=== PATIENT | female | born 1970 | race Caucasian/White ===

== ENCOUNTER → 2019-08-18 13:52 | Outpatient (BNVA) | payer MEDICAID, SELFPAY | PROVIDERS: Family Provider Nurse Practitioner Family; PCP Family Medicine; Visit Provider Social Worker | DX: F43.12 Post-traumatic stress disorder, chronic (principal); F33.2 Major depressive disorder, recurrent severe without psychotic features; J44.9 Chronic obstructive pulmonary disease, unspecified | CPT/HCPCS: 90834 ==

== ENCOUNTER → 2019-08-26 08:07 | Outpatient (BNVA) | payer MEDICAID, SELFPAY | PROVIDERS: Family Provider Nurse Practitioner Family; PCP Family Medicine; Visit Provider Nurse Practitioner Psychiatric/Mental Health | DX: F43.12 Post-traumatic stress disorder, chronic (principal); F33.2 Major depressive disorder, recurrent severe without psychotic features | CPT/HCPCS: 99213 ==

== ENCOUNTER → 2019-10-14 12:45 | Outpatient (BNVA) | payer MEDICAID, SELFPAY | PROVIDERS: Family Provider Nurse Practitioner Family; PCP Family Medicine; Visit Provider Social Worker | DX: F33.2 Major depressive disorder, recurrent severe without psychotic features (principal); F43.12 Post-traumatic stress disorder, chronic | CPT/HCPCS: 90834 ==

== ENCOUNTER → 2019-11-04 08:32 | Outpatient (BNVA) | payer MEDICAID, SELFPAY | PROVIDERS: Family Provider Nurse Practitioner Family; PCP Family Medicine; Visit Provider Social Worker | DX: F43.12 Post-traumatic stress disorder, chronic (principal); F33.2 Major depressive disorder, recurrent severe without psychotic features | CPT/HCPCS: 90834 ==

== ENCOUNTER 2019-11-12 12:12 | Outpatient (CLI) | payer MEDICAID, SELFPAY ==
--- NOTE | 2019-11-12 12:21 | XR_ITS ---
WS: [id number] KNEE LEFT TECHNIQUE: 2 views of the left knee CLINICAL INFORMATION: PAIN IN LEFT KNEE COMPARISON: None. FINDINGS: Left knee is normal in appearance. No evidence of acute fracture dislocation. No significant effusion . Patella is normal. XR/XR knee LT 1-2V [id number] IMPRESSION: Normal left knee.
== END 2019-11-12 12:13 | disposition home or self-care (01) ==
PROVIDERS: Family Provider Nurse Practitioner Family; PCP Family Medicine; Visit Provider Nurse Practitioner Family
DX: M25.562 Pain in left knee (principal)
CPT/HCPCS: 73560

== ENCOUNTER → 2019-11-16 08:14 | Outpatient (BNVA) | payer MEDICAID, SELFPAY | PROVIDERS: Family Provider Nurse Practitioner Family; PCP Family Medicine; Visit Provider Nurse Practitioner Psychiatric/Mental Health | DX: F43.12 Post-traumatic stress disorder, chronic (principal); F33.2 Major depressive disorder, recurrent severe without psychotic features | CPT/HCPCS: 99213 ==

== ENCOUNTER 2020-02-04 10:28 | Outpatient (CLI) | payer MEDICAID, SELFPAY ==
--- NOTE | 2020-02-04 11:05 | MM_ITS ---
WS: [id number] SCREENING DIGITAL MAMMOGRAM WITH CAD HISTORY: SCREEN COMPARISON: 04/06/2018 and 04/02/2016 Bilateral CC and MLO views submitted. Computer aided detection analyzed. Breast composition: The breasts are heterogeneously dense, which may obscure small masses. No suspici ous masses, microcalcifications or architectural distortion. MM/[place] [id number] IMPRESSION: BI-RADS: 1-Negative FOLLOW UP: 1 Year Follow-up
== END 2020-02-04 10:29 | disposition home or self-care (01) ==
LOC: RADSHAW 10:31
PROVIDERS: PCP Nurse Practitioner Family; Visit Provider Nurse Practitioner Family
DX: Z12.31 Encounter for screening mammogram for malignant neoplasm of breast (principal)
CPT/HCPCS: 77067

== ENCOUNTER → 2020-02-15 08:27 | Outpatient (BNVA) | payer MEDICAID, SELFPAY | PROVIDERS: PCP Nurse Practitioner Family; Visit Provider Nurse Practitioner Psychiatric/Mental Health | DX: F33.2 Major depressive disorder, recurrent severe without psychotic features (principal); F43.12 Post-traumatic stress disorder, chronic | CPT/HCPCS: 99213 ==

== ENCOUNTER 2020-02-22 13:15 | Outpatient (CLI) | payer MEDICAID, SELFPAY ==
--- NOTE | 2020-02-22 13:22 | XRR_ITS ---
PROCEDURE INFORMATION: Exam: XR Cervical Spine, 2 or 3 Views Exam date and time: 02/22/2020 1:27 PM Age: 49 years old Clinical indication: Pain and injury or trauma; Fall; Initial encounter; Blunt trauma; Cervicalgia; Additional info: Cervicalgia/fall from bed TECHNIQUE: Imaging protocol: XR of the cervical spine, 2 or 3 views. COMPARISON: CT Cervical Spine wo* [id number] 11/25/2016 2:29 PM FINDINGS: Vertebrae: No acute fracture. Normal alignment. Degenerative disc disease most prominent at C5-C6 and C6-C7, degenerative facet change. Soft tissues: Unremarkable. XR/XR cervical spine 3V* [id number] IMPRESSION: No acute findings.
--- NOTE | 2020-02-22 13:22 | XRR_ITS ---
PROCEDURE INFORMATION: Exam: XR Right Elbow Exam date and time: 02/22/2020 1:45 PM Age: 49 years old Clinical indication: Pain; Elbow; Right; Additional info: Pain in R elbow TECHNIQUE: Imaging protocol: XR Right elbow. Views: 3 or more views. COMPARISON: No relevant prior studies available. FINDINGS: Bones/joints: Normal. Soft tissues: Normal. XR/XR elbow RT min 3V* [id number] IMPRESSION: No acute findings.
== END 2020-02-22 13:16 | disposition home or self-care (01) ==
LOC: RAD 13:17
PROVIDERS: PCP Nurse Practitioner Family; Visit Provider Nurse Practitioner Family
DX: M25.521 Pain in right elbow (principal); W06.XXXA Fall from bed, initial encounter; M54.2 Cervicalgia
CPT/HCPCS: 72040; 73080

== ENCOUNTER 2020-03-01 10:44 | Emergency (ER) | payer MEDICAID, SELFPAY ==
--- NOTE | 2020-03-01 10:48 | XR_ITS ---
WS: [id number] PORTABLE CHEST HISTORY: chest pain COMPARISON: 09/09/2016 Pulmonary hyperexpansion with calcifications. No pleural effusion or pneumothorax. Cardiac size: Normal. Mediastinum/Aorta: Normal mediastinum. No osseous abnormality seen. XR/XR chest 1V portable [id number] IMPRESSION: Chronic emphysema with prior granulomatous disease. No pneumonia.
[2020-03-01 11:33] LABS: Basophils # 0.1 10^3/uL (0.0-0.1); Basophils % 0.8 %; Eosinophils # 0.2 10^3/uL (0.0-0.8); Eosinophils % 2.8 %; Hematocrit 38.2 % (37.0-47.0); Hemoglobin 11.9 g/dL (11.5-15.3); Lymphocytes # 1.6 10^3/uL (0.8-4.8); Lymphocytes % 20.2 %; Mean Corpuscular HGB Conc 31.2 g/dL (30.0-36.0); Mean Corpuscular Hemoglobin 27.4 pg (28.0-34.0); Mean Corpuscular Volume 87.8 fL (81-99); Mean Platelet Volume 10.3 fL (7.4-10.4); Monocytes # 0.8 10^3/uL (0.2-0.9); Monocytes % 9.8 %; Neutrophils # 5.15 10^3/uL (1.8-7.7); Neutrophils % 66.3 %; Nucleated Red Blood Cells % 0 %; Platelet Count 343 10^3/cmm (130-400); Red Blood Count 4.35 10^6/uL (4.1-5.3); Red Cell Distribution Width 12.3 % (12.1-15.1); White Blood Count 7.8 10^3/uL (4.0-10.0)
[2020-03-01 11:51] LABS: Alanine Aminotransferase 16 U/L (0-33); Albumin Level 4.1 g/dL (3.5-5.2); Alkaline Phosphatase 85 IU/L (35-105); Anion Gap 13.1 (5-19); Aspartate Amino Transferase 19 U/L (0-32); Blood Urea Nitrogen 7 mg/dL (6-20); Calcium 9.3 mg/dL (8.5-10.5); Carbon Dioxide 28 mmol/L (22-29); Chloride 105 mmol/L (98-107); Globulin 3.9 g/dL (1.3-4.6); Glomerular Filtration Rate 88.9 mL/min (90-130); Glucose 101 mg/dL (65-115); Osmolality Calculated 290 mOsm/kg (285-295); Potassium 4.1 mmol/L (3.5-5.1); Sodium 142 mmol/L (136-145); Total Bilirubin 0.2 mg/dL (0.15-1.2)
[2020-03-01 11:56] VITALS: BP 116/69; PULSE 111; RESP 20; TEMP 36.7; O2SAT 98; BMI 31.5
--- NOTE | 2020-03-01 13:16 | ECG_ITS ---
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 Measurements Intervals [place] Rate: 104 P: 83 CT: 156 QRS: 80 QRSD: 74 T: 65 QT: 317 QTc: 419 Interpretive Statements SINUS TACHYCARDIA POSSIBLE RIGHT ATRIAL ENLARGEMENT [0.25mV P WAVE] POSSIBLE LEFT ATRIAL ENLARGEMENT [-0.1mV P WAVE IN V1/V2] SEPTAL MYOCARDIAL INFARCTION , OF INDETERMINATE AGE [40+ ms Q WAVE IN V1/V2] Compared to ECG 07/09/2019 23:07:02 Sinus rhythm no longer present Myocardial infarct finding still present Electronically Signed On 03-01-2020 20:20:59 CDT by Karissa Lawrence M.D. [id number]
--- NOTE | 2020-03-01 13:17 | ED_ITS ---
HPI - SOB/Dyspnea General: Chief Complaint: Shortness of Breath/Dyspnea Stated Complaint: SOB Time Seen by Provider: 03/01/20 12:55 Source: patient Mode of arrival: ambulatory Limitations: no limitations History of Present Illness: HPI Narrative: Shasha is a nice 49-year-old female who comes in complaining of shortness of breath for the last week. She has an occasional cough but denies any fever or loss of sense of taste/smell. She denies any leg pain, swelling or edema. Patient denies any history of congestive heart failure. She does have a history of COPD and wears oxygen at all times. Patient denies any worsening of her cough from baseline. She does have dyspnea on exertion. She denies any chest pain. Patient denies being around anyone else sick or having any other symptoms. Associated symptoms: Deny abdominal pain, chest congestion, chest pain, diaphoresis, dizziness, extremity pain, fever(s), hemoptysis, lightheadedness, nausea, orthopnea, palpitations, syncope or vomiting Review of Systems Const: Denies: fever(s), chills, body aches, fatigue, malaise or diaphoresis Eyes: Denies: change in vision, blurry vision, photophobia, eye discomfort, eye discharge or eye redness ENMT: Denies: throat pain, odynophagia, hoarseness, swelling of lips/tongue, ear or mastoid pain, ear discharge, change in hearing or nasal discharge Card: Reports: dyspnea on exertion; Denies: chest pain, palpitations, irregular heart rhythm, edema, lightheadedness, syncope, pre-syncope or orthopnea Resp: Reports: dyspnea, non-productive cough and wheezing; Denies: productive cough, hemoptysis or chest congestion GI: Denies: abdominal pain, nausea, vomiting, hematemesis, coffee ground e mesis, heartburn, diarrhea, constipation, GI cramping, hematochezia or melena : Denies: flank pain, dysuria, urinary frequency, urinary urgency or hematuria Musc: Denies: neck pain, back pain, extremity pain, extremity swelling, joint pain, joint swelling, joint redness, joint warmth or joint stiffness Skin/Breast: Denies: rash, pruritus, erythema or skin tenderness Neuro: Denies: headache(s), numbness in extremities, weakness in extremities, sensory changes, lack of coordination, difficulty walking, dizziness, vertigo, confusion, Slurred speech present or seizure-like activity Junior/Lymph: Denies: easy bruising, easy bleeding, petechiae, purpura or enlarged lymph nodes All/Imm: Denies: urticaria, throat swelling, tongue swelling, facial swelling or acute wheezing PFSH ED PFSH: Medical History Chronic post-traumatic stress disorder COPD (chronic obstructive pulmonary disease) Major depressive disorder, recurrent severe without psychotic features Social History Smoking and tobacco status: former smoker Current gender identity: Female Physical Exam Const: COMMON NORMALS: no acute distress, patient oriented x3, no limitations, healthy appearing and well nourished GENERAL APPEARANCE: cooperative, well kempt and well developed HENMT: COMMON NORMALS: normocephalic, atraumatic, external ears normal, EAC's normal and Normal external nose present HEAD & SCALP: normal to inspection, normocephalic and atraumatic FACE & SINUS: normal facial exam and face symmetric NOSE: Normal external nose present and Normal nares present EXTERNAL EAR: Yes external ears normal EXTERNAL AUDITORY CANAL: EAC's normal MOUTH: Normal oral and palatal mucosa present, lip normal and tongue normal Eye: COMMON NORMALS: Equal, round and reactive pupils present and conjunctivae normal GENERAL EYE: appearance normal, both eyes and all related structures ALIGNMENT: Yes alignment normal PERIORBITAL: periorbital findings normal EYELID: eyelids normal CONJUNCTIVA: Yes conjunctivae normal SCLERA: sclerae normal PUPIL: Yes Equal, round and reactive pupils present Neck/C-Spine: COMMON NORMALS: full ROM, no lymphadenopathy, supple, no meningeal signs and no JVD GENERAL: Yes normal visual inspection and Yes trachea midline Chest: COMMONS NORMALS: normal inspection of the chest and normal palpation of entire chest wall Resp: COMMON NORMALS: normal respiratory effort, No retractions, No use of accessory muscles and clear to auscultation bilaterally EFFORT & INSPECTION: Yes able to speak in complete sentences and Yes symmetric chest movement AUSCULTATION: clear to auscultation bilaterally, no crackles, no rales, no rhonchi, no wheezes and diminished lung sounds Cardio: COMMON NORMALS: no JVD, regular rate, regular rhythm, S1 normal heart sound present and S2 normal heart sound present RATE: regular rate RHYTHM: regular rhythm HEART SOUNDS: S1 normal heart sound present, S2 normal heart sound present, no click, no gallops, no murmurs, no rubs and abnormal split S2 GI: COMMON NORMALS: Soft to palpation and No hepatosplenomegaly present PALPATION: Yes Soft to palpation, No Tenderness to palpation present (GI), No Guarding due to palpation present (GI), No Rigid due to palpation, Yes No hepatosplenomegaly present, No Hernia present, No Palpable mass present and No Pulsatile mass present : COMMON NORMALS: Yes no CVA tenderness BLADDER/KIDNEY EXAM: Yes no CVA tenderness EXTERNAL FEMALE EXAM: No Hernia present Back/Pelvis: COMMON NORMALS: no CVA tenderness, thoracic and lumbar spine normal to inspection, no thoracic nor lumbar tenderness and thoraco-lumbar ROM normal Extremity: COMMON NORMALS: normal to inspection, full ROM, capillary refill normal, no joint enlargement, no clubbing, cyanosis or edema and no calf tenderness Neuro: COMMON NORMALS: patient oriented x3, CN's II-XII intact bilaterally, moves all extremities, no focal motor deficits and no sensory deficits noted MENINGEAL SIGNS: Yes no meningeal signs SPEECH: speech normal Psych: COMMON NORMALS: mental status grossly normal, Normal thought process present, cooperative, normal affect, speech normal and activity/motor behavior normal APPEARANCE: Yes well kempt SPEECH: Yes normal speech THOUGHT PROCESS: Normal thought process present Skin: COMMON NORMALS: no rashes or lesions noted, turgor normal, no jaundice, no petechiae and no mottling GENERAL SKIN EXAM: no rashes or lesions noted and turgor normal Course Vital Signs: Vital signs: Vital Signs Temperature 98.0 F 03/01/20 11:56 Pulse Rate 136 H 03/01/20 14:15 Respiratory Rate 18 03/01/20 13:59 Blood Pressure 116/69 03/01/20 11:56 Pulse Oximetry 95 03/01/20 13:59 MDM - SOB/Dyspnea MDM Narrative: Medical decision making narrative: 1431 -the patient is feeling much better and is moving a great deal more air after breathing treatments. She is ready to go home. She is never had chest pain. Her EKG and cardiac enzymes are normal. Patient has increased air movement and wheezing cannot be auscultated after the breathing treatments. I see no evidence of covert infection or any other acute problems at this time. The patient is feeling better would like to go home. She does agree to return should her symptoms change or worsen. Lab Data: Attestation: I reviewed the patient's lab results. Labs: Lab Results 03/01/20 03/01/20 03/01/20 Range/Units 11:20 11:20 11:20 WBC 7.8 (4.0-10.0) 10^3/ uL RBC 4.35 (4.1-5.3) 10^6/u L Hgb 11.9 (11.5-15.3) g/dL Hct 38.2 (37.0-47.0) % MCV 87.8 (81-99) fL MCH 27.4 L (28.0-34.0) pg MCHC 31.2 (30.0-36.0) g/dL RDW 12.3 (12.1-15.1) % Plt Count 343 (130-400) 10^3/c mm MPV 10.3 (7.4-10.4) fL Neut % (Auto) 66.3 % Lymph % (Auto) 20.2 % [place] % (Auto) 9.8 % Eos % (Auto) 2.8 % Baso % (Auto) 0.8 % Neut # (Auto) 5.15 (1.8-7.7) 10^3/u L Lymph # (Auto) 1.6 (0.8-4.8) 10^3/u L [place] # (Auto) 0.8 (0.2-0.9) 10^3/u L Eos # (Auto) 0.2 (0.0-0.8) 10^3/u L Baso # (Auto) 0.1 (0.0-0.1) 10^3/u L Nucleated RBC % (a uto) 0 % Nucleated RBCs # 0.0 /100WBC Specimen Type Sample Site ABG pH (7.35-7.45) ABG pCO2 (35-45) mmHg ABG pO2 (80.0-100.0) mmH g ABG HCO3 (22-26) mmol/L ABG Base Excess (-2.0-2.0) mmol/ L [place] Test Hematocrit (37-47) % O2 Delivery Device O2 Liters/Min % Wire Insulator ID Sodium 142 (136-145) mmol/L Potassium 4.1 (3.5-5.1) mmol/L Chloride 105 (98-107) mmol/L Carbon Dioxide 28 (22-29) mmol/L Anion Gap 13.1 (5-19) BUN 7 (6-20) mg/dL Creatinine 0.7 (0.5-0.9) mg/dL GFR Calculation 88.9 L (90-130) mL/min Glucose 101 (65-115) mg/dL Calculated Osmolal ity 290 (285-295) mOsm/k g Calcium 9.3 (8.5-10.5) mg/dL Total Bilirubin 0.2 (0.15-1.2) mg/dL AST 19 (0-32) U/L ALT 16 (0-33) U/L Alkaline Phosphata se 85 (35-105) IU/L Troponin T Baselin e 9 (0-10) ng/L Troponin T 120 Min brant (0-10) ng/L Delta Troponin T (0-10) ABS# NT-Pro-B Natriuret Pep (0-125) pg/mL Total Protein 8.0 (6.6-8.7) g/dL Albumin 4.1 (3.5-5.2) g/dL Globulin 3.9 (1.3-4.6) g/dL 03/01/20 03/01/20 03/01/20 Range/Units 11:20 13:40 14:00 WBC (4.0-10.0) 10^3/ uL RBC (4.1-5.3) 10^6/u L Hgb (11.5-15.3) g/dL Hct (37.0-47.0) % MCV (81-99) fL MCH (28.0-34.0) pg MCHC (30.0-36.0) g/dL RDW (12.1-15.1) % Plt Count (130-400) 10^3/c mm MPV (7.4-10.4) fL Neut % (Auto) % Lymph % (Auto) % [place] % (Auto) % Eos % (Auto) % Baso % (Auto) % Neut # (Auto) (1.8-7.7) 10^3/u L Lymph # (Auto) (0.8-4.8) 10^3/u L [place] # (Auto) (0.2-0.9) 10^3/u L Eos # (Auto) (0.0-0.8) 10^3/u L Baso # (Auto) (0.0-0.1) 10^3/u L Nucleated RBC % (a uto) % Nucleated RBCs # /100WBC Specimen Type Arterial Sample Site Radial, right ABG pH 7.41 (7.35-7.45) ABG pCO2 39.2 (35-45) mmHg ABG pO2 79.0 L (80.0-100.0) mmH g ABG HCO3 25.0 (22-26) mmol/L ABG Base Excess 0.4 (-2.0-2.0) mmol/ L [place] Test Pos Hematocrit 37.0 (37-47) % O2 Delivery Device Nc O2 Liters/Min 2.0 % Wire Insulator ID Anonymous Sodium (136-145) mmol/L Potassium (3.5-5.1) mmol/L Chloride (98-107) mmol/L Carbon Dioxide (22-29) mmol/L Anion Gap (5-19) BUN (6-20) mg/dL Creatinine (0.5-0.9) mg/dL GFR Calculation (90-130) mL/min Glucose (65-115) mg/dL Calculated Osmolal ity (285-295) mOsm/k g Calcium (8.5-10.5) mg/dL Total Bilirubin (0.15-1.2) mg/dL AST (0-32) U/L ALT (0-33) U/L Alkaline Phosphata se (35-105) IU/L Troponin T Baselin e (0-10) ng/L Troponin T 120 Min brant 6.00 (0-10) ng/L Delta Troponin T -3.00 L (0-10) ABS# NT-Pro-B Natriuret Pep 155 H (0-125) pg/mL Total Protein (6.6-8.7) g/dL Albumin (3.5-5.2) g/dL Globulin (1.3-4.6) g/dL Imaging Data^: CXR: Attestation: I personally reviewed and interpreted this imaging study as follows: My impression: COPD changes without any focal infiltrates or pulmonary vascular congestion. EKG Data^: EKG 1: Attestation: I personally reviewed and interpreted this EKG as follows: EKG Interpretation Date: 03/01/20 EKG interpretation time: 13:45 Interpretation: Sinus tach at 104 beats a minute, normal axis, no blocks, normal intervals, nonspecific ST and T wave changes. Discharge Plan Discharge Patient Disposition: Home Clinical Impression: Acute exacerbation of chronic obstructive airways disease Condition: Stable Prescriptions: New prednisone 10 mg tablet 20 mg PO TID 5 Days Qty: 30 RF: 0 Zithromax Z-Archie 250 mg tablet See Rx Instructions .ROUTE .COMPLEX Qty: 6 RF: 0 albuterol sulfate 90 mcg/actuation HFA aerosol inhaler 2 inh INHALATION Q4H PRN (Reason: shortness of breath or wheezing) Qty: 6.7 RF: 0 No Action levothyroxine 112 mcg capsule 112 mcg PO DAILY RF: 0 Stiolto Respimat 2.5-2.5 mcg/actuation mist 2 puff INHALATION DAILY RF: 0 prenat.vits,aliza,gwh-kgmd-wcitd Tablet 1 tab PO DAILY RF: 0 metoprolol succinate 25 mg capsule,sprinkle,ER 24hr 25 mg PO DAILY RF: 0 acetaminophen-codeine [Tylenol-Codeine #3] 300-30 mg tablet 1 tab PO BID PRN (Reason: Pain) RF: 0 albuterol sulfate 90 mcg/actuation aero powdr breath act w/sensor 90 mcg INHALATION Q6H PRN (Reason: Shortness Of Breath) RF: 0 citalopram [Celexa] 10 mg tablet 10 mg PO QAM Qty: 30 RF: 6 citalopram [Celexa] 20 mg tablet 20 mg PO QAM Qty: 30 RF: 6 montelukast [Singulair] 10 mg tablet 10 mg PO DAILY RF: 0 tizanidine 2 mg Tablet 4 mg PO TID PRN (Reason: Muscle Spasm) RF: 0 ibuprofen 800 mg Tablet 800 mg PO TID RF: 0 Xyzal 5 mg Tablet 5 mg PO BID RF: 0 trazodone 50 mg tablet See Rx Instructions .ROUTE .COMPLEX RF: 0 Discharge Orders: Discharge Order (Routine); Ordered 03/01/20 Ordered By: Shasta Corey Referrals: Farida Ramos FNP [Primary Care Provider] - 1-3 days Discharge Diet: Advance as tolerated Discharge Activity: Increase activity as tolerated Patient Instructions: Chronic Obstructive Pulmonary Disease (ED) Activity Restrictions/Additional Instructions: Please return to the ER immediately for any of the signs or symptoms listed on your discharge instruction sheets, worsening/changing of your symptoms, you are not getting better as quickly as expected, or for ANY other cause or concerns. Return to the ER for new onset of chest pain, worsening shortness of breath, fever, or for any other cause for concern. Coding Level of Care Code ED [employer] Extension Specialist for Chg Fwd Exam Comprehensive
[2020-03-01 13:51] LABS: Troponin(5th) Baseline 9 ng/L (0-10)
[2020-03-01] MEDS: ipratropium-albuterol 3 mL Neb 9 ML INHALATION (13:55)
[2020-03-01 13:59] VITALS: PULSE 104; RESP 18; O2SAT 95
[2020-03-01 14:15] VITALS: PULSE 136
[2020-03-01 14:15] LABS: ABG PCO2 39.2 mmHg (35-45); ABG PH Result 7.41 (7.35-7.45); Base Excess ABG 0.4 mmol/L (-2.0-2.0); Blood Gas Allen Test Pos; Blood Gas Operator Identificat Anonymous; Blood Gas Sample Site Radial, right; Blood Gas Sample Type Arterial; Oxygen Device NC
[2020-03-01 14:16] LABS: NT Pro B Type Natriuretic Pept 155 pg/mL (0-125)
[2020-03-01] MEDS: predniSONE 20 mg Tablet 60 MG PO (15:21)
[2020-03-01 15:28] VITALS: BP 114/56; PULSE 110; RESP 21; TEMP 36.9; O2SAT 96
== END 2020-03-01 15:29 | disposition home or self-care (01) ==
PROVIDERS: Physician Assistant; Emergency Provider Emergency Medicine; PCP Nurse Practitioner Family
DX: J44.1 Chronic obstructive pulmonary disease with (acute) exacerbation (principal); Z87.891 Personal history of nicotine dependence
CPT/HCPCS: 12345; 36415; 36600; 71045; 80053; 82803; 83880; 84484; 85025; 93005; 94640; 96374; 96375; 99282; 99284; J2930; J7512

== ENCOUNTER 2020-03-15 20:54 | Emergency (ER) | payer MEDICAID, SELFPAY ==
[2020-03-15 21:00] VITALS: BP 103/59; PULSE 119; RESP 20; TEMP 36.8; O2SAT 94; BMI 31.7
--- NOTE | 2020-03-15 21:14 | XR_ITS ---
WS: [id number] Portable AP upright chest, 03/15/2020 Clinical Data: sob Comparison: Portable chest, 03/01/2020. Findings: No nodules, masses or effusions are seen. The heart is normal. The pulmonary vascularity is not increased. No pneumonia or pneumothorax is seen. The diaphragms are flattened. There are small c alcified granulomas throughout both lungs. XR/XR chest 1V portable [id number] Impression: Hyperinflation.
--- NOTE | 2020-03-15 21:26 | ED_ITS ---
HPI - SOB/Dyspnea General: Chief Complaint: Shortness of Breath/Dyspnea Stated Complaint: sob Time Seen by Provider: 03/15/20 21:11 Source: patient Mode of arrival: ambulatory Limitations: no limitations History of Present Illness: HPI Narrative: 49-year-old female who has a history of COPD states she has had slight increased wheezing and shortness of breath over the last 3 days. She denies any fever or cough. Patient is on 2 L of oxygen at baseline and is satting 97% here on 2 L. Denies any chest pain. Denies any fevers. MD elicited complaint: shortness of breath Associated symptoms: Deny abdominal pain, chest pain, fever(s), nausea or vomiting Review of Systems Const: Denies: fever(s), chills, body aches or change in appetite Eyes: Denies: blurry vision or eye discomfort ENMT: Denies: throat pain or dental pain Card: Denies: chest pain Resp: Reports: dyspnea and wheezing GI: Denies: abdominal pain, nausea, vomiting or diarrhea : Denies: dysuria Musc: Denies: neck pain or back pain Skin/Breast: Denies: rash Neuro: Denies: headache(s) Psych: Denies: depression Junior/Lymph: Denies: easy bruising All/Imm: Denies: urticaria PFSH ED PFSH: Medical History Chronic post-traumatic stress disorder COPD (chronic obstructive pulmonary disease) Major depressive disorder, recurrent severe without psychotic features Social History Smoking and tobacco status: former smoker Current gender identity: Female Female Reproductive History: Date of last menstrual period: 02/09/20 Physical Exam Const: COMMON NORMALS: no acute distress, patient oriented x3 and healthy appearing HENMT: COMMON NORMALS: normocephalic and atraumatic HEAD & SCALP: normocephalic and atraumatic Eye: COMMON NORMALS: Equal, round and reactive pupils present and EOMs intact bilaterally PUPIL: Yes Equal, round and reactive pupils present Neck/C-Spine: COMMON NORMALS: full ROM and supple Chest: COMMONS NORMALS: normal inspection of the chest and normal palpation of entire chest wall Resp: COMMON NORMALS: normal respiratory effort, No retractions and No use of accessory muscles AUSCULTATION: wheezes Cardio: COMMON NORMALS: regular rate, regular rhythm and No murmurs present (Cardio) RATE: regular rate RHYTHM: regular rhythm GI: COMMON NORMALS: Normal to inspection, nondistended, normoactive bowel sounds present, Soft to palpation, non-tender and no masses PALPATION: Yes Soft to palpation Extremity: COMMON NORMALS: normal to inspection and full ROM Neuro: COMMON NORMALS: patient oriented x3, moves all extremities and no focal motor deficits Psych: COMMON NORMALS: mental status grossly normal, Normal thought process present and cooperative THOUGHT PROCESS: Normal thought process present Skin: COMMON NORMALS: no rashes or lesions noted and no wounds GENERAL SKIN EXAM: no rashes or lesions noted Course Vital Signs: Vital signs: Vital Signs Temperature 98.2 F 03/15/20 21:00 Pulse Rate 110 H 03/15/20 23:46 Respiratory Rate 18 03/15/20 23:40 Blood Pressure 123/90 03/15/20 23:11 Pulse Oximetry 95 03/15/20 23:40 MDM - SOB/Dyspnea MDM Narrative: Medical decision making narrative: Nilsa presents here with bronchitis likely COPD exacerbation. Patient's chest x-ray shows no signs of pneumonia. Patient feels improved after breathing treatment. Patient is stable for discharge will place on prednisone and Levaquin. Patient is return if wor sening. Lab Data: Labs: Lab Results 03/15/20 03/15/20 Range/Units 21:20 21:20 WBC 10.8 H (4.0-10.0) 10^3/ uL RBC 4.18 (4.1-5.3) 10^6/u L Hgb 11.5 (11.5-15.3) g/dL Hct 37.8 (37.0-47.0) % MCV 90.4 (81-99) fL MCH 27.5 L (28.0-34.0) pg MCHC 30.4 (30.0-36.0) g/dL RDW 13.4 (12.1-15.1) % Plt Count 305 (130-400) 10^3/c mm MPV 10.5 H (7.4-10.4) fL Neut % (Auto) 58.7 % Lymph % (Auto) 29.1 % [place] % (Auto) 9.6 % Eos % (Auto) 1.7 % Baso % (Auto) 0.5 % Neut # (Auto) 6.36 (1.8-7.7) 10^3/u L Lymph # (Auto) 3.2 (0.8-4.8) 10^3/u L [place] # (Auto) 1.0 H (0.2-0.9) 10^3/u L Eos # (Auto) 0.2 (0.0-0.8) 10^3/u L Baso # (Auto) 0.1 (0.0-0.1) 10^3/u L Nucleated RBC % (a uto) 0 % Nucleated RBCs # 0.0 /100WBC Sodium 138 (136-145) mmol/L Potassium 3.5 (3.5-5.1) mmol/L Chloride 101 (98-107) mmol/L Carbon Dioxide 26 (22-29) mmol/L Anion Gap 14.5 (5-19) BUN 7 (6-20) mg/dL Creatinine 0.7 (0.5-0.9) mg/dL GFR Calculation 88.9 L (90-130) mL/min Glucose 134 H (65-115) mg/dL Calculated Osmolal ity 284 L (285-295) mOsm/k g Calcium 9.3 (8.5-10.5) mg/dL Total Bilirubin 0.2 (0.15-1.2) mg/dL AST 16 (0-32) U/L ALT 20 (0-33) U/L Alkaline Phosphata se 80 (35-105) IU/L NT-Pro-B Natriuret Pep 108 (0-125) pg/mL Total Protein 7.9 (6.6-8.7) g/dL Albumin 3.8 (3.5-5.2) g/dL Globulin 4.1 (1.3-4.6) g/dL Imaging Data^: CXR: Attestation: I personally reviewed and interpreted this imaging study as follows: My impression: No acute abnormality EKG Data^: EKG 1: Attestation: I personally reviewed and interpreted this EKG as follows: EKG Interpretation Date: 03/15/20 EKG interpretation time: 21:50 Interpretation: sinus tach hr [address] or t wave abnormalities qrs 78 qtc 381 Discharge Plan Discharge Patient Disposition: Home Clinical Impression: Acute exacerbation of chronic obstructive airways disease Condition: Stable Prescriptions: [place] 5-325 mg tablet 1 tab PO Q6H PRN (Reason: pain) Qty: 14 RF: 0 prednisone 50 mg tablet 50 mg PO DAILY Qty: 5 RF: 0 Levaquin 750 mg tablet 750 mg PO DAILY 5 Days RF: 0 No Action levothyroxine 112 mcg capsule 112 mcg PO DAILY RF: 0 Stiolto Respimat 2.5-2.5 mcg/actuation mist 2 puff INHALATION DAILY RF: 0 prenat.vits,aliza,qya-ymqp-sxril Tablet 1 tab PO DAILY RF: 0 metoprolol succinate 25 mg capsule,sprinkle,ER 24hr 25 mg PO DAILY RF: 0 acetaminophen-codeine [Tylenol-Codeine #3] 300-30 mg tablet 1 tab PO BID PRN (Reason: Pain) RF: 0 albuterol sulfate 90 mcg/actuation aero powdr breath act w/sensor 90 mcg INHALATION Q6H PRN (Reason: Shortness Of Breath) RF: 0 citalopram [Celexa] 10 mg tablet 10 mg PO QAM Qty: 30 RF: 6 citalopram [Celexa] 20 mg tablet 20 mg PO QAM Qty: 30 RF: 6 montelukast [Singulair] 10 mg tablet 10 mg PO DAILY RF: 0 tizanidine 2 mg Tablet 4 mg PO TID PRN (Reason: Muscle Spasm) RF: 0 ibuprofen 800 mg Tablet 800 mg PO TID RF: 0 levocetirizine [Xyzal] 5 mg Tablet 5 mg PO BID RF: 0 trazodone 50 mg tablet See Rx Instructions .ROUTE .COMPLEX RF: 0 albuterol sulfate 90 mcg/actuation HFA aerosol inhaler 2 inh INHALATION Q4H PRN (Reason: shortness of breath or wheezing) Qty: 6.7 RF: 0 Discharge Orders: Discharge Order (Routine); Ordered 03/15/20 Ordered By: Kalpana Rodriguez Referrals: Farida Ramos FNP [Primary Care Provider] - 1-3 days Discharge Diet: Advance as tolerated Discharge Activity: Resume usual activity Patient Instructions: Chronic Obstructive Pulmonary Disease (ED), Chronic Bronchitis (ED) Discharge Date/Time: 03/15/20 23:52 Coding Level of Care Code ED Rn Plastics for Chg Fwd Exam Comprehensive
[2020-03-15 21:27] LABS: Basophils # 0.1 10^3/uL (0.0-0.1); Basophils % 0.5 %; Eosinophils # 0.2 10^3/uL (0.0-0.8); Eosinophils % 1.7 %; Hematocrit 37.8 % (37.0-47.0); Hemoglobin 11.5 g/dL (11.5-15.3); Lymphocytes # 3.2 10^3/uL (0.8-4.8); Lymphocytes % 29.1 %; Mean Corpuscular HGB Conc 30.4 g/dL (30.0-36.0); Mean Corpuscular Hemoglobin 27.5 pg (28.0-34.0); Mean Corpuscular Volume 90.4 fL (81-99); Mean Platelet Volume 10.5 fL (7.4-10.4); Monocytes % 9.6 %; Neutrophils # 6.36 10^3/uL (1.8-7.7); Neutrophils % 58.7 %; Nucleated Red Blood Cells % 0 %; Platelet Count 305 10^3/cmm (130-400); Red Blood Count 4.18 10^6/uL (4.1-5.3); Red Cell Distribution Width 13.4 % (12.1-15.1); White Blood Count 10.8 10^3/uL (4.0-10.0)
[2020-03-15 21:51] VITALS: BP 146/84; PULSE 106; RESP 28; O2SAT 98
[2020-03-15 21:55] LABS: Alanine Aminotransferase 20 U/L (0-33); Albumin Level 3.8 g/dL (3.5-5.2); Alkaline Phosphatase 80 IU/L (35-105); Anion Gap 14.5 (5-19); Aspartate Amino Transferase 16 U/L (0-32); Blood Urea Nitrogen 7 mg/dL (6-20); Calcium 9.3 mg/dL (8.5-10.5); Carbon Dioxide 26 mmol/L (22-29); Chloride 101 mmol/L (98-107); Globulin 4.1 g/dL (1.3-4.6); Glomerular Filtration Rate 88.9 mL/min (90-130); Glucose 134 mg/dL (65-115); NT Pro B Type Natriuretic Pept 108 pg/mL (0-125); Osmolality Calculated 284 mOsm/kg (285-295); Potassium 3.5 mmol/L (3.5-5.1); Sodium 138 mmol/L (136-145); Total Bilirubin 0.2 mg/dL (0.15-1.2); Total Protein 7.9 g/dL (6.6-8.7)
[2020-03-15 22:42] VITALS: RESP 28
[2020-03-15] MEDS: morphine 4 mg/mL SDV 1 mL IVP (22:42)
[2020-03-15 23:11] VITALS: BP 123/90; PULSE 102; RESP 22; O2SAT 97
[2020-03-15 23:40] VITALS: PULSE 108; RESP 18; O2SAT 95
[2020-03-15] MEDS: ipratropium-albuterol 3 mL Neb INHALATION (23:42)
[2020-03-15 23:46] VITALS: PULSE 110
== END 2020-03-15 23:52 | disposition home or self-care (01) ==
PROVIDERS: Emergency Provider Emergency Medicine; PCP Nurse Practitioner Family
DX: J44.1 Chronic obstructive pulmonary disease with (acute) exacerbation (principal); Z87.891 Personal history of nicotine dependence
CPT/HCPCS: 12345; 36415; 71045; 80053; 83880; 85025; 94640; 96374; 96375; 99283; 99284; J2270; J2930; J7611

== ENCOUNTER 2020-03-29 00:29 | Observation (INO) | payer MEDICAID, SELFPAY ==
[2020-03-29] VITALS (15 sets, daily range): BP systolic 122–147; BP diastolic 72–93; PULSE 94–762; RESP 18–38; TEMP 36.7–37; O2SAT 93–100; BMI 29.5
--- NOTE | 2020-03-29 00:32 | ECG_ITS ---
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 Measurements Intervals [place] Rate: 134 P: 74 [place]: 124 QRS: 66 QRSD: 75 T: 77 QT: 331 QTc: 495 Interpretive Statements SINUS TACHYCARDIA SEPTAL MYOCARDIAL INFARCTION , OF INDETERMINATE AGE [40+ ms Q WAVE IN V1/V2] Compared to ECG 03/01/2020 13:45:52 No significant changes Electronically Signed On 03-29-2020 19:36:38 CDT by Debbie Ma M.D. [id number] f
--- NOTE | 2020-03-29 00:32 | XR_ITS ---
WS: [id number] EXAM: AP CHEST: PORTABLE UPRIGHT DATE OF EXAM: 03/29/2020, 0035 hours COMPARISON: Chest x-rays from 07/09/2019, 03/01/2020 and 03/15/2020 HISTORY: Patient is 49 years old with shortness of breath. FINDINGS: The cardiac silhouette is normal in size. The mediastinal contours are similar and within normal l imits. The pulmonary vascularity is normal. Chronic lung changes are seen. Hyperinflation noted. D iffuse calcified miliary granulomatous changes noted. Loss of lung parenchymal markings in the upper lung zones. Slight apical capping on the right. Increased interstitial markings in mid lower lung zon es felt to represent fibrosis. Appears similar. No new area of consolidation. There is no effusion o r pneumothorax. No acute bony abnormality is seen. XR/XR chest 1V portable [id number] IMPRESSION: Chronic lung changes with hyperinflation and slight degree of fibrosis. Miliary diffuse calcified granuloma changes. No acute consolidating infiltrate.
--- NOTE | 2020-03-29 00:33 | ED_ITS ---
HPI - SOB/Dyspnea General: Chief Complaint: Shortness of Breath/Dyspnea Stated Complaint: SOB Time Seen by Provider: 03/29/20 00:32 Source: patient and EMS Mode of arrival: EMS Limitations: no limitations History of Present Illness: HPI Narrative: 49-year-old female who has a long history of COPD states she has been getting short of breath all day with it worsening over the last 2 hours. Patient brought in by EMS and given a breathing treatment along with IV Solu-Medrol and Decadron. Patient still is in distress. Patient is typically on 2 L of oxygen at home is currently on 5. She does have wheezing and increased work of breathing. She is able to speak in 2-4 word sentences. Denies any fever. Associated symptoms: Deny abdominal pain, chest pain, fever(s), nausea or vomiting Review of Systems Const: Denies: fever(s), chills, body aches or change in appetite Eyes: Denies: blurry vision or eye discomfort ENMT: Denies: throat pain or dental pain Card: Denies: chest pain Resp: Reports: dyspnea and wheezing GI: Denies: abdominal pain, nausea, vomiting or diarrhea : Denies: dysuria Musc: Denies: neck pain or back pain Skin/Breast: Denies: rash Neuro: Denies: headache(s) Psych: Denies: depression Junior/Lymph: Denies: easy bruising All/Imm: Denies: urticaria PFSH ED PFSH: Medical History (Updated 03/29/20 @ 02:13 by Karissa Butcher MD) Chronic post-traumatic stress disorder COPD (chronic obstructive pulmonary disease) Hypothyroidism Legg-Perthes disease Major depressive disorder, recurrent severe without psychotic features Surgical History (Updated 03/29/20 @ 02:13 by Karissa Butcher MD) S/P hip replacement Family History (Updated 03/29/20 @ 02:14 by Karissa Butcher MD) Denies family history of Psychiatric illness Social History Smoking and tobacco status: former smoker Current gender identity: Female Female Reproductive History: Date of last menstrual period: 02/09/20 Physical Exam Const: COMMON NORMALS: patient oriented x3 and healthy appearing GENERAL APPEARANCE: in distress HENMT: COMMON NORMALS: normocephalic and atraumatic HEAD & SCALP: normocephalic and atraumatic Eye: COMMON NORMALS: Equal, round and reactive pupils present and EOMs intact bilaterally PUPIL: Yes Equal, round and reactive pupils present Neck/C-Spine: COMMON NORMALS: full ROM and supple Chest: COMMONS NORMALS: normal inspection of the chest and normal palpation of entire chest wall Resp: EFFORT & INSPECTION: Yes tachypneic and Yes respiratory distress AUSCULTATION: wheezes Cardio: COMMON NORMALS: regular rate, regular rhythm and No murmurs present (Cardio) RATE: regular rate RHYTHM: regular rhythm GI: COMMON NORMALS: Normal to inspection, nondistended, normoactive bowel sounds present, Soft to palpation, non-tender and no masses PALPATION: Yes Soft to palpation Extremity: COMMON NORMALS: normal to inspection and full ROM Neuro: COMMON NORMALS: patient oriented x3, moves all extremities and no focal motor deficits Psych: COMMON NORMALS: mental status grossly normal, Normal thought process present and cooperative THOUGHT PROCESS: Normal thought process present Skin: COMMON NORMALS: no rashes or lesions noted and no wounds GENERAL SKIN EXAM: no rashes or lesions noted Course Vital Signs: Vital signs: Vital Signs Pulse Rate 140 H 03/29/20 01:00 Respiratory Rate 21 H 03/29/20 00:50 Blood Pressure 147/86 03/29/20 00:46 Pulse Oximetry 100 03/29/20 00:50 MDM - SOB/Dyspnea MDM Narrative: Medical decision making narrative: Patient presents here with COPD exacerbation. Patient had minimal air movement when she removed but patient is breathing much better currently on BiPAP. She has no signs of pneumonia. Patient has no signs of COVID. Her x-ray is normal. Patient is no signs of cardiac cause or pulmonary bruising. I spoke to hospitalist who will admit. Lab Data: Labs: Lab Results 03/29/20 03/29/20 03/29/20 Range/Units 00:35 00:35 00:35 WBC 15.6 H (4.0-10.0) 10^3/ uL RBC 4.47 (4.1-5.3) 10^6/u L Hgb 12.4 (11.5-15.3) g/dL Hct 40.5 (37.0-47.0) % MCV 90.6 (81-99) fL MCH 27.7 L (28.0-34.0) pg MCHC 30.6 (30.0-36.0) g/dL RDW 13.8 (12.1-15.1) % Plt Count 361 (130-400) 10^3/c mm MPV 10.6 H (7.4-10.4) fL Neut % (Auto) 53.0 % Lymph % (Auto) 36.0 % [place] % (Auto) 8.3 % Eos % (Auto) 2.0 % Baso % (Auto) 0.4 % Neut # (Auto) 8.27 H (1.8-7.7) 10^3/u L Lymph # (Auto) 5.6 H (0.8-4.8) 10^3/u L [place] # (Auto) 1.3 H (0.2-0.9) 10^3/u L Eos # (Auto) 0.3 (0.0-0.8) 10^3/u L Baso # (Auto) 0.1 (0.0-0.1) 10^3/u L Nucleated RBC % (a uto) 0 % Nucleated RBCs # 0.0 /100WBC PT 11.40 L (12.1-14.9) SECO NDS INR 0.80 (0.8-1.2) Sodium 142 (136-145) mmol/L Potassium 4.0 (3.5-5.1) mmol/L Chloride 105 (98-107) mmol/L Carbon Dioxide 23 (22-29) mmol/L Anion Gap 18.0 (5-19) BUN 8 (6-20) mg/dL Creatinine 0.7 (0.5-0.9) mg/dL GFR Calculation 88.9 L (90-130) mL/min Glucose 123 H (65-115) mg/dL Calculated Osmolal ity 291 (285-295) mOsm/k g Calcium 9.9 (8.5-10.5) mg/dL Total Bilirubin 0.2 (0.15-1.2) mg/dL AST 24 (0-32) U/L ALT 19 (0-33) U/L Alkaline Phosphata se 79 (35-105) IU/L NT-Pro-B Natriuret Pep 84 (0-125) pg/mL Total Protein 7.7 (6.6-8.7) g/dL Albumin 3.9 (3.5-5.2) g/dL Globulin 3.8 (1.3-4.6) g/dL Imaging Data^: CXR: Attestation: I personally reviewed and interpreted this imaging study as follows: My impression: No acute abnormality EKG Data^: EKG 1: Attestation: I personally reviewed and interpreted this EKG as follows: EKG Interpretation Date: 03/29/20 EKG interpretation time: 00:36 Interpretation: Sinus tach heart rate [address] or T wave abnormalities QRS 75 QTc 410 Critical Care Time Critical Care Time: Critical Care Time: Yes Total Critical Care Time: 36 Attestation: This case had a high probability of a clinically significant, sudden, or life threatening deterioration of this patient's condition which required my full and direct attention, intervention and personal management. Discharge Plan Discharge Patient Disposition: Admitted As Inpatient Clinical Impression: Acute exacerbation of chronic obstructive airways disease Condition: Stable Referrals: Richard,BONNIE Ibqal [Primary Care Provider] - Coding Level of Care Code ED Buildings And Grounds Coordinator for Chg Fwd Exam Comprehensive
[2020-03-29 00:44] LABS: Basophils # 0.1 10^3/uL (0.0-0.1); Basophils % 0.4 %; Eosinophils # 0.3 10^3/uL (0.0-0.8); Hematocrit 40.5 % (37.0-47.0); Hemoglobin 12.4 g/dL (11.5-15.3); Lymphocytes # 5.6 10^3/uL (0.8-4.8); Mean Corpuscular HGB Conc 30.6 g/dL (30.0-36.0); Mean Corpuscular Hemoglobin 27.7 pg (28.0-34.0); Mean Corpuscular Volume 90.6 fL (81-99); Mean Platelet Volume 10.6 fL (7.4-10.4); Monocytes # 1.3 10^3/uL (0.2-0.9); Monocytes % 8.3 %; Neutrophils # 8.27 10^3/uL (1.8-7.7); Nucleated Red Blood Cells % 0 %; Platelet Count 361 10^3/cmm (130-400); Red Blood Count 4.47 10^6/uL (4.1-5.3); Red Cell Distribution Width 13.8 % (12.1-15.1); White Blood Count 15.6 10^3/uL (4.0-10.0)
[2020-03-29 01:00] LABS: ABG PCO2 39.9 mmHg (35-45); Arterial Blood Gas Hematocrit 37.2 % (37-47); Base Excess ABG 0.2 mmol/L (-2.0-2.0); Blood Gas Allen Test Pos; Blood Gas Sample Site Radial, right; Blood Gas Sample Type Arterial; Carboxyhemoglobin 0.8 %THgb (0.4-20.1); HCO3 ABG 24.9 mmol/L (22-26); HGB O2 Sat 94.6 % (95-100); Methemoglobin 0.8 % (0.4-1.5); Oxygen Device BIPAP; PO2 ABG 75.1 mmHg (80.0-100.0); Total Hemoglobin 12.1 g/dL (12-16)
[2020-03-29 01:18] LABS: Slide Review Slide Review Perform
[2020-03-29 01:25] LABS: Alanine Aminotransferase 19 U/L (0-33); Albumin Level 3.9 g/dL (3.5-5.2); Alkaline Phosphatase 79 IU/L (35-105); Aspartate Amino Transferase 24 U/L (0-32); Blood Urea Nitrogen 8 mg/dL (6-20); Calcium 9.9 mg/dL (8.5-10.5); Carbon Dioxide 23 mmol/L (22-29); Chloride 105 mmol/L (98-107); Globulin 3.8 g/dL (1.3-4.6); Glomerular Filtration Rate 88.9 mL/min (90-130); Glucose 123 mg/dL (65-115); NT Pro B Type Natriuretic Pept 84 pg/mL (0-125); Osmolality Calculated 291 mOsm/kg (285-295); Sodium 142 mmol/L (136-145); Total Bilirubin 0.2 mg/dL (0.15-1.2); Total Protein 7.7 g/dL (6.6-8.7)
--- NOTE | 2020-03-29 02:06 | PM.HP ---
Providers/Chief Complaint Primary Care Provider: BONNIE Brown Chief Complaint: SOB History of Present Illness Shasha Serrato is a 49 year old female who carries history of severe COPD, 2 L oxygen dependent at home, came in with chief complaint of worsening shortness of breath. Patient is stating that this last 1 week has been very difficult for her emotionally as her got diagnosed with small cell lung cancer. She is compliant with her antidepressants, she presented to the hospital for chief complaint of worsening shortness of breath, her symptoms started about 2 to 3 days ago and got worse to the point she could not feel comfortable even at rest despite using breathing treatments, lately she has been helping someone to clean her house, she also has 2-3 dogs and is allergic to cat, dogs, pollen. She is attributing worsening of her symptoms to cleaning her house. No recent fever excessive sputum production or cough. She is not very mobile at baseline. She has not noticed any leg swelling or cramps but has been noticing burning sensation at the bottom of her feet. She called EMS because of worsening shortness of breath, she received steroids and breathing treatment enroute to the hospital Diagnosis in the ER revealed leukocytosis, tachypnea, tachycardia she was put on BiPAP to decrease work of breathing, blood gas on BiPAP revealed pH 7.40, PCO2 39, PO2 75, at the time of my evaluation she was off BiPAP, tachycardic, no active respiratory distress but had positive wheezing bilaterally, chest x-ray showing chronic calcified granulomas all over her lungs bilaterally Review of Systems Const: Reports: body aches and fatigue; Denies: fever(s) or chills Eyes: Denies: change in vision ENMT: Denies: throat pain Card: Reports: dyspnea on exertion; Denies: chest pain Resp: Reports: dyspnea, non-productive cough and chest congestion GI: Denies: abdominal pain, nausea, diarrhea or constipation : Denies: flank pain Musc: Denies: neck pain Skin/Breast: Denies: rash Neuro: Denies: headache(s) Psych: Reports: anxiety and depression Endo: Denies: polyuria Junior/Lymph: Denies: easy bruising All/Imm: Denies: urticaria Medications/Allergies Home Medications Medication Instructions Recorded Confirmed Last Taken Type montelukast 10 mg tablet 10 mg PO DAILY tab 07/29/19 03/15/20 03/14/20 History levothyroxine 112 mcg capsule 112 mcg PO DAILY cap 11/15/19 03/15/20 03/14/20 History acetaminophen 300 mg-codeine 30 mg 1 tab PO BID PRN 02/14/20 03/15/20 03/15/20 History tablet albuterol sulfate 90 mcg/actuation 90 mcg INHALATION Q6H PRN 02/14/20 03/15/20 03/15/20 History breath activated powder inhaler,sensor metoprolol succinate 25 mg capsule 25 mg PO DAILY 02/14/20 03/15/20 03/15/20 History sprinkle, ext. release 24 hr prenat.vits,aliza,nsh-omja-vylou 1 tab PO DAILY 02/14/20 03/15/20 02/29/20 History tiotropium 2.5 mcg-olodaterol 2.5 2 puff INHALATION DAILY 02/14/20 03/15/20 03/15/20 History mcg/actuation mist for inhalation citalopram 10 mg tablet 10 mg PO QAM #30 tab 02/15/20 03/15/20 03/15/20 Rx citalopram 20 mg tablet 20 mg PO QAM #30 tab 02/15/20 03/15/20 03/15/20 Rx albuterol sulfate 2 inh INHALATION Q4H PRN #6.7 gm 03/01/20 03/15/20 03/15/20 Rx ibuprofen 800 mg PO TID 03/01/20 03/15/20 03/14/20 History levocetirizine [Xyzal] 5 mg PO BID 03/01/20 03/15/20 03/14/20 History tizanidine 4 mg PO TID PRN 03/01/20 03/15/20 03/14/20 History trazodone See Rx Instructions .ROUTE .COMPLEX 03/01/20 03/15/20 02/29/20 History hydrocodone-acetaminophen [[place]] 1 tab PO Q6H PRN #14 tab 03/15/20 Unknown Rx prednisone 50 mg PO DAILY #5 tab 03/15/20 Unknown Rx Allergies Allergy/AdvReac Type Severity Reaction Status Date / Time cephalexin [From Keflex] Allergy Severe vomiting Verified 03/15/20 21:40 doxycycline Allergy Unknown vomiting Verified 03/15/20 21:40 meloxicam [From Mobic] Allergy Unknown Unknown Verified 03/15/20 21:40 Penicillins Allergy Unknown rash Verified 03/15/20 21:40 vancomycin Allergy Unknown Unknown Verified 03/15/20 21:40 PFSH Acute PFSH: Medical History Calcified granuloma of lung Chronic post-traumatic stress disorder COPD (chronic obstructive pulmonary disease) Uses 2 L of oxygen at home, severe COPD as per pulmonary function test done in 2019 Hypothyroidism Legg-Perthes disease Major depressive disorder, recurrent severe without psychotic features Suicide attempt Surgical History H/O breast biopsy H/O tubal ligation History of dental surgery S/P hip replacement Family History Denies family history of Psychiatric illness Social History (Updated 03/29/20 @ 02:42 by Karissa Butcher MD) Smoking and tobacco status: former smoker Alcohol intake: never Substance/Drug Use: never Household members: spouse Housing: House Current gender identity: Female Female Reproductive History: Date of last menstrual period: 02/09/20 Vitals/I&O/Wt Last Vital Signs Pulse 140 H 03/29/20 01:00 Resp 21 H 03/29/20 00:50 BP 147/86 03/29/20 00:46 Pulse Ox 100 03/29/20 00:50 Weight last 48 hrs Weight 68.492 kg Physical Exam Narrative: EXAM NARRATIVE: Middle-age female, appears more than stated age No active respiratory distress, Not on BiPAP at the time of my evaluation Sinus tachycardia noted on telemetry No pursed lip breathing noticed Bilateral diffuse wheezing S1, S2 sinus tachycardia no signs of heart failure Abdomen soft distended bowel sound present nontender EOMI, PERRLA, mild conjunctival hyperemia No neurological deficit No lower extremity edema gangrene or ulcer Data : 03/29/20 00:35 03/29/20 00:35 A&P Assessment and plan (1) Acute exacerbation of chronic obstructive airways disease: Mild exacerbation of COPD Chest x-ray showing calcified granulomas which are chronic No evidence of consolidation or pneumonia I would use a azithromycin for anti-inflammatory effect and possible bronchitis D-dimer slightly high, will obtain CTA to rule out PE patient is currently tachycardic At home she is using 2 L of oxygen [id number] currently at 5 L of oxygen Blood gas reveals normal pH, compensated PCO2 DuoNeb every 4 PRN usage Prednisone 40 mg for active wheezing She is allergic to cats, dogs animal dander and has 2-3 dogs at home Status: Acute (2) Major depressive disorder, recurrent severe without psychotic features: She is compliant with her citalopram 30 mg, uses trazodone 25 mg on as needed basis, currently compensated no active suicidal thoughts, she is emotionally drained because of recent diagnosis of small cell cancer of her Status: Chronic Additional A&P Information DVT prophylaxis: Lovenox Cardiac diet Full code Attestations Medical Necessity Statement*: Anticipating discharge in less than 48 hours continued management for mild COPD exacerbation and bronchitis, rule out PE with CTA chest Time Spent in Patient Care: (>than 50% of time spent in counselling and/or direct pt care on unit). 35 minutes Coding Level of Care Code Acute Erecting Engineer for Angela Joshua Diagnoses Acute exacerbation of chronic obstructive airways disease J44.1 Major depressive disorder, recurrent severe without psychotic features F33.2
[2020-03-29 02:27] LABS: D Dimer 0.69 ug/mIFEU (0-0.59)
--- NOTE | 2020-03-29 02:48 | CTR_ITS ---
PROCEDURE INFORMATION: Exam: CT Angiography Chest With Contrast Exam date and time: 03/29/2020 2:51 AM Age: 49 years old Clinical indication: Shortness of breath; Additional info: Rule out pe TECHNIQUE: Imaging protocol: Computed tomographic angiography of the chest with intravenous contrast. 3D rendering (Not supervised by radiologist): MIP and/or 3D reconstructed images were created by the technologist. Radiation optimization: All CT scans at this facility use at least one of these dose optimization techniques: automated exposure control; mA and/or kV adjustment per patient size (includes targeted exams where dose is matched to clinical indication); or iterative reconstruction. Contrast material: OMNI 350; Contrast volume: 93 ml; Contrast route: INTRAVENOUS (IV); COMPARISON: CR XR chest 1V portable [id number] 03/29/2020 12:34 AM RADIATION DOSE METRICS: Total DLP (mGy-cm): 632.77 FINDINGS: Pulmonary arteries: Normal. No pulmonary emboli. Aorta: Unremarkable. No aortic aneurysm. No aortic dissection. Lungs: Unremarkable. No consolidation. No masses. Pleural space: Unremarkable. No pneumothorax. No pleural effusion. Heart: Unremarkable. No cardiomegaly. No pericardial effusion. Lymph nodes: Unremarkable. No enlarged lymph nodes. Bones/joints: Unremarkable. No acute fracture. Soft tissues: Unremarkable. CT/CT angio chest PE protcl [id number] IMPRESSION: No acute findings. Radiation Dose CTDIVOL = (mGy): DLP = 632.77 (mGy-cm)
[2020-03-29] MEDS: iohexol 350 mg/mL 100 mL Btl IV (03:06)
[2020-03-29] MEDS: enoxaparin 40 mg/0.4 mL Syringe SUBCUT (05:23)
[2020-03-29] MEDS: citalopram 20 mg Tablet 30 MG PO (05:25)
[2020-03-29 09:54] LABS: Thyroid Stimulating Hormone 0.36 uIU/mL (0.27-4.20)
[2020-03-29] MEDS: montelukast sodium 10 mg Tablet PO (09:59)
[2020-03-29] MEDS: sennosides-docusate Tablet 1 TAB PO (09:59)
[2020-03-29] MEDS: azithromycin 250 mg Tablet 500 MG PO (10:00)
[2020-03-29] MEDS: levothyroxine 112 mcg Tablet PO (10:00)
[2020-03-29] MEDS: predniSONE 20 mg Tablet 40 MG PO (10:00)
--- NOTE | 2020-03-29 14:11 | PC.RESP ---
Pulmonary Rehab information sent to patient.
[2020-03-29] MEDS: ipratropium-albuterol 3 mL Neb INHALATION ×2 (14:22→20:40)
--- NOTE | 2020-03-29 14:55 | P.PN_ITS ---
Subjective Subjective: Interval history: Admitted over night. H&P and labs noted. Denies of any nausea, vomiting, headache. States she is feeling a lot better. On my examination she is on 3 L nasal cannula saturating 94%. States she is feeling a little anxious. Vitals/I&O/Wt Last Vital Signs Temp 98.1 F 03/29/20 11:00 Pulse 118 H 03/29/20 14:23 Resp 24 H 03/29/20 14:23 BP 125/81 03/29/20 11:00 Pulse Ox 94 03/29/20 14:23 03/28/20 03/29/20 03/29/20 22:59 06:59 14:59 Intake Total 600 / 600 Output Total 400 / 400 Balance -400 / -400 600 / 600 Weight last 48 hrs Weight 68.492 kg Physical Exam Narrative: EXAM NARRATIVE: Middle-age female, appears more than stated age No active respiratory distress, Not on BiPAP at the time of my evaluation Sinus tachycardia noted on telemetry No pursed lip breathing noticed Bilateral diffuse wheezing S1, S2 sinus tachycardia no signs of heart failure Abdomen soft distended bowel sound present nontender EOMI, PERRLA, mild conjunctival hyperemia No neurological deficit No lower extremity edema gangrene or ulcer Data : 03/29/20 00:35 03/29/20 00:35 A&P Assessment and plan (1) Acute exacerbation of chronic obstructive airways disease: Mild exacerbation of COPD. She is allergic to cats, dogs animal dander and has 2-3 dogs at home Chest x-ray showing calcified granulomas which are chronic.No evidence of consolidation or pneumonia patient has remained afebrile during hospitalization. Though does have mild leukocytosis. For now we will continue to monitor off antibiotics. Continue azithromycin for anti-inflammatory effect and possible bronchitis. D-dimer elevated but CTA PE negative for any thromboembolism. At home she is using 2 L of oxygen currently on 3 L nasal cannula saturating 94%. DuoNeb's every 6 hours, budesonide twice daily. Continue with prednisone 40 mg daily. Most likely will require taper as an outpatient. Status: Acute (2) Major depressive disorder, recurrent severe without psychotic features: She is compliant with her citalopram 30 mg, uses trazodone 25 mg on as needed basis, currently compensated no active suicidal thoughts, she is emotionally drained because of recent diagnosis of small cell cancer of her Status: Chronic Additional A&P Information DVT prophylaxis: Lovenox Cardiac diet Full code Attestations Medical Necessity Statement*: Acute on chronic hypoxia, COPD exacerbation Coding Level of Care Code Acute Industrial Illuminating Engineer for Angela Fwsraa Diagnoses Acute exacerbation of chronic obstructive airways disease J44.1 Major depressive disorder, recurrent severe without psychotic features F33.2
[2020-03-29] MEDS: budesonide 0.5 mg/2 mL Neb INHALATION (20:40)
[2020-03-30] VITALS (9 sets, daily range): BP systolic 120–135; BP diastolic 61–84; PULSE 100–117; RESP 17–23; TEMP 36.7–37.1; O2SAT 92–99
[2020-03-30] MEDS: ipratropium-albuterol 3 mL Neb INHALATION ×2 (02:35→08:33)
[2020-03-30] MEDS: enoxaparin 40 mg/0.4 mL Syringe SUBCUT (05:25)
[2020-03-30] MEDS: citalopram 20 mg Tablet 30 MG PO (05:25)
[2020-03-30 06:04] LABS: Basophils % 0.2 %; Eosinophils % 0.1 %; Hemoglobin 10.7 g/dL (11.5-15.3); Lymphocytes # 2.9 10^3/uL (0.8-4.8); Mean Corpuscular HGB Conc 30.6 g/dL (30.0-36.0); Mean Corpuscular Hemoglobin 27.2 pg (28.0-34.0); Mean Corpuscular Volume 89.1 fL (81-99); Mean Platelet Volume 11.4 fL (7.4-10.4); Monocytes # 1.2 10^3/uL (0.2-0.9); Neutrophils # 11.04 10^3/uL (1.8-7.7); Neutrophils % 72.2 %; Nucleated Red Blood Cells % 0 %; Platelet Count 320 10^3/cmm (130-400); Red Blood Count 3.93 10^6/uL (4.1-5.3); Red Cell Distribution Width 14.4 % (12.1-15.1); White Blood Count 15.3 10^3/uL (4.0-10.0)
[2020-03-30 06:34] LABS: Alanine Aminotransferase 15 U/L (0-33); Albumin Level 3.5 g/dL (3.5-5.2); Alkaline Phosphatase 67 IU/L (35-105); Anion Gap 13.3 (5-19); Aspartate Amino Transferase 14 U/L (0-32); Blood Urea Nitrogen 11 mg/dL (6-20); Calcium 9.9 mg/dL (8.5-10.5); Carbon Dioxide 25 mmol/L (22-29); Chloride 107 mmol/L (98-107); Globulin 3.4 g/dL (1.3-4.6); Glomerular Filtration Rate 76.2 mL/min (90-130); Glucose 114 mg/dL (65-115); Magnesium 2.3 mg/dL (1.7-2.3); Osmolality Calculated 294 mOsm/kg (285-295); Potassium 3.3 mmol/L (3.5-5.1); Sodium 142 mmol/L (136-145); Total Bilirubin 0.2 mg/dL (0.15-1.2); Total Protein 6.9 g/dL (6.6-8.7)
[2020-03-30] MEDS: levothyroxine 112 mcg Tablet PO (08:31)
[2020-03-30] MEDS: montelukast sodium 10 mg Tablet PO (08:31)
[2020-03-30] MEDS: predniSONE 20 mg Tablet 40 MG PO (08:31)
[2020-03-30] MEDS: azithromycin 250 mg Tablet 500 MG PO (08:32)
[2020-03-30] MEDS: budesonide 0.5 mg/2 mL Neb INHALATION (08:33)
--- NOTE | 2020-03-30 10:57 | PM.DCS ---
Discharge Providers Date of Admission: 03/29/20 02:19 Date of Discharge: March 30, 2020 Attending Provider at Admission: Karissa Butcher MD Attending Provider at Discharge: Maninder Kiser MD Primary Care Provider: BONNIE Brown Diagnoses at Discharge Discharge Diagnosis (1) Acute exacerbation of chronic obstructive airways disease: Status: Acute (2) Major depressive disorder, recurrent severe without psychotic features: Status: Chronic Reason for Visit Reason for Visit: SOB Hospital Course Discharge Summary: Shasha Serrato is a 49 year old female who carries history of severe COPD, 2 L oxygen dependent at home, came in with chief complaint of worsening shortness of breath. Patient is stating that this last 1 week has been very difficult for her emotionally as her got diagnosed with small cell lung cancer. She is compliant with her antidepressants, she presented to the hospital for chief complaint of worsening shortness of breath, her symptoms started about 2 to 3 days ago and got worse to the point she could not feel comfortable even at rest despite using breathing treatments, lately she has been helping someone to clean her house, she also has 2-3 dogs and is allergic to cat, dogs, pollen. She is attributing worsening of her symptoms to cleaning her house. No recent fever excessive sputum production or cough. She is not very mobile at baseline. She has not noticed any leg swelling or cramps but has been noticing burning sensation at the bottom of her feet. She called EMS because of worsening shortness of breath, she received steroids and breathing treatment enroute to the hospital Diagnosis in the ER revealed leukocytosis, tachypnea, tachycardia she was put on BiPAP to decrease work of breathing, blood gas on BiPAP revealed pH 7.40, PCO2 39, PO2 75, at the time of my evaluation she was off BiPAP, tachycardic, no active respiratory distress but had positive wheezing bilaterally, chest x-ray showing chronic calcified granulomas all over her lungs bilaterally. Patient was admitted to the hospital and was started on steroid taper and nebulization treatment. Pneumonia was ruled out by negative procalcitonin, no leukocytosis, afebrile status, no consolidation on imaging. She responded well to the treatment and was back to her baseline oxygen supplementation to keep her saturation 90% both at rest and on ambulation. She is been discharged medically stable condition on steroid taper and nebulization. She is advised to follow-up with her primary care provider in 2 weeks. Physical Exam Narrative: EXAM NARRATIVE: Middle-age female, appears more than stated age No active respiratory distress, Not on BiPAP at the time of my evaluation Sinus tachycardia noted on telemetry No pursed lip breathing noticed Bilateral diffuse wheezing, improving from admission S1, S2 sinus tachycardia no signs of heart failure Abdomen soft distended bowel sound present nontender EOMI, PERRLA, mild conjunctival hyperemia No neurological deficit No lower extremity edema gangrene or ulcer Discharge Data Data Completed and Pending: Completed Studies During Hospitalization Category Date Time Status CT angio chest PE protcl [id number] Stat Cat Scan 03/29/20 02:48 Completed XR chest 1V ronni ble [id number] Urgent Exams 03/29/20 00:32 Completed Pending at discharge Category Date Time Status MRSA by PCR Jean guardado Lab 03/29/20 10:05 Received Labs from last 24 hours 03/30/20 03/30/20 04:03 04:03 WBC 15.3 H RBC 3.93 L Hgb 10.7 L Hct 35.0 L MCV 89.1 MCH 27.2 L MCHC 30.6 RDW 14.4 Plt Count 320 MPV 11.4 H Neut % (Auto) 72.2 Lymph % (Auto) 19.0 [place] % (Auto) 8.0 Eos % (Auto) 0.1 Baso % (Auto) 0.2 Neut # (Auto) 11.04 H Lymph # (Auto) 2.9 [place] # (Auto) 1.2 H Eos # (Auto) 0.0 Baso # (Auto) 0.0 Nucleated RBC % (a uto) 0 Nucleated RBCs # 0.0 Sodium 142 Potassium 3.3 L Chloride 107 Carbon Dioxide 25 Anion Gap 13.3 BUN 11 Creatinine 0.8 GFR Calculation 76.2 L Glucose 114 Calculated Osmolal ity 294 Calcium 9.9 Magnesium 2.3 Total Bilirubin 0.2 AST 14 ALT 15 Alkaline Phosphata se 67 Total Protein 6.9 Albumin 3.5 Globulin 3.4 Vitals: Last Vital Signs Temp 98.0 F 03/30/20 07:35 Pulse 106 H 03/30/20 08:37 Resp 18 03/30/20 08:35 BP 130/77 03/30/20 07:35 Pulse Ox 92 03/30/20 08:35 Discharge Plan Discharge Patient Disposition: Home Condition: Stable Prescriptions: New budesonide [Pulmicort] 0.5 mg/2 mL suspension for nebulization 0.25 mg INHALATION BID Qty: 60 RF: 0 ipratropium-albuterol 0.5 mg-3 mg(2.5 mg base)/3 mL solution for nebulization 3 ml INHALATION Q6H PRN (Reason: shortness of breath or wheezing) Qty: 15 RF: 0 methylprednisolone [Medrol (Archie)] 4 mg tablets,dose pack See Rx Instructions .ROUTE .COMPLEX Qty: 21 RF: 0 Continued levothyroxine 112 mcg capsule 112 mcg PO DAILY RF: 0 Stiolto Respimat 2.5-2.5 mcg/actuation mist 2 puff INHALATION DAILY RF: 0 prenat.vits,aliza,vbc-[id number]-qktbn Tablet 1 tab PO DAILY RF: 0 metoprolol succinate 25 mg capsule,sprinkle,ER 24hr 25 mg PO DAILY RF: 0 acetaminophen-codeine [Tylenol-Codeine #3] 300-30 mg tablet 1 tab PO BID PRN (Reason: Pain) RF: 0 albuterol sulfate 90 mcg/actuation aero powdr breath act w/sensor 90 mcg INHALATION Q6H PRN (Reason: Shortness Of Breath) RF: 0 citalopram [Celexa] 10 mg tablet 10 mg PO QAM Qty: 30 RF: 6 citalopram [Celexa] 20 mg tablet 20 mg PO QAM Qty: 30 RF: 6 montelukast [Singulair] 10 mg tablet 10 mg PO DAILY RF: 0 tizanidine 2 mg Tablet 4 mg PO TID PRN (Reason: Muscle Spasm) RF: 0 ibuprofen 800 mg Tablet 800 mg PO TID RF: 0 levocetirizine [Xyzal] 5 mg Tablet 5 mg PO DAILY RF: 0 trazodone 50 mg tablet See Rx Instructions .ROUTE .COMPLEX RF: 0 albuterol sulfate 90 mcg/actuation HFA aerosol inhaler 2 inh INHALATION Q4H PRN (Reason: shortness of breath or wheezing) Qty: 6.7 RF: 0 hydrocodone-acetaminophen [[place]ron] 5-325 mg tablet 1 tab PO Q6H PRN (Reason: pain) Qty: 14 RF: 0 Discharge Orders: Discharge Order (Routine); Ordered 09/17/20 Ordered By: Maninder Kiser Referrals: Farida Ramos FNP [Primary Care Provider] - 2 weeks Discharge Diet: Usual diet Discharge Activity: Resume usual activity Discharge Attestations Time Spent in Discharge Care*: greater than 30 min Specific Discharge Activities: Specific discharge activities: educating patient, discussing with manager case management/social workers/dc planners, documenting/other paperwork and evaluating patient/reviewing data Status at Discharge: Cognitive status at discharge: cognitively intact, Behavioral status at discharge: cooperative, Functional status at discharge: independent ambulation Overall status at discharge: patient is back to baseline Quality Metrics Clinical Quality Measures During this hospital stay, did patient experience: None Coding Level of Care Code Acute Cigarette Packer for [facility] Fwd Diagnoses Acute exacerbation of chronic obstructive airways disease J44.1 Major depressive disorder, recurrent severe without psychotic features F33.2
--- NOTE | 2020-03-30 11:25 | PC.NURSE ---
ambulation trial patient ambulated to hallway and back using walker and on baseline o2 (2L). Patient stated that she was feeling short of breath during walk and had to stop multiple times to lean on walker. after walk, patient O2 saturation was 96% with RR 25 HR:126. notified of walk.
== END 2020-03-30 12:10 | disposition home or self-care (01) ==
LOC: ER 02:00 → MEDSURG 03:16
PROVIDERS: Admitting Provider Internal Medicine; Emergency Provider Emergency Medicine; PCP Nurse Practitioner Family; Visit Provider Student in an Organized Health Care Education/Training Program
DX: J44.1 Chronic obstructive pulmonary disease with (acute) exacerbation (principal); E03.9 Hypothyroidism, unspecified; F33.2 Major depressive disorder, recurrent severe without psychotic features; Z87.891 Personal history of nicotine dependence; Z99.81 Dependence on supplemental oxygen; Z88.0 Allergy status to penicillin; Z88.1 Allergy status to other antibiotic agents
CPT/HCPCS: 12345; 36415; 36600; 71045; 71275; 80053; 82805; 83735; 83880; 84443; 85025; 85378; 85610; 87641; 93005; 94640; 96372; 99282; 99291; G0378; J1650; J7512; J7626; Q0144; Q9967

== ENCOUNTER 2020-04-14 03:30 | Observation (INO) | payer MEDICAID, SELFPAY ==
[2020-04-14] VITALS (15 sets, daily range): BP systolic 98–136; BP diastolic 56–88; PULSE 92–138; RESP 17–34; TEMP 36.3–37.1; O2SAT 92–98; BMI 32.0
--- NOTE | 2020-04-14 03:35 | XR_ITS ---
WS: [id number] Portable AP upright chest, 04/14/2020 Clinical Data: Dyspnea Comparison: Portable chest, 03/29/2020. Findings: No nodules, masses or effusions are seen. The heart is normal. The pulmonary vascularity is not increased. No pneumonia or pneumothorax is seen. The diaphragms are flattened. There are small c alcified granulomas throughout both lungs. XR/XR chest 1V portable [id number] Impression: Hyperinflation.
--- NOTE | 2020-04-14 03:36 | ECG_ITS ---
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 Measurements Intervals [facility] Rate: 136 P: 77 IL: 112 QRS: 61 QRSD: 71 T: 69 QT: 330 QTc: 497 Interpretive Statements SINUS TACHYCARDIA WITH SHORT IL INTERVAL WITH OCCASIONAL VENTRICULAR PREMATURE COMPLEXES LOW QRS VOLTAGE IN PRECORDIAL LEADS [QRS DEFLECTION < 1.0 mV IN CHEST LEADS] SEPTAL MYOCARDIAL INFARCTION , PROBABLY OLD [40+ ms Q WAVE IN V1/V2] Compared to ECG 03/29/2020 00:36:37 Short IL interval now present Low QRS voltage now present Myocardial infarct finding still present Electronically Signed On 04-14-2020 20:37:26 CDT by Karissa Lawrence M.D. [id number]
--- NOTE | 2020-04-14 03:37 | W.ED.SOB ---
HPI - SOB/Dyspnea General: Chief Complaint: Shortness of Breath/Dyspnea Stated Complaint: COPD Time Seen by Provider: 04/14/20 03:31 Source: patient and EMS Mode of arrival: EMS Limitations: other (History limited by severe respiratory distress.) History of Present Illness: HPI Narrative: Shasha is a very nice 49-year-old female who comes in severe respiratory distress. EMS relates the patient was here recently for similar symptoms and was hospitalized for 2 days. Patient states that she has been short of breath for at least a couple days at this time. Patient has a cough but denies fever or chills. Further history is taken from old charts. Review of Systems General: Reports: Other (ROS limited secondary to severe respiratory distress. Positive view of systems noted in HPI.) PFSH ED PFSH: Medical History Calcified granuloma of lung Chronic post-traumatic stress disorder COPD (chronic obstructive pulmonary disease) Uses 2 L of oxygen at home, severe COPD as per pulmonary function test done in 2019 Hypothyroidism Legg-Perthes disease Major depressive disorder, recurrent severe without psychotic features Suicide attempt Surgical History H/O breast biopsy H/O tubal ligation History of dental surgery S/P hip replacement Family History Denies family history of Psychiatric illness Social History Smoking and tobacco status: former smoker Alcohol intake: never Household members: spouse Housing: House Current gender identity: Female Female Reproductive History: Date of last menstrual period: 02/09/20 Physical Exam Const: COMMON NORMALS: patient oriented x3 and alert GENERAL APPEARANCE: in distress and anxious HENMT: COMMON NORMALS: normocephalic, atraumatic, external ears normal, EAC's normal and Normal external nose present HEAD & SCALP: normal to inspection, normocephalic and atraumatic FACE & SINUS: normal facial exam and face symmetric NOSE: Normal external nose present and Normal nares present EXTERNAL EAR: Yes external ears normal EXTERNAL AUDITORY CANAL: EAC's normal MOUTH: Normal oral and palatal mucosa present, lip normal and tongue normal Eye: COMMON NORMALS: Equal, round and reactive pupils present and conjunctivae normal GENERAL EYE: appearance normal, both eyes and all related structures ALIGNMENT: Yes alignment normal PERIORBITAL: periorbital findings normal EYELID: eyelids normal CONJUNCTIVA: Yes conjunctivae normal SCLERA: sclerae normal PUPIL: Yes Equal, round and reactive pupils present Neck/C-Spine: COMMON NORMALS: full ROM, no lymphadenopathy, supple, no meningeal signs and no JVD GENERAL: Yes normal visual inspection and Yes trachea midline Chest: COMMONS NORMALS: normal inspection of the chest and normal palpation of entire chest wall Resp: EFFORT & INSPECTION: Yes tachypneic, Yes respiratory distress and Yes uses accessory muscles AUSCULTATION: rhonchi, wheezes and diminished lung sounds Cardio: COMMON NORMALS: no JVD, regular rhythm, S1 normal heart sound present and S2 normal heart sound present RATE: tachycardic RHYTHM: regular rhythm HEART SOUNDS: S1 normal heart sound present, S2 normal heart sound present, no click, no gallops, no murmurs and no rubs GI: COMMON NORMALS: Soft to palpation and No hepatosplenomegaly present PALPATION: Yes Soft to palpation, No Tenderness to palpation present (GI), No Guarding due to palpation present (GI), No Rigid due to palpation, Yes No hepatosplenomegaly present, No Hernia present, No Palpable mass present and No Pulsatile mass present : COMMON NORMALS: Yes no CVA tenderness BLADDER/KIDNEY EXAM: Yes no CVA tenderness EXTERNAL FEMALE EXAM: No Hernia present Back/Pelvis: COMMON NORMALS: no CVA tenderness, thoracic and lumbar spine normal to inspection, no thoracic nor lumbar tenderness and thoraco-lumbar ROM normal Extremity: COMMON NORMALS: normal to inspection, full ROM, capillary refill normal, no joint enlargement, no clubbing, cyanosis or edema and no calf tenderness Neuro: COMMON NORMALS: patient oriented x3, CN's II-XII intact bilaterally, moves all extremities, no focal motor deficits and no sensory deficits noted SENSORIUM/ORIENTATION: Yes alert MENINGEAL SIGNS: Yes no meningeal signs SPEECH: speech normal Psych: COMMON NORMALS: mental status grossly normal, Normal thought process present, cooperative, normal affect, speech normal and activity/motor behavior normal SPEECH: Yes normal speech THOUGHT PROCESS: Normal thought process present Skin: COMMON NORMALS: no rashes or lesions noted, turgor normal, no jaundice, no petechiae and no mottling GENERAL SKIN EXAM: no rashes or lesions noted and turgor normal Course Vital Signs: Vital signs: Vital Signs Temperature 98.7 F 04/14/20 03:31 Pulse Rate 124 H 04/14/20 04:51 Respiratory Rate 22 H 04/14/20 04:51 Blood Pressure 112/77 04/14/20 04:51 Pulse Oximetry 98 04/14/20 04:51 MDM - SOB/Dyspnea MDM Narrative: Medical decision making narrative: 0504 -patient is markedly better at this time. She is still dependent on BiPAP but her work of breathing is markedly decreased. Her lung sounds are improved and her wheezing is louder but she is moving more air. She is negative for COVID and is not had a fever or recent exposures to her knowledge. Her rapid test is negative here. Patient was tachycardic before and just less than 2 weeks before the patient presented similarly and had a negative CTA at that time. She denies any chest pain, leg pain or swelling. Her tachycardia has improved with treatment for COPD. Patient was given antibiotics, Solu-Medrol and is again improved on BiPAP. The case was endorsed to Dr. Queen and she is agreeable to admission. Patient will continue on BiPAP for now. We will continue to watch her but at this time she is markedly better. Lab Data: Labs: Lab Results 04/14/20 04/14/20 04/14/20 Range/Units 03:50 03:50 03:53 WBC (4.0-10.0) 10^3/ uL RBC (4.1-5.3) 10^6/u L Hgb (11.5-15.3) g/dL Hct (37.0-47.0) % MCV (81-99) fL MCH (28.0-34.0) pg MCHC (30.0-36.0) g/dL RDW (12.1-15.1) % Plt Count (130-400) 10^3/c mm MPV (7.4-10.4) fL Neut % (Auto) % Lymph % (Auto) % [place] % (Auto) % Eos % (Auto) % Baso % (Auto) % Neut # (Auto) (1.8-7.7) 10^3/u L Lymph # (Auto) (0.8-4.8) 10^3/u L [place] # (Auto) (0.2-0.9) 10^3/u L Eos # (Auto) (0.0-0.8) 10^3/u L Baso # (Auto) (0.0-0.1) 10^3/u L Nucleated RBC % (a uto) % Nucleated RBCs # /100WBC Specimen Type Arterial Sample Site Radial, left ABG pH 7.42 (7.35-7.45) ABG pCO2 41.0 (35-45) mmHg ABG pO2 76.1 L (80.0-100.0) mmH g ABG HCO3 26.8 H (22-26) mmol/L ABG O2 Saturation 96.9 ABG Base Excess 2.1 H (-2.0-2.0) mmol/ L Hayden Test Pos A-a O2 Gradient 16.2 H (5-10) mmHg Hematocrit 37.0 (37-47) % Hgb O2 Saturation 95.2 (95-100) % Carboxyhemoglobin 1.0 (0.4-20.1) %THgb Methemoglobin 0.8 (0.4-1.5) % Total Hemoglobin 12.1 (12-16) g/dL Sodium 143.0 (131-143) mmol/L Potassium 3.6 (3.5-5.0) mmol/L Glucose 127.0 H (70-115) mg/dL Ionized Calcium 1.3 (1.1-1.4) mmol/L O2 Delivery Device Bipap FiO2 35.0 % Getter Welder ID Harkr Chloride (98-107) mmol/L Carbon Dioxide (22-29) mmol/L Anion Gap (5-19) BUN (6-20) mg/dL Creatinine (0.5-0.9) mg/dL GFR Calculation (90-130) mL/min Calculated Osmolal ity (285-295) mOsm/k g Lactic Acid (0.5-2.2) mmol/L Calcium (8.5-10.5) mg/dL Magnesium (1.7-2.3) mg/dL Total Bilirubin (0.15-1.2) mg/dL AST (0-32) U/L ALT (0-33) U/L Alkaline Phosphata se (35-105) IU/L Troponin T Baselin e (0-10) ng/L NT-Pro-B Natriuret Pep (0-125) pg/mL Total Protein (6.6-8.7) g/dL Albumin (3.5-5.2) g/dL Globulin (1.3-4.6) g/dL Influenza Type A A g Negative (Negative) Influenza Type B A g Negative (Negative) SARS-CoV-2 Ag (Rap id) Negative (Negative) 04/14/20 04/14/20 04/14/20 Range/Units 03:53 03:53 03:53 WBC 15.1 H (4.0-10.0) 10^3/ uL RBC 4.35 (4.1-5.3) 10^6/u L Hgb 11.8 (11.5-15.3) g/dL Hct 38.0 (37.0-47.0) % MCV 87.4 (81-99) fL MCH 27.1 L (28.0-34.0) pg MCHC 31.1 (30.0-36.0) g/dL RDW 13.8 (12.1-15.1) % Plt Count 309 (130-400) 10^3/c mm MPV 10.5 H (7.4-10.4) fL Neut % (Auto) 76.2 % Lymph % (Auto) 15.8 % [place] % (Auto) 6.4 % Eos % (Auto) 0.9 % Baso % (Auto) 0.4 % Neut # (Auto) 11.50 H (1.8-7.7) 10^3/u L Lymph # (Auto) 2.4 (0.8-4.8) 10^3/u L [place] # (Auto) 1.0 H (0.2-0.9) 10^3/u L Eos # (Auto) 0.1 (0.0-0.8) 10^3/u L Baso # (Auto) 0.1 (0.0-0.1) 10^3/u L Nucleated RBC % (a uto) 0 % Nucleated RBCs # 0.0 /100WBC Specimen Type Sample Site ABG pH (7.35-7.45) ABG pCO2 (35-45) mmHg ABG pO2 (80.0-100.0) mmH g ABG HCO3 (22-26) mmol/L ABG O2 Saturation ABG Base Excess (-2.0-2.0) mmol/ L Hayden Test A-a O2 Gradient (5-10) mmHg Hematocrit (37-47) % Hgb O2 Saturation (95-100) % Carboxyhemoglobin (0.4-20.1) %THgb Methemoglobin (0.4-1.5) % Total Hemoglobin (12-16) g/dL Sodium 141 (131-143) mmol/L Potassium 3.9 (3.5-5.0) mmol/L Glucose 127 H (70-115) mg/dL Ionized Calcium (1.1-1.4) mmol/L O2 Delivery Device FiO2 % Getter Welder ID Chloride 104 (98-107) mmol/L Carbon Dioxide 26 (22-29) mmol/L Anion Gap 14.9 (5-19) BUN 7 (6-20) mg/dL Creatinine 0.7 (0.5-0.9) mg/dL GFR Calculation 88.9 L (90-130) mL/min Calculated Osmolal ity 292 (285-295) mOsm/k g Lactic Acid 2.3 H (0.5-2.2) mmol/L Calcium 9.4 (8.5-10.5) mg/dL Magnesium 1.9 (1.7-2.3) mg/dL Total Bilirubin 0.2 (0.15-1.2) mg/dL AST 19 (0-32) U/L ALT 17 (0-33) U/L Alkaline Phosphata se 71 (35-105) IU/L Troponin T Baselin e (0-10) ng/L NT-Pro-B Natriuret Pep 331 H (0-125) pg/mL Total Protein 6.6 (6.6-8.7) g/dL Albumin 4.2 (3.5-5.2) g/dL Globulin 2.4 (1.3-4.6) g/dL Influenza Type A A g (Negative) Influenza Type B A g (Negative) SARS-CoV-2 Ag (Rap id) (Negative) 04/14/20 Range/Units 03:53 WBC (4.0-10.0) 10^3/ uL RBC (4.1-5.3) 10^6/u L Hgb (11.5-15.3) g/dL Hct (37.0-47.0) % MCV (81-99) fL MCH (28.0-34.0) pg MCHC (30.0-36.0) g/dL RDW (12.1-15.1) % Plt Count (130-400) 10^3/c mm MPV (7.4-10.4) fL Neut % (Auto) % Lymph % (Auto) % [place] % (Auto) % Eos % (Auto) % Baso % (Auto) % Neut # (Auto) (1.8-7.7) 10^3/u L Lymph # (Auto) (0.8-4.8) 10^3/u L [place] # (Auto) (0.2-0.9) 10^3/u L Eos # (Auto) (0.0-0.8) 10^3/u L Baso # (Auto) (0.0-0.1) 10^3/u L Nucleated RBC % (a uto) % Nucleated RBCs # /100WBC Specimen Type Sample Site ABG pH (7.35-7.45) ABG pCO2 (35-45) mmHg ABG pO2 (80.0-100.0) mmH g ABG HCO3 (22-26) mmol/L ABG O2 Saturation ABG Base Excess (-2.0-2.0) mmol/ L Hayden Test A-a O2 Gradient (5-10) mmHg Hematocrit (37-47) % Hgb O2 Saturation (95-100) % Carboxyhemoglobin (0.4-20.1) %THgb Methemoglobin (0.4-1.5) % Total Hemoglobin (12-16) g/dL Sodium (131-143) mmol/L Potassium (3.5-5.0) mmol/L Glucose (70-115) mg/dL Ionized Calcium (1.1-1.4) mmol/L O2 Delivery Device FiO2 % Getter Welder ID Chloride (98-107) mmol/L Carbon Dioxide (22-29) mmol/L Anion Gap (5-19) BUN (6-20) mg/dL Creatinine (0.5-0.9) mg/dL GFR Calculation (90-130) mL/min Calculated Osmolal ity (285-295) mOsm/k g Lactic Acid (0.5-2.2) mmol/L Calcium (8.5-10.5) mg/dL Magnesium (1.7-2.3) mg/dL Total Bilirubin (0.15-1.2) mg/dL AST (0-32) U/L ALT (0-33) U/L Alkaline Phosphata se (35-105) IU/L Troponin T Baselin e 6 (0-10) ng/L NT-Pro-B Natriuret Pep (0-125) pg/mL Total Protein (6.6-8.7) g/dL Albumin (3.5-5.2) g/dL Globulin (1.3-4.6) g/dL Influenza Type A A g (Negative) Influenza Type B A g (Negative) SARS-CoV-2 Ag (Rap id) (Negative) EKG Data^: EKG 1: Attestation: I personally reviewed and interpreted this EKG as follows: EKG Interpretation Date: 04/14/20 EKG interpretation time: 02:39 Interpretation: Sinus tachycardia with a ventricular rate of 136 beats a minute, normal axis, no blocks, normal intervals, significant baseline artifact, no definite ST segment elevations or depressions. Discharge Plan Discharge Prescriptions: No Action levothyroxine 112 mcg capsule 112 mcg PO DAILY RF: 0 Stiolto Respimat 2.5-2.5 mcg/actuation mist 2 puff INHALATION DAILY RF: 0 prenat.vits,aliza,uwb-wwvj-eitya Tablet 1 tab PO DAILY RF: 0 metoprolol succinate 25 mg capsule,sprinkle,ER 24hr 25 mg PO DAILY RF: 0 acetaminophen-codeine [Tylenol-Codeine #3] 300-30 mg tablet 1 tab PO BID PRN (Reason: Pain) RF: 0 albuterol sulfate 90 mcg/actuation aero powdr breath act w/sensor 90 mcg INHALATION Q6H PRN (Reason: Shortness Of Breath) RF: 0 citalopram [Celexa] 10 mg tablet 10 mg PO QAM Qty: 30 RF: 6 citalopram [Celexa] 20 mg tablet 20 mg PO QAM Qty: 30 RF: 6 montelukast [Singulair] 10 mg tablet 10 mg PO DAILY RF: 0 tizanidine 2 mg Tablet 4 mg PO TID PRN (Reason: Muscle Spasm) RF: 0 ibuprofen 800 mg Tablet 800 mg PO TID RF: 0 levocetirizine [Xyzal] 5 mg Tablet 5 mg PO DAILY RF: 0 trazodone 50 mg tablet See Rx Instructions .ROUTE .COMPLEX RF: 0 albuterol sulfate 90 mcg/actuation HFA aerosol inhaler 2 inh INHALATION Q4H PRN (Reason: shortness of breath or wheezing) Qty: 6.7 RF: 0 hydrocodone-acetaminophen [[place]] 5-325 mg tablet 1 tab PO Q6H PRN (Reason: pain) Qty: 14 RF: 0 Medrol (Archie) 4 mg tablets,dose pack See Rx Instructions .ROUTE .COMPLEX Qty: 21 RF: 0 Pulmicort 0.5 mg/2 mL suspension for nebulization 0.25 mg INHALATION BID Qty: 60 RF: 0 ipratropium-albuterol 0.5 mg-3 mg(2.5 mg base)/3 mL solution for nebulization 3 ml INHALATION Q6H PRN (Reason: shortness of breath or wheezing) Qty: 15 RF: 0 Xanax 0.25 mg tablet 0.25 mg PO DAILY PRN (Reason: anxiety) Qty: 7 RF: 0 Coding Level of Care Code ED Debug Technician for Chg Fwd Exam Comprehensive
[2020-04-14] MEDS: levalbuterol 1.25 mg/3 mL Neb 3.75 MG INHALATION (04:00)
[2020-04-14] MEDS: ipratropium 0.5 mg/2.5 mL Neb 1.5 MG INHALATION (04:00)
[2020-04-14 04:03] LABS: ABG PH Result 7.42 (7.35-7.45); Base Excess ABG 2.1 mmol/L (-2.0-2.0); Blood Gas Allen Test Pos; Blood Gas Sample Type Arterial; HCO3 ABG 26.8 mmol/L (22-26); HGB O2 Sat 95.2 % (95-100); Ionized Calcium Level - ABG 1.3 mmol/L (1.1-1.4); Methemoglobin 0.8 % (0.4-1.5); Oxygen Saturation ABG 96.9; PO2 ABG 76.1 mmHg (80.0-100.0); Potassium Level - ABG 3.6 mmol/L (3.5-5.0); Total Hemoglobin 12.1 g/dL (12-16)
[2020-04-14 04:04] LABS: Alveolar-Arterial Oxygen Gradi 16.2 mmHg (5-10); Blood Gas Operator Identificat HARKR; Blood Gas Sample Site Radial, left; Oxygen Device BIPAP
[2020-04-14 04:06] LABS: Basophils # 0.1 10^3/uL (0.0-0.1); Basophils % 0.4 %; Eosinophils # 0.1 10^3/uL (0.0-0.8); Eosinophils % 0.9 %; Hemoglobin 11.8 g/dL (11.5-15.3); Lymphocytes # 2.4 10^3/uL (0.8-4.8); Lymphocytes % 15.8 %; Mean Corpuscular HGB Conc 31.1 g/dL (30.0-36.0); Mean Corpuscular Hemoglobin 27.1 pg (28.0-34.0); Mean Corpuscular Volume 87.4 fL (81-99); Mean Platelet Volume 10.5 fL (7.4-10.4); Monocytes % 6.4 %; Neutrophils % 76.2 %; Nucleated Red Blood Cells % 0 %; Platelet Count 309 10^3/cmm (130-400); Red Blood Count 4.35 10^6/uL (4.1-5.3); Red Cell Distribution Width 13.8 % (12.1-15.1); White Blood Count 15.1 10^3/uL (4.0-10.0)
[2020-04-14 04:25] LABS: Influenza A by IFA Negative (Negative); Influenza B by IFA Negative (Negative); SARS Covid-2 Antigen Negative (Negative)
[2020-04-14 04:25] LABS: Lactic Sepsis W/Reflex 2.3 mmol/L (0.5-2.2)
[2020-04-14 04:28] LABS: Troponin(5th) Baseline 6 ng/L (0-10)
[2020-04-14 04:37] LABS: Alanine Aminotransferase 17 U/L (0-33); Albumin Level 4.2 g/dL (3.5-5.2); Alkaline Phosphatase 71 IU/L (35-105); Anion Gap 14.9 (5-19); Aspartate Amino Transferase 19 U/L (0-32); Blood Urea Nitrogen 7 mg/dL (6-20); Calcium 9.4 mg/dL (8.5-10.5); Carbon Dioxide 26 mmol/L (22-29); Chloride 104 mmol/L (98-107); Globulin 2.4 g/dL (1.3-4.6); Glomerular Filtration Rate 88.9 mL/min (90-130); Glucose 127 mg/dL (65-115); Magnesium 1.9 mg/dL (1.7-2.3); NT Pro B Type Natriuretic Pept 331 pg/mL (0-125); Osmolality Calculated 292 mOsm/kg (285-295); Potassium 3.9 mmol/L (3.5-5.1); Sodium 141 mmol/L (136-145); Total Bilirubin 0.2 mg/dL (0.15-1.2); Total Protein 6.6 g/dL (6.6-8.7)
--- NOTE | 2020-04-14 05:24 | P.HP_ITS ---
Providers/Chief Complaint Admitting Physician: Arin Moreland MD Primary Care Provider: Farida Ramos, BONNIE Chief Complaint: COPD History of Present Illness Shasha Serrato is a 49 year old female who presented to the emergency room via EMS with chief complaint of difficulty breathing. Patient was doing well on . She saw her primary care provider Farida Ramos for hospital follow-up from an admission mid-March. She had refills provided of the inhalers prescribed at the last hospital stay. She is chronically on 2 L of oxygen by nasal cannula. Had thought that she was doing better. Her hospital housekeeper, who normally comes 3 times a week, came around 530 or so. While the hospital housekeeper was there patient began having increasing shortness of breath. This progressively worsened throughout the evening. She took several breathing treatments without improvement. In the evening hours she took one at 9 PM, another at midnight and then another at 2 AM and was still struggling to breathe and that is when she called EMS to bring her in. Interestingly her hospital housekeeper had come prior to her last hospital visit as well. This time her hospital housekeeper cleaned out her oxygen concentrator and prior to the last hospital stay that hospital housekeeper happened to clean out the nebulizer machine for her. She does not know what products were used on either device. The remainder of the housekeepers duties are similar every time she comes. Mrs. Serrato buys the products that the hospital housekeeper uses. She has this feeling that something use during cleaning or simply the effects of the cleaning are what is contributing to her acute episodes. She has a known diagnosis of COPD. She quit smoking 2 years ago. She says over the past 2 years her breathing has progressively worsened. She states that Farida Ramos was going to work on a referral for her to see either Dr. Martines or Dr. Velasco here. She had been seen by a child development consultant in [place] before but has a difficult time getting there. Ms. Serrato denies any fever. She has not had any known sick contacts. Her life partner Richard has been recently diagnosed with lung cancer so they try to avoid being around anyone other than the people that come to the house. Rapid COVID antigen in the emergency room was negative. Emergency room physician noted that patient had significant increased work of breathing on arrival. She was treated with BiPAP therapy, received some steroids and breathing treatment and is feeling much better. She is being admitted for further treatment and evaluation as indicated. She had a CTA of her chest in March that did not show any evidence of PE. She does have chronic granulomatous changes throughout both lungs. She had PFTs in October 2018 that showed severe obstructive defect without broncho-dilatory response and a moderately reduced diffusion capacity. Review of Systems Const: Reports: fatigue; Denies: fever(s), chills, body aches or change in appetite Eyes: Denies: change in vision ENMT: Reports: nasal discharge (Clear) and other (No loss of taste or smell); Denies: throat pain or dry mouth Card: Reports: chest pain (Primarily with coughing but occasionally with exertion, better after rest), palpitations and swelling of feet/ankles Resp: Reports: dyspnea, non-productive cough, wheezing and chest congestion; Denies: productive cough, stridor or pain on inspiration GI: Reports: heartburn and other (Stools are occasionally loose but not large volume); Denies: abdominal pain, nausea, vomiting, constipation, hematochezia or melena : Denies: difficulty voiding Musc: Reports: other (Occasional joint pains, nothing acute) Skin/Breast: Denies: rash, pruritus or sores Neuro: Reports: headache(s) (Today after her breathing difficulty started); Denies: numbness in extremities, weakness in extremities, dizziness, confusion or involuntary movements Psych: Reports: anxiety (Predominantly about her life partner's cancer diagnosis), depression (Doing okay at the moment) and sleeping less (Attributes some of it to being perimenopausal); Denies: change in appetite or suicidal ideation Endo: Reports: hot flashes ( Going through the change ) Junior/Lymph: Denies: easy bruising or easy bleeding Medications/Allergies Home Medications Medication Instructions Recorded Confirmed Last Taken Type montelukast 10 mg tablet 10 mg PO DAILY tab 07/29/19 04/03/20 03/14/20 History levothyroxine 112 mcg capsule 112 mcg PO DAILY cap 11/15/19 04/03/20 03/14/20 History acetaminophen 300 mg-codeine 30 mg 1 tab PO BID PRN 02/14/20 04/03/20 03/15/20 History tablet albuterol sulfate 90 mcg/actuation 90 mcg INHALATION Q6H PRN 02/14/20 04/03/20 03/15/20 History breath activated powder inhaler,sensor metoprolol succinate 25 mg capsule 25 mg PO DAILY 02/14/20 04/03/20 03/15/20 History sprinkle, ext. release 24 hr prenat.vits,aliza,ewj-mfjo-fknzo 1 tab PO DAILY 02/14/20 04/03/20 02/29/20 History tiotropium 2.5 mcg-olodaterol 2.5 2 puff INHALATION DAILY 02/14/20 04/03/20 03/15/20 History mcg/actuation mist for inhalation citalopram 10 mg tablet 10 mg PO QAM #30 tab 02/15/20 04/03/20 03/15/20 Rx citalopram 20 mg tablet 20 mg PO QAM #30 tab 02/15/20 04/03/20 03/15/20 Rx albuterol sulfate 2 inh INHALATION Q4H PRN #6.7 gm 03/01/20 04/03/20 03/15/20 Rx ibuprofen 800 mg PO TID 03/01/20 03/29/20 03/14/20 History levocetirizine [Xyzal] 5 mg PO DAILY 03/01/20 04/03/20 03/14/20 History tizanidine 4 mg PO TID PRN 03/01/20 04/03/20 03/14/20 History trazodone See Rx Instructions .ROUTE .COMPLEX 03/01/20 04/03/20 02/29/20 History hydrocodone-acetaminophen [[place]] 1 tab PO Q6H PRN #14 tab 03/15/20 03/29/20 Unknown Rx alprazolam [Xanax] 0.25 mg PO DAILY PRN #7 tab 03/30/20 Unknown Rx budesonide [Pulmicort] 0.25 mg INHALATION BID #60 ml 03/30/20 04/03/20 Unknown Rx ipratropium-albuterol 3 ml INHALATION Q6H PRN #15 ml 03/30/20 04/03/20 Unknown Rx methylprednisolone [Medrol (Archie)] See Rx Instructions .ROUTE 03/30/20 04/03/20 Unknown Rx .COMPLEX #21 each Allergies Allergy/AdvReac Type Severity Reaction Status Date / Time cephalexin [From Keflex] Allergy Severe vomiting Verified 03/15/20 21:40 doxycycline Allergy Unknown vomiting Verified 03/15/20 21:40 meloxicam [From Mobic] Allergy Unknown Unknown Verified 03/15/20 21:40 Penicillins Allergy Unknown rash Verified 03/15/20 21:40 vancomycin Allergy Unknown Unknown Verified 03/15/20 21:40 PFSH Acute PFSH: Medical History (Updated 04/14/20 @ 06:47 by Arin Moreland MD) Calcified granuloma of lung Chronic post-traumatic stress disorder COPD (chronic obstructive pulmonary disease) Uses 2 L of oxygen at home, severe COPD as per pulmonary function test done in 2019, with limited broncho-dilatory response and reduced diffusion capacity. Hypothyroidism Legg-Perthes disease Major depressive disorder, recurrent severe without psychotic features Sinus tachycardia Suicide attempt Surgical History H/O breast biopsy H/O tubal ligation History of dental surgery S/P hip replacement Family History Denies family history of Psychiatric illness Social History Smoking and tobacco status: former smoker Alcohol intake: never Household members: spouse Housing: House Current gender identity: Female Female Reproductive History: Date of last menstrual period: 12/27/19 : 5 Para: 4 Vitals/I&O/Wt Last Vital Signs Temp 98.7 F 04/14/20 03:31 Pulse 117 H 04/14/20 05:14 Resp 23 H 04/14/20 05:14 BP 114/74 04/14/20 05:14 Pulse Ox 98 04/14/20 05:14 Weight last 48 hrs Weight 74.389 kg Physical Exam Const: OTHER: Alert, oriented x3, cooperative. Initially on BiPAP. This was removed for my examination. Patient is able to talk in short sentences but has to pause a take of breath every now and then, pursed lip breathing noted, no retractions. HENMT: OTHER: Patient has puffy face most notable around the eyes, moist mucus membranes, nasopharynx is clear, no postnasal drainage noted Eye: OTHER: Pupils equally round and reactive to light, extraocular movements are intact Neck/C-Spine: OTHER: Supple Resp: OTHER: Scattered wheezes, no rales or rhonchi, no stridor, breath sounds are equal Cardio: OTHER: Tachycardic but regular rhythm, no murmurs gallops or rubs. 2+ pulses radial, 1+ pulses pedal GI: OTHER: Abdomen soft, nontender, nondistended with positive bowel sounds : OTHER: Deferred Extremity: NARRATIVE EXTREMITY EXAM: 1+ edema at the ankles, no acute synovitis Neuro: OTHER: Face symmetric, speech clear, moves all extremities Psych: OTHER: Normal affect Skin: OTHER: Skin is warm and dry, no acute rashes or lesions noted Data : 04/14/20 03:53 04/14/20 03:53 Other Labs: Laboratory Last Values WBC 15.1 10^3/uL (4.0-10.0) H 04/14/20 03:53 RBC 4.35 10^6/uL (4.1-5.3) 04/14/20 03:53 Hgb 11.8 g/dL (11.5-15.3) 04/14/20 03:53 Hct 38.0 % (37.0-47.0) 04/14/20 03:53 MCV 87.4 fL (81-99) 04/14/20 03:53 MCH 27.1 pg (28.0-34.0) L 04/14/20 03:53 MCHC 31.1 g/dL (30.0-36.0) 04/14/20 03:53 RDW 13.8 % (12.1-15.1) 04/14/20 03:53 Plt Count 309 10^3/cmm (130-400) 04/14/20 03:53 MPV 10.5 fL (7.4-10.4) H 04/14/20 03:53 Neut % (Auto) 76.2 % 04/14/20 03:53 Lymph % (Auto) 15.8 % 04/14/20 03:53 [place] % (Auto) 6.4 % 04/14/20 03:53 Eos % (Auto) 0.9 % 04/14/20 03:53 Baso % (Auto) 0.4 % 04/14/20 03:53 Neut # (Auto) 11.50 10^3/uL (1.8-7.7) H 04/14/20 03:53 Lymph # (Auto) 2.4 10^3/uL (0.8-4.8) 04/14/20 03:53 [place] # (Auto) 1.0 10^3/uL (0.2-0.9) H 04/14/20 03:53 Eos # (Auto) 0.1 10^3/uL (0.0-0.8) 04/14/20 03:53 Baso # (Auto) 0.1 10^3/uL (0.0-0.1) 04/14/20 03:53 Nucleated RBC % (auto) 0 % 04/14/20 03:53 Nucleated RBCs # 0.0 /100WBC 04/14/20 03:53 Specimen Type Arterial 04/14/20 03:53 Sample Site Radial, left 04/14/20 03:53 ABG pH 7.42 (7.35-7.45) 04/14/20 03:53 ABG pCO2 41.0 mmHg (35-45) 04/14/20 03:53 ABG pO2 76.1 mmHg (80.0-100.0) L 04/14/20 03:53 ABG HCO3 26.8 mmol/L (22-26) H 04/14/20 03:53 ABG O2 Saturation 96.9 04/14/20 03:53 ABG Base Excess 2.1 mmol/L (-2.0-2.0) H 04/14/20 03:53 Hayden Test Pos 04/14/20 03:53 A-a O2 Gradient 16.2 mmHg (5-10) H 04/14/20 03:53 Hematocrit 37.0 % (37-47) 04/14/20 03:53 Hgb O2 Saturation 95.2 % (95-100) 04/14/20 03:53 Carboxyhemoglobin 1.0 %THgb (0.4-20.1) 04/14/20 03:53 Methemoglobin 0.8 % (0.4-1.5) 04/14/20 03:53 Total Hemoglobin 12.1 g/dL (12-16) 04/14/20 03:53 Sodium 143.0 mmol/L (131-143) 04/14/20 03:53 Potassium 3.6 mmol/L (3.5-5.0) 04/14/20 03:53 Glucose 127.0 mg/dL (70-115) H 04/14/20 03:53 Ionized Calcium 1.3 mmol/L (1.1-1.4) 04/14/20 03:53 O2 Delivery Device Bipap 04/14/20 03:53 FiO2 35.0 % 04/14/20 03:53 Battery Container Tester Aluminum ID Harkr 04/14/20 03:53 Sodium 141 mmol/L (136-145) 04/14/20 03:53 Potassium 3.9 mmol/L (3.5-5.1) 04/14/20 03:53 Chloride 104 mmol/L (98-107) 04/14/20 03:53 Carbon Dioxide 26 mmol/L (22-29) 04/14/20 03:53 Anion Gap 14.9 (5-19) 04/14/20 03:53 BUN 7 mg/dL (6-20) 04/14/20 03:53 Creatinine 0.7 mg/dL (0.5-0.9) 04/14/20 03:53 GFR Calculation 88.9 mL/min (90-130) L 04/14/20 03:53 Glucose 127 mg/dL (65-115) H 04/14/20 03:53 Calculated Osmolality 292 mOsm/kg (285-295) 04/14/20 03:53 Lactic Acid 2.3 mmol/L (0.5-2.2) H 04/14/20 03:53 Calcium 9.4 mg/dL (8.5-10.5) 04/14/20 03:53 Magnesium 1.9 mg/dL (1.7-2.3) 04/14/20 03:53 Total Bilirubin 0.2 mg/dL (0.15-1.2) 04/14/20 03:53 AST 19 U/L (0-32) 04/14/20 03:53 ALT 17 U/L (0-33) 04/14/20 03:53 Alkaline Phosphatase 71 IU/L (35-105) 04/14/20 03:53 Troponin T Baseline 6 ng/L (0-10) 04/14/20 03:53 NT-Pro-B Natriuret Pep 331 pg/mL (0-125) H 04/14/20 03:53 Total Protein 6.6 g/dL (6.6-8.7) 04/14/20 03:53 Albumin 4.2 g/dL (3.5-5.2) 04/14/20 03:53 Globulin 2.4 g/dL (1.3-4.6) 04/14/20 03:53 Influenza Type A Ag Negative (Negative) 04/14/20 03:50 Influenza Type B Ag Negative (Negative) 04/14/20 03:50 SARS-CoV-2 Ag (Rapid) Negative (Negative) 04/14/20 03:50 Micro: Microbiology 04/14/20 03:57 Blood Culture - Preliminary Blood SPECIMEN COLLECTED 04/14/20 03:53 Blood Culture - Preliminary Blood SPECIMEN COLLECTED CXR: I personally reviewed and interpreted this imaging study as follows: My impression: Chest x-ray reveals hyperinflation, no acute infiltrate per my interpretation. She has multiple granulomatous changes noted throughout both lungs which are unchanged from prior comparative x-ray. Other data: PFTs 10/2018 Spirometry indicates a severe obstructive ventilatory defect. There is no significant bronchodilator response. Lung volumes indicate air trapping. The diffusing capacity is moderately reduced. Clinical correlation is recommended. A&P Assessment and plan (1) COPD (chronic obstructive pulmonary disease): With acute exacerbation. By description seems to be more of an acute bronchospastic process. She does describe sensation of lower chest congestion but has an inability to get this up. PFTs in October of last year did not show significant response to bronchodilators. She is chronically on 2 L by nasal cannula. During the course of my evaluation I was able to get her back down to 3 L by nasal cannula with maintenance of saturations around 94% presently. We did not have a saturation in the field. She seems to think that there is a stimulus for these acute episodes of difficulty breathing associated with her hospital housekeeper coming over. It should be noted that prior to this admission as well as the one in mid March her hospital housekeeper had cleaned her oxygen concentrator and nebulizer respectively. It is certainly possible that chemical irritation is an inciting factor for these 2 events. She has had some ED visits but not really respiratory distress to this degree previously. One thing that is concerning to me however she does describe intermittent chest pressure substernally with exertion that improves with rest. She has a slightly elevated BNP with a normal baseline troponin. EKG with sinus tachycardia. She is actually on chronic beta-blockade due to sinus tachycardia. Echocardiogram done in July 2018 showed an ejection fraction is 60% with normal diastolic dysfunction and right atrial pressure estimated at 3 mmHg. She does describe chronic problems with heartburn and indigestion as well though does not seem to be a major issue today prior to the onset of her symptoms. Status: Chronic Qualifiers: COPD type: COPD with acute exacerbation Qualified Code(s): J44.1 - Chronic obstructive pulmonary disease with (acute) exacerbation (2) Chest pain on exertion: Status: Acute (3) Elevated brain natriuretic peptide (BNP) level: Status: Acute (4) Sinus tachycardia: Acutely worsened from respiratory distress, breathing treatment and anxiety over respiratory symptoms Status: Chronic (5) Major depressive disorder, recurrent severe without psychotic features: Status: Chronic (6) Hypothyroidism: Status: Chronic Additional A&P Information Observation admission We will hold BiPAP for now but keep available should she need it again Continue steroids both inhaled and systemic Scheduled Spiriva, can continue as needed albuterol though it does not seem to be helping her very much Levaquin Flutter device Check echocardiogram Serial cardiac enzymes and telemetry monitoring Check lipids and a1c TSH PPI Home meds Lovenox for DVT prophylaxis Depending on clinical course consider inpatient pulmonary consultation versus facilitating sooner outpatient follow-up with pulmonology Plans discussed with patient and she was given an opportunity to ask questions Full code Anticipate disposition home Attestations Medical Necessity Statement*: Currently anticipated stay less than 2 midnights in a patient presenting with significant respiratory distress requiring transient BiPAP therapy. She is doing better but still with increased work of breathing from baseline. Some findings are suggestive of potential cardiac contribution in addition to known pulmonary disease. Plans are as noted. Coding Level of Care Code Acute [place] [place] Operator for Chg Fwd Diagnoses COPD (chronic obstructive pulmonary disease) J44.1 COPD type: COPD with acute exacerbation Chest pain on exertion R07.9 Elevated brain natriuretic peptide (BNP) level R79.89 Sinus tachycardia R00.0 Major depressive disorder, recurrent severe without psychotic features F33.2 Hypothyroidism E03.9
--- NOTE | 2020-04-14 05:36 | ECG_ITS ---
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 Measurements Intervals [place] Rate: 116 P: 80 MS: 145 QRS: 59 QRSD: 72 T: 64 QT: 299 QTc: 416 Interpretive Statements SINUS TACHYCARDIA POSSIBLE LEFT ATRIAL ENLARGEMENT [-0.1mV P WAVE IN V1/V2] LOW QRS VOLTAGE IN PRECORDIAL LEADS [QRS DEFLECTION < 1.0 mV IN CHEST LEADS] SEPTAL MYOCARDIAL INFARCTION , OF INDETERMINATE AGE [40+ ms Q WAVE IN V1/V2] Compared to ECG 04/14/2020 02:39:57 Short MS interval no longer present Myocardial infarct finding still present Electronically Signed On 04-14-2020 20:39:25 CDT by Karissa Lawrence M.D. [id number]
--- NOTE | 2020-04-14 05:36 | PC.NURSE ---
Per Dr. Moreland, the patient was to be placed on NC @ 2 L during her intake assessment. Patient becoming more tachypnic and tachycardic.
[2020-04-14 05:52] LABS: Reflex Lactate Order REFLEX LACTIC ORDERD
--- NOTE | 2020-04-14 06:06 | PC.NURSE ---
Patient transferred from ED stretcher to inpatient bed by ambulation. NAD noted. Patient's paperwork was handed to a 2 South RN. Respiratory brought the Bipap to the patient's room. She was transferred on CT without difficulties.
--- NOTE | 2020-04-14 06:37 | USCV_ITS ---
Shasha Serrato Age: 49 Gender: F : 1970 Exam Date: 04/14/2020 11:10 Ordering Phys: Arin Moreland MD Technologist: Barbara Macias Exam Location: [facility] [place] Indication: EXERTIONAL CHEST PAIN, INCREASED BNP, RESPIRATORY DISTRESS BP: 115 / 75 HR: 98 Rhythm: Sinus Technical Quality: Difficult MEASUREMENTS (Male / Female) Normal Values 2D ECHO LV Diastolic Diameter PLAX 3.9 cm 4.2 - 5.9 / 3.9 - 5.3 cm LV Systolic Diameter PLAX 2.7 cm IVS Diastolic Thickness 0.9 cm 0.6 - 1.0 / 0.6 - 0.9 cm IVS Systolic Thickness 1.4 cm LVPW Diastolic Thickness 1.1 cm 0.6 - 1.0 / 0.6 - 0.9 cm LVPW Systolic Thickness 1.5 cm LVOT Diameter 2.0 cm LV Ejection Fraction 2D Teich 59.3 % LV Ejection Fraction MOD 2C 74.1 % LV Ejection Fraction 2C AL 75.1 % LA Diameter 2.2 cm LA Width 1.9 cm LA Height 3.2 cm RA Width 1.7 cm RA Height 3.4 cm M-MODE LV Diastolic Diameter MM 4.6 cm 4.2 - 5.9 / 3.9 - 5.3 cm LV Systolic Diameter MM 2.1 cm LV Ejection Fraction MM Teich 85.7 % IVS Diastolic Thickness MM 0.8 cm 0.6 - 1.0 / 0.6 - 0.9 cm IVS Systolic Thickness MM 1.5 cm LVPW Diastolic Thickness MM 0.7 cm 0.6 - 1.0 / 0.6 - 0.9 cm LVPW Systolic Thickness MM 1.8 cm Aortic Annulus Diameter 2.4 cm LA Ao Ratio MM 1.2 MV E Point Septal Separation 0.5 cm DOPPLER AV Peak Velocity 95.0 cm/s LVOT Peak Velocity 106.0 cm/s AV Area Cont Eq vti 3.1 cm squared AV Area Cont Eq pk 3.5 cm squared MV Peak Velocity 146.0 cm/s MV Area PHT 5.1 cm squared Mitral E to A Ratio 0.7 MV E' Velocity 42.5 cm/s Mitral E to MV E' Ratio 13.2 Mitral E to LV E' Lateral Ratio 13.0 Mitral E to LV E' Septal Ratio 13.7 PV Peak Velocity 91.0 cm/s RV Acceleration Time 0.1 s FINDINGS Left Ventricle This is technically very difficult study. Normal left ventricular size, systolic function. LVEF is 60 to 65%. Regional wall motion abnormalities cannot be assessed because of poor visualization but grossly normal. Normal left ventricular wall thickness. Grade 1 diastolic dysfunction is noted. Right Ventricle Not well visualized. Right Atrium Not well visualized. Left Atrium Left atrium is normal in size. Mitral Valve Grossly normal. There is no mitral regurgitation. Aortic Valve Aortic valve is not well-visualized however there is no significant aortic stenosis. There is no aortic regurgitation. Tricuspid Valve Structurally normal tricuspid valve without significant stenosis or regurgitation. Insufficient TR jet to calculate RVSP. Pulmonic Valve Structurally normal pulmonic valve without significant stenosis. There is no pulmonic regurgitation. Pericardium Normal pericardium without effusion. Aorta Normal ascending aorta dimension. CONCLUSIONS This is technically difficult study. Normal LV systolic function with EF of 60 to 65%. Grade 1 diastolic dysfunction is noted. Cardiac valves are not well visualized however significant stenosis or regurgitation is noted. Compared to prior echocardiogram from 07/16/2018, no significant changes are noted. Larry Orr MD (Electronically Signed) Final Date: 14 April 2020 18:29 S
[2020-04-14 06:47] LABS: Lactic Acid level (Lactate) 2.2 mmol/L (0.5-2.2)
[2020-04-14 06:48] LABS: Troponin 5 2HR Delta 0 ABS# (0-10)
[2020-04-14] MEDS: enoxaparin 40 mg/0.4 mL Syringe SUBCUT (06:59)
[2020-04-14] MEDS: budesonide 0.5 mg/2 mL Neb INHALATION ×2 (08:07→20:04)
[2020-04-14] MEDS: azithromycin 500 MG in sodium chloride 0.9% 250 ML 250 MG IV (08:21)
[2020-04-14] MEDS: citalopram 20 mg Tablet 30 MG PO (08:22)
[2020-04-14] MEDS: metoprolol succinate ER (24 HR) 25 mg Tablet 12.5 MG PO (08:23)
[2020-04-14] MEDS: pantoprazole DR 40 mg Tablet PO (08:23)
[2020-04-14] MEDS: levothyroxine 112 mcg Tablet PO (08:23)
--- NOTE | 2020-04-14 08:23 | PC.RESP ---
PULMONARY REHAB INFORMATION SENT TO PATIENT.
--- NOTE | 2020-04-14 09:36 | ECG_ITS ---
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 Measurements Intervals [place] Rate: 103 P: 82 FL: 140 QRS: 65 QRSD: 77 T: 61 QT: 348 QTc: 456 Interpretive Statements SINUS TACHYCARDIA SEPTAL MYOCARDIAL INFARCTION [40+ ms Q WAVE IN V1/V2], PROBABLY OLD Compared to ECG 04/14/2020 04:52:25 No significant changes Electronically Signed On 04-14-2020 20:40:00 CDT by Karissa Lawrence M.D. [id number]
[2020-04-14 10:10] LABS: Troponin 5 6HR Delta 0 ng/L (0-12)
--- NOTE | 2020-04-14 16:05 | P.PN_ITS ---
Subjective Subjective: Interval history: Feels improved this afternoon. States breathing appears to be getting easier. Currently on 2 L/min nasal cannula for supplemental O2. Wheezing still noted on exam. Vitals/I&O/Wt Last Vital Signs Temp 98.1 F 04/14/20 15:21 Pulse 92 04/14/20 15:21 Resp 17 04/14/20 15:21 BP 124/76 04/14/20 15:21 Pulse Ox 92 04/14/20 15:21 04/14/20 04/14/20 04/14/20 06:59 14:59 22:59 Intake Total 220 / 220 Balance 220 / 220 Weight last 48 hrs Weight 74.389 kg Physical Exam Narrative: EXAM NARRATIVE: GEN: Awake, alert and oriented, no acute distress CVS: S1S2 N RS: Bilateral wheezing on auscultation all lung areas. 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: no focal neuro deficits Data : 04/14/20 03:53 04/14/20 03:53 Micro: Microbiology 04/14/20 03:57 Blood Culture - Preliminary Blood SPECIMEN COLLECTED 04/14/20 03:53 Blood Culture - Preliminary Blood SPECIMEN COLLECTED A&P Assessment and plan (1) COPD (chronic obstructive pulmonary disease): Status: Chronic Qualifiers: COPD type: COPD with acute exacerbation Qualified Code(s): J44.1 - Chronic obstructive pulmonary disease with (acute) exacerbation (2) Chest pain on exertion: Status: Acute (3) Elevated brain natriuretic peptide (BNP) level: Status: Acute (4) Sinus tachycardia: Status: Chronic (5) Major depressive disorder, recurrent severe without psychotic features: Status: Chronic (6) Hypothyroidism: Status: Chronic Additional A&P Information Continue budesonide inhalation Continue methyl Pred 60 mg IV every 8 hour, will taper to 60 mg every 12 hours. Start DuoNeb every 4 hours standing. Hold inhalers except PRN albuterol. Supplemental O2 to keep sats greater than 88%. Continue flutter device pending echocardiogram Serial cardiac enzymes negative Lovenox for DVT prophylaxis Continued observation for response to steroids and scheduled nebulization, patient appears to be improving today, baseline oxygen requirement. Attestations Medical Necessity Statement*: Optimization of respiratory status Coding Level of Care Code Acute Clinical Laboratory Science Professor for [facility] Diagnoses COPD (chronic obstructive pulmonary disease) J44.1 COPD type: COPD with acute exacerbation Chest pain on exertion R07.9 Elevated brain natriuretic peptide (BNP) level R79.89 Sinus tachycardia R00.0 Major depressive disorder, recurrent severe without psychotic features F33.2 Hypothyroidism E03.9
[2020-04-14] MEDS: montelukast sodium 10 mg Tablet PO (18:27)
--- NOTE | 2020-04-14 18:32 | PC.NURSE ---
Pt has had some SOB when ambulating, but otherwise pt has done well and required only 2l nc which pt states is baseline. No complaints of any pain or discomfort at this.
[2020-04-14] MEDS: ipratropium-albuterol 3 mL Neb INHALATION (20:04)
[2020-04-14] MEDS: acetaminophen 325 mg Tablet 650 MG PO (20:42)
[2020-04-15] VITALS (10 sets, daily range): BP systolic 122–142; BP diastolic 75–85; PULSE 103–114; RESP 17–24; TEMP 36.5–37.1; O2SAT 94–97
[2020-04-15] MEDS: ipratropium-albuterol 3 mL Neb INHALATION ×3 (04:26→11:41)
[2020-04-15 05:16] LABS: Basophils % 0.1 %; Hematocrit 37.4 % (37.0-47.0); Hemoglobin 11.4 g/dL (11.5-15.3); Lymphocytes # 1.1 10^3/uL (0.8-4.8); Lymphocytes % 7.8 %; Mean Corpuscular HGB Conc 30.5 g/dL (30.0-36.0); Mean Corpuscular Hemoglobin 27.1 pg (28.0-34.0); Mean Platelet Volume 11.6 fL (7.4-10.4); Monocytes # 0.4 10^3/uL (0.2-0.9); Monocytes % 2.9 %; Neutrophils # 12.63 10^3/uL (1.8-7.7); Neutrophils % 88.6 %; Nucleated Red Blood Cells % 0 %; Platelet Count 320 10^3/cmm (130-400); Red Cell Distribution Width 14.3 % (12.1-15.1); White Blood Count 14.3 10^3/uL (4.0-10.0)
[2020-04-15 05:27] LABS: Estmated Average Glucose 111; Hemoglobin A1C 5.5 % (4.0-6.0)
[2020-04-15 05:43] LABS: Alanine Aminotransferase 16 U/L (0-33); Albumin Level 4.1 g/dL (3.5-5.2); Alkaline Phosphatase 66 IU/L (35-105); Aspartate Amino Transferase 15 U/L (0-32); Blood Urea Nitrogen 12 mg/dL (6-20); Carbon Dioxide 25 mmol/L (22-29); Chloride 105 mmol/L (98-107); Globulin 3.1 g/dL (1.3-4.6); Glomerular Filtration Rate 106.3 mL/min (90-130); Glucose 162 mg/dL (65-115); Osmolality Calculated 289 mOsm/kg (285-295); Sodium 138 mmol/L (136-145); Total Bilirubin 0.2 mg/dL (0.15-1.2); Total Protein 7.2 g/dL (6.6-8.7)
[2020-04-15 05:44] LABS: Chol HDL Ratio 2.08 mg/dL (0.0-4.40); Cholesterol 221 mg/dL (0-200); HDL Cholesterol 106 mg/dL (60-100); LDL Cholesterol Calculated 102 mg/dL (50-129); LDL HDL Ratio 0.96 RATIO (0.00-3.22); Triglycerides 67 mg/dL (0-150)
[2020-04-15 05:47] LABS: Magnesium 2.3 mg/dL (1.7-2.3)
[2020-04-15] MEDS: levothyroxine 112 mcg Tablet PO (08:24)
[2020-04-15] MEDS: metoprolol succinate ER (24 HR) 25 mg Tablet 12.5 MG PO (08:25)
[2020-04-15] MEDS: citalopram 20 mg Tablet 30 MG PO (08:25)
[2020-04-15] MEDS: pantoprazole DR 40 mg Tablet PO (08:26)
[2020-04-15] MEDS: budesonide 0.5 mg/2 mL Neb INHALATION (08:36)
--- NOTE | 2020-04-15 09:23 | P.DS_ITS ---
Discharge Providers Date of Admission: 04/14/20 05:03 Date of Discharge: April 15, 2020 Attending Provider at Admission: Arin Moreland MD Attending Provider at Discharge: Sakina Alex MD Primary Care Provider: BONNIE Brown Diagnoses at Discharge Discharge Diagnosis (1) COPD (chronic obstructive pulmonary disease): Status: Chronic Problem details: Uses 2 L of oxygen at home, severe COPD as per pulmonary function test done in 2019, with limited broncho-dilatory response and reduced diffusion capacity. Qualifiers: COPD type: COPD with acute exacerbation Qualified Code(s): J44.1 - Chronic obstructive pulmonary disease with (acute) exacerbation (2) Chest pain on exertion: Status: Acute (3) Elevated brain natriuretic peptide (BNP) level: Status: Acute (4) Sinus tachycardia: Status: Chronic (5) Major depressive disorder, recurrent severe without psychotic features: Status: Chronic (6) Hypothyroidism: Status: Chronic Reason for Visit Reason for Visit: COPD Hospital Course Discharge Summary: Shasha Serrato is a 49 year old female who carries history of severe COPD, 2 L oxygen dependent at home, came in with chief complaint of worsening shortness of breath which appeared most consistent with acute on chronic COPD exacerbation. She received treatment with duonebs, budesonide inhalation methyl Pred 60 mg IV every 8 hour and supplemental 02. She felt improved with these interventions. She is being discharged today on Advair, Spiriva and steroid taper. she has an appt with Dr. Martines on May 04 for optimization of COPD. echocardiogram showed Normal LV systolic function with EF of 60 to 65%. Grade 1 diastolic dysfunction is noted.. Physical Exam Narrative: EXAM NARRATIVE: GEN: Awake, alert and oriented, no acute distress CVS: S1S2 N RS: B/L scattered wheezing Abd: Soft, nt/nd , bs+ BARREL MAKER: no focal neuro deficits Discharge Data Data Completed and Pending: Completed Studies During Hospitalization Category Date Time Status XR chest 1V ronni ble [id number] Stat Exams 04/14/20 03:35 Completed CV echo complete* [id number] Routine Ultrasound 04/14/20 06:37 Completed Pending at discharge Category Date Time Status Blood Culture Sta t Lab 04/14/20 03:53 Results Labs from last 24 hours 04/15/20 04/15/20 04/15/20 04:32 04:32 04:32 WBC RBC Hgb Hct MCV MCH MCHC RDW Plt Count MPV Neut % (Auto) Lymph % (Auto) [place] % (Auto) Eos % (Auto) Baso % (Auto) Neut # (Auto) Lymph # (Auto) [place] # (Auto) Eos # (Auto) Baso # (Auto) Nucleated RBC % (a uto) Nucleated RBCs # Sodium 138 Potassium 4.0 Chloride 105 Carbon Dioxide 25 Anion Gap 12.0 BUN 12 Creatinine 0.6 GFR Calculation 106.3 Glucose 162 H Estimat Average Gl ucose 111 Hemoglobin A1c 5.5 Calculated Osmolal ity 289 Calcium 10.0 Magnesium Total Bilirubin 0.2 AST 15 ALT 16 Alkaline Phosphata se 66 Troponin T Hi Sens 6Hr Troponin T Hi Sens 6Hr Delta Total Protein 7.2 Albumin 4.1 Globulin 3.1 Triglycerides 67 Cholesterol 221 H LDL Cholesterol, C alc 102 HDL Cholesterol 106 H LDL/HDL Ratio 0.96 Cholesterol/HDL Ra gio 2.08 04/15/20 04/15/20 04/14/20 04:32 04:32 09:42 WBC 14.3 H RBC 4.20 Hgb 11.4 L Hct 37.4 MCV 89.0 MCH 27.1 L MCHC 30.5 RDW 14.3 Plt Count 320 MPV 11.6 H Neut % (Auto) 88.6 Lymph % (Auto) 7.8 [place] % (Auto) 2.9 Eos % (Auto) 0.0 Baso % (Auto) 0.1 Neut # (Auto) 12.63 H Lymph # (Auto) 1.1 [place] # (Auto) 0.4 Eos # (Auto) 0.0 Baso # (Auto) 0.0 Nucleated RBC % (a uto) 0 Nucleated RBCs # 0.0 Sodium Potassium Chloride Carbon Dioxide Anion Gap BUN Creatinine GFR Calculation Glucose Estimat Average Gl ucose Hemoglobin A1c Calculated Osmolal ity Calcium Magnesium 2.3 Total Bilirubin AST ALT Alkaline Phosphata se Troponin T Hi Sens 6Hr 6.00 Troponin T Hi Sens 6Hr Delta 0 Total Protein Albumin Globulin Triglycerides Cholesterol LDL Cholesterol, C alc HDL Cholesterol LDL/HDL Ratio Cholesterol/HDL Ra gio Vitals: Last Vital Signs Temp 98.0 F 04/15/20 08:00 Pulse 108 H 04/15/20 08:55 Resp 17 04/15/20 08:36 BP 122/78 04/15/20 08:00 Pulse Ox 96 04/15/20 08:36 Discharge Plan Discharge Patient Disposition: Home Condition: Stable Prescriptions: New Spiriva with HandiHaler 18 mcg capsule, w/inhalation device 1 cap INHALATION DAILY Qty: 30 RF: 0 Advair Diskus 500-50 mcg/dose blister with device 1 inh INHALATION BID Qty: 60 RF: 0 prednisone 10 mg tablet See Rx Instructions .ROUTE .COMPLEX Qty: 60 RF: 0 Continued levothyroxine 112 mcg capsule 112 mcg PO DAILY RF: 0 prenat.vits,aliza,vrj-[id number]-ecysf Tablet 1 tab PO DAILY RF: 0 acetaminophen-codeine [Tylenol-Codeine #3] 300-30 mg tablet 1 tab PO TID PRN (Reason: Pain) RF: 0 citalopram [Celexa] 10 mg tablet 10 mg PO QAM Qty: 30 RF: 6 citalopram [Celexa] 20 mg tablet 20 mg PO QAM Qty: 30 RF: 6 montelukast [Singulair] 10 mg tablet 10 mg PO DAILY RF: 0 tizanidine 2 mg Tablet 4 - 8 mg PO TID PRN (Reason: Muscle Spasm) RF: 0 ibuprofen 800 mg Tablet 800 mg PO TID PRN (Reason: Pain) RF: 0 levocetirizine [Xyzal] 5 mg Tablet 5 mg PO DAILY RF: 0 trazodone 50 mg tablet See Rx Instructions .ROUTE .COMPLEX RF: 0 albuterol sulfate 90 mcg/actuation HFA aerosol inhaler 2 inh INHALATION Q4H PRN (Reason: shortness of breath or wheezing) Qty: 6.7 RF: 0 hydrocodone-acetaminophen [Stanfield] 5-325 mg tablet 1 tab PO Q6H PRN (Reason: pain) Qty: 14 RF: 0 ipratropium-albuterol 0.5 mg-3 mg(2.5 mg base)/3 mL solution for nebulization 3 ml INHALATION Q6H PRN (Reason: shortness of breath or wheezing) Qty: 15 RF: 0 alprazolam [Xanax] 0.25 mg tablet 0.25 mg PO DAILY PRN (Reason: anxiety) Qty: 7 RF: 0 hydroxyzine HCl 25 mg Tablet 25 - 50 mg PO BID RF: 0 metoprolol succinate 25 mg Tablet Extended Release 24 Hr 25 mg PO DAILY RF: 0 Held Stiolto Respimat 2.5-2.5 mcg/actuation mist 2 puff INHALATION DAILY RF: 0 Hold Instructions: Resume on 05/04/20. resume after discussion with Dr. Martines budesonide [Pulmicort] 0.5 mg/2 mL suspension for nebulization 0.25 mg INHALATION BID Qty: 60 RF: 0 Hold Instructions: Resume on 05/04/20. after follow up with Dr. Martines Discharge Orders: Discharge Order (Routine); Ordered 04/15/20 Ordered By: Sakina Alex Referrals: Mikey Martines MD [Physician] - 05/04/20 ([facility] [place] Pulmonology will call you Friday. If you dont' hear from them please call [phone]) Farida Ramos FNP [Primary Care Provider] - (Please call Farida Ramos's office and make an appointment for a one week hospital follow up. [phone]) Discharge Diet: Usual diet Discharge Activity: Resume usual activity Patient Instructions: Fluticasone/Salmeterol (By breathing), Tiotropium (By breathing), Chronic Obstructive Pulmonary Disease (GEN), COPD Stoplight Discharge Date/Time: 04/15/20 13:44 Discharge Attestations Time Spent in Discharge Care*: greater than 30 min Status at Discharge: Cognitive status at discharge: cognitively intact , Behavioral status at discharge: cooperative , Quality Metrics Clinical Quality Measures During this hospital stay, did patient experience: None Coding Level of Care Code Acute Slitter Scorer for Angela Fwd Diagnoses COPD (chronic obstructive pulmonary disease) J44.1 COPD type: COPD with acute exacerbation Chest pain on exertion R07.9 Elevated brain natriuretic peptide (BNP) level R79.89 Sinus tachycardia R00.0 Major depressive disorder, recurrent severe without psychotic features F33.2 Hypothyroidism E03.9
--- NOTE | 2020-04-15 10:20 | PC.NURSE ---
Discharge instructions given. All questions answered. IV removed. No s/s distress, and pt denies any concerns or needs at this time. Significant other is here to transport her home. Pt will be assisted to entrance by HYDROELECTRIC MACHINERY MECHANIC via wheelchair as soon as her new inhalers are delivered to bedside by pharmacy.
== END 2020-04-15 13:44 | disposition home or self-care (01) ==
LOC: ER 03:55 → MEDSURG 05:15
PROVIDERS: Emergency Medicine; Admitting Provider Hospitalist; PCP Nurse Practitioner Family; Visit Provider Student in an Organized Health Care Education/Training Program
DX: J44.1 Chronic obstructive pulmonary disease with (acute) exacerbation (principal); R07.9 Chest pain, unspecified; R79.89 Other specified abnormal findings of blood chemistry; R00.0 Tachycardia, unspecified; F33.2 Major depressive disorder, recurrent severe without psychotic features; E03.9 Hypothyroidism, unspecified; Z99.81 Dependence on supplemental oxygen; Z87.891 Personal history of nicotine dependence
CPT/HCPCS: 12345; 36415; 36600; 71045; 80051; 80053; 80061; 82810; 83036; 83605; 83735; 83880; 83986; 84443; 84484; 85025; 87040; 87426; 87804; 93005; 93306; 94640; 94660; 96365; 96372; 96375; 99283; 99285; G0378; J0456; J1650; J2930; J7050; J7611; J7614; J7626; J7644

== ENCOUNTER → 2020-04-17 08:08 | Outpatient (BNVA) | payer MEDICAID, SELFPAY | PROVIDERS: PCP Nurse Practitioner Family; Visit Provider Nurse Practitioner Psychiatric/Mental Health | DX: F33.2 Major depressive disorder, recurrent severe without psychotic features (principal); F43.12 Post-traumatic stress disorder, chronic | CPT/HCPCS: 99214 ==

== ENCOUNTER 2020-05-21 22:05 | Inpatient (IN) | payer MEDICAID, SELFPAY ==
[2020-05-17 15:54] VITALS: BP 121/81; BMI 31.4
[2020-05-21] VITALS (15 sets, daily range): BP systolic 130–148; BP diastolic 84–102; PULSE 100–123; RESP 20–33; O2SAT 96–100; BMI 30.4
--- NOTE | 2020-05-21 22:20 | XR_ITS ---
WS: [id number] XR chest 1V portable [id number] REASON FOR EXAM: sob FINDINGS: The chest is unchanged compared to 04/14/2020. Miliary calcified granulomatous changes throughout both lungs. Hemidiaphragms are flattened with mode rate hyperexpansion. No active pulmonary parenchymal or pleural disease. The heart and mediastinum are within normal limits. No significant abnormality of the bony thorax. XR/XR chest 1V portable [id number] IMPRESSION: No acute chest abnormality.
[2020-05-21 22:36] LABS: ABG PCO2 39.6 mmHg (35-45); Arterial Blood Gas Hematocrit 35.2 % (37-47); Blood Gas Allen Test Pos; Blood Gas Sample Site Radial, right; Blood Gas Sample Type Arterial; HCO3 ABG 24.7 mmol/L (22-26); HGB O2 Sat 96.6 % (95-100); Methemoglobin 0.8 % (0.4-1.5); Oxygen Device NC; PO2 ABG 96.7 mmHg (80.0-100.0); Total Hemoglobin 11.5 g/dL (12-16)
[2020-05-21 22:53] LABS: Basophils % 0.3 %; Eosinophils # 0.1 10^3/uL (0.0-0.8); Eosinophils % 0.7 %; Hematocrit 36.9 % (37.0-47.0); Hemoglobin 11.2 g/dL (11.5-15.3); Lymphocytes # 3.2 10^3/uL (0.8-4.8); Lymphocytes % 22.6 %; Mean Corpuscular HGB Conc 30.4 g/dL (30.0-36.0); Mean Corpuscular Hemoglobin 26.8 pg (28.0-34.0); Mean Corpuscular Volume 88.3 fL (81-99); Monocytes # 1.3 10^3/uL (0.2-0.9); Neutrophils # 9.36 10^3/uL (1.8-7.7); Neutrophils % 67.2 %; Nucleated Red Blood Cells % 0 %; Platelet Count 329 10^3/cmm (130-400); Red Blood Count 4.18 10^6/uL (4.1-5.3); Red Cell Distribution Width 15.6 % (12.1-15.1); White Blood Count 13.9 10^3/uL (4.0-10.0)
[2020-05-21 23:05] LABS: Lactic Sepsis W/Reflex 0.9 mmol/L (0.5-2.2)
[2020-05-21 23:06] LABS: Troponin(5th) Baseline 6 ng/L (0-10)
[2020-05-21] MEDS: LORazepam 2 mg/mL INJ 1 mL 1 MG IVP (23:10)
[2020-05-21] MEDS: sodium chloride 0.9% 500 ML 999 ML IV (23:11)
[2020-05-21 23:16] LABS: NT Pro B Type Natriuretic Pept 146 pg/mL (0-125); Procalcitonin 0.05 ng/mL (0-0.5)
--- NOTE | 2020-05-21 23:22 | W.ED.SOB ---
HPI - SOB/Dyspnea General: Chief Complaint: Upper Respiratory Infection Stated Complaint: RESP DISTRESS Time Seen by Provider: 05/21/20 22:12 History of Present Illness: HPI Narrative: 49-year-old female with a history of COPD. She presents after period of respiratory distress at home. She states that she has had a bit of a cough, no sputum production. Became acutely short of breath at home. She called an ambulance. On their arrival, she was very air hungry. She was given an albuterol nebulizer treatment, terbutaline, and Solu-Medrol with some improvement. She is presents improved, but still short of breath. She says she can feel her heart pounding as well. MD elicited complaint: shortness of breath and cough Pertinent past history: COPD Onset (ago): minute(s) Timing: constant Severity: moderate Exacerbating factors: nothing Relieving factors: oxygen and bronchodilators Known history of: COPD Associated symptoms: Reports chest congestion, cough and sense of impending doom; Deny abdominal pain, chest pain, diaphoresis, dizziness, fever(s), nausea, rash or vomiting Treatment prior to arrival: oxygen, bronchodilator and other Review of Systems Const: Denies: fever(s) or diaphoresis Eyes: Denies: change in vision ENMT: Denies: odynophagia, swelling of lips/tongue, bleeding gums, dental pain or sinus pain Card: Denies: chest pain Resp: Reports: chest congestion GI: Denies: abdominal pain, nausea or vomiting : Denies: dysuria or hematuria Musc: Denies: neck pain or joint redness Skin/Breast: Denies: rash or erythema Neuro: Denies: headache(s), dizziness or vertigo Psych: Reports: anxiety PFSH ED PFSH: Medical History Calcified granuloma of lung Chronic post-traumatic stress disorder COPD (chronic obstructive pulmonary disease) Uses 2 L of oxygen at home, severe COPD as per pulmonary function test done in 2019, with limited broncho-dilatory response and reduced diffusion capacity. Hypothyroidism Legg-Perthes disease Major depressive disorder, recurrent severe without psychotic features Sinus tachycardia Suicide attempt Surgical History H/O breast biopsy H/O tubal ligation History of dental surgery S/P hip replacement Family History Denies family history of Psychiatric illness Social History Smoking and tobacco status: former smoker Quit status (tobacco): has quit using tobacco Year quit tobacco: 2017 - 2PPD x 33 Years Alcohol intake: never Household members: significant other Housing: House Marital status: Life Partner Current occupational status: disabled History of recent travel: No Current gender identity: Female Female Reproductive History: Date of last menstrual period: 12/27/19 Para: 4 Physical Exam Const: GENERAL APPEARANCE: ill appearing ORIENTATION/CONSCIOUSNESS: Yes oriented to person, Yes oriented to place and Yes oriented to time HENMT: COMMON NORMALS: normocephalic, external ears normal and Normal external nose present HEAD & SCALP: normocephalic FACE & SINUS: normal facial exam NOSE: Normal external nose present and No nasal discharge present EXTERNAL EAR: Yes external ears normal MOUTH: tongue normal THROAT: posterior oropharynx normal; no peritonsillar mass Eye: COMMON NORMALS: Equal, round and reactive pupils present, EOMs intact bilaterally and conjunctivae normal EYELID: eyelids normal CONJUNCTIVA: Yes conjunctivae normal PUPIL: Yes Equal, round and reactive pupils present Neck/C-Spine: GENERAL: No tracheal deviation Chest: COMMONS NORMALS: normal inspection of the chest CHEST: No tenderness Resp: COMMON NORMALS: clear to auscultation bilaterally EFFORT & INSPECTION: Yes tachypneic, No retractions, Yes uses accessory muscles and No tracheal deviation AUSCULTATION: clear to auscultation bilaterally, no rhonchi, no wheezes and diminished lung sounds Cardio: COMMON NORMALS: regular rhythm RATE: tachycardic RHYTHM: regular rhythm HEART SOUNDS: no murmurs PERIPHERAL PULSES: radial pulses present GI: INSPECTION: No abdominal distension AUSCULTATION: No Hyperactive bowel sounds present and No Hypoactive bowel sounds present PALPATION: No Guarding due to palpation present (GI) and No Rigid due to palpation PERCUSSION: no dullness to percussion and no tympanic to percussion Neuro: SENSORIUM/ORIENTATION: Yes oriented to person, Yes oriented to place and Yes oriented to time Psych: COMMON NORMALS: mental status grossly normal Skin: COMMON NORMALS: no rashes or lesions noted GENERAL SKIN EXAM: no rashes or lesions noted Course Vital Signs: Vital signs: Vital Signs Pulse Rate 105 H 05/22/20 02:00 Respiratory Rate 28 H 05/22/20 02:00 Blood Pressure 134/84 05/22/20 02:00 Pulse Oximetry 90 05/22/20 02:00 MDM - SOB/Dyspnea MDM Narrative: Medical decision making narrative: 49-year-old female with a history of COPD presents with significant shortness of breath. She had total breathing treatments at home and in route as well as 1 here. She still using some accessory muscles, and is tachypneic. Her chest x-ray is clear. Her D-dimer is 700. By years criteria, she does not meet requirements for need for CT for pulmonary embolism. Her hemoglobin is 11.2. Her white blood cell count is 14. Her rapid Covid antigen is negative. She will be admitted for COPD exacerbation with hypoxia. Lab Data: Labs: Lab Results 05/21/20 05/21/20 05/21/20 Range/Units 21:39 21:39 21:39 WBC 13.9 H (4.0-10.0) 10^3/ uL RBC 4.18 (4.1-5.3) 10^6/u L Hgb 11.2 L (11.5-15.3) g/dL Hct 36.9 L (37.0-47.0) % MCV 88.3 (81-99) fL MCH 26.8 L (28.0-34.0) pg MCHC 30.4 (30.0-36.0) g/dL RDW 15.6 H (12.1-15.1) % Plt Count 329 (130-400) 10^3/c mm MPV 11.0 H (7.4-10.4) fL Neut % (Auto) 67.2 % Lymph % (Auto) 22.6 % Drew % (Auto) 9.0 % Eos % (Auto) 0.7 % Baso % (Auto) 0.3 % Neut # (Auto) 9.36 H (1.8-7.7) 10^3/u L Lymph # (Auto) 3.2 (0.8-4.8) 10^3/u L Drew # (Auto) 1.3 H (0.2-0.9) 10^3/u L Eos # (Auto) 0.1 (0.0-0.8) 10^3/u L Baso # (Auto) 0.0 (0.0-0.1) 10^3/u L Nucleated RBC % (a uto) 0 % Nucleated RBCs # 0.0 /100WBC D-Dimer 0.71 H (0-0.59) ug/mIFE U Specimen Type Sample Site ABG pH (7.35-7.45) ABG pCO2 (35-45) mmHg ABG pO2 (80.0-100.0) mmH g ABG HCO3 (22-26) mmol/L ABG Base Excess (-2.0-2.0) mmol/ L Hayden Test Hematocrit (37-47) % Hgb O2 Saturation (95-100) % Carboxyhemoglobin (0.4-20.1) %THgb Methemoglobin (0.4-1.5) % Total Hemoglobin (12-16) g/dL O2 Delivery Device O2 Liters/Min % FiO2 % Farm Management Professor ID Sodium 141 (136-145) mmol/L Potassium 3.9 (3.5-5.1) mmol/L Chloride 105 (98-107) mmol/L Carbon Dioxide 25 (22-29) mmol/L Anion Gap 14.9 (5-19) BUN 16 (6-20) mg/dL Creatinine 0.8 (0.5-0.9) mg/dL GFR Calculation 76.2 L (90-130) mL/min Glucose 118 H (65-115) mg/dL Calculated Osmolal ity 294 (285-295) mOsm/k g Lactic Acid (0.5-2.2) mmol/L Calcium 9.4 (8.5-10.5) mg/dL Magnesium 1.9 (1.7-2.3) mg/dL Ferritin 98 (15-150) ng/mL Total Bilirubin 0.2 (0.15-1.2) mg/dL AST 20 (0-32) U/L ALT 16 (0-33) U/L Alkaline Phosphata se 65 (35-105) IU/L Lactate Dehydrogen ase 156 (135-214) U/L Troponin T Baselin e (0-10) ng/L C-Reactive Protein 18.2 H (0.0-4.9) mg/L NT-Pro-B Natriuret Pep 146 H (0-125) pg/mL Total Protein 7.0 (6.6-8.7) g/dL Albumin 3.9 (3.5-5.2) g/dL Globulin 3.1 (1.3-4.6) g/dL Procalcitonin 0.05 (0-0.5) ng/mL SARS-CoV-2 Ag (Rap id) (Negative) 05/21/20 05/21/20 05/21/20 Range/Units 21:39 22:25 22:30 WBC (4.0-10.0) 10^3/ uL RBC (4.1-5.3) 10^6/u L Hgb (11.5-15.3) g/dL Hct (37.0-47.0) % MCV (81-99) fL MCH (28.0-34.0) pg MCHC (30.0-36.0) g/dL RDW (12.1-15.1) % Plt Count (130-400) 10^3/c mm MPV (7.4-10.4) fL Neut % (Auto) % Lymph % (Auto) % Drew % (Auto) % Eos % (Auto) % Baso % (Auto) % Neut # (Auto) (1.8-7.7) 10^3/u L Lymph # (Auto) (0.8-4.8) 10^3/u L Drew # (Auto) (0.2-0.9) 10^3/u L Eos # (Auto) (0.0-0.8) 10^3/u L Baso # (Auto) (0.0-0.1) 10^3/u L Nucleated RBC % (a uto) % Nucleated RBCs # /100WBC D-Dimer (0-0.59) ug/mIFE U Specimen Type Arterial Sample Site Radial, right ABG pH 7.40 (7.35-7.45) ABG pCO2 39.6 (35-45) mmHg ABG pO2 96.7 (80.0-100.0) mmH g ABG HCO3 24.7 (22-26) mmol/L ABG Base Excess 0.0 (-2.0-2.0) mmol/ L Hayden Test Pos Hematocrit 35.2 L (37-47) % Hgb O2 Saturation 96.6 (95-100) % Carboxyhemoglobin 1.0 (0.4-20.1) %THgb Methemoglobin 0.8 (0.4-1.5) % Total Hemoglobin 11.5 L (12-16) g/dL O2 Delivery Device Nc O2 Liters/Min 4.0 % FiO2 36.0 % Farm Management Professor ID [id number] Sodium (136-145) mmol/L Potassium (3.5-5.1) mmol/L Chloride (98-107) mmol/L Carbon Dioxide (22-29) mmol/L Anion Gap (5-19) BUN (6-20) mg/dL Creatinine (0.5-0.9) mg/dL GFR Calculation (90-130) mL/min Glucose (65-115) mg/dL Calculated Osmolal ity (285-295) mOsm/k g Lactic Acid 0.9 (0.5-2.2) mmol/L Calcium (8.5-10.5) mg/dL Magnesium (1.7-2.3) mg/dL Ferritin (15-150) ng/mL Total Bilirubin (0.15-1.2) mg/dL AST (0-32) U/L ALT (0-33) U/L Alkaline Phosphata se (35-105) IU/L Lactate Dehydrogen ase (135-214) U/L Troponin T Baselin e 6 (0-10) ng/L C-Reactive Protein (0.0-4.9) mg/L NT-Pro-B Natriuret Pep (0-125) pg/mL Total Protein (6.6-8.7) g/dL Albumin (3.5-5.2) g/dL Globulin (1.3-4.6) g/dL Procalcitonin (0-0.5) ng/mL SARS-CoV-2 Ag (Rap id) (Negative) 05/21/20 Range/Units 22:39 WBC (4.0-10.0) 10^3/ uL RBC (4.1-5.3) 10^6/u L Hgb (11.5-15.3) g/dL Hct (37.0-47.0) % MCV (81-99) fL MCH (28.0-34.0) pg MCHC (30.0-36.0) g/dL RDW (12.1-15.1) % Plt Count (130-400) 10^3/c mm MPV (7.4-10.4) fL Neut % (Auto) % Lymph % (Auto) % Drew % (Auto) % Eos % (Auto) % Baso % (Auto) % Neut # (Auto) (1.8-7.7) 10^3/u L Lymph # (Auto) (0.8-4.8) 10^3/u L Drew # (Auto) (0.2-0.9) 10^3/u L Eos # (Auto) (0.0-0.8) 10^3/u L Baso # (Auto) (0.0-0.1) 10^3/u L Nucleated RBC % (a uto) % Nucleated RBCs # /100WBC D-Dimer (0-0.59) ug/mIFE U Specimen Type Sample Site ABG pH (7.35-7.45) ABG pCO2 (35-45) mmHg ABG pO2 (80.0-100.0) mmH g ABG HCO3 (22-26) mmol/L ABG Base Excess (-2.0-2.0) mmol/ L Hayden Test Hematocrit (37-47) % Hgb O2 Saturation (95-100) % Carboxyhemoglobin (0.4-20.1) %THgb Methemoglobin (0.4-1.5) % Total Hemoglobin (12-16) g/dL O2 Delivery Device O2 Liters/Min % FiO2 % Farm Management Professor ID Sodium (136-145) mmol/L Potassium (3.5-5.1) mmol/L Chloride (98-107) mmol/L Carbon Dioxide (22-29) mmol/L Anion Gap (5-19) BUN (6-20) mg/dL Creatinine (0.5-0.9) mg/dL GFR Calculation (90-130) mL/min Glucose (65-115) mg/dL Calculated Osmolal ity (285-295) mOsm/k g Lactic Acid (0.5-2.2) mmol/L Calcium (8.5-10.5) mg/dL Magnesium (1.7-2.3) mg/dL Ferritin (15-150) ng/mL Total Bilirubin (0.15-1.2) mg/dL AST (0-32) U/L ALT (0-33) U/L Alkaline Phosphata se (35-105) IU/L Lactate Dehydrogen ase (135-214) U/L Troponin T Baselin e (0-10) ng/L C-Reactive Protein (0.0-4.9) mg/L NT-Pro-B Natriuret Pep (0-125) pg/mL Total Protein (6.6-8.7) g/dL Albumin (3.5-5.2) g/dL Globulin (1.3-4.6) g/dL Procalcitonin (0-0.5) ng/mL SARS-CoV-2 Ag (Rap id) Negative (Negative) Discharge Plan Discharge Patient Disposition: Admitted As Inpatient Admit Provider: Sanju Day Clinical Impression: Acute on chronic respiratory failure with hypoxia COPD (chronic obstructive pulmonary disease) Qualifiers: COPD type: COPD with acute exacerbation Qualified Code(s): J44.1 - Chronic obstructive pulmonary disease with (acute) exacerbation Condition: Stable Interventions: ED Discharge Assessment Last Done: 05/22/20 02:00 ED Charges Last Done: 05/22/20 02:00 Coding Level of Care Code ED Wet Process Miller Head Assistant for Angela Fwd Exam Comprehensive
[2020-05-21 23:26] LABS: SARS Covid-2 Antigen Negative (Negative)
[2020-05-21 23:28] LABS: Alanine Aminotransferase 16 U/L (0-33); Albumin Level 3.9 g/dL (3.5-5.2); Alkaline Phosphatase 65 IU/L (35-105); Anion Gap 14.9 (5-19); Aspartate Amino Transferase 20 U/L (0-32); Blood Urea Nitrogen 16 mg/dL (6-20); C Reactive Protein 18.2 mg/L (0.0-4.9); Calcium 9.4 mg/dL (8.5-10.5); Carbon Dioxide 25 mmol/L (22-29); Chloride 105 mmol/L (98-107); Ferritin 98 ng/mL (15-150); Globulin 3.1 g/dL (1.3-4.6); Glomerular Filtration Rate 76.2 mL/min (90-130); Glucose 118 mg/dL (65-115); Lactate Dehydrogenase 156 U/L (135-214); Magnesium 1.9 mg/dL (1.7-2.3); Osmolality Calculated 294 mOsm/kg (285-295); Potassium 3.9 mmol/L (3.5-5.1); Sodium 141 mmol/L (136-145); Total Bilirubin 0.2 mg/dL (0.15-1.2)
[2020-05-21 23:30] LABS: D Dimer 0.71 ug/mIFEU (0-0.59)
[2020-05-22] VITALS (36 sets, daily range): BP systolic 88–154; BP diastolic 59–108; PULSE 87–125; RESP 16–45; TEMP 36.7–37.3; O2SAT 86–98
--- NOTE | 2020-05-22 00:57 | PC.NURSE ---
pt stated she feels better after the RT TX. requested water. Okayed by provider
--- NOTE | 2020-05-22 01:52 | PC.NURSE ---
Pt aware of admission. Waiting for hospitalist
--- NOTE | 2020-05-22 01:52 | PC.NURSE ---
Pt aware of admission, waiting for bed. Provide Ice water
--- NOTE | 2020-05-22 01:55 | PM.HP ---
Providers/Chief Complaint Primary Care Provider: BONNIE Brown Chief Complaint: RESP DISTRESS History of Present Illness Shasha Serrato is a 49 year old female with a past medical history of COPD, 2 L oxygen dependent, FEV1 over FVC ratio 49%, FEV1 of 1.89 L, gold D, bilateral centrilobular emphysema, grade 1 diastolic dysfunction, current smoker, hypothyroidism, anxiety and depression, history of sinus tachycardia who presents [facility] due to complaints of increased shortness of breath. Patient states that for the last 2 weeks she has had increased shortness of breath, shortness of breath with minimal exertion such as getting up to use the bathroom, nonproductive cough, no fevers, but has chills, no known exposure to COVID-19, has been tested multiple times in the past, has tested negative. Patient states that she is been fighting this for the last 2 weeks, avoiding coming to the hospital, however tonight she was short of breath with very minimal exertion, so she decided to come to the ER. Has some chest tightness, no chest pain, no palpitations, no lightheadedness, dizziness, no nausea, no vomiting. In the ER she was found to have sinus tachycardia, some intercostal retractions, nasal flaring, on 4 L, white blood cell count 13.9, D-dimer 0.71, ABG pH 7.4, PCO2 39.6, PO2 96. Review of Systems Const: Denies: fever(s), chills, fatigue or malaise Eyes: Denies: change in vision or blurry vision ENMT: Denies: nasal congestion Card: Denies: chest pain, palpitations, irregular heart rhythm or edema Resp: Reports: dyspnea and non-productive cough; Denies: productive cough or wheezing GI: Denies: abdominal pain, nausea, vomiting, hematemesis, diarrhea, constipation, hematochezia or melena : Denies: flank pain, dysuria or urinary frequency Musc: Denies: neck pain or back pain Skin/Breast: Denies: rash Neuro: Denies: headache(s), dizziness or vertigo Psych: Denies: anxiety or depression Endo: Denies: polyuria or polydipsia Medications/Allergies Home Medications Medication Instructions Recorded Confirmed Last Taken Type montelukast 10 mg tablet 10 mg PO DAILY tab 07/29/19 04/25/2020 History levothyroxine 112 mcg capsule 112 mcg PO DAILY cap 11/15/19 04/25/20 03/14/20 History acetaminophen 300 mg-codeine 30 mg 1 tab PO TID PRN 02/14/20 04/25/20 03/15/20 History tablet prenat.vits,aliza,mvm-hxdo-lkfog 1 tab PO DAILY 02/14/20 04/25/20 02/29/20 History ibuprofen 800 mg PO TID PRN 03/01/20 04/25/20 03/14/20 History levocetirizine [Xyzal] 5 mg PO DAILY 03/01/20 04/25/20 03/14/20 History tizanidine 4 - 8 mg PO TID PRN 03/01/20 04/25/20 03/14/20 History budesonide 0.5 mg/2 mL suspension 0.25 mg INHALATION BID #60 ml 03/30/20 04/25/20 Unknown Rx for nebulization ipratropium-albuterol 3 ml INHALATION Q6H PRN #15 ml 03/30/20 04/25/20 Unknown Rx hydroxyzine HCl 25 - 50 mg PO BID 04/14/20 04/25/20 Unknown History metoprolol succinate 25 mg PO DAILY 04/14/20 04/25/20 Unknown History citalopram 40 mg tablet 40 mg PO .morning #30 tab 04/17/20 04/25/20 Unknown Rx azithromycin 500 mg tablet 500 mg PO .Friday04/25/20 04/25/20 Unknown Rx 90 Days #45 tab albuterol sulfate 90 mcg/actuation 2 inh INHALATION Q4H PRN #6.7 gm 05/17/20 Unknown Rx aerosol inhaler Allergies Allergy/AdvReac Type Severity Reaction Status Date / Time cephalexin [From Keflex] Allergy Severe vomiting Verified 04/25/20 09:06 doxycycline Allergy Unknown vomiting Verified 04/25/20 09:06 meloxicam [From Mobic] Allergy Unknown Unknown Verified 04/25/20 09:06 Penicillins Allergy Unknown rash Verified 04/25/20 09:06 vancomycin Allergy Unknown Unknown Verified 04/25/20 09:06 PFSH Acute PFSH: Medical History Calcified granuloma of lung Chronic post-traumatic stress disorder COPD (chronic obstructive pulmonary disease) Uses 2 L of oxygen at home, severe COPD as per pulmonary function test done in 2019, with limited broncho-dilatory response and reduced diffusion capacity. Hypothyroidism Legg-Perthes disease Major depressive disorder, recurrent severe without psychotic features Sinus tachycardia Suicide attempt Surgical History H/O breast biopsy H/O tubal ligation History of dental surgery S/P hip replacement Family History Denies family history of Psychiatric illness Social History Smoking and tobacco status: former smoker Quit status (tobacco): has quit using tobacco Year quit tobacco: 2017 - 2PPD x 33 Years Alcohol intake: never Household members: significant other Housing: House Marital status: Life Partner Current occupational status: disabled History of recent travel: No Current gender identity: Female Female Reproductive History: Date of last menstrual period: 12/27/19 Para: 4 Vitals/I&O/Wt Last Vital Signs Pulse 114 H 05/22/20 01:50 Resp 24 H 05/22/20 01:50 BP 135/89 05/22/20 01:50 Pulse Ox 90 05/22/20 01:50 Weight last 48 hrs Weight 73.028 kg Physical Exam Const: COMMON NORMALS: no acute distress and patient oriented x3 GENERAL APPEARANCE: cooperative and comfortable HENMT: COMMON NORMALS: normocephalic HEAD & SCALP: normocephalic Eye: COMMON NORMALS: Equal, round and reactive pupils present, EOMs intact bilaterally and no papilledema GENERAL EYE: appearance normal, both eyes and all related structures PUPIL: Yes Equal, round and reactive pupils present DIRECT OPHTHALMOSCOPY: Yes no papilledema Neck/C-Spine: COMMON NORMALS: full ROM, no lymphadenopathy, no JVD and Thyroid normal THYROID: Thyroid normal Lymph: LYMPHATIC: no lymphadenopathy noted Resp: COMMON NORMALS: normal respiratory effort, No retractions, No use of accessory muscles and clear to auscultation bilaterally EFFORT & INSPECTION: Yes tachypneic, Yes Actively coughing, Yes retractions intercostal and No uses accessory muscles AUSCULTATION: breath sounds absent bilateral Cardio: COMMON NORMALS: no JVD, regular rate, regular rhythm, S1 normal heart sound present, S2 normal heart sound present, No gallops present (Cardio), No clicks present (Cardio) and No murmurs present (Cardio) RATE: tachycardic RHYTHM: regular rhythm HEART SOUNDS: S1 normal heart sound present and S2 normal heart sound present GI: COMMON NORMALS: Normal to inspection, nondistended, normoactive bowel sounds present, Soft to palpation, non-tender and No hepatosplenomegaly present PALPATION: Yes Soft to palpation and Yes No hepatosplenomegaly present Extremity: COMMON NORMALS: normal to inspection, full ROM and no pedal edema Neuro: COMMON NORMALS: patient oriented x3, CN's II-XII intact bilaterally, moves all extremities and no focal motor deficits Psych: COMMON NORMALS: mental status grossly normal, Normal thought process present and cooperative THOUGHT PROCESS: Normal thought process present Data : 05/21/20 21:39 05/21/20 21:39 Micro: Microbiology 05/21/20 22:50 Blood Culture - Preliminary Blood SPECIMEN COLLECTED 05/21/20 22:30 Blood Culture - Preliminary Blood SPECIMEN COLLECTED A&P Assessment and plan (1) Acute on chronic respiratory failure with hypoxia: Secondary to COPD exacerbation, chest x-ray does show bilateral interstitial infiltrates Plan: -Admit to general medical floors -Telemetry monitoring -Monitor serial EKGs, serial troponins, monitor for chest pain -Solu-Medrol 40 every 8 hours -Pulmicort -DuoNebs every 6 hours scheduled -Levaquin for antibiotic coverage -Sputum cultures, blood cultures, urine bacterial antigen, COVID-19 PCR, COVID-19 precautions -CT angiogram of the chest ordered to evaluate for pulmonary emboli -Gentle IV hydration, patient does not look fluid overloaded -Full code -Lovenox for DVT prophylaxis Status: Acute (2) COPD (chronic obstructive pulmonary disease): Status: Acute (3) Sinus tachycardia: Status: Chronic (4) Hypothyroidism: Status: Chronic (5) COPD (chronic obstructive pulmonary disease): Status: Chronic Qualifiers: COPD type: COPD with acute exacerbation Qualified Code(s): J44.1 - Chronic obstructive pulmonary disease with (acute) exacerbation (6) Major depressive disorder, recurrent severe without psychotic features: Status: Chronic Attestations Medical Necessity Statement*: Patient requires hospitalization, inpatient, greater than 2 midnights, for acute respiratory failure with hypoxia secondary to COPD Coding Level of Care Code Acute Garment Folder for Chg Fwd Diagnoses Acute on chronic respiratory failure with hypoxia J96.21 COPD (chronic obstructive pulmonary disease) J44.9 Sinus tachycardia R00.0 Hypothyroidism E03.9 COPD (chronic obstructive pulmonary disease) J44.1 COPD type: COPD with acute exacerbation Major depressive disorder, recurrent severe without psychotic features F33.2
--- NOTE | 2020-05-22 01:59 | PC.NURSE ---
Report to MAGDALENA Sharma
--- NOTE | 2020-05-22 02:01 | CTR_ITS ---
PROCEDURE INFORMATION: Exam: CT Angiography Chest With Contrast Exam date and time: 05/22/2020 2:03 AM Age: 49 years old Clinical indication: Dyspnea; Additional info: SOB, tchycardia TECHNIQUE: Imaging protocol: Computed tomographic angiography of the chest with intravenous contrast. 3D rendering (Not supervised by radiologist): MIP and/or 3D reconstructed images were created by the technologist. Radiation optimization: All CT scans at this facility use at least one of these dose optimization techniques: automated exposure control; mA and/or kV adjustment per patient size (includes targeted exams where dose is matched to clinical indication); or iterative reconstruction. Contrast material: OMNI 350; Contrast volume: 95 ml; Contrast route: INTRAVENOUS (IV); COMPARISON: CT angio chest PE protcl [id number] 03/29/2020 3:00 AM RADIATION DOSE METRICS: Total DLP (mGy-cm): 575.42 FINDINGS: Pulmonary arteries: The pulmonary arteries are adequately opacified for evaluation to the subsegmental level. There is no filling defect to suggest embolism. Aorta: The aorta is unremarkable. There is no aneurysm. Lungs: There is moderate diffuse centrilobular emphysema. There are innumerable scattered tiny pulmonary calcifications suggesting sequelae of remote granulomatous infection. Pleural space: Unremarkable. No pneumothorax. No pleural effusion. Heart: Heart size is normal. There is no pericardial effusion. Lymph nodes: Unremarkable. No enlarged lymph nodes. Bones/joints: Bones are unremarkable. Soft tissues: The extrathoracic soft tissues are unremarkable. Other findings: Visible structures in the upper abdomen are unremarkable. CT/CT angio chest PE protcl [id number] IMPRESSION: 1. No pulmonary embolism. 2. No acute pulmonary findings. 3. Moderate diffuse centrilobular emphysema. Radiation Dose CTDIVOL = (mGy): DLP = 575.42 (mGy-cm)
[2020-05-22] MEDS: iohexol 350 mg/mL 100 mL Btl IV (02:30)
[2020-05-22] MEDS: sodium chloride 0.9% 1,000 ML 75 ML IV (05:43)
[2020-05-22] MEDS: levofloxacin-dextrose 5 % 750 MG/150 ML PREMIX 100 MG IV (05:44)
[2020-05-22] MEDS: enoxaparin 40 mg/0.4 mL Syringe SUBCUT (05:44)
[2020-05-22] MEDS: ipratropium-albuterol 3 mL Neb INHALATION ×5 (06:10→20:02)
[2020-05-22 07:36] LABS: Troponin 5 2HR Delta 0 ABS# (0-10)
[2020-05-22] MEDS: budesonide 0.5 mg/2 mL Neb 0.25 MG INHALATION (09:21)
[2020-05-22] MEDS: citalopram 20 mg Tablet 40 MG PO (09:40)
[2020-05-22] MEDS: levothyroxine 112 mcg Tablet PO (09:40)
[2020-05-22] MEDS: pantoprazole DR 40 mg Tablet PO (09:40)
[2020-05-22] MEDS: montelukast sodium 10 mg Tablet PO (09:40)
[2020-05-22] MEDS: metoprolol succinate ER (24 HR) 25 mg Tablet PO (09:40)
--- NOTE | 2020-05-22 10:06 | P.PN_ITS ---
Subjective Subjective: Interval history: Shasha reports she is breathing a little bit better this morning than she was yesterday. Still coughing some. No vomiting. History and physical reviewed. Medications: Reviewed: Yes Vitals/I&O/Wt Last Vital Signs Temp 98.2 F 05/22/20 07:02 Pulse 94 05/22/20 09:20 Resp 20 H 05/22/20 09:20 BP 116/75 05/22/20 07:02 Pulse Ox 95 05/22/20 09:20 Weight last 48 hrs Weight 73.028 kg Physical Exam Narrative: EXAM NARRATIVE: General exam is no apparent distress Cardiovascular regular rate and rhythm without murmur Lungs a few expiratory wheezes Abdomen is soft with positive bowel sounds Extremities no cyanosis clubbing or edema Data : 05/21/20 21:39 05/21/20 21:39 Micro: Microbiology 05/21/20 22:50 Blood Culture - Preliminary Blood SPECIMEN COLLECTED 05/21/20 22:30 Blood Culture - Preliminary Blood SPECIMEN COLLECTED A&P Assessment and plan (1) Acute on chronic respiratory failure with hypoxia: IV steroids to every 12 hours Continue Levaquin for concern of acute bronchitis Pulmonary toilet, with albuterol and Atrovent every 4 hours scheduled Pulmicort twice daily Wean oxygen to baseline of 2 L as tolerated Await Covid PCR CTA demonstrated no pulmonary embolism, diffuse emphysema with no obvious infiltrate. Status: Acute (2) COPD (chronic obstructive pulmonary disease): See notations above Status: Acute Qualifiers: COPD type: COPD with acute exacerbation Qualified Code(s): J44.1 - Chronic obstructive pulmonary disease with (acute) exacerbation Additional A&P Information Hypothyroidism, continue home medication Depression, continue home medications Arrhythmia. Currently on metoprolol Full code Lovenox for DVT prophylaxis Attestations Medical Necessity Statement*: Needs continued hospital stay for frequent breathing treatments for COPD exacerbation, IV steroids Coding Level of Care Code Acute Distribution Analyst for Chg Fwd Diagnoses Acute on chronic respiratory failure with hypoxia J96.21 COPD (chronic obstructive pulmonary disease) J44.1 COPD type: COPD with acute exacerbation
--- NOTE | 2020-05-22 11:34 | PC.OT ---
OT note: Pt observed during PT evaluation to get EOB without assistance from flat bed, donned slip on shoes, ambulated to bathroom using walker, stood at sink and washed hands without loss of balance, then returned to bed. She reported she does self-cares independently at baseline except washing her hair (significant other helps) and she has nutrition and dietetics instructor for IADLs 5x/week. She could benefit from cane of her own as she uses her significant other's and he needs it as well. Social work notified. Pt reported she feels she is at her baseline with self-cares. No further OT recommended at this time.
--- NOTE | 2020-05-22 11:59 | PC.NURSE ---
notified Dr Avina that patient doesn't have diet order and is requesting food.
[2020-05-22] MEDS: acetaminophen 325 mg Tablet 650 MG PO (13:29)
--- NOTE | 2020-05-22 17:58 | PC.RESP ---
Pulmonary Rehab information sent to patient.
[2020-05-22] MEDS: budesonide 0.5 mg/2 mL Neb INHALATION (20:02)
[2020-05-23] VITALS (15 sets, daily range): BP systolic 110–133; BP diastolic 71–87; PULSE 78–110; RESP 16–20; TEMP 36.6–37.2; O2SAT 93–98
[2020-05-23] MEDS: ipratropium-albuterol 3 mL Neb INHALATION ×6 (00:30→19:46)
[2020-05-23] MEDS: levofloxacin-dextrose 5 % 750 MG/150 ML PREMIX 100 MG IV (05:14)
[2020-05-23] MEDS: enoxaparin 40 mg/0.4 mL Syringe SUBCUT (05:14)
[2020-05-23 05:32] LABS: Hematocrit 37.1 % (37.0-47.0); Hemoglobin 11.4 g/dL (11.5-15.3); Lymphocytes # 1.2 10^3/uL (0.8-4.8); Lymphocytes % 14.2 %; Mean Corpuscular HGB Conc 30.7 g/dL (30.0-36.0); Mean Corpuscular Volume 87.7 fL (81-99); Mean Platelet Volume 10.2 fL (7.4-10.4); Monocytes # 0.5 10^3/uL (0.2-0.9); Monocytes % 5.7 %; Neutrophils # 6.86 10^3/uL (1.8-7.7); Neutrophils % 79.5 %; Nucleated Red Blood Cells % 0 %; Platelet Count 378 10^3/cmm (130-400); Red Blood Count 4.23 10^6/uL (4.1-5.3); Red Cell Distribution Width 15.4 % (12.1-15.1); White Blood Count 8.6 10^3/uL (4.0-10.0)
[2020-05-23 06:00] LABS: Alanine Aminotransferase 17 U/L (0-33); Albumin Level 3.9 g/dL (3.5-5.2); Alkaline Phosphatase 63 IU/L (35-105); Anion Gap 14.4 (5-19); Aspartate Amino Transferase 20 U/L (0-32); Blood Urea Nitrogen 13 mg/dL (6-20); Calcium 9.9 mg/dL (8.5-10.5); Carbon Dioxide 25 mmol/L (22-29); Chloride 106 mmol/L (98-107); Globulin 3.5 g/dL (1.3-4.6); Glomerular Filtration Rate 88.9 mL/min (90-130); Glucose 150 mg/dL (65-115); Osmolality Calculated 295 mOsm/kg (285-295); Potassium 4.4 mmol/L (3.5-5.1); Sodium 141 mmol/L (136-145); Total Bilirubin 0.2 mg/dL (0.15-1.2); Total Protein 7.4 g/dL (6.6-8.7)
[2020-05-23] MEDS: budesonide 0.5 mg/2 mL Neb INHALATION (07:52)
--- NOTE | 2020-05-23 07:55 | PC.NURSE ---
Patient requested to get her morning breathing treatment at 0530 after refusing her 0400 treatment as she was SOB. RT notified at 0540. At 0720 Dr. Avina asked this nurse to notify respiratory that patient needs a breathing treatment as she reports she is SOB and feels tightness in her throat. RT notified and responded. RT is currently in patient room administering patients scheduled breathing treatment.
[2020-05-23] MEDS: citalopram 20 mg Tablet 40 MG PO (08:48)
[2020-05-23] MEDS: montelukast sodium 10 mg Tablet PO (08:48)
[2020-05-23] MEDS: pantoprazole DR 40 mg Tablet PO (08:49)
[2020-05-23] MEDS: metoprolol succinate ER (24 HR) 25 mg Tablet PO (08:49)
[2020-05-23] MEDS: levothyroxine 112 mcg Tablet PO (08:49)
[2020-05-23] MEDS: acetaminophen 325 mg Tablet 650 MG PO (09:03)
--- NOTE | 2020-05-23 09:36 | PC.CHAP ---
Pastoral Care Encounter/Spiritual Assessment Type of Contact [] Declined fitness teacher visit [] Patient/Family/Request visit [] Outpatient visit [] Follow-up visit [] Physician referral [] Code/Alert [x] Routine visit [] Staff referral [] Actively dying [] Patient sleeping [] Family support [] [] Out of room [] Palliative care [] [] Receiving care in room [] Pre-surgical visit [] Trauma [] Long length of stay [] ICU visit [] Other: Relational/Emotional Strength [] Patient feels connected with others/family/visitors/staff [] Distress [] Loneliness/isolation [] Abandonment Spirituality of Patient [] Person of Valery [] Attends Mormonism of their Valery [] Believes in Prayer [] Reads Bible or Quaker materials [] There are Spiritual issues to be addressed Cake Cutter Machine Interventions [x] Prayer [] Active listening [] Non-anxious presence [] Spiritual/emotional support [] Crisis/trauma care [] Spiritual counseling [] Bereavement support [] Provided bereavement packet [] Provided Bible/devotional materials [] Provided toy/stuffed animal, coloring book to patient or family member [] Provided Communion [] Anointing/[place] [] Salvation [x] Completed spiritual assessment [] Other: Impact on Illness or Injury [] Angry [] Fearful [] Anxious [] Often cries [] Exhaustion [] Unable to work [] Unable to attend buddhism [] Unable to walk/stand [] Unable to read [] Unable to drive [] Unable to eat/drink [] Unable to sleep [] Unable to be with family [] Patient intubated [] Other: Summary Time spent with patient
--- NOTE | 2020-05-23 13:06 | PM.PN ---
Subjective Subjective: Interval history: Shasha reports she is little bit more short of breath this morning than yesterday. Still coughing. Reports she cannot get up to go to the bathroom without getting severely short of breath. Medications: Reviewed: Yes Vitals/I&O/Wt Last Vital Signs Temp 98.7 F 05/23/20 11:02 Pulse 99 05/23/20 11:59 Resp 20 H 05/23/20 11:56 BP 110/71 05/23/20 11:02 Pulse Ox 95 05/23/20 11:56 05/22/20 05/23/20 05/23/20 22:59 06:59 14:59 Intake Total 480 / 720 600 / 1320 480 / 480 Balance 480 / 720 600 / 1320 480 / 480 Weight last 48 hrs Weight 75.75 kg Weight 73.028 kg Physical Exam Narrative: EXAM NARRATIVE: General exam is no apparent distress Cardiovascular regular rate and rhythm without murmur Lungs a few expiratory wheezes. Diminished breath sounds bilaterally. Abdomen is soft with positive bowel sounds Extremities no cyanosis clubbing or edema Data : 05/23/20 05:10 05/23/20 05:10 Micro: Microbiology 05/21/20 22:50 Blood Culture - Preliminary Blood NEGATIVE TO DATE 05/21/20 22:30 Blood Culture - Preliminary Blood NEGATIVE TO DATE 05/22/20 12:53 Bacterial Antigens - Final Urine,Clean Catch A&P Assessment and plan (1) Acute on chronic respiratory failure with hypoxia: Change to oral prednisone Continue Levaquin for concern of acute bronchitis Pulmonary toilet, with albuterol and Atrovent every 4 hours scheduled Change Pulmicort to Advair Wean oxygen to baseline of 2 L as tolerated Await Covid PCR CTA demonstrated no pulmonary embolism, diffuse emphysema with no obvious infiltrate. Status: Acute (2) COPD (chronic obstructive pulmonary disease): See notations above Status: Acute Qualifiers: COPD type: COPD with acute exacerbation Qualified Code(s): J44.1 - Chronic obstructive pulmonary disease with (acute) exacerbation Additional A&P Information Hypothyroidism, continue home medication Depression, continue home medications Arrhythmia. Currently on metoprolol 05/23 not significantly improved in regards to her COPD exacerbation. Continue pulmonary toilet, p.o. steroids and monitoring. Not yet ready to go home. Changed Pulmicort to Advair Full code Lovenox for DVT prophylaxis Attestations Medical Necessity Statement*: Needs continued hospitalization for pulmonary toilet secondary to severe COPD exacerbation. Coding Level of Care Code Acute Inspector Screen Printing for Chg Fwd Diagnoses Acute on chronic respiratory failure with hypoxia J96.21 COPD (chronic obstructive pulmonary disease) J44.1 COPD type: COPD with acute exacerbation
[2020-05-23] MEDS: predniSONE 20 mg Tablet 40 MG PO (16:01)
[2020-05-24] VITALS (13 sets, daily range): BP systolic 113–145; BP diastolic 66–91; PULSE 86–108; RESP 17–24; TEMP 36.5–36.8; O2SAT 92–98
[2020-05-24] MEDS: ipratropium-albuterol 3 mL Neb INHALATION ×4 (00:39→11:05)
[2020-05-24] MEDS: acetaminophen 325 mg Tablet 650 MG PO (01:16)
[2020-05-24] MEDS: levofloxacin-dextrose 5 % 750 MG/150 ML PREMIX 100 MG IV (06:10)
[2020-05-24] MEDS: montelukast sodium 10 mg Tablet PO (08:14)
[2020-05-24] MEDS: pantoprazole DR 40 mg Tablet PO (08:14)
[2020-05-24] MEDS: levothyroxine 112 mcg Tablet PO (08:14)
[2020-05-24] MEDS: citalopram 20 mg Tablet 40 MG PO (08:15)
[2020-05-24] MEDS: metoprolol succinate ER (24 HR) 25 mg Tablet PO (08:15)
[2020-05-24] MEDS: predniSONE 20 mg Tablet 40 MG PO (08:15)
--- NOTE | 2020-05-24 08:52 | P.DS_ITS ---
Discharge Providers Date of Admission: 05/22/20 01:22 Date of Discharge: May 24, 2020 Attending Provider at Admission: Sanju Day MD Attending Provider at Discharge: Blaine Avina MD Primary Care Provider: BONNIE Brown Diagnoses at Discharge Discharge Diagnosis (1) Acute on chronic respiratory failure with hypoxia: Status: Acute (2) COPD (chronic obstructive pulmonary disease): Status: Acute Qualifiers: COPD type: COPD with acute exacerbation Qualified Code(s): J44.1 - Chronic obstructive pulmonary disease with (acute) exacerbation Reason for Visit Reason for Visit: RESP DISTRESS Hospital Course Hospital Course Shasha presented to the hospital short of breath. No pneumonia was noted on x-ray. She has an extensive history of COPD. She was placed on IV steroids, pulmonary toilet, and IV antibiotics. Rapid Covid was negative, PCR pending. During her hospital course she showed gradual improvement. IV steroids were discontinued and she was changed to prednisone. Advair was initiated and Pulmicort discontinued. CTA of chest was done while she was in the hospital [facility] demonstrated no pulmonary embolism as well. By May 24 she was improved enough she wished to go home. She was back on 2 L of oxygen, her baseline requirement. She will follow-up with her primary care provider 3 to 5 days, pulmonary in 3 to 4 weeks. She does not smoke, and was instructed not to be around anybody who smokes. We also discussed her environmental triggers. She heats with wood, and the stove is in the house. She will be looking for an alternative method of heating her house. Resources were discussed. Physical Exam Narrative: EXAM NARRATIVE: General exam no apparent distress Cardiovascular regular in rhythm without murmur Lungs clear but with markedly diminished breath sounds bilaterally Abdomen is soft nontender with positive bowel sounds Extremities no cyanosis clubbing or edema. Discharge Data Data Completed and Pending: Completed Studies During Hospitalization Category Date Time Status CT angio chest PE protcl [id number] Urge nt Cat Scan 05/22/20 02:01 Completed XR chest 1V ronni ble [id number] Urgent Exams 05/21/20 22:20 Completed Pending at discharge Category Date Time Status Blood Culture Sta t Lab 05/21/20 22:50 Results Coronavirus Lab T est PTC Routine Lab 05/22/20 08:12 Received Sputum Culture an d Gram Stain Stat Lab 05/22/20 02:44 Uncollected Vitals: Last Vital Signs Temp 98.0 F 05/24/20 07:09 Pulse 92 05/24/20 07:49 Resp 17 05/24/20 07:43 BP 139/90 05/24/20 07:09 Pulse Ox 98 05/24/20 07:43 Discharge Plan Discharge Patient Disposition: Home Condition: Stable Prescriptions: New levofloxacin 750 mg tablet 750 mg PO DAILY 7 Days RF: 0 fluticasone propion-salmeterol [Advair Diskus] 500-50 mcg/dose Blister With Device 1 puff inhalation BID.RESPIRATORY Qty: 1 RF: 0 prednisone 20 mg Tablet 40 mg PO DAILY Qty: 6 RF: 0 Continued levothyroxine 112 mcg capsule 112 mcg PO DAILY RF: 0 prenat.vits,aliza,xnp-onig-usxrj Tablet 1 tab PO DAILY RF: 0 citalopram [Celexa] 40 mg tablet 40 mg PO .morning Qty: 30 RF: 3 montelukast [Singulair] 10 mg tablet 10 mg PO DAILY RF: 0 albuterol sulfate 90 mcg/actuation HFA aerosol inhaler 2 inh INHALATION Q4H PRN (Reason: shortness of breath or wheezing) Qty: 6.7 RF: 6 levocetirizine [Xyzal] 5 mg Tablet 5 mg PO DAILY RF: 0 ipratropium-albuterol 0.5 mg-3 mg(2.5 mg base)/3 mL solution for nebulization 3 ml INHALATION Q6H PRN (Reason: shortness of breath or wheezing) Qty: 15 RF: 0 metoprolol succinate 25 mg Tablet Extended Release 24 Hr 50 mg PO DAILY RF: 0 Discontinued ibuprofen 800 mg Tablet 800 mg PO TID PRN (Reason: Pain) RF: 0 budesonide [Pulmicort] 0.5 mg/2 mL suspension for nebulization 0.25 mg INHALATION BID Qty: 60 RF: 0 Hold Instructions: Resume on 05/04/20. after follow up with Dr. Martines Discharge Orders: Discharge Order (Routine); Ordered 05/24/20 Ordered By: Blaine Avina Referrals: Mikey Martines MD [Physician] - None (Please arrange follow up in 3-4 weeks with pulmonary) Richard,BONNIE Iqbal [Primary Care Provider] - 4-7 days Discharge Diet: Regular Discharge Activity: Increase activity as tolerated Activity Restrictions/Additional Instructions: Avoid exposure to all smoke Follow-up with pulmonary in 3 to 4 weeks Discharge Attestations Time Spent in Discharge Care*: greater than 30 min Status at Discharge: Cognitive status at discharge: cognitively intact , Behavioral status at discharge: cooperative , Quality Metrics Clinical Quality Measures During this hospital stay, did patient experience: None Coding Level of Care Code Acute Grain Combiner for Angela Fwsara Diagnoses Acute on chronic respiratory failure with hypoxia J96.21 COPD (chronic obstructive pulmonary disease) J44.1 COPD type: COPD with acute exacerbation
[2020-05-24 13:18] LABS: Coronavirus Lab Test PTC Negative
== END 2020-05-24 11:50 | disposition home or self-care (01) | DRG 189 ==
LOC: ER 22:35 → MEDSURG 05-22 01:32
PROVIDERS: Admitting Provider Family Medicine; Emergency Provider Emergency Medicine; PCP Nurse Practitioner Family; Visit Provider Internal Medicine
DX: J96.21 Acute and chronic respiratory failure with hypoxia (principal); F33.9 Major depressive disorder, recurrent, unspecified; Z99.81 Dependence on supplemental oxygen; J43.2 Centrilobular emphysema; Z87.891 Personal history of nicotine dependence; E03.9 Hypothyroidism, unspecified; R00.0 Tachycardia, unspecified; F43.12 Post-traumatic stress disorder, chronic; Z96.649 Presence of unspecified artificial hip joint; Z79.51 Long term (current) use of inhaled steroids
CPT/HCPCS: 12345; 36415; 36600; 71045; 71275; 80053; 82728; 82805; 83605; 83615; 83735; 83880; 84145; 84484; 85025; 85378; 86140; 86403; 87040; 87426; 87635; 94640; 94664; 96372; 96375; 97116; 97140; 97161; 97530; 99284; J1650; J1956; J2060; J2920; J7030; J7040; J7512; J7611; J7626; Q9967

== ENCOUNTER → 2020-05-29 07:58 | Outpatient (BNVA) | payer MEDICAID, SELFPAY ==
[2020-05-17 15:54] VITALS: BP 121/81; BMI 31.4
== END ==
PROVIDERS: PCP Nurse Practitioner Family; Visit Provider Nurse Practitioner Psychiatric/Mental Health
DX: F33.2 Major depressive disorder, recurrent severe without psychotic features (principal); F43.12 Post-traumatic stress disorder, chronic
CPT/HCPCS: 99213

== ENCOUNTER → 2020-07-17 08:06 | Outpatient (BNVA) | payer MEDICAID, SELFPAY ==
[2020-05-17 15:54] VITALS: BP 121/81; BMI 31.4
== END ==
PROVIDERS: PCP Nurse Practitioner Family; Visit Provider Nurse Practitioner Psychiatric/Mental Health
DX: F33.2 Major depressive disorder, recurrent severe without psychotic features (principal); F43.12 Post-traumatic stress disorder, chronic
CPT/HCPCS: 99213

== ENCOUNTER → 2020-09-04 07:54 | Outpatient (BNVA) | payer MEDICAID, SELFPAY ==
[2020-05-17 15:54] VITALS: BP 121/81; BMI 31.4
== END ==
PROVIDERS: PCP Nurse Practitioner Family; Visit Provider Nurse Practitioner Psychiatric/Mental Health
DX: F33.2 Major depressive disorder, recurrent severe without psychotic features (principal); F43.12 Post-traumatic stress disorder, chronic
CPT/HCPCS: 99214

== ENCOUNTER → 2020-10-23 08:11 | Outpatient (BNVA) | payer MEDICAID, SELFPAY ==
[2020-05-17 15:54] VITALS: BP 121/81; BMI 31.4
== END ==
PROVIDERS: PCP Nurse Practitioner Family; Visit Provider Nurse Practitioner Psychiatric/Mental Health
DX: F33.2 Major depressive disorder, recurrent severe without psychotic features (principal); F43.12 Post-traumatic stress disorder, chronic
CPT/HCPCS: 99214

== ENCOUNTER → 2020-12-04 08:43 | Outpatient (BNVA) | payer MEDICAID, SELFPAY ==
[2020-05-17 15:54] VITALS: BP 121/81; BMI 31.4
== END ==
PROVIDERS: PCP Nurse Practitioner Family; Visit Provider Nurse Practitioner Psychiatric/Mental Health
DX: F33.2 Major depressive disorder, recurrent severe without psychotic features (principal); F43.12 Post-traumatic stress disorder, chronic
CPT/HCPCS: 99214

== ENCOUNTER → 2020-12-14 14:15 | Outpatient (BNVA) | payer MEDICAID, SELFPAY ==
[2020-05-17 15:54] VITALS: BP 121/81; BMI 31.4
== END ==
PROVIDERS: PCP Nurse Practitioner Family; Visit Provider Internal Medicine Critical Care Medicine
DX: J44.1 Chronic obstructive pulmonary disease with (acute) exacerbation (principal); Z20.822 Contact with and (suspected) exposure to COVID-19
CPT/HCPCS: 87635

== ENCOUNTER 2020-12-19 10:30 | Outpatient (CLI) | payer MEDICAID, SELFPAY ==
[2020-05-17 15:54] VITALS: BP 121/81; BMI 31.4
--- NOTE | 2020-12-19 11:23 | PFTS_ITS ---
Date of Study:12/19/20 Date of Dictation: 12/22/2020 MECHANICS: Postbronchodilator forced vital capacity (FVC) is reduced Postbronchodilator forced expiratory volume in one second (FEV1) is severely reduced 32%-790 ml FEV1/FVC is reduced. There is significant response to bronchodilator.. FLOW VOLUME LOOP: Scooping of expiratory limb significant airway obstruction. . LUNG VOLUMES: Total lung capacity (TLC) is normal. Residual volume (RV) is increased suggestive of severe air trapping 189%. DIFFUSING CAPACITY FOR CARBON MONOXIDE: Normal . INTERPRETATION: The pulmonary function tests are consistent with severe obstructive ventilatory disease. There is significant response to bronchodilator. Lung volumes show severe air trapping. Gas transfer is normal. Clinical correlation recommended. [facility]
== END 2020-12-19 10:31 | disposition home or self-care (01) ==
LOC: RT 10:32
PROVIDERS: PCP Nurse Practitioner Family; Visit Provider Internal Medicine Critical Care Medicine
DX: J44.1 Chronic obstructive pulmonary disease with (acute) exacerbation (principal)
CPT/HCPCS: 94060; 94726; 94729; J7611

== ENCOUNTER → 2021-01-22 07:16 | Outpatient (BNVA) | payer MEDICAID, SELFPAY ==
[2020-05-17 15:54] VITALS: BP 121/81; BMI 31.4
== END ==
PROVIDERS: PCP Nurse Practitioner Family; Visit Provider Nurse Practitioner Psychiatric/Mental Health
DX: F33.2 Major depressive disorder, recurrent severe without psychotic features (principal); F43.12 Post-traumatic stress disorder, chronic
CPT/HCPCS: 99214

== ENCOUNTER 2021-02-03 10:50 | Emergency (ER) | payer MEDICAID, SELFPAY ==
[2020-05-17 15:54] VITALS: BP 121/81; BMI 31.4
--- NOTE | 2021-02-03 11:04 | XRR_ITS ---
PROCEDURE INFORMATION: Exam: XR Chest Exam date and time: 02/03/2021 11:04 AM Age: 50 years old Clinical indication: Cough and dyspnea; Additional info: Dyspnea/cough TECHNIQUE: Imaging protocol: XR of the chest. Views: 1 view. COMPARISON: CR XR chest 1V portable [id number] 05/21/2020 10:45 PM FINDINGS: Lungs: Multiple small granulomas scattered throughout both lungs are stable. Stable mild hyperinflation of the lungs. Interval development of left lingular airspace disease suspicious for atelectasis versus pneumonia. Pleural spaces: No pleural effusion. No pneumothorax. Heart/Mediastinum: The cardiac silhouette and mediastinal contours are unremarkable. Bones/joints: Unremarkable for age. XR/XR chest 1V portable [id number] IMPRESSION: 1. Interval development of left lingular airspace disease suspicious for atelectasis versus pneumonia. Recommend clinical correlation. Recommend followup chest x-ray to ensure resolution. 2. Incidental/nonacute findings are listed in the report.
--- NOTE | 2021-02-03 11:05 | ECG_ITS ---
[facility] Test Date: 2021-02-03 Pat Name: Shasha Serrato Department: Room: Gender: Female Cancellation Clerk: : 1970 Requested By: Jaiden Wood Order Number: [id number] Santos MD: Brandie Hicks M.D. Measurements Intervals [place] Rate: 106 P: 84 GA: 135 QRS: 76 QRSD: 74 T: 67 QT: 332 QTc: 442 Interpretive Statements SINUS TACHYCARDIA POSSIBLE RIGHT ATRIAL ENLARGEMENT [0.25mV P WAVE] MODERATE ST DEPRESSION [0.05+ mV ST DEPRESSION] Compared to ECG 04/14/2020 09:48:48 ST (T wave) deviation now present Myocardial infarct finding no longer present Electronically Signed On 02-04-2021 18:23:52 CDT by Brandie Hicks M.D. [id number]
[2021-02-03 11:06] VITALS: BP 129/86; PULSE 110; RESP 24; TEMP 37.8; O2SAT 95; BMI 33.7
[2021-02-03 11:22] LABS: ABG PH Result 7.47 (7.35-7.45); Alveolar-Arterial Oxygen Gradi 10.4 mmHg (5-10); Arterial Blood Gas Hematocrit 43.1 % (37-47); Base Excess ABG 2.7 mmol/L (-2.0-2.0); Blood Gas Allen Test Pos; Blood Gas Operator Identificat AMH; Blood Gas Sample Site Radial, right; Blood Gas Sample Type Arterial; Carboxyhemoglobin 0.6 %THgb (0.4-20.1); HCO3 ABG 26.2 mmol/L (22-26); HGB O2 Sat 94.4 % (95-100); Ionized Calcium Level - ABG 1.2 mmol/L (1.1-1.4); Methemoglobin 0.8 % (0.4-1.5); Oxygen Device NC; Oxygen Saturation ABG 95.7; PO2 ABG 74.6 mmHg (80.0-100.0); Potassium Level - ABG 3.4 mmol/L (3.5-5.0); Total Hemoglobin 14.1 g/dL (12-16)
[2021-02-03 11:26] LABS: Basophils % 0.1 %; Hematocrit 45.6 % (37.0-47.0); Hemoglobin 14.4 g/dL (11.5-15.3); Lymphocytes # 1.7 10^3/uL (0.8-4.8); Lymphocytes % 22.7 %; Mean Corpuscular HGB Conc 31.6 g/dL (30.0-36.0); Mean Corpuscular Hemoglobin 27.6 pg (28.0-34.0); Mean Corpuscular Volume 87.5 fL (81-99); Mean Platelet Volume 10.8 fL (7.4-10.4); Monocytes # 0.4 10^3/uL (0.2-0.9); Monocytes % 5.2 %; Neutrophils # 5.25 10^3/uL (1.8-7.7); Neutrophils % 71.5 %; Nucleated Red Blood Cells % 0 %; Platelet Count 283 10^3/cmm (130-400); Red Blood Count 5.21 10^6/uL (4.1-5.3); Red Cell Distribution Width 13.3 % (12.1-15.1); White Blood Count 7.4 10^3/uL (4.0-10.0)
--- NOTE | 2021-02-03 11:27 | ED_ITS ---
HPI - COVID General: Chief Complaint: COVID symptoms Stated Complaint: covid +/ respiratory distress Time Seen by Provider: 02/03/21 11:03 Triage information: Has fever, cough or shortness of breath . No known COVID + exposure last 14 days History of Present Illness: HPI Narrative: 50-year-old female presents emergency room she tested positive for Covid 2 days ago at a local clinic with a rapid antigen. She is been febrile with increasing chills difficulty breathing. She is chronically on 2 L by nasal cannula she did increase her oxygen to 5 L. On arrival here she was satting near 100% her oxygen was titrated back down to 2 L and monitored she maintain sats in the 95 to 94% level at that time. She has had a cough productive cough of clear sputum has had some loose stools and a lot of nausea. MD complaint: known COVID positive Prior covid testing: yes, results known Prior testing date: 02/01/21 COVID 19 common symptoms: positive fever(s), chills, cough, productive cough, dyspnea, fatigue, body aches, headache(s), loss of sense of smell and/or taste, nasal congestion and diarrhea COVID 19 other sytmptoms: negative chest pain, requiring more oxygen or respiratory distress Onset (ago): day(s) Severity: mild Pertinent comorbid conditions: COPD/respiratory disease Treatment prior to arrival: none COVID Results: SARS-CoV-2 Antigen (Rapid) Negative (Negative) 05/21/20 22:39 05/21/20 Nasal/Oral Coronavirus 2019 PCR Not detected 12/14/20 14:15 12/14/20 Review of Systems Const: Reports: fever(s), chills, body aches and fatigue ENMT: Reports: nasal congestion Card: Denies: chest pain, edema, dyspnea on exertion or orthopnea Resp: Reports: dyspnea and productive cough GI: Reports: diarrhea : Denies: flank pain, difficulty voiding, dysuria, urinary frequency or urinary urgency Skin/Breast: Denies: rash or pruritus Neuro: Reports: headache(s) PFSH ED PFSH: Medical History (Updated 02/03/21 @ 12:39 by Jaiden Means DO) Calcified granuloma of lung Chronic post-traumatic stress disorder Hypothyroidism Legg-Perthes disease Major depressive disorder, recurrent severe without psychotic features Sinus tachycardia Suicide attempt Surgical History H/O breast biopsy H/O tubal ligation History of dental surgery S/P hip replacement Family History Denies family history of Psychiatric illness Social History Smoking and tobacco status: former smoker Quit status (tobacco): has quit using tobacco Year quit tobacco: 2017 - 2PPD x 33 Years Alcohol intake: never Lives independently: Yes Household members: significant other Housing: House Marital status: Life Partner Current occupational status: disabled History of recent travel: No Current gender identity: Female Female Reproductive History: Date of last menstrual period: 12/27/19 Para: 4 Physical Exam Const: COMMON NORMALS: no acute distress GENERAL APPEARANCE: cooperative and comfortable ORIENTATION/CONSCIOUSNESS: Yes awake, Yes oriented to person, Yes oriented to place and Yes oriented to time HENMT: COMMON NORMALS: normocephalic, atraumatic and hearing grossly normal bilaterally HEAD & SCALP: normocephalic and atraumatic Resp: AUSCULTATION: rhonchi and wheezes Cardio: COMMON NORMALS: regular rhythm and No murmurs present (Cardio) RATE: tachycardic RHYTHM: regular rhythm GI: COMMON NORMALS: Soft to palpation and No hepatosplenomegaly present AUSCULTATION: Yes normoactive bowel sounds PALPATION: Yes Soft to palpation, No Tenderness to palpation present (GI), No Guarding due to palpation present (GI) and Yes No hepatosplenomegaly present Extremity: COMMON NORMALS: normal to inspection, capillary refill normal, no clubbing, cyanosis or edema, no calf tenderness and no pedal edema Neuro: SENSORIUM/ORIENTATION: Yes oriented to person, Yes oriented to place and Yes oriented to time Skin: COMMON NORMALS: no rashes or lesions noted GENERAL SKIN EXAM: no rashes or lesions noted Course Vital Signs: Vital signs: Vital Signs Temperature 99.4 F 02/03/21 11:54 Pulse Rate 95 02/03/21 13:48 Respiratory Rate 18 02/03/21 13:48 Blood Pressure 142/79 02/03/21 13:48 Pulse Oximetry 94 02/03/21 13:48 MDM - COVID MDM Narrative: Medical decision making narrative: Labs and imaging reviewed with the patient. Vitals are all stable she is stable on the baseline oxygen that she usually uses. Wearing [place] discharge home because of her COPD and will put her on dexamethasone will make arrangements were to get monoclonal antibody she has consented to these consent was signed and placed in chart. Return if has further problems. Lab Data: Labs: Lab Results 02/03/21 02/03/21 02/03/21 Range/Units 11:08 11:15 11:15 WBC (4.0-10.0) 10^3/ uL RBC (4.1-5.3) 10^6/u L Hgb (11.5-15.3) g/dL Hct (37.0-47.0) % MCV (81-99) fL MCH (28.0-34.0) pg MCHC (30.0-36.0) g/dL RDW (12.1-15.1) % Plt Count (130-400) 10^3/c mm MPV (7.4-10.4) fL Neut % (Auto) % Lymph % (Auto) % [place] % (Auto) % Eos % (Auto) % Baso % (Auto) % Neut # (Auto) (1.8-7.7) 10^3/u L Lymph # (Auto) (0.8-4.8) 10^3/u L [place] # (Auto) (0.2-0.9) 10^3/u L Eos # (Auto) (0.0-0.8) 10^3/u L Baso # (Auto) (0.0-0.1) 10^3/u L Nucleated RBC % (a uto) % Nucleated RBCs # /100WBC D-Dimer 0.98 H (0-0.59) ug/mIFE U Specimen Type Arterial Sample Site Radial, right ABG pH 7.47 H (7.35-7.45) ABG pCO2 36.0 (35-45) mmHg ABG pO2 74.6 L (80.0-100.0) mmH g ABG HCO3 26.2 H (22-26) mmol/L ABG O2 Saturation 95.7 ABG Base Excess 2.7 H (-2.0-2.0) mmol/ L Hayden Test Pos A-a O2 Gradient 10.4 H (5-10) mmHg Hematocrit 43.1 (37-47) % Hgb O2 Saturation 94.4 L (95-100) % Carboxyhemoglobin 0.6 (0.4-20.1) %THgb Methemoglobin 0.8 (0.4-1.5) % Total Hemoglobin 14.1 (12-16) g/dL Sodium 140.0 139 (131-143) mmol/L Potassium 3.4 L 3.9 (3.5-5.0) mmol/L Glucose 127.0 H 121 H (70-115) mg/dL Ionized Calcium 1.2 (1.1-1.4) mmol/L O2 Delivery Device Nc O2 Liters/Min 2.0 % FiO2 28.0 % [facility] Teacher ID Amh Chloride 101 (98-107) mmol/L Carbon Dioxide 23 (22-29) mmol/L Anion Gap 18.9 (5-19) BUN 9 (6-20) mg/dL Creatinine 1.0 H (0.5-0.9) mg/dL GFR Calculation 58.7 L (90-130) mL/min Calculated Osmolal ity 288 (285-295) mOsm/k g Lactic Acid (0.5-2.2) mmol/L Calcium 8.7 (8.5-10.5) mg/dL Total Bilirubin 0.2 (0.15-1.2) mg/dL AST 39 H (0-32) U/L ALT 19 (0-33) U/L Alkaline Phosphata se 66 (35-105) IU/L Creatine Kinase 65 (26-192) U/L C-Reactive Protein 52.6 H (0.0-4.9) mg/L Total Protein 6.9 (6.6-8.7) g/dL Albumin 4.0 (3.5-5.2) g/dL Globulin 2.9 (1.3-4.6) g/dL Urine Color (Yellow) Urine Appearance (CLEAR) Urine pH (5-7) Ur Specific Gravit y (1.005-1.030) Urine Protein (Negative) Urine Glucose (UA) (Normal) Urine Ketones (Negative) Urine Blood (Negative) Urine Nitrate (Negative) Urine Bilirubin (Negative) Urine Urobilinogen (Negative) mg/dL Ur Leukocyte Raina ase (Negative) Urine RBC (0-2) /hpf Urine WBC (0-5) /hpf Ur Squamous Epith Cells (0-5) /hpf Amorphous Sediment Urine Bacteria (NONE) /hpf Urine Mucus /hpf 02/03/21 02/03/21 02/03/21 Range/Units 11:15 11:28 11:41 WBC 7.4 (4.0-10.0) 10^3/ uL RBC 5.21 (4.1-5.3) 10^6/u L Hgb 14.4 (11.5-15.3) g/dL Hct 45.6 (37.0-47.0) % MCV 87.5 (81-99) fL MCH 27.6 L (28.0-34.0) pg MCHC 31.6 (30.0-36.0) g/dL RDW 13.3 (12.1-15.1) % Plt Count 283 (130-400) 10^3/c mm MPV 10.8 H (7.4-10.4) fL Neut % (Auto) 71.5 % Lymph % (Auto) 22.7 % [place] % (Auto) 5.2 % Eos % (Auto) 0.0 % Baso % (Auto) 0.1 % Neut # (Auto) 5.25 (1.8-7.7) 10^3/u L Lymph # (Auto) 1.7 (0.8-4.8) 10^3/u L [place] # (Auto) 0.4 (0.2-0.9) 10^3/u L Eos # (Auto) 0.0 (0.0-0.8) 10^3/u L Baso # (Auto) 0.0 (0.0-0.1) 10^3/u L Nucleated RBC % (a uto) 0 % Nucleated RBCs # 0.0 /100WBC D-Dimer (0-0.59) ug/mIFE U Specimen Type Sample Site ABG pH (7.35-7.45) ABG pCO2 (35-45) mmHg ABG pO2 (80.0-100.0) mmH g ABG HCO3 (22-26) mmol/L ABG O2 Saturation ABG Base Excess (-2.0-2.0) mmol/ L Hayden Test A-a O2 Gradient (5-10) mmHg Hematocrit (37-47) % Hgb O2 Saturation (95-100) % Carboxyhemoglobin (0.4-20.1) %THgb Methemoglobin (0.4-1.5) % Total Hemoglobin (12-16) g/dL Sodium (131-143) mmol/L Potassium (3.5-5.0) mmol/L Glucose (70-115) mg/dL Ionized Calcium (1.1-1.4) mmol/L O2 Delivery Device O2 Liters/Min % FiO2 % [facility] Assist[facility] Teacher ID Chloride (98-107) mmol/L Carbon Dioxide (22-29) mmol/L Anion Gap (5-19) BUN (6-20) mg/dL Creatinine (0.5-0.9) mg/dL GFR Calculation (90-130) mL/min Calculated Osmolal ity (285-295) mOsm/k g Lactic Acid 2.1 (0.5-2.2) mmol/L Calcium (8.5-10.5) mg/dL Total Bilirubin (0.15-1.2) mg/dL AST (0-32) U/L ALT (0-33) U/L Alkaline Phosphata se (35-105) IU/L Creatine Kinase (26-192) U/L C-Reactive Protein (0.0-4.9) mg/L Total Protein (6.6-8.7) g/dL Albumin (3.5-5.2) g/dL Globulin (1.3-4.6) g/dL Urine Color Yellow (Yellow) Urine Appearance Clear (CLEAR) Urine pH 5 (5-7) Ur Specific Gravit y 1.015 (1.005-1.030) Urine Protein 2+ H (Negative) Urine Glucose (UA) Norm (Normal) Urine Ketones Negative (Negative) Urine Blood Neg (Negative) Urine Nitrate Negative (Negative) Urine Bilirubin Neg (Negative) Urine Urobilinogen 1 H (Negative) mg/dL Ur Leukocyte Raina ase Negative (Negative) Urine RBC None (0-2) /hpf Urine WBC 0-4 H (0-5) /hpf Ur Squamous Epith Cells 5-10 H (0-5) /hpf Amorphous Sediment Not Reportable Urine Bacteria 1+ H (NONE) /hpf Urine Mucus 1+ /hpf COVID Results: SARS-CoV-2 Antigen (Rapid) Negative (Negative) 05/21/20 22:39 05/21/20 Nasal/Oral Coronavirus 2019 PCR Not detected 12/14/20 14:15 12/14/20 Monoclonal Antibody Treatments Inclusion/Exclusion Criteria weight >/= 40 kg and + direct Sars-Cov-2 test less than 7-10 days ago receiving immunosuppressive therapy (On prednisone) no increase oxygen requirement (if chronically on oxygen) Patient education patient/family/caregiver received/reviewed fact sheet, Emergency Use Authorization/unapproved drug status discussed with patient/family/caregiver, alternatives to this treatment discussed with patient/family/caregiver, risks and benefits of medication reviewed with patient/family/caregiver, patient/family/caregiver given opportunity for questions, which were answered and patient consents to receiving Monoclonal Antibody Treatment Plan for treatment Meets criteria for Monoclonal Antibody infusion Ordering Monoclonal Antibody infusion for another day Other information As discussed risk benefits alternatives patient wishes to proceed with a monoclonal antibodies on another day. We will get scheduled. Discharge Plan Discharge Patient Disposition: Home Clinical Impression: COVID-19, COPD (chronic obstructive pulmonary disease) Condition: Stable Prescriptions: New dexamethasone 6 mg tablet 6 mg PO DAILY Qty: 7 RF: 0 Held prednisone 10 mg tablet 10 mg PO .COMPLEX Qty: 30 RF: 0 Hold Instructions: Resume on 02/11/21. prednisone 20 mg tablet 40 mg PO DAILY 5 Days Qty: 10 RF: 0 Hold Instructions: Resume on 02/11/21. prednisone 5 mg tablet 5 mg PO DAILY 30 Days Qty: 30 RF: 3 Hold Instructions: Resume on 02/11/21. No Action prenat.vits,aliza,jfu-[id number] Tablet 1 tab PO DAILY RF: 0 azithromycin 500 mg tablet 500 mg PO .COMPLEX 60 Days Qty: 30 RF: 2 budesonide [Pulmicort] 0.25 mg/2 mL suspension for nebulization 0.25 mg inhalation BID RF: 0 hydroxyzine HCl 10 mg tablet 5 mg PO BID PRN (Reason: anxiety) Qty: 30 RF: 1 montelukast [Singulair] 10 mg tablet 10 mg PO DAILY RF: 0 levothyroxine 100 mcg capsule 100 mcg PO DAILY RF: 0 fluticasone propionate [Children's Flonase Allergy Rlf] 50 mcg/actuation spray,suspension 1 spray intranasal BID 30 Days Qty: 16 RF: 3 citalopram [Celexa] 40 mg tablet 40 mg PO .morning Qty: 30 RF: 6 albuterol sulfate 90 mcg/actuation HFA aerosol inhaler 2 inh INHALATION Q4H PRN (Reason: shortness of breath or wheezing) Qty: 6.7 RF: 6 moxifloxacin 400 mg tablet 400 mg PO DAILY 5 Days Qty: 5 RF: 0 levocetirizine [Xyzal] 5 mg Tablet 5 mg PO DAILY RF: 0 ipratropium-albuterol 0.5 mg-3 mg(2.5 mg base)/3 mL solution for nebulization 3 ml INHALATION Q6H PRN (Reason: shortness of breath or wheezing) Qty: 15 RF: 0 metoprolol succinate 25 mg Tablet Extended Release 24 Hr 50 mg PO DAILY RF: 0 Discharge Orders: Discharge ED (Routine); Ordered 02/03/21 Ordered By: Jaiden Means Referrals: Farida Ramos FNP [Primary Care Provider] - Patient Instructions: Opioid Safety Activity Restrictions/Additional Instructions: On her oxygen saturations at home if less than 90% at rest increase her oxygen by 1 to 2 L. If you are requiring greater than 4 L/min return to the emergency room. Coding Level of Care Code ED Criminal Defense Attorney for Angela Joshua Exam Detailed
[2021-02-03 11:44] VITALS: O2SAT 92
[2021-02-03 11:46] LABS: D Dimer 0.98 ug/mIFEU (0-0.59)
[2021-02-03 11:47] LABS: Alanine Aminotransferase 19 U/L (0-33); Alkaline Phosphatase 66 IU/L (35-105); Anion Gap 18.9 (5-19); Aspartate Amino Transferase 39 U/L (0-32); Blood Urea Nitrogen 9 mg/dL (6-20); C Reactive Protein 52.6 mg/L (0.0-4.9); Calcium 8.7 mg/dL (8.5-10.5); Carbon Dioxide 23 mmol/L (22-29); Chloride 101 mmol/L (98-107); Creatine Phosphokinase 65 U/L (26-192); Globulin 2.9 g/dL (1.3-4.6); Glomerular Filtration Rate 58.7 mL/min (90-130); Glucose 121 mg/dL (65-115); Osmolality Calculated 288 mOsm/kg (285-295); Potassium 3.9 mmol/L (3.5-5.1); Sodium 139 mmol/L (136-145); Total Bilirubin 0.2 mg/dL (0.15-1.2); Total Protein 6.9 g/dL (6.6-8.7)
[2021-02-03 11:54] VITALS: BP 131/42; PULSE 98; RESP 22; TEMP 37.4; O2SAT 93
[2021-02-03 12:08] LABS: Slide Review Slide Review Perform
[2021-02-03 12:08] LABS: Lactic Sepsis W/Reflex 2.1 mmol/L (0.5-2.2)
[2021-02-03 12:11] LABS: Glucose Urine UA Norm (Normal); Protein Urine 2+ (Negative); Specific Gravity, Urine 1.015 (1.005-1.030); Urine Appearance Clear (CLEAR); Urine Color Yellow (Yellow); pH Urine 5 (5-7)
[2021-02-03 12:12] LABS: Add Urine Culture? No; Add Urine Microscopic? YES; Bacteria Urine 1+ /hpf; Bilirubin Urine Neg (Negative); Blood Urine Neg (Negative); Ketones Urine Negative (Negative); Leukocyte Esterase Urine Negative (Negative); Mucus Urine 1+ /hpf; Nitrate Urine Negative (Negative); Urobilinogen Urine 1 mg/dL (Negative); WBC Urine 0-4 /hpf (0-5)
[2021-02-03 12:54] VITALS: BP 127/71; PULSE 100; RESP 19; O2SAT 92
[2021-02-03 13:23] LABS: Reflex Lactate Order REFLEX LACTIC ORDERD
[2021-02-03 13:48] VITALS: BP 142/79; PULSE 95; RESP 18; O2SAT 94
== END 2021-02-03 13:53 | disposition home or self-care (01) ==
PROVIDERS: Emergency Provider Family Medicine; PCP Nurse Practitioner Family
DX: U07.1 COVID-19 (principal); J44.9 Chronic obstructive pulmonary disease, unspecified; E03.9 Hypothyroidism, unspecified; Z87.891 Personal history of nicotine dependence
CPT/HCPCS: 36600; 71045; 80051; 80053; 81001; 82330; 82550; 82805; 83605; 85025; 85378; 86140; 87040; 93005; 99284

== ENCOUNTER → 2021-03-05 08:02 | Outpatient (BNVA) | payer MEDICAID, SELFPAY ==
[2020-05-17 15:54] VITALS: BP 121/81; BMI 31.4
== END ==
PROVIDERS: PCP Nurse Practitioner Family; Visit Provider Nurse Practitioner Psychiatric/Mental Health
DX: F33.2 Major depressive disorder, recurrent severe without psychotic features (principal); F43.12 Post-traumatic stress disorder, chronic
CPT/HCPCS: 99214

== ENCOUNTER → 2021-04-19 13:53 | Outpatient (BNVA) | payer OTHER, SELFPAY ==
[2020-05-17 15:54] VITALS: BP 121/81; BMI 31.4
== END ==
PROVIDERS: PCP Nurse Practitioner Family; Visit Provider Nurse Practitioner Psychiatric/Mental Health
DX: F43.12 Post-traumatic stress disorder, chronic (principal); Z03.89 Encounter for observation for other suspected diseases and conditions ruled out; Z79.899 Other long term (current) drug therapy
CPT/HCPCS: 80053; 80061; 83036; 84443

== ENCOUNTER → 2021-06-11 07:42 | Outpatient (BNVA) | payer MEDICAID, SELFPAY ==
[2021-04-24 13:33] VITALS: BP 117/69; BMI 26.5
== END ==
PROVIDERS: PCP Nurse Practitioner Family; Visit Provider Nurse Practitioner Psychiatric/Mental Health
DX: F33.2 Major depressive disorder, recurrent severe without psychotic features (principal); F43.12 Post-traumatic stress disorder, chronic
CPT/HCPCS: 99214

== ENCOUNTER → 2021-07-23 08:03 | Outpatient (BNVA) | payer MEDICAID, SELFPAY ==
[2021-04-24 13:33] VITALS: BP 117/69; BMI 26.5
== END ==
PROVIDERS: PCP Nurse Practitioner Family; Visit Provider Nurse Practitioner Psychiatric/Mental Health
DX: F33.2 Major depressive disorder, recurrent severe without psychotic features (principal); F43.12 Post-traumatic stress disorder, chronic; Z63.4 Disappearance and death of family member
CPT/HCPCS: 99214

== ENCOUNTER → 2021-08-22 09:47 | Outpatient (BNVA) | payer MEDICAID, SELFPAY ==
[2021-04-24 13:33] VITALS: BP 117/69; BMI 26.5
== END ==
PROVIDERS: PCP Nurse Practitioner Family; Visit Provider Social Worker
DX: Z63.4 Disappearance and death of family member (principal); F33.2 Major depressive disorder, recurrent severe without psychotic features; F43.12 Post-traumatic stress disorder, chronic
CPT/HCPCS: 90834

== ENCOUNTER → 2021-09-10 07:33 | Outpatient (BNVA) | payer MEDICAID, SELFPAY ==
[2021-04-24 13:33] VITALS: BP 117/69; BMI 26.5
== END ==
PROVIDERS: PCP Nurse Practitioner Family; Visit Provider Nurse Practitioner Psychiatric/Mental Health
DX: F33.2 Major depressive disorder, recurrent severe without psychotic features (principal); F43.12 Post-traumatic stress disorder, chronic; Z63.4 Disappearance and death of family member
CPT/HCPCS: 99214

== ENCOUNTER → 2021-09-19 10:40 | Outpatient (BNVA) | payer MEDICAID, SELFPAY ==
[2021-04-24 13:33] VITALS: BP 117/69; BMI 26.5
== END ==
PROVIDERS: PCP Nurse Practitioner Family; Visit Provider Social Worker
DX: Z63.4 Disappearance and death of family member (principal); F33.2 Major depressive disorder, recurrent severe without psychotic features; F43.12 Post-traumatic stress disorder, chronic
CPT/HCPCS: 90832; 90834

== ENCOUNTER → 2021-09-28 10:58 | Outpatient (BNVA) | payer MEDICAID, SELFPAY ==
[2021-04-24 13:33] VITALS: BP 117/69; BMI 26.5
== END ==
PROVIDERS: PCP Nurse Practitioner Family; Visit Provider Internal Medicine Critical Care Medicine
DX: J44.9 Chronic obstructive pulmonary disease, unspecified (principal); Z86.16 Personal history of COVID-19; J96.11 Chronic respiratory failure with hypoxia; J31.0 Chronic rhinitis; J32.9 Chronic sinusitis, unspecified
CPT/HCPCS: 99214

== ENCOUNTER → 2021-10-15 13:31 | Outpatient (BNVA) | payer MEDICAID, SELFPAY ==
[2021-04-24 13:33] VITALS: BP 117/69; BMI 26.5
== END ==
PROVIDERS: PCP Nurse Practitioner Family; Visit Provider Social Worker
DX: Z63.4 Disappearance and death of family member (principal); F33.2 Major depressive disorder, recurrent severe without psychotic features; F43.12 Post-traumatic stress disorder, chronic
CPT/HCPCS: 90834

== ENCOUNTER → 2021-11-07 07:15 | Outpatient (BNVA) | payer MEDICAID, SELFPAY ==
[2021-04-24 13:33] VITALS: BP 117/69; BMI 26.5
== END ==
PROVIDERS: PCP Nurse Practitioner Family; Visit Provider Nurse Practitioner Psychiatric/Mental Health
DX: F33.2 Major depressive disorder, recurrent severe without psychotic features (principal); F43.12 Post-traumatic stress disorder, chronic; Z63.4 Disappearance and death of family member
CPT/HCPCS: 99214

== ENCOUNTER → 2021-11-09 09:38 | Outpatient (BNVA) | payer MEDICAID, SELFPAY ==
[2021-04-24 13:33] VITALS: BP 117/69; BMI 26.5
== END ==
PROVIDERS: PCP Nurse Practitioner Family; Visit Provider Internal Medicine Critical Care Medicine
DX: J44.9 Chronic obstructive pulmonary disease, unspecified (principal); U09.9 Post COVID-19 condition, unspecified; J96.11 Chronic respiratory failure with hypoxia; J31.0 Chronic rhinitis; J32.9 Chronic sinusitis, unspecified; Z99.81 Dependence on supplemental oxygen; Z87.891 Personal history of nicotine dependence
CPT/HCPCS: 99214

== ENCOUNTER → 2021-11-28 11:40 | Outpatient (BNVA) | payer MEDICAID, SELFPAY ==
[2021-04-24 13:33] VITALS: BP 117/69; BMI 26.5
== END ==
PROVIDERS: PCP Nurse Practitioner Family; Visit Provider Counselor Mental Health
DX: F33.2 Major depressive disorder, recurrent severe without psychotic features (principal); F43.10 Post-traumatic stress disorder, unspecified; Z63.4 Disappearance and death of family member
CPT/HCPCS: 90853

== ENCOUNTER → 2021-12-04 07:37 | Outpatient (BNVA) | payer MEDICAID, SELFPAY ==
[2021-04-24 13:33] VITALS: BP 117/69; BMI 26.5
== END ==
PROVIDERS: PCP Nurse Practitioner Family; Visit Provider Social Worker
DX: Z63.4 Disappearance and death of family member (principal); F33.2 Major depressive disorder, recurrent severe without psychotic features; F43.12 Post-traumatic stress disorder, chronic
CPT/HCPCS: 90834

== ENCOUNTER → 2021-12-05 11:46 | Outpatient (BNVA) | payer MEDICAID, SELFPAY ==
[2021-04-24 13:33] VITALS: BP 117/69; BMI 26.5
== END ==
PROVIDERS: PCP Nurse Practitioner Family; Visit Provider Counselor Mental Health
DX: F43.12 Post-traumatic stress disorder, chronic (principal); F33.2 Major depressive disorder, recurrent severe without psychotic features; Z63.4 Disappearance and death of family member
CPT/HCPCS: 90853

== ENCOUNTER → 2021-12-17 07:47 | Outpatient (BNVA) | payer MEDICAID, SELFPAY ==
[2021-04-24 13:33] VITALS: BP 117/69; BMI 26.5
== END ==
PROVIDERS: PCP Nurse Practitioner Family; Visit Provider Nurse Practitioner Psychiatric/Mental Health
DX: Z63.4 Disappearance and death of family member (principal); F33.2 Major depressive disorder, recurrent severe without psychotic features; F43.12 Post-traumatic stress disorder, chronic
CPT/HCPCS: 99214

== ENCOUNTER → 2021-12-25 08:06 | Outpatient (BNVA) | payer MEDICAID, SELFPAY ==
[2021-04-24 13:33] VITALS: BP 117/69; BMI 26.5
== END ==
PROVIDERS: PCP Nurse Practitioner Family; Visit Provider Social Worker
DX: Z63.4 Disappearance and death of family member (principal); F33.2 Major depressive disorder, recurrent severe without psychotic features; F43.12 Post-traumatic stress disorder, chronic
CPT/HCPCS: 90834

== ENCOUNTER → 2022-01-09 08:58 | Outpatient (BNVA) | payer MEDICAID, SELFPAY ==
[2021-04-24 13:33] VITALS: BP 117/69; BMI 26.5
== END ==
PROVIDERS: PCP Nurse Practitioner Family; Visit Provider Internal Medicine Critical Care Medicine
DX: J44.9 Chronic obstructive pulmonary disease, unspecified (principal); Z86.16 Personal history of COVID-19; J96.11 Chronic respiratory failure with hypoxia; J31.0 Chronic rhinitis; J32.9 Chronic sinusitis, unspecified; Z87.891 Personal history of nicotine dependence; Z99.81 Dependence on supplemental oxygen
CPT/HCPCS: 99214

== ENCOUNTER 2022-03-01 15:03 | Outpatient (CLI) | payer MEDICAID, SELFPAY ==
[2021-04-24 13:33] VITALS: BP 117/69; BMI 26.5
--- NOTE | 2022-03-01 15:14 | XRR_ITS ---
PROCEDURE INFORMATION: Exam: XR Abdomen Exam date and time: 03/01/2022 3:15 PM Age: 51 years old Clinical indication: Patient HX: Abdominal distention/bloating and pain for 1 month; Additional info: Abdominal distension/hypothyroidism TECHNIQUE: Imaging protocol: Radiologic exam of the abdomen. Views: 3 or more views. COMPARISON: CT abdomen pelvis w con* [id number] 04/08/2019 8:52 PM FINDINGS: Lungs: Bilateral right greater than left hilar to lower lobe atelectasis versus minimal infiltrate. Emphysematous changes. Scattered benign calcified granulomas throughout both lung [place] similar to prior exam. Trace bilateral pleural effusions suspected. Gastrointestinal tract: Normal. No bowel dilation. Intraperitoneal space: Normal. No free air. Bones/joints: Unremarkable for age. XR/XR acute abdomen series [id number] IMPRESSION: 1. Bilateral right greater than left hilar to lower lobe atelectasis versus minimal infiltrate. 2. Emphysematous changes. 3. Scattered benign calcified granulomas throughout both lung [place] similar to prior exam. 4. Trace bilateral pleural effusions suspected.
== END 2022-03-01 15:04 | disposition home or self-care (01) ==
LOC: RAD 15:06
PROVIDERS: PCP Nurse Practitioner Family; Visit Provider Nurse Practitioner Family
DX: R14.0 Abdominal distension (gaseous) (principal); E03.9 Hypothyroidism, unspecified
CPT/HCPCS: 74022

== ENCOUNTER → 2022-04-09 12:46 | Outpatient (BNVA) | payer MEDICAID, SELFPAY ==
[2021-04-24 13:33] VITALS: BP 117/69; BMI 26.5
== END ==
PROVIDERS: PCP Nurse Practitioner Family; Visit Provider Internal Medicine Critical Care Medicine
DX: J43.9 Emphysema, unspecified (principal); J96.11 Chronic respiratory failure with hypoxia; Z87.891 Personal history of nicotine dependence; J31.0 Chronic rhinitis; J32.9 Chronic sinusitis, unspecified; Z86.16 Personal history of COVID-19; Z99.81 Dependence on supplemental oxygen
CPT/HCPCS: 99214

== ENCOUNTER 2022-04-18 13:34 | Outpatient (CLI) | payer MEDICAID, SELFPAY ==
[2021-04-24 13:33] VITALS: BP 117/69; BMI 26.5
--- NOTE | 2022-04-18 13:49 | CT_ITS ---
WS: [id number] LDCT LUNG CANCER SCREENING TECHNIQUE: Noncontrast CT of the chest with coronal and sagittal reformatted images. CLINICAL INFORMATION: Lung cancer screening COMPARISON: CT May 22, 2020 DLP: 85.60 mGy.cm DIvol: Mean CTDIvol: 1.60 (mGy) All CT scans at [facility] use at least one of these dose optimization techniques: automat ed exposure control; mA and/or kV adjustment per patient size (includes targeted exams where dose is matched to clinical indication); or iterative reconstruction. FINDINGS: Moderate chronic centrilobular emphysematous changes. Numerous scattered tiny incidental calcified gr anulomas. No focal pneumonia or pleural fluid. 6 mm nodule LEFT upper lobe along the major fissure. This is unchanged since May 22, 2020. Scattered tiny subpleural micronodules more prominent in t he upper lobes. Normal caliber thoracic aorta. No mediastinal or hilar lymphadenopathy. Adrenal glands are normal. No rmal noncontrast spleen. Small esophageal hiatal hernia. No axillary lymphadenopathy. Mild thoracic c urve. Subsegmental atelectasis in the lung bases CT/CT lung screening [id number] IMPRESSION: LUNG-RADS: 2-Benign Appearance or Behavior FOLLOW UP: 12 Month: Continue annual screening with LDCT
== END 2022-04-18 13:35 | disposition home or self-care (01) ==
LOC: RAD 13:35
PROVIDERS: PCP Nurse Practitioner Family; Visit Provider Internal Medicine Critical Care Medicine
DX: Z12.2 Encounter for screening for malignant neoplasm of respiratory organs (principal); Z87.891 Personal history of nicotine dependence; J44.9 Chronic obstructive pulmonary disease, unspecified
CPT/HCPCS: 71271; 94618

== ENCOUNTER → 2022-05-15 13:47 | Outpatient (BNVA) | payer OTHER, SELFPAY ==
[2021-04-24 13:33] VITALS: BP 117/69; BMI 26.5
== END ==
PROVIDERS: PCP Nurse Practitioner Family; Visit Provider Nurse Practitioner Psychiatric/Mental Health
DX: F33.2 Major depressive disorder, recurrent severe without psychotic features (principal); Z79.899 Other long term (current) drug therapy
CPT/HCPCS: 80053; 80061; 83036; 84443

== ENCOUNTER → 2022-07-11 10:22 | Outpatient (BNVA) | payer MEDICAID, SELFPAY ==
[2022-05-21 11:26] VITALS: BP 114/71; BMI 34.1
== END ==
PROVIDERS: PCP Nurse Practitioner Family; Visit Provider Internal Medicine Pulmonary Disease
DX: J44.9 Chronic obstructive pulmonary disease, unspecified (principal); U09.9 Post COVID-19 condition, unspecified; J96.11 Chronic respiratory failure with hypoxia; Z87.891 Personal history of nicotine dependence; J31.0 Chronic rhinitis; J32.9 Chronic sinusitis, unspecified; Z99.81 Dependence on supplemental oxygen
CPT/HCPCS: 99214

== ENCOUNTER 2022-09-27 11:35 | Outpatient (CLI) | payer MEDICAID, SELFPAY ==
[2022-05-21 11:26] VITALS: BP 114/71; BMI 34.1
--- NOTE | 2022-09-27 11:42 | MM_ITS ---
WS: [id number] BILATERAL 3D TOMOSYNTHESIS DIGITAL SCREENING MAMMOGRAPHY WITH CAD CLINICAL INFORMATION: SCREENING HISTORY: Screening mammogram. No current complaints. COMPARISON: 2020 TECHNIQUE: Bilateral CC and MLO views. FINDINGS: Scattered fibroglandular densities bilaterally. No suspicious focal mass, asymmetry, calcifications, or architectural distortion. No evidence of malignancy. MM/[place] [id number] IMPRESSION: BI-RADS: 1-Negative FOLLOW UP: 1 Year Follow-up Recommend return to annual screening mammography.
== END 2022-09-27 11:36 | disposition home or self-care (01) ==
PROVIDERS: PCP Nurse Practitioner Family; Visit Provider Nurse Practitioner Family
DX: Z12.31 Encounter for screening mammogram for malignant neoplasm of breast (principal)
CPT/HCPCS: 77063; 77067

== ENCOUNTER 2022-10-12 06:00 | Outpatient (RCR) | payer MEDICAID, SELFPAY ==
[2022-05-21 11:26] VITALS: BP 114/71; BMI 34.1
== END 2022-11-10 23:59 | disposition home or self-care (01) ==
LOC: PULRHB 06:00
PROVIDERS: PCP Nurse Practitioner Family; Visit Provider Internal Medicine Pulmonary Disease
DX: J44.9 Chronic obstructive pulmonary disease, unspecified (principal)
CPT/HCPCS: 94625

== ENCOUNTER 2022-11-11 06:00 | Outpatient (RCR) | payer MEDICAID, SELFPAY ==
[2022-05-21 11:26] VITALS: BP 114/71; BMI 34.1
== END 2022-12-11 23:59 | disposition home or self-care (01) ==
LOC: PULRHB 06:00
PROVIDERS: PCP Nurse Practitioner Family; Visit Provider Internal Medicine Pulmonary Disease
DX: J44.9 Chronic obstructive pulmonary disease, unspecified (principal)
CPT/HCPCS: 94625

== ENCOUNTER → 2022-11-14 09:56 | Outpatient (BNVA) | payer MEDICAID, SELFPAY ==
[2022-05-21 11:26] VITALS: BP 114/71; BMI 34.1
== END ==
PROVIDERS: PCP Nurse Practitioner Family; Visit Provider Internal Medicine Pulmonary Disease
DX: J44.9 Chronic obstructive pulmonary disease, unspecified (principal); J96.11 Chronic respiratory failure with hypoxia; Z87.891 Personal history of nicotine dependence; J31.0 Chronic rhinitis; J32.9 Chronic sinusitis, unspecified; Z99.81 Dependence on supplemental oxygen; Z86.16 Personal history of COVID-19; Z79.52 Long term (current) use of systemic steroids
CPT/HCPCS: 99214

== ENCOUNTER 2022-11-25 07:53 | Outpatient (CLI) | payer MEDICAID, SELFPAY ==
[2022-05-21 11:26] VITALS: BP 114/71; BMI 34.1
--- NOTE | 2022-11-25 07:45 | CT_ITS ---
WS: [id number] LDCT LUNG CANCER SCREENING HISTORY: former smoker TECHNIQUE: Axial imaging performed from the apices to 1 cm below the costophrenic angles. Coronal and sagittal reformats are submitted with axial MIP series. All CT scans at [facility] use at least one of these dose optimization techniques: automated exposure control; mA and/or kV adjustment per patient size (includes targeted exams where dose is matched to clinical indication); or iterativ e reconstruction. DLP: 70.30 mGy.cm DIvol: Mean CTDIvol: 1.40 (mGy) COMPARISON: 04/18/2022 Diagnostic quality: Satisfactory Lungs: Moderate hyperexpansion with moderate central lobular emphysema. Numerous calcified granulomat a. 6 mm noncalcified nodule previously described along the LEFT major fissure is not as well visualiz ed today. Stable. No new mass or pulmonary nodule. Heart: Normal size heart with no pericardial effusion.. Other findings: Normal size aorta. Pulmonary artery is equal size to the aorta. No pericardial or ple ural effusions. Small hiatal hernia. No adrenal mass. CT/CT lung screening [id number] IMPRESSION: LUNG-RADS: 2-Benign Appearance or Behavior FOLLOW UP: 12 Month: Continue annual screening with LDCT OTHER FINDINGS (S MODIFIER): None.
== END 2022-11-25 07:54 | disposition home or self-care (01) ==
PROVIDERS: PCP Nurse Practitioner Family; Visit Provider Internal Medicine Pulmonary Disease
DX: Z13.83 Encounter for screening for respiratory disorder NEC (principal); J43.9 Emphysema, unspecified; R91.1 Solitary pulmonary nodule; Z87.891 Personal history of nicotine dependence
CPT/HCPCS: 71271

== ENCOUNTER 2022-12-12 06:00 | Outpatient (RCR) | payer MEDICAID, SELFPAY ==
[2022-05-21 11:26] VITALS: BP 114/71; BMI 34.1
== END 2023-01-10 23:59 | disposition home or self-care (01) ==
LOC: PULRHB 06:00
PROVIDERS: PCP Nurse Practitioner Family; Visit Provider Internal Medicine Pulmonary Disease
DX: J44.9 Chronic obstructive pulmonary disease, unspecified (principal)
CPT/HCPCS: 94625

== ENCOUNTER 2023-01-11 06:00 | Outpatient (RCR) | payer MEDICAID, SELFPAY ==
[2022-05-21 11:26] VITALS: BP 114/71; BMI 34.1
== END 2023-02-10 23:59 | disposition home or self-care (01) ==
LOC: PULRHB 06:00
PROVIDERS: PCP Nurse Practitioner Family; Visit Provider Internal Medicine Pulmonary Disease
DX: J44.9 Chronic obstructive pulmonary disease, unspecified (principal)
CPT/HCPCS: 94625

== ENCOUNTER → 2023-01-17 10:53 | Outpatient (BNVA) | payer MEDICAID, SELFPAY ==
[2022-05-21 11:26] VITALS: BP 114/71; BMI 34.1
== END ==
PROVIDERS: PCP Nurse Practitioner Family; Visit Provider Nurse Practitioner Family
DX: R43.0 Anosmia (principal); R00.2 Palpitations
CPT/HCPCS: 87426

== ENCOUNTER → 2023-02-18 09:47 | Outpatient (BNVA) | payer MEDICAID, SELFPAY ==
[2022-05-21 11:26] VITALS: BP 114/71; BMI 34.1
== END ==
PROVIDERS: PCP Nurse Practitioner Family; Visit Provider Internal Medicine Cardiovascular Disease
DX: R00.2 Palpitations (principal); I49.1 Atrial premature depolarization; I49.3 Ventricular premature depolarization
CPT/HCPCS: 93246

== ENCOUNTER 2023-02-25 20:00 | Outpatient (CLI) | payer MEDICAID, SELFPAY ==
[2022-05-21 11:26] VITALS: BP 114/71; BMI 34.1
== END 2023-02-25 20:01 | disposition home or self-care (01) ==
LOC: SLEEP 02-26 05:15
PROVIDERS: PCP Nurse Practitioner Family; Visit Provider Internal Medicine Pulmonary Disease
DX: G47.33 Obstructive sleep apnea (adult) (pediatric) (principal)
CPT/HCPCS: 95810

== ENCOUNTER 2023-05-14 20:00 | Outpatient (CLI) | payer MEDICAID, SELFPAY ==
[2022-05-21 11:26] VITALS: BP 114/71; BMI 34.1
== END 2023-05-14 20:01 | disposition home or self-care (01) ==
PROVIDERS: PCP Nurse Practitioner Family; Visit Provider Internal Medicine Pulmonary Disease
DX: G47.33 Obstructive sleep apnea (adult) (pediatric) (principal)
CPT/HCPCS: 95811

== ENCOUNTER → 2023-05-27 08:07 | Outpatient (BNVA) | payer MEDICAID, SELFPAY ==
[2022-05-21 11:26] VITALS: BP 114/71; BMI 34.1
== END ==
PROVIDERS: PCP Nurse Practitioner Family; Referring Provider Nurse Practitioner Family; Visit Provider Surgery
DX: K92.2 Gastrointestinal hemorrhage, unspecified (principal); K52.9 Noninfective gastroenteritis and colitis, unspecified
CPT/HCPCS: 99204

== ENCOUNTER 2023-05-27 08:47 | Outpatient (CLI) | payer MEDICAID, SELFPAY ==
[2022-05-21 11:26] VITALS: BP 114/71; BMI 34.1
--- NOTE | 2023-05-27 09:24 | XR_ITS ---
WS: [id number] Exam: XR foot LT 2V [id number] Date/Time of Exam: 05/27/2023 9:33 AM Reason For Exam: Puncture wound of heel No fracture or dislocation. Mild bunion with degenerative change at the first MP joint. No soft tissu e foreign bodies. No sign of bone destruction. IMPRESSION: 1. No fracture or dislocation. 2. Mild bunion with associated DJD.
== END 2023-05-27 08:48 | disposition home or self-care (01) ==
PROVIDERS: PCP Nurse Practitioner Family; Visit Provider Nurse Practitioner Family
DX: S91.339A Puncture wound without foreign body, unspecified foot, initial encounter (principal); X58.XXXA Exposure to other specified factors, initial encounter; M21.612 Bunion of left foot; M19.072 Primary osteoarthritis, left ankle and foot
CPT/HCPCS: 73620

== ENCOUNTER → 2023-05-29 13:05 | Outpatient (BNVA) | payer MEDICAID, SELFPAY ==
[2022-05-21 11:26] VITALS: BP 114/71; BMI 34.1
== END ==
PROVIDERS: PCP Nurse Practitioner Family; Visit Provider Internal Medicine Pulmonary Disease
DX: J44.9 Chronic obstructive pulmonary disease, unspecified (principal); J96.11 Chronic respiratory failure with hypoxia; Z87.891 Personal history of nicotine dependence; J31.0 Chronic rhinitis; J22 Unspecified acute lower respiratory infection; G47.33 Obstructive sleep apnea (adult) (pediatric); Z99.81 Dependence on supplemental oxygen; R91.8 Other nonspecific abnormal finding of lung field; F41.9 Anxiety disorder, unspecified
CPT/HCPCS: 99214

== ENCOUNTER 2023-06-25 06:57 | Day surgery (SDC) | payer MEDICAID, SELFPAY ==
[2022-05-21 11:26] VITALS: BP 114/71; BMI 34.1
[2023-06-25 07:07] VITALS: BP 125/75; PULSE 106; RESP 18; TEMP 36.3; O2SAT 92; BMI 34.9
[2023-06-25] MEDS: sodium chloride 0.9% 1,000 ML 30 ML IV (07:27)
--- NOTE | 2023-06-25 07:27 | P.ANESASSM_ITS ---
Pre-Anesthetic Assessment Height/Weight: Height 1.52 m Weight 81.193 kg Temp Pulse Resp BP Pulse Ox O2 Del Method O2 Flow Rate 97.3 F L 106 H 18 125/75 92 Nasal Cannula 4 06/25/23 07:07 06/25/23 07:07 06/25/23 07:07 06/25/23 07:07 06/25/23 07:07 06/25/23 07:07 06/25/23 07:07 Operation Date: 06/25/23 08:00 Proposed Procedures p [id number] egd [id number] colon G0121 screen colon A risk K92.2,K52.9,Z12.11(Not Applicable) - DO lety Parikh Colonoscopy(Not Applicable) - Tapan Rodriguez DO Familial anesthetic complications: None Was Beta Conchiat taken within 24 hours: N/A Was Clonidine taken within 24 hours: N/A Last intake: Intake Last Liquid Date 06/24/23 Last Liquid Time 21:30 Last Solid Date 06/23/23 Last Solid Time 20:30 Social No alcohol and No tobacco former extensive smoking history Exam alert, oriented x 3, clear to auscultation bilaterally and regular rate & rhythm coarse breath sounds b/l Airway Mallampati: Class II Comments: Comments: no teeth Pulmonary Chronic Obstructive Pulmonary Disease (3 L (class D)) CV/HEM normal echo and stresst est Metabolic Thyroid Disease Anesthetic Plan ASA status: 4 Anesthesia: MAC Risk of > 500 ml blood loss (7ml/kg in children): No Medications/Allergies Home Medications Medication Instructions Recorded Confirmed Last Taken Type montelukast 10 mg tablet 10 mg PO DAILY 07/29/19 06/25/23 03/14/20 History (Tim) prenat.vits,aliza,aik-oeri-aocud 1 tab PO DAILY 02/14/20 06/23/23 06/23/23 History levocetirizine 5 mg tablet (Xyzal) 5 mg PO DAILY 03/01/20 06/23/23 03/14/20 History ipratropium 0.5 mg-albuterol 3 mg 3 ml inhalation Q6H PRN shortness 03/30/20 06/23/23 06/23/23 Rx (2.5 mg base)/3 mL nebulization of breath or wheezing #15 mL soln metoprolol succinate 25 mg 50 mg PO DAILY 04/14/20 06/25/23 06/25/23 History tablet,extended release 24 hr fluticasone propionate 50 1 spray intranasal BID 30 days #16 11/27/20 06/23/23 06/19/23 Rx mcg/actuation nasal grams spray,suspension (Children's Flonase Allergy Relief) acetaminophen 300 mg-codeine 30 mg 1 tab PO Q6H PRN Pain 07/03/21 06/23/23 06/23/23 History tablet oxygen-air delivery systems 07/03/21 05/29/23 Unknown History benzonatate 200 mg capsule 200 mg PO TID PRN cough 30 days 01/09/22 06/23/23 Unknown Rx #90 caps levothyroxine 125 mcg tablet 175 mcg PO DAILY 03/19/22 06/25/23 06/25/23 History (Synthroid) cyclobenzaprine 10 mg tablet 10 mg PO TID PRN muscle spasm 09/26/22 06/23/23 Unknown History albuterol sulfate 90 mcg/actuation 2 inh inhalation Q4H PRN shortness 11/14/22 06/25/23 06/25/23 Rx aerosol inhaler of breath or wheezing #6.7 grams alprazolam 0.25 mg tablet (Xanax) 0.25 mg PO BID PRN anxiety #60 tabs 01/21/23 06/25/23 06/25/23 Rx citalopram 40 mg tablet (Celexa) 40 mg PO .morning #30 tabs 01/21/23 06/25/23 06/24/23 Rx prednisone 5 mg tablet 5 mg PO DAILY #30 tabs 02/24/23 06/25/23 06/24/23 Rx budesonide 0.25 mg/2 mL suspension 0.25 mg (2 mL) inhalation BID #120 04/07/23 06/23/23 06/23/23 Rx for nebulization (Pulmicort) mL ipratropium bromide 0.02 % 2.5 ml inhalation Q6H PRN 04/07/23 06/23/23 06/23/23 Rx solution for inhalation shortness of breath or wheezing #150 mL azithromycin 500 mg tablet 500 mg PO DAILY 5 days #5 tabs 05/29/23 06/25/23 06/24/23 Rx (Zithromax TRI-ANNKIA) nystatin 100,000 unit/mL oral 1 ml PO DAILY 7 days #60 mL 05/29/23 06/23/23 Unknown Rx suspension umeclidinium 62.5 mcg-vilanterol 1 inh inhalation DAILY #60 ea 05/29/23 06/23/23 06/23/23 Rx 25 mcg/actuation powdr for inhalation (Anoro Ellipta) azithromycin 500 mg tablet 500 mg PO .COMPLEX #18 tabs 05/30/23 06/23/23 06/23/23 Rx Allergies Allergy/AdvReac Type Severity Reaction Status Date / Time adhesive Allergy Severe ALGY-Bliste Verified 05/29/23 13:17 r cephalexin [From Keflex] Allergy Severe vomiting Verified 05/29/23 13:17 doxycycline Allergy Unknown vomiting Verified 05/29/23 13:17 meloxicam [From Mobic] Allergy Unknown Unknown Verified 05/29/23 13:17 Penicillins Allergy Unknown rash Verified 05/29/23 13:17 vancomycin Allergy Unknown Unknown Verified 05/29/23 13:17 PFS Anesthesia Medical History Bereavement 05/29/21, for 20 years Calcified granuloma of lung Chronic post-traumatic stress disorder Hypothyroidism Legg-Perthes disease Major depressive disorder, recurrent severe without psychotic features Psychiatric care Sinus tachycardia Suicide attempt Surgical History H/O breast biopsy H/O tubal ligation History of dental surgery S/P hip replacement Family History Other Cancer Stroke Denies family history of Psychiatric illness Social History Smoking and tobacco/nicotine status: former use of tobacco/nicotine Quit status (tobacco/nicotine): has quit using Year quit tobacco: 2017 - 2PPD x 33 Years Former quit date comment: Started age 12 years Second hand smoke exposure: No Alcohol intake: never Substance/Drug Use: never Adopted: No Caregiver/support person: Yes Lives independently: Yes Household members: children and none Housing: Manufactured/Mobile home Marital status: / Number of children: 4 Number of grandchildren: 10 Highest education level completed: 7th Grade service: No Current occupational status: disabled Current occupational exposures/hazards: No Pets and animals: Yes Pets & animals: dog(s) Leisure activites: games and other Leisure activities details: TV Sexually active: No Do you think of yourself as: Straight/Heterosexual Current gender identity: Female Valery/Mandaeism: Congregational Special valery needs: No Agree to transfusion: No Female Reproductive History Para: 4 Spontaneous abortions: Yes (X 2) Data Anesthesia Cardiac Studies: Echocardiogram Ultrasound 04/14/20 Holter Monitor 02/18/23
--- NOTE | 2023-06-25 08:46 | P.HPUD_ITS ---
Surgery/Procedure H&P Update DATE OF PROCEDURE: June 25, 2023 DATE H&P PERFORMED: 05/27/23 H&P UPDATE INFORMATION: I have reviewed H&P completed within last 30 days, I have examined patient prior to procedure and No changes to prior documentation PLANNED PROCEDURE: Operation Date: 06/25/23 08:00 Proposed Procedures p [id number] egd 55090 colon G0121 screen colon A risk K92.2,K52.9,Z12.11(Not Applica ble) - DO leyt Parikh Colonoscopy(Not Applicable) - Tapan Rodriguez DO
[2023-06-25 09:45] VITALS: BP 97/75; PULSE 91; RESP 16; TEMP 36.1; O2SAT 92
[2023-06-25 09:50] VITALS: BP 112/68; PULSE 88; RESP 16; O2SAT 94
[2023-06-25 10:01] VITALS: BP 125/77; PULSE 86; RESP 18; O2SAT 97
[2023-06-25 10:10] VITALS: BP 144/75; PULSE 87; RESP 18; O2SAT 95
--- NOTE | 2023-06-25 10:30 | ANE.PACU2 ---
Inpatient post-anesthesia follow up: Airway intact: Yes Vital signs: Temperature 97.0 F Pulse Rate 87 Respiratory Rate 18 Blood Pressure 144/75 Pulse Oximetry 95 Oxygen Delivery Me thod Nasal Cannula Oxygen Flow Rate 3 Fraction of Inspir ed Oxygen Hydration adequate: Yes Nausea and vomiting: No Pain level: 1 Mental status: Baseline
[2023-06-26 13:20] LABS: Clostridium Difficile PCR NOT DETECTED (NOT DETECTED)
== END 2023-06-25 10:37 | disposition home or self-care (01) ==
PROVIDERS: PCP Nurse Practitioner Family; Visit Provider Surgery
PROC: 0DJ08ZZ Inspection of Upper Intestinal Tract, Via Natural or Artificial Opening Endoscopic (ICD-10-PCS; CPT 43235; principal; 2023-06-25 08:00)
PROC: 0DJD8ZZ Inspection of Lower Intestinal Tract, Via Natural or Artificial Opening Endoscopic (ICD-10-PCS; CPT 45378; 2023-06-25 08:00)
DX: K52.9 Noninfective gastroenteritis and colitis, unspecified (principal); D12.4 Benign neoplasm of descending colon; D12.5 Benign neoplasm of sigmoid colon; K29.50 Unspecified chronic gastritis without bleeding; Z87.891 Personal history of nicotine dependence; J44.9 Chronic obstructive pulmonary disease, unspecified; E03.9 Hypothyroidism, unspecified
CPT/HCPCS: 43239; 45385; 76937; 82274; 83630; 87045; 87177; 87209; 87427; 87449; 87493; 88305; 88342; J2704; J3010; J7030

== ENCOUNTER 2023-06-27 05:16 | Emergency (ER) | payer MEDICAID, SELFPAY ==
[2022-05-21 11:26] VITALS: BP 114/71; BMI 34.1
[2023-06-27 05:16] VITALS: BP 121/88; PULSE 123; RESP 20; TEMP 37; O2SAT 96; BMI 34.9
--- NOTE | 2023-06-27 05:25 | XRR_ITS ---
PROCEDURE INFORMATION: Exam: XR Chest Exam date and time: 06/27/2023 5:34 AM Age: 52 years old Clinical indication: Dyspnea TECHNIQUE: Imaging protocol: Radiologic exam of the chest. Views: 1 view. COMPARISON: CT lung screening [id number] 11/25/2022 8:05 AM FINDINGS: Lungs: Mild emphysematous COPD with mild interstitial prominence. Pleural spaces: Unremarkable. No pleural effusion. No pneumothorax. Heart/Mediastinum: Unremarkable. No cardiomegaly. Bones/joints: Unremarkable. Other findings: Miliary granulomata. XR/XR chest 1V portable [id number] IMPRESSION: Chronic findings.
--- NOTE | 2023-06-27 05:25 | ECG_ITS ---
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 Measurements Intervals Oil Trough Rate: 115 P: 84 ME: 136 QRS: 61 QRSD: 77 T: 66 QT: 342 QTc: 474 Interpretive Statements SINUS TACHYCARDIA LEFT ATRIAL ENLARGEMENT [-0.15mV P-WAVE IN V1/V2] LOW QRS VOLTAGE IN PRECORDIAL LEADS [QRS DEFLECTION < 1.0 mV IN CHEST LEADS] SEPTAL MYOCARDIAL INFARCTION , OF INDETERMINATE AGE [40+ ms Q WAVE IN V1/V2] Compared to ECG 02/03/2021 11:13:15 Low QRS voltage now present Myocardial infarct finding now present ST (T wave) deviation no longer present Electronically Signed On 06-27-2023 13:43:28 [employer] WORK INSTRUCTOR by Zackary Medrano M.D. [id number]
--- NOTE | 2023-06-27 05:26 | ED_ITS ---
Documented by User: Jett Kelly MD 07/23/23 07:10 HPI - SOB/Dyspnea 2 General: Chief Complaint: Shortness of Breath/Dyspnea Stated Complaint: respiratory distress Time Seen by Provider: 06/27/23 05:24 History of Present Illness: HPI Narrative: 52-year-old female presents to the emerg ency department via EMS personnel secondary to complaints of increased shortness of breath. She states she has a history of COPD and histoplasmosis. She states she was getting up to the bathroom this morning and then became suddenly short of breath. She denies nausea or vomiting. She states she does have chest pressure to the middle of her chest that she rates as a 4 out of 10 at present. She states she did feel hot at home when she became short of breath. She does not wear home oxygen. She states she does not normally have much difficulty ambulating but this evening after going to the bathroom had significant increased work of breathing on exertion. Associated symptoms: Reports chest pain; Deny nausea, palpitations, syncope or vomiting Review of Systems 2 General: Reports: 10 or more systems reviewed and unremarkable except in HPI and below Card: Reports: chest pain; Denies: palpitations, edema, syncope or pre-syncope Resp: Reports: dyspnea, non-productive cough and wheezing GI: Denies: nausea or vomiting PFSH ED 2 PFSH: Medical History Bereavement 05/29/21, for 20 years Psychiatric care Sinus tachycardia Calcified granuloma of lung Suicide attempt Legg-Perthes disease Hypothyroidism Major depressive disorder, recurrent severe without psychotic features Chronic post-traumatic stress disorder Surgical History H/O tubal ligation History of dental surgery H/O breast biopsy S/P hip replacement Family History Other Cancer Stroke Denies family history of Psychiatric illness Social History (Updated 07/03/23 @ 09:54 by Dena Ashley RN) Smoking and tobacco/nicotine status: former use of tobacco/nicotine Quit status (tobacco/nicotine): has quit using Year quit tobacco: 2017 - 2PPD x 33 Years Former quit date comment: Started age 12 years Second hand smoke exposure: Yes Alcohol intake: never Substance/Drug Use: never Adopted: No Caregiver/support person: Yes Lives independently: Yes Household members: significant other and children Housing: Manufactured/Mobile home Marital status: / Number of children: 4 Number of grandchildren: 11 Highest education level completed: 7th Grade service: No Current occupational status: disabled Current occupational exposures/hazards: No Pets and animals: Yes Pets & animals: dog(s) Leisure activites: games, reading and other Leisure activities details: TV Sexually active: No Do you think of yourself as: Straight/Heterosexual Current gender identity: Female Valery/Christianity: Quaker Special valery needs: No Agree to transfusion: No Female Reproductive History: Para: 4 Spontaneous abortions: Yes (X 2) Physical Exam 2 Narrative: EXAM NARRATIVE: Constitutional: the patient appears well nourished and with normal development. Vital signs reviewed as documented. Mild respiratory distress with expiratory wheezing and increased work of breathing HENMT: Normocephalic, atraumatic. Extermal ears with normal appearance without drainage. Nose without drainage, normal appearance. Mucus membranes moist. Neck is supple, No jugular venous distension, trachea is midline, no appreciable carotid bruits. No lymphadenopathy. No meningeal signs. Flexion, extension and lateral rotation is without pain. Eyes: Pupils are equal, round, reactive to light and accommodation. No scleral icterus. Extra-ocular movement are intact. Thorax is symmetrical and with equal rise and fall with respirations. Resp: Bilateral expiratory wheezes that are significantly audible from across the room. No rales, crackles or ronchi at present. Tachypneic Cardio: Regular rate and rhythm. Positive S1, S2. No appreciable murmurs, rubs or gallops. GI: Abdominal exam reveals normal bowel sounds to all quadrants. No organomegaly. No obvious palpable masses noted. No hepatomegally appreciated. Soft, nontender to palpation. Extremity: Extremities are non-edematous and both femoral and pedal pulses are 2+ and equal bilaterally. Moves all extremities well, sensation in all extremities. Neuro: Alert and oriented x4, person, place, time and situation. Cranial nerves II through XII are grossly intact, there is no focal neurological deficits that I can appreciate at present. Motor strength in the upper and lower extremities are equal and bilateral 5/5. Psych: Cooperative, calm, normal thought process, appropriate judgment. Skin: No lesions, rashes. No gross abnormalities noted. Back: Symmetrical, no obvious deformity, No CVA tenderness Course 2 Vital Signs: Vital signs: Vital Signs Temperature 98.6 F 06/27/23 05:16 Pulse Rate 113 H 06/27/23 06:36 Respiratory Rate 22 H 06/27/23 05:41 Blood Pressure 105/78 06/27/23 06:36 Pulse Oximetry 94 06/27/23 06:36 Oxygen Delivery Me thod Nasal Cannula 06/27/23 06:36 Oxygen Flow Rate 5 06/27/23 06:36 MDM - SOB/Dyspnea Medical Decision Making Physical exam completed and documented I will obtain a CBC, CMP serial cardiac enzymes and twelve-lead EKG we will obtain a chest x-ray I will provide her an hour-long albuterol treatment for her COPD exacerbation. Differential diagnosis includes influenza, pneumonia, COPD exacerbation, myocardial infarction. Lab Data 06/27/23 04:55 06/27/23 04:55 Labs/Radiology: Radiology Impressions Chest X-Ray 06/27/23 05:25 IMPRESSION: Chronic findings. Laboratory Results WBC 14.59 10^3/uL (3.29-11.43) H 06/27/23 04:55 RBC 4.43 10^6/uL (3.85-5.65) 06/27/23 04:55 Hgb 12.40 g/dL (11.27-16.99) 06/27/23 04:55 Hct 38.9 % (36-47) 06/27/23 04:55 MCV 87.8 fl (85-98) 06/27/23 04:55 MCH 28.0 pg (27-33) 06/27/23 04:55 MCHC 31.9 g/dL (30-55) 06/27/23 04:55 RDW 13.0 % (12.1-15.1) 06/27/23 04:55 Plt Count 349 10^3/cmm (157-399) 06/27/23 04:55 MPV 10.2 fL (7.4-10.4) 06/27/23 04:55 Neut % (Auto) 71.6 % 06/27/23 04:55 Lymph % (Auto) 17.9 % 06/27/23 04:55 [place] % (Auto) 8.4 % 06/27/23 04:55 Eos % (Auto) 1.3 % 06/27/23 04:55 Baso % (Auto) 0.5 % 06/27/23 04:55 Neut # (Auto) 10.44 10^3/uL (1.8-7.7) H 06/27/23 04:55 Lymph # (Auto) 2.6 10^3/uL (0.8-4.8) 06/27/23 04:55 [place] # (Auto) 1.2 10^3/uL (0.2-0.9) H 06/27/23 04:55 Eos # (Auto) 0.2 10^3/uL (0.0-0.8) 06/27/23 04:55 Baso # (Auto) 0.1 10^3/uL (0.0-0.1) 06/27/23 04:55 Nucleated RBC % (auto) 0 % 06/27/23 04:55 Nucleated RBCs # 0.0 /100WBC 06/27/23 04:55 Sodium 141 mmol/L (136-145) 06/27/23 04:55 Potassium 4.1 mmol/L (3.5-5.1) 06/27/23 04:55 Chloride 101 mmol/L (98-107) 06/27/23 04:55 Carbon Dioxide 27 mmol/L (22-29) 06/27/23 04:55 Anion Gap 17.1 (5-19) 06/27/23 04:55 BUN 8 mg/dL (6-20) 06/27/23 04:55 Creatinine 0.9 mg/dL (0.5-0.9) 06/27/23 04:55 GFR Calculation 65.8 mL/min (90-130) L 06/27/23 04:55 Glucose 105 mg/dL (65-115) 06/27/23 04:55 Calculated Osmolality 291 mOsm/kg (285-295) 06/27/23 04:55 Calcium 10.1 mg/dL (8.5-10.5) 06/27/23 04:55 Total Bilirubin 0.3 mg/dL (0.15-1.2) 06/27/23 04:55 AST 17 U/L (0-32) 06/27/23 04:55 ALT 14 U/L (0-33) 06/27/23 04:55 Alkaline Phosphatase 90 U/L (35-105) 06/27/23 04:55 Troponin T Baseline 9 ng/L (0-10) 06/27/23 04:55 Troponin T 120 Minute 10.59 ng/L (0-10) H 06/27/23 06:52 Delta Troponin T 1.59 ABS# (0-10) 06/27/23 06:52 NT-Pro-B Natriuret Pep 134 pg/mL (0-125) H 06/27/23 04:55 Total Protein 7.6 g/dL (6.6-8.7) 06/27/23 04:55 Albumin 4.5 g/dL (3.5-5.2) 06/27/23 04:55 Globulin 3.1 g/dL (1.3-4.6) 06/27/23 04:55 EKG Data EKG 1: Interpretation: Twelve-lead EKG obtained at 0 526 and reviewed at 0 526 demonstrates sinus tachycardia at a ventricular rate of 115 this is after 2 albuterol breathing treatments in the ambulance. Her [place] interval is 136 QRS duration 77 QT is 342 and QTc is 410. At present there is no ST elevation or depression to demonstrate acute ischemia or infarction. Discharge Plan Discharge Patient Disposition: Home Clinical Impression: Acute exacerbation of chronic obstructive airways disease Condition: Stable Prescriptions: No Action montelukast [Singulair] 10 mg tablet 10 mg PO QPM acetaminophen-codeine 300-30 mg tablet 1 tab PO BID PRN (Reason: Pain) (DME) oxygen-air delivery systems Device See Rx Instructions .Route Rx Instructions: 3L via n/c As directed albuterol sulfate 90 mcg/actuation HFA aerosol inhaler 2 inh INHALATION Q4H PRN (Reason: shortness of breath or wheezing) Qty: 6.7 6RF alprazolam [Xanax] 0.25 mg tablet 0.25 mg PO BID PRN (Reason: anxiety) Qty: 60 3RF Rx Instructions: May take one tablet twice per day as needed for anxiety benzonatate 200 mg capsule 200 mg PO TID PRN (Reason: cough) 30 Days Qty: 90 3RF cyclobenzaprine 10 mg tablet 10 mg PO TID PRN (Reason: muscle spasm) Celexa 40 mg tablet 40 mg PO QAM Qty: 30 6RF Rx Instructions: Take one tablet every morning azithromycin 500 mg tablet 500 mg PO .COMPLEX Qty: 18 6RF Rx Instructions: 500 mg po once a day on Mondays, Wednesdays & Fridays; levocetirizine [Xyzal] 5 mg Tablet 5 mg PO BEDTIME ipratropium-albuterol 0.5 mg-3 mg(2.5 mg base)/3 mL solution for nebulization 3 ml INHALATION Q6H PRN (Reason: shortness of breath or wheezing) Qty: 15 0RF metoprolol succinate 50 mg tablet extended release 24 hr 50 mg PO QAM budesonide 0.5 mg/2 mL suspension for nebulization 0.5 mg inhalation BID Vitamin Plus Low Iron 27 mg iron- 1 mg tablet 1 tab PO QAM nystatin 100,000 unit/mL suspension 1 ml PO DAILY PRN (Reason: unknown) Rx Instructions: swish and swallow prednisone 5 mg tablet 5 mg PO QAM Flonase Allergy Relief 50 mcg/actuation spray,suspension 1 spray intranasal BEDTIME Rx Instructions: administer into each nostril Anoro Ellipta 62.5-25 mcg/actuation blister with device 1 inh inhalation QAM ibuprofen 800 mg tablet 800 mg PO TID PRN (Reason: Pain, Mild) levothyroxine 175 mcg tablet 175 mcg PO QAM Rx Instructions: out of medication since 07/13/23 Discharge Orders: Discharge ED (Routine); Ordered 06/27/23 Ordered By: Kalpana Rodriguez Referrals: Farida Ramos FNP [Primary Care Provider] - 1-3 days Discharge Diet: Advance as tolerated Discharge Activity: Resume usual activity Patient Instructions: COPD (Chronic Obstructive Pulmonary Disease) (ED) Coding Level of Care Code ED Clinical Specialist for g Fwd Documented by User: Kalpana Rodriguez MD 06/27/23 07:49 HPI - SOB/Dyspnea 2 General: Chief Complaint: Shortness of Breath/Dyspnea Stated Complaint: respiratory distress Time Seen by Provider: 06/27/23 05:24 PFSH ED 2 PFSH: Medical History Bereavement 05/29/21, for 20 years Psychiatric care Sinus tachycardia Calcified granuloma of lung Suicide attempt Legg-Perthes disease Hypothyroidism Major depressive disorder, recurrent severe without psychotic features Chronic post-traumatic stress disorder Surgical History H/O tubal ligation History of dental surgery H/O breast biopsy S/P hip replacement Family History Other Cancer Stroke Denies family history of Psychiatric illness Social History (Updated 07/03/23 @ 09:54 by Dena Ashley RN) Smoking and tobacco/nicotine status: former use of tobacco/nicotine Quit status (tobacco/nicotine): has quit using Year quit tobacco: 2017 - 2PPD x 33 Years Former quit date comment: Started age 12 years Second hand smoke exposure: Yes Alcohol intake: never Substance/Drug Use: never Adopted: No Caregiver/support person: Yes Lives independently: Yes Household members: significant other and children Housing: Manufactured/Mobile home Marital status: / Number of children: 4 Number of grandchildren: 11 Highest education level completed: 7th Grade service: No Current occupational status: disabled Current occupational exposures/hazards: No Pets and animals: Yes Pets & animals: dog(s) Leisure activites: games, reading and other Leisure activities details: TV Sexually active: No Do you think of yourself as: Straight/Heterosexual Current gender identity: Female Valery/Christianity: Quaker Special valery needs: No Agree to transfusion: No Course 2 Vital Signs: Vital signs: Vital Signs Temperature 98.6 F 06/27/23 05:16 Pulse Rate 113 H 06/27/23 06:36 Respiratory Rate 22 H 06/27/23 05:41 Blood Pressure 105/78 06/27/23 06:36 Pulse Oximetry 94 06/27/23 06:36 Oxygen Delivery Me thod Nasal Cannula 06/27/23 06:36 Oxygen Flow Rate 5 06/27/23 06:36 MDM - SOB/Dyspnea Medical Decision Making Physical exam completed and documented I will obtain a CBC, CMP serial cardiac enzymes and twelve-lead EKG we will obtain a chest x-ray I will provide her an hour-long albuterol treatment for her COPD exacerbation. Differential diagnosis includes influenza, pneumonia, COPD exacerbation, myocardial infarction. Patient's x-ray blood works normal she is much improved after breathing treatment she is 90% here on her 3 L she is stable for discharge we will place her on prednisone she is to follow-up with PCP and return if worsening. Medical Records I reviewed the patient's medical records. Lab Data I reviewed the patient's lab results. 06/27/23 04:55 06/27/23 04:55 Labs/Radiology: Radiology Impressions Chest X-Ray 06/27/23 05:25 IMPRESSION: Chronic findings. Laboratory Results WBC 14.59 10^3/uL (3.29-11.43) H 06/27/23 04:55 RBC 4.43 10^6/uL (3.85-5.65) 06/27/23 04:55 Hgb 12.40 g/dL (11.27-16.99) 06/27/23 04:55 Hct 38.9 % (36-47) 06/27/23 04:55 MCV 87.8 fl (85-98) 06/27/23 04:55 MCH 28.0 pg (27-33) 06/27/23 04:55 MCHC 31.9 g/dL (30-55) 06/27/23 04:55 RDW 13.0 % (12.1-15.1) 06/27/23 04:55 Plt Count 349 10^3/cmm (157-399) 06/27/23 04:55 MPV 10.2 fL (7.4-10.4) 06/27/23 04:55 Neut % (Auto) 71.6 % 06/27/23 04:55 Lymph % (Auto) 17.9 % 06/27/23 04:55 [place] % (Auto) 8.4 % 06/27/23 04:55 Eos % (Auto) 1.3 % 06/27/23 04:55 Baso % (Auto) 0.5 % 06/27/23 04:55 Neut # (Auto) 10.44 10^3/uL (1.8-7.7) H 06/27/23 04:55 Lymph # (Auto) 2.6 10^3/uL (0.8-4.8) 06/27/23 04:55 [place] # (Auto) 1.2 10^3/uL (0.2-0.9) H 06/27/23 04:55 Eos # (Auto) 0.2 10^3/uL (0.0-0.8) 06/27/23 04:55 Baso # (Auto) 0.1 10^3/uL (0.0-0.1) 06/27/23 04:55 Nucleated RBC % (auto) 0 % 06/27/23 04:55 Nucleated RBCs # 0.0 /100WBC 06/27/23 04:55 Sodium 141 mmol/L (136-145) 06/27/23 04:55 Potassium 4.1 mmol/L (3.5-5.1) 06/27/23 04:55 Chloride 101 mmol/L (98-107) 06/27/23 04:55 Carbon Dioxide 27 mmol/L (22-29) 06/27/23 04:55 Anion Gap 17.1 (5-19) 06/27/23 04:55 BUN 8 mg/dL (6-20) 06/27/23 04:55 Creatinine 0.9 mg/dL (0.5-0.9) 06/27/23 04:55 GFR Calculation 65.8 mL/min (90-130) L 06/27/23 04:55 Glucose 105 mg/dL (65-115) 06/27/23 04:55 Calculated Osmolality 291 mOsm/kg (285-295) 06/27/23 04:55 Calcium 10.1 mg/dL (8.5-10.5) 06/27/23 04:55 Total Bilirubin 0.3 mg/dL (0.15-1.2) 06/27/23 04:55 AST 17 U/L (0-32) 06/27/23 04:55 ALT 14 U/L (0-33) 06/27/23 04:55 Alkaline Phosphatase 90 U/L (35-105) 06/27/23 04:55 Troponin T Baseline 9 ng/L (0-10) 06/27/23 04:55 Troponin T 120 Minute 10.59 ng/L (0-10) H 06/27/23 06:52 Delta Troponin T 1.59 ABS# (0-10) 06/27/23 06:52 NT-Pro-B Natriuret Pep 134 pg/mL (0-125) H 06/27/23 04:55 Total Protein 7.6 g/dL (6.6-8.7) 06/27/23 04:55 Albumin 4.5 g/dL (3.5-5.2) 06/27/23 04:55 Globulin 3.1 g/dL (1.3-4.6) 06/27/23 04:55 All radiology interpretation(s) finalized by discharge Discharge Plan Discharge Patient Disposition: Home Clinical Impression: Acute exacerbation of chronic obstructive airways disease Condition: Stable Prescriptions: No Action montelukast [Singulair] 10 mg tablet 10 mg PO QPM acetaminophen-codeine 300-30 mg tablet 1 tab PO BID PRN (Reason: Pain) (DME) oxygen-air delivery systems Device See Rx Instructions .Route Rx Instructions: 3L via n/c As directed albuterol sulfate 90 mcg/actuation HFA aerosol inhaler 2 inh INHALATION Q4H PRN (Reason: shortness of breath or wheezing) Qty: 6.7 6RF alprazolam [Xanax] 0.25 mg tablet 0.25 mg PO BID PRN (Reason: anxiety) Qty: 60 3RF Rx Instructions: May take one tablet twice per day as needed for anxiety benzonatate 200 mg capsule 200 mg PO TID PRN (Reason: cough) 30 Days Qty: 90 3RF cyclobenzaprine 10 mg tablet 10 mg PO TID PRN (Reason: muscle spasm) Celexa 40 mg tablet 40 mg PO QAM Qty: 30 6RF Rx Instructions: Take one tablet every morning azithromycin 500 mg tablet 500 mg PO .COMPLEX Qty: 18 6RF Rx Instructions: 500 mg po once a day on Mondays, Wednesdays & Fridays; levocetirizine [Xyzal] 5 mg Tablet 5 mg PO BEDTIME ipratropium-albuterol 0.5 mg-3 mg(2.5 mg base)/3 mL solution for nebulization 3 ml INHALATION Q6H PRN (Reason: shortness of breath or wheezing) Qty: 15 0RF metoprolol succinate 50 mg tablet extended release 24 hr 50 mg PO QAM budesonide 0.5 mg/2 mL suspension for nebulization 0.5 mg inhalation BID Vitamin Plus Low Iron 27 mg iron- 1 mg tablet 1 tab PO QAM nystatin 100,000 unit/mL suspension 1 ml PO DAILY PRN (Reason: unknown) Rx Instructions: swish and swallow prednisone 5 mg tablet 5 mg PO QAM Flonase Allergy Relief 50 mcg/actuation spray,suspension 1 spray intranasal BEDTIME Rx Instructions: administer into each nostril Anoro Ellipta 62.5-25 mcg/actuation blister with device 1 inh inhalation QAM ibuprofen 800 mg tablet 800 mg PO TID PRN (Reason: Pain, Mild) levothyroxine 175 mcg tablet 175 mcg PO QAM Rx Instructions: out of medication since 07/13/23 Discharge Orders: Discharge ED (Routine); Ordered 06/27/23 Ordered By: Kalpana Rodriguez Referrals: Farida Ramos FNP [Primary Care Provider] - 1-3 days Discharge Diet: Advance as tolerated Discharge Activity: Resume usual activity Patient Instructions: COPD (Chronic Obstructive Pulmonary Disease) (ED) Coding Level of Care Code ED Clinical Specialist for Angela Joshua
[2023-06-27 05:34] LABS: Basophils # 0.1 10^3/uL (0.0-0.1); Basophils % 0.5 %; Eosinophils # 0.2 10^3/uL (0.0-0.8); Eosinophils % 1.3 %; Hematocrit 38.9 % (36-47); Lymphocytes # 2.6 10^3/uL (0.8-4.8); Lymphocytes % 17.9 %; Mean Corpuscular HGB Conc 31.9 g/dL (30-55); Mean Corpuscular Volume 87.8 fl (85-98); Mean Platelet Volume 10.2 fL (7.4-10.4); Monocytes # 1.2 10^3/uL (0.2-0.9); Monocytes % 8.4 %; Neutrophils # 10.44 10^3/uL (1.8-7.7); Neutrophils % 71.6 %; Nucleated Red Blood Cells % 0 %; Platelet Count 349 10^3/cmm (157-399); Red Blood Count 4.43 10^6/uL (3.85-5.65); White Blood Count 14.59 10^3/uL (3.29-11.43)
[2023-06-27] MEDS: ipratropium-albuterol 3 mL Neb 9 ML INHALATION (05:40)
[2023-06-27 05:41] VITALS: PULSE 117; RESP 22; O2SAT 97
[2023-06-27 05:47] LABS: Troponin(5th) Baseline 9 ng/L (0-10)
[2023-06-27 05:57] LABS: Alanine Aminotransferase 14 U/L (0-33); Albumin Level 4.5 g/dL (3.5-5.2); Alkaline Phosphatase 90 U/L (35-105); Anion Gap 17.1 (5-19); Aspartate Amino Transferase 17 U/L (0-32); Blood Urea Nitrogen 8 mg/dL (6-20); Calcium 10.1 mg/dL (8.5-10.5); Carbon Dioxide 27 mmol/L (22-29); Chloride 101 mmol/L (98-107); Globulin 3.1 g/dL (1.3-4.6); Glomerular Filtration Rate 65.8 mL/min (90-130); Glucose 105 mg/dL (65-115); Osmolality Calculated 291 mOsm/kg (285-295); Potassium 4.1 mmol/L (3.5-5.1); Sodium 141 mmol/L (136-145); Total Bilirubin 0.3 mg/dL (0.15-1.2); Total Protein 7.6 g/dL (6.6-8.7)
[2023-06-27 05:58] LABS: NT Pro B Type Natriuretic Pept 134 pg/mL (0-125)
[2023-06-27 06:09] VITALS: BP 121/88; PULSE 114; O2SAT 93
[2023-06-27 06:36] VITALS: BP 105/78; PULSE 113; O2SAT 94
[2023-06-27 07:26] LABS: Troponin 5 2HR 10.59 ng/L (0-10); Troponin 5 2HR Delta 1.59 ABS# (0-10)
--- NOTE | 2023-06-27 07:27 | ECG_ITS ---
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 Measurements Intervals [place] Rate: 105 P: 81 RI: 147 QRS: 62 QRSD: 74 T: 58 QT: 319 QTc: 422 Interpretive Statements SINUS TACHYCARDIA POSSIBLE LEFT ATRIAL ENLARGEMENT [-0.1mV P-WAVE IN V1/V2] LOW QRS VOLTAGE IN PRECORDIAL LEADS [QRS DEFLECTION < 1.0 mV IN CHEST LEADS] SEPTAL MYOCARDIAL INFARCTION , OF INDETERMINATE AGE [40+ ms Q WAVE IN V1/V2] Compared to ECG 02/03/2021 11:13:15 Low QRS voltage now present Myocardial infarct finding now present ST (T wave) deviation no longer present Electronically Signed On 06-27-2023 13:44:11 ELECTRONIC GLUER by Zackary Medrano M.D. [id number]
== END 2023-06-27 08:12 | disposition home or self-care (01) ==
PROVIDERS: Internal Medicine; Emergency Provider Emergency Medicine; PCP Nurse Practitioner Family
DX: J44.1 Chronic obstructive pulmonary disease with (acute) exacerbation (principal); Z87.891 Personal history of nicotine dependence
CPT/HCPCS: 36415; 71045; 80053; 83880; 84484; 85025; 93005; 94640; 99285

== ENCOUNTER → 2023-07-03 09:07 | Outpatient (BNVA) | payer MEDICAID, SELFPAY ==
[2022-05-21 11:26] VITALS: BP 114/71; BMI 34.1
== END ==
PROVIDERS: PCP Nurse Practitioner Family; Visit Provider Nurse Practitioner Psychiatric/Mental Health
DX: F33.2 Major depressive disorder, recurrent severe without psychotic features (principal)
CPT/HCPCS: 80061; 83036

== ENCOUNTER 2023-07-14 11:21 | Emergency (ER) | payer MEDICAID, SELFPAY ==
[2022-05-21 11:26] VITALS: BP 114/71; BMI 34.1
[2023-07-14 11:26] VITALS: BP 123/87; PULSE 99; RESP 18; TEMP 36.9; O2SAT 98; BMI 33.5
--- NOTE | 2023-07-14 11:28 | ECG_ITS ---
[facility] Test Date: 2023-07-14 Pat Name: Shasha Serrato Department: Room: Gender: Female Enterostomal Nurse: : 1970 Requested By: Wilfredo Wise Order Number: [id number] Santos MD: Larry Orr M.D. Measurements Intervals [place] Rate: 104 P: 76 VT: 151 QRS: 68 QRSD: 80 T: 56 QT: 316 QTc: 416 Interpretive Statements SINUS TACHYCARDIA SEPTAL MYOCARDIAL INFARCTION , PROBABLY OLD [40+ ms Q WAVE IN V1/V2] Electronically Signed On 07-14-2023 12:53:49 [employer] by Larry Orr M.D. Compared to ECG 06/27/2023 07:27:59 No significant changes Electronically Signed On 07-17-2023 18:33:47 [employer] by Larry Orr M.D. [id number]
--- NOTE | 2023-07-14 11:42 | XRR_ITS ---
PROCEDURE INFORMATION: Exam: XR Chest Exam date and time: 07/14/2023 11:47 AM Age: 52 years old Clinical indication: Sternal or substernal pain; Patient HX: Substernal chest pain; No prior cardiac HX TECHNIQUE: Imaging protocol: Radiologic exam of the chest. Views: 1 view. COMPARISON: CR (CHEST, ) 06/27/2023 5:34 AM FINDINGS: Lungs: No focal consolidation. Basilar atelectasis. Pleural spaces: No pleural effusion. No pneumothorax. Heart/Mediastinum: No cardiomegaly. Bones/joints: No acute findings. XR/XR chest 1V portable [id number] IMPRESSION: No acute findings.
[2023-07-14 11:48] LABS: Basophils # 0.1 10^3/uL (0.0-0.1); Basophils % 0.9 %; Eosinophils # 0.1 10^3/uL (0.0-0.8); Eosinophils % 0.8 %; Hematocrit 39.2 % (36-47); Lymphocytes # 1.2 10^3/uL (0.8-4.8); Lymphocytes % 11.4 %; Mean Corpuscular HGB Conc 31.4 g/dL (30-55); Mean Corpuscular Hemoglobin 27.7 pg (27-33); Mean Corpuscular Volume 88.3 fl (85-98); Mean Platelet Volume 10.1 fL (7.4-10.4); Monocytes # 0.6 10^3/uL (0.2-0.9); Monocytes % 5.4 %; Neutrophils # 8.59 10^3/uL (1.8-7.7); Neutrophils % 81.1 %; Nucleated Red Blood Cells % 0 %; Platelet Count 314 10^3/cmm (157-399); Red Blood Count 4.44 10^6/uL (3.85-5.65); Red Cell Distribution Width 13.6 % (12.1-15.1); White Blood Count 10.58 10^3/uL (3.29-11.43)
[2023-07-14 12:01] LABS: Troponin(5th) Baseline 10 ng/L (0-10)
--- NOTE | 2023-07-14 12:04 | ED_ITS ---
HPI - Chest Pain 2 General: Chief Complaint: Chest Pain Stated Complaint: chest pain Time Seen by Provider: 07/14/23 11:41 History of Present Illness: 52-year-old female presents the emergenc y department complaining of chest discomfort. She says yesterday she had multiple episodes of a fluttering feeling that lasted about 30 seconds each. She had no discomfort associated with this. This morning she had another fluttering while she was having a bowel movement. Then, at 10:30 AM, she had a chest pressure and sharp pain that moved straight into the middle of her back and radiated outwards from the sternal region. She says she immediately felt fatigued and kind of short of breath. No nausea, vomiting, diaphoresis, syncope. She does have chronic hypoxic respiratory failure due to COPD and former smoker. She denies any known cardiac history. Currently she reports just some mild pressure as if somebody has their hand on her chest. No other symptoms. She does take prednisone 5 mg daily and takes erythromycin every other day. These are for COPD maintenance Associated symptoms: Deny abdominal pain, dyspnea, fever(s), nausea, syncope or vomiting Review of Systems 2 General: Reports: 10 or more systems reviewed and unremarkable except in HPI and below Const: Denies: fever(s), chills or body aches Eyes: Denies: change in vision ENMT: Denies: throat pain Card: Denies: edema or syncope Resp: Denies: dyspnea or productive cough GI: Reports: diarrhea (Chronic diarrhea); Denies: abdominal pain, nausea or vomiting : Denies: flank pain, dysuria or urinary frequency Musc: Denies: neck pain, extremity pain or extremity swelling Skin/Breast: Denies: rash or erythema Neuro: Denies: headache(s), numbness in extremities, weakness in extremities, lack of coordination or difficulty walking PFSH ED 2 PFSH: Medical History Bereavement 05/29/21, for 20 years Psychiatric care Sinus tachycardia Calcified granuloma of lung Suicide attempt Legg-Perthes disease Hypothyroidism Major depressive disorder, recurrent severe without psychotic features Chronic post-traumatic stress disorder Surgical History H/O tubal ligation History of dental surgery H/O breast biopsy S/P hip replacement Family History Other Cancer Stroke Denies family history of Psychiatric illness Social History (Updated 07/03/23 @ 09:54 by Dena Ashley RN) Smoking and tobacco/nicotine status: former use of tobacco/nicotine Quit status (tobacco/nicotine): has quit using Year quit tobacco: 2017 - 2PPD x 33 Years Former quit date comment: Started age 12 years Second hand smoke exposure: Yes Alcohol intake: never Substance/Drug Use: never Adopted: No Caregiver/support person: Yes Lives independently: Yes Household members: significant other and children Housing: Manufactured/Mobile home Marital status: / Number of children: 4 Number of grandchildren: 11 Highest education level completed: 7th Grade service: No Current occupational status: disabled Current occupational exposures/hazards: No Pets and animals: Yes Pets & animals: dog(s) Leisure activites: games, reading and other Leisure activities details: TV Sexually active: No Do you think of yourself as: Straight/Heterosexual Current gender identity: Female Valery/Hindu: Adventist Special valery needs: No Agree to transfusion: No Female Reproductive History: Para: 4 Spontaneous abortions: Yes (X 2) Physical Exam 2 Narrative: EXAM NARRATIVE: Obese, nontoxic, pleasant, conversational Const: COMMON NORMALS: no limitations, alert and well nourished EXAM LIMITATIONS: no altered mental status HENMT: COMMON NORMALS: normocephalic, atraumatic and external ears normal H EAD & SCALP: normocephalic and atraumatic EXTERNAL EAR: Yes external ears normal MOUTH: no muffled voice Eye: COMMON NORMALS: EOMs intact bilaterally, conjunctivae normal and no scleral icterus CONJUNCTIVA: Yes conjunctivae normal Neck/C-Spine: COMMON NORMALS: no JVD GENERAL: Yes normal visual inspection and Yes trachea midline Chest: OTHER: Tenderness throughout the costochondral joints bilaterally Resp: COMMON NORMALS: normal respiratory effort and No use of accessory muscles OTHER: Faint end expiratory wheeze with forced expiration, slightly decreased breath sounds throughout, otherwise normal. Cardio: COMMON NORMALS: no JVD, regular rate and regular rhythm RATE: r egular rate RHYTHM: regular rhythm GI: COMMON NORMALS: Soft to palpation PALPATION: Yes Soft to palpation, Yes Tenderness to palpation present (GI) (Mild epigastric tenderness just below the xiphoid) and No Guarding due to palpation present (GI) Extremity: COMMON NORMALS: normal to inspection Neuro: COMMON NORMALS: moves all extremities, no focal motor deficits and no sensory deficits noted SENSORIUM/ORIENTATION: Yes alert SPEECH: speech normal Psych: COMMON NORMALS: mental status grossly normal, Normal thought process present, cooperative, normal affect and speech normal SPEECH: Yes normal speech THOUGHT PROCESS: Normal thought process present Skin: COMMON NORMALS: no rashes or lesions noted, turgor normal and no jaundice GENERAL SKIN EXAM: no rashes or lesions noted and turgor normal Course 2 Vital Signs: Vital signs: Vital Signs Temperature 98.4 F 07/14/23 11:26 Pulse Rate 90 07/14/23 13:31 Respiratory Rate 18 07/14/23 13:31 Blood Pressure 135/91 07/14/23 13:31 Pulse Oximetry 98 07/14/23 13:31 Oxygen Delivery Me thod Nasal Cannula 07/14/23 11:26 Oxygen Flow Rate 3 07/14/23 11:26 MDM - Chest Pain Medical Decision Making Differential diagnosis includes arrhythmia, acute coronary syndrome, pulmonary embolism, pleurisy, costochondritis, pulmonary hypertension, esophagitis, esophageal spasm, COPD exacerbation, heart failure, pulmonary embolism, and multiple others. Update Patient's D-dimer was mildly elevated. CT angiogram of the chest was performed. No acute findings but confirmed severe emphysema. Troponin baseline normal. Troponin 2-hour delta normal. BNP minimally elevated. No other acute lab findings. EKG nonischemic. Patient has some features of typical anginal chest pain and several other features which are atypical for cardiac chest pain. I went back and evaluated the patient who reports her symptoms had resolved. I gave her the option of being admitted to the hospital for observation and consideration of a stress test and cardiology consult versus going home. I explained the testing that we did here and its limitations including its inability to exclude coronary artery disease or unstable angina. Patient reports she does not want to stay at this time. I did call Dr. Ma, I explained the relevant lab findings, EKG findings, imaging findings. I reviewed the patient's EGD from just a few weeks ago. It was normal. I also reviewed the patient's recent ambulatory playground monitor. It did show some PVCs and supraventricular beats but that was less than 1% of total beats. No malignant arrhythmias were noted. At this point, I think it is reasonable to discharge the patient. I have given her and her family strict return precautions and invited her to return should symptoms change or worsen. Lab Data 07/14/23 11:41 07/14/23 11:41 Radiology Impressions Chest X-Ray 07/14/23 11:42 IMPRESSION: No acute findings. Chest CTA 07/14/23 12:52 IMPRESSION: 1. No acute chest findings. 2. Severe emphysematous changes. COMMENTS: In the absence of a history or active diagnosis of lung cancer, it is recommended that this patient with emphysema be evaluated for enrollment in a low dose CT lung cancer screening program. Laboratory Results WBC 10.58 10^3/uL (3.29-11.43) 07/14/23 11:41 RBC 4.44 10^6/uL (3.85-5.65) 07/14/23 11:41 Hgb 12.30 g/dL (11.27-16.99) 07/14/23 11:41 Hct 39.2 % (36-47) 07/14/23 11:41 MCV 88.3 fl (85-98) 07/14/23 11:41 MCH 27.7 pg (27-33) 07/14/23 11:41 MCHC 31.4 g/dL (30-55) 07/14/23 11:41 RDW 13.6 % (12.1-15.1) 07/14/23 11:41 Plt Count 314 10^3/cmm (157-399) 07/14/23 11:41 MPV 10.1 fL (7.4-10.4) 07/14/23 11:41 Neut % (Auto) 81.1 % 07/14/23 11:41 Lymph % (Auto) 11.4 % 07/14/23 11:41 Wilkinson % (Auto) 5.4 % 07/14/23 11:41 Eos % (Auto) 0.8 % 07/14/23 11:41 Baso % (Auto) 0.9 % 07/14/23 11:41 Neut # (Auto) 8.59 10^3/uL (1.8-7.7) H 07/14/23 11:41 Lymph # (Auto) 1.2 10^3/uL (0.8-4.8) 07/14/23 11:41 Wilkinson # (Auto) 0.6 10^3/uL (0.2-0.9) 07/14/23 11:41 Eos # (Auto) 0.1 10^3/uL (0.0-0.8) 07/14/23 11:41 Baso # (Auto) 0.1 10^3/uL (0.0-0.1) 07/14/23 11:41 Nucleated RBC % (auto) 0 % 07/14/23 11:41 Nucleated RBCs # 0.0 /100WBC 07/14/23 11:41 D-Dimer 0.63 ug/mLFEU (0-0.59) H 07/14/23 11:41 Sodium 139 mmol/L (136-145) 07/14/23 11:41 Potassium 4.2 mmol/L (3.5-5.1) 07/14/23 11:41 Chloride 104 mmol/L (98-107) 07/14/23 11:41 Carbon Dioxide 28 mmol/L (22-29) 07/14/23 11:41 Anion Gap 11.2 (5-19) 07/14/23 11:41 BUN 9 mg/dL (6-20) 07/14/23 11:41 Creatinine 0.8 mg/dL (0.5-0.9) 07/14/23 11:41 GFR Calculation 75.3 mL/min (90-130) L 07/14/23 11:41 Glucose 85 mg/dL (65-115) 07/14/23 11:41 Calculated Osmolality 286 mOsm/kg (285-295) 07/14/23 11:41 Calcium 9.8 mg/dL (8.5-10.5) 07/14/23 11:41 Total Bilirubin 0.2 mg/dL (0.15-1.2) 07/14/23 11:41 AST 18 U/L (0-32) 07/14/23 11:41 ALT 17 U/L (0-33) 07/14/23 11:41 Alkaline Phosphatase 76 U/L (35-105) 07/14/23 11:41 Troponin T Baseline 10 ng/L (0-10) 07/14/23 11:41 Troponin T 120 Minute 8.04 ng/L (0-10) 07/14/23 13:35 Delta Troponin T -1.96 ABS# (0-10) L 07/14/23 13:35 NT-Pro-B Natriuret Pep 212 pg/mL (0-125) H 07/14/23 11:41 Total Protein 7.0 g/dL (6.6-8.7) 07/14/23 11:41 Albumin 4.1 g/dL (3.5-5.2) 07/14/23 11:41 Globulin 2.9 g/dL (1.3-4.6) 07/14/23 11:41 All radiology interpretation(s) finalized by discharge ED provider radiology interpretation(s): I reviewed the patient's chest x-ray. There is some soft tissue attenuation due to the breast overlapping. Otherwise, no acute findings. CTA per radiologist. EKG Data EKG 1: Interpretation: Sinus tachycardia, rate 104 bpm, normal axis, QRS 80 ms, QTc within normal limits, no concerning ST segment elevations, no hyperacute T waves. No ectopy., Pulmonary P wave pattern suggesting probable left atrial enlargement. Discharge Plan Discharge Patient Disposition: Home Clinical Impression: Chest pain at rest Condition: Stable Prescriptions: No Action montelukast [Singulair] 10 mg tablet 10 mg PO QPM acetaminophen-codeine 300-30 mg tablet 1 tab PO BID PRN (Reason: Pain) (DME) oxygen-air delivery systems Device See Rx Instructions .Route Rx Instructions: 3L via n/c As directed albuterol sulfate 90 mcg/actuation HFA aerosol inhaler 2 inh INHALATION Q4H PRN (Reason: shortness of breath or wheezing) Qty: 6.7 6RF alprazolam [Xanax] 0.25 mg tablet 0.25 mg PO BID PRN (Reason: anxiety) Qty: 60 3RF Rx Instructions: May take one tablet twice per day as needed for anxiety benzonatate 200 mg capsule 200 mg PO TID PRN (Reason: cough) 30 Days Qty: 90 3RF cyclobenzaprine 10 mg tablet 10 mg PO TID PRN (Reason: muscle spasm) azithromycin 500 mg tablet 500 mg PO .COMPLEX Qty: 18 6RF Rx Instructions: 500 mg po once a day on Mondays, Wednesdays & Fridays; levocetirizine [Xyzal] 5 mg Tablet 5 mg PO BEDTIME ipratropium-albuterol 0.5 mg-3 mg(2.5 mg base)/3 mL solution for nebulization 3 ml INHALATION Q6H PRN (Reason: shortness of breath or wheezing) Qty: 15 0RF hydrocortisone [Procto-Med HC] 2.5 % cream with perineal applicator 1 applic VA QID 21 Days Qty: 30 0RF metoprolol succinate 50 mg tablet extended release 24 hr 50 mg PO QAM budesonide 0.5 mg/2 mL suspension for nebulization 0.5 mg inhalation BID Vitamin Plus Low Iron 27 mg iron- 1 mg tablet 1 tab PO QAM nystatin 100,000 unit/mL suspension 1 ml PO DAILY PRN (Reason: unknown) Rx Instructions: swish and swallow Celexa 40 mg tablet 40 mg PO QAM prednisone 5 mg tablet 5 mg PO QAM Flonase Allergy Relief 50 mcg/actuation spray,suspension 1 spray intranasal BEDTIME Rx Instructions: administer into each nostril Anoro Ellipta 62.5-25 mcg/actuation blister with device 1 inh inhalation QAM ibuprofen 800 mg tablet 800 mg PO TID PRN (Reason: Pain, Mild) levothyroxine 175 mcg tablet 175 mcg PO QAM Rx Instructions: out of medication since 07/13/23 levothyroxine 150 mcg tablet 150 mcg PO .ONE TIME DOSE Discharge Orders: Discharge ED (Routine); Ordered 07/14/23 Ordered By: Wilfredo Wise Referrals: Debbie Ma MD [Physician] - 1-3 days (Acute chest pain) Ramos,BONNIE Iqbal [Primary Care Provider] - Discharge Diet: Cardiac Discharge Activity: Increase activity as tolerated Patient Instructions: Chest Pain (ED), Pain Management Activity Restrictions/Additional Instructions: The cause of your chest pain is unclear. You could still have coronary artery disease. Dr. Ma would like you to make an appointment with him to have a cardiology evaluation. Please monitor your symptoms closely. If you have increasing chest pain, changing symptoms, shortness of breath, abnormal vital signs, unexplained neck back or arm pain, feel like passing out, sweating without exertion, or other worrisome symptoms then return to the emergency department. Coding Level of Care Code ED Senior Bi Architect for Angela Joshua
[2023-07-14 12:05] VITALS: BP 121/75; PULSE 92; RESP 16; O2SAT 100
[2023-07-14 12:12] LABS: Alanine Aminotransferase 17 U/L (0-33); Albumin Level 4.1 g/dL (3.5-5.2); Alkaline Phosphatase 76 U/L (35-105); Anion Gap 11.2 (5-19); Aspartate Amino Transferase 18 U/L (0-32); Blood Urea Nitrogen 9 mg/dL (6-20); Calcium 9.8 mg/dL (8.5-10.5); Carbon Dioxide 28 mmol/L (22-29); Chloride 104 mmol/L (98-107); Globulin 2.9 g/dL (1.3-4.6); Glomerular Filtration Rate 75.3 mL/min (90-130); Glucose 85 mg/dL (65-115); NT Pro B Type Natriuretic Pept 212 pg/mL (0-125); Osmolality Calculated 286 mOsm/kg (285-295); Potassium 4.2 mmol/L (3.5-5.1); Sodium 139 mmol/L (136-145); Total Bilirubin 0.2 mg/dL (0.15-1.2)
[2023-07-14 12:17] LABS: D Dimer 0.63 ug/mLFEU (0-0.59)
[2023-07-14 12:30] VITALS: BP 125/87; PULSE 92; RESP 16; O2SAT 98
--- NOTE | 2023-07-14 12:31 | PC.PHAR ---
pt states she has home health with [facility] they are closed on 07/14/23-pt states she is out of her levothyroxine 175mcg so states she took the 150mcg today she had left from before -
--- NOTE | 2023-07-14 12:52 | CTR_ITS ---
PROCEDURE INFORMATION: Exam: CTA Chest With Contrast Exam date and time: 07/14/2023 1:00 PM Age: 52 years old Clinical indication: Pain; Chest pressure; Additional info: Chest pain, tachycardia, elevated dimer TECHNIQUE: Imaging protocol: Computed tomographic angiography of the chest with contrast. Exam focused on the arteries. 3D rendering (Not supervised by radiologist): MIP and/or 3D reconstructed images were created by the technologist. Radiation optimization: All CT scans at this facility use at least one of these dose optimization techniques: automated exposure control; mA and/or kV adjustment per patient size (includes targeted exams where dose is matched to clinical indication); or iterative reconstruction. Contrast material: OMNI 350; Contrast volume: 80 ml; Contrast route: INTRAVENOUS (IV); REPORTING DATA: Count of CT and Cardiac NM exams in prior 12 months: This patient has received [address] and 0 known cardiac nuclear medicine studies in the 12 months prior to the current study. COMPARISON: CT angio chest PE protcl [id number] 05/22/2020 2:20 AM RADIATION DOSE METRICS: Total DLP (mGy-cm): 425.05 FINDINGS: Pulmonary arteries: No central or segmental pulmonary emboli. Aorta: No aortic aneurysm or dissection. Lungs: No focal consolidation or suspicious noncalcified pulmonary nodules. Severe emphysematous changes. Pleural spaces: No pneumothorax. No pleural effusion. Heart: No pericardial effusion. Lymph nodes: No enlarged lymph nodes. Bones/joints: No acute findings. Soft tissues: No acute findings. CT/CT angio chest PE protcl [id number] IMPRESSION: 1. No acute chest findings. 2. Severe emphysematous changes. COMMENTS: In the absence of a history or active diagnosis of lung cancer, it is recommended that this patient with emphysema be evaluated for enrollment in a low dose CT lung cancer screening program.
[2023-07-14 13:00] VITALS: PULSE 102; RESP 16; O2SAT 97
[2023-07-14] MEDS: iohexol 350 mg/mL 500 mL Btl (per mL) IV (13:13)
[2023-07-14 13:31] VITALS: BP 135/91; PULSE 90; RESP 18; O2SAT 98
--- NOTE | 2023-07-14 13:43 | ECG_ITS ---
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 Measurements Intervals Barney Rate: 87 P: 83 NH: 153 QRS: 62 QRSD: 78 T: 53 QT: 344 QTc: 414 Interpretive Statements SINUS RHYTHM LOW QRS VOLTAGE IN PRECORDIAL LEADS [QRS DEFLECTION < 1.0 mV IN CHEST LEADS] SEPTAL MYOCARDIAL INFARCTION , OF INDETERMINATE AGE [40+ ms Q WAVE IN V1/V2] Compared to ECG 07/14/2023 11:28:00 Low QRS voltage now present Sinus tachycardia no longer present Myocardial infarct finding still present Electronically Signed On 07-14-2023 15:19:52 WEBFOCUS DEVELOPER by Larry Orr M.D. [id number]
[2023-07-14 13:59] LABS: Troponin 5 2HR 8.04 ng/L (0-10)
[2023-07-14 14:01] LABS: Troponin 5 2HR Delta -1.96 ABS# (0-10)
[2023-07-14] MEDS: ipratropium-albuterol 3 mL Neb INHALATION (15:19)
[2023-07-14 15:21] VITALS: PULSE 86; RESP 18; O2SAT 96
== END 2023-07-14 15:33 | disposition home or self-care (01) ==
PROVIDERS: Emergency Provider Emergency Medicine; PCP Nurse Practitioner Family
DX: R07.9 Chest pain, unspecified (principal); Z87.891 Personal history of nicotine dependence; J44.9 Chronic obstructive pulmonary disease, unspecified
CPT/HCPCS: 71045; 71275; 80053; 83880; 84484; 85025; 85378; 93005; 94640; 99285; Q9967

== ENCOUNTER → 2023-07-30 13:06 | Outpatient (BNVA) | payer MEDICAID, SELFPAY ==
[2022-05-21 11:26] VITALS: BP 114/71; BMI 34.1
== END ==
PROVIDERS: PCP Nurse Practitioner Family; Visit Provider Surgery
DX: Z09 Encounter for follow-up examination after completed treatment for conditions other than malignant neoplasm (principal); K52.9 Noninfective gastroenteritis and colitis, unspecified; K29.70 Gastritis, unspecified, without bleeding; A04.8 Other specified bacterial intestinal infections; D12.6 Benign neoplasm of colon, unspecified
CPT/HCPCS: 99214

== ENCOUNTER 2023-08-14 22:23 | Emergency (ER) | payer MEDICAID, SELFPAY ==
[2023-08-01 10:57] VITALS: BP 131/72; BMI 33.7
--- NOTE | 2023-08-14 22:29 | CTR_ITS ---
PROCEDURE INFORMATION: Exam: CT Abdomen And Pelvis With Contrast Exam date and time: 08/14/2023 11:06 PM Age: 52 years old Clinical indication: Abdominal pain; Colonoscopy this am- now has pain . TECHNIQUE: Imaging protocol: Computed tomography of the abdomen and pelvis with contrast. Radiation optimization: All CT scans at this facility use at least one of these dose optimization techniques: automated exposure control; mA and/or kV adjustment per patient size (includes targeted exams where dose is matched to clinical indication); or iterative reconstruction. Contrast material: OMNI 350; Contrast volume: 100 ml; Contrast route: INTRAVENOUS (IV); COMPARISON: CT abdomen pelvis w con* [id number] 04/08/2019 8:52 PM RADIATION DOSE METRICS: Total DLP (mGy-cm): 765.16 FINDINGS: Lungs: Moderate emphysema in the visualized lung bases. Scattered numerous punctate calcified granulomas again demonstrated. Liver: See Stomach and bowel finding. Gallbladder and bile ducts: Mildly distended gallbladder with wall thickening. No pericholecystic fluid. Pancreas: Normal. No ductal dilation. Spleen: Normal. No splenomegaly. Adrenal glands: Normal. No mass. Kidneys and ureters: Normal. No hydronephrosis. Stomach and bowel: Tortuous colon filled with small amount of fluid and air without overt dilatation. Findings compatible with a mobile cecum in the right colon, the cecum is changed in position from the right lower quadrant on 04/08/2019 and is currently located anterior and slightly above right lobe of the liver, the appendix extends around the gallbladder fundus, otherwise the appendix is normal. Part of the mid transverse colon now situated between the duodenal and left hepatic lobe without pronounced dilatation to suggest obstructive effects at this time. Appendix: The appendix is near the gallbladder fundus, perihepatic cecum. Intraperitoneal space: No free intraperitoneal air. Vasculature: Unremarkable. No abdominal aortic aneurysm. Lymph nodes: Unremarkable. No enlarged lymph nodes. Urinary bladder: Unremarkable as visualized. Reproductive: Unremarkable as visualized. Bones/joints: Right hip arthroplasty again noted, stable. Advanced facet and endplate changes at L5-S1 level. Mild rotary scoliosis. Soft tissues: Unremarkable. CT/CT abdomen pelvis w con* [id number] IMPRESSION: 1. No evidence of free intraperitoneal air .Mild expected fluid and gas-filled colon status post reported recent colonoscopy without obvious wall abnormality. 2. MILD GALLBLADDER DISTENSION and wall thickening. Correlation with SONOGRAPHY for any evidence of cholecystitis suggested although the findings are only equivocal. 3. Very tortuous colon . Evidence of increased mobility of the cecum and right colon. Cecum shifted from the right lower quadrant compared to 04/08/2019 CT, now anterior to the right lobe of the liver. The normal appendix is now located next to the gallbladder. Part of the transverse colon is now interposed between the duodenum and left lobe of the liver . No obvious obstructive effects at this time.
[2023-08-14 22:38] VITALS: BMI 34.9
--- NOTE | 2023-08-14 22:44 | ED_ITS ---
HPI - Abdominal Pain 2 General: Chief Complaint: Abdominal Pain Stated Complaint: abdomen pain post colonscopy Time Seen by Provider: 08/14/23 22:29 History of Present Illness: 50-year-old female comes in today for ab dominal pain after colonoscopy this afternoon around 2:00. Patient reports some small amount of gas passing. Patient reports that she had a 8 cm polyp removed. Patient appears nontoxic. Patient appears in mild to moderate pain. Review of Systems 2 General: Reports: 10 or more systems reviewed and unremarkable except in HPI and below GI: Reports: abdominal pain PFSH ED 2 PFSH: Medical History Bereavement 05/29/21, for 20 years Psychiatric care Sinus tachycardia Calcified granuloma of lung Suicide attempt Legg-Perthes disease Hypothyroidism Major depressive disorder, recurrent severe without psychotic features Chronic post-traumatic stress disorder Surgical History H/O tubal ligation History of dental surgery H/O breast biopsy S/P hip replacement Family History Other Cancer Stroke Denies family history of Psychiatric illness Social History Smoking and tobacco/nicotine status: former use of tobacco/nicotine Quit status (tobacco/nicotine): has quit using Year quit tobacco: 2017 - 2PPD x 33 Years Former quit date comment: Started age 12 years Second hand smoke exposure: Yes Alcohol intake: never Substance/Drug Use: never Adopted: No Caregiver/support person: Yes Lives independently: Yes Household members: significant other and children Housing: Manufactured/Mobile home Marital status: / Number of children: 4 Number of grandchildren: 11 Highest education level completed: 7th Grade service: No Current occupational status: disabled Current occupational exposures/hazards: No Pets and animals: Yes Pets & animals: dog(s) Leisure activites: games, reading and other Leisure activities details: TV Sexually active: No Do you think of yourself as: Straight/Heterosexual Current gender identity: Female Valery/Taoism: Nondenominational Special valery needs: No Agree to transfusion: No Female Reproductive History: Para: 4 Spontaneous abortions: Yes (X 2) Physical Exam 2 Const: COMMON NORMALS: alert HENMT: COMMON NORMALS: normocephalic HEAD & SCALP: normocephalic Neck/C-Spine: COMMON NORMALS: no meningeal signs Resp: COMMON NORMALS: normal respiratory effort and clear to auscultation bilaterally AUSCULTATION: clear to auscultation bilaterally Cardio: COMMON NORMALS: regular rate and regular rhythm RATE: regular rate RHYTHM: regular rhythm GI: COMMON NORMALS: Soft to palpation AUSCULTATION: Yes normoactive bowel sounds PALPATION: Yes Soft to palpation, Yes Tenderness to palpation present (GI) Details: RLQ and No Guarding due to palpation present (GI) Extremity: COMMON NORMALS: full ROM Neuro: SENSORIUM/ORIENTATION: Yes alert MENINGEAL SIGNS: Yes no meningeal signs Skin: COMMON NORMALS: turgor normal GENERAL SKIN EXAM: turgor normal MDM - Abdominal Pain Medical Decision Making 52-year-old female comes in today with abdominal pain postprocedure. On exam patient appears in moderate pain. Abdomen soft with some right lower quadrant tenderness. Patient reports that she had to have a large polyp removed today during her colonoscopy. Differential diagnosis includes perforation bowel, ileus, postop pain. CBC and CMP were normal. CT of the abdomen and pelvis noted no perforation or free air. Believe the patient most likely does has a large amount of gas secondary to a recent colonoscopy. Patient was recommended to follow-up with primary care or surgeon for further recommendations and treatment. Lab Data 08/14/23 22:42 08/14/23 22:42 Labs/Radiology: Radiology Impressions Abdomen/Pelvis CT 08/14/23 22:29 IMPRESSION: 1. No evidence of free intraperitoneal air .Mild expected fluid and gas-filled colon status post reported recent colonoscopy without obvious wall abnormality. 2. MILD GALLBLADDER DISTENSION and wall thickening. Correlation with SONOGRAPHY for any evidence of cholecystitis suggested although the findings are only equivocal. 3. Very tortuous colon . Evidence of increased mobility of the cecum and right colon. Cecum shifted from the right lower quadrant compared to 04/08/2019 CT, now anterior to the right lobe of the liver. The normal appendix is now located next to the gallbladder. Part of the transverse colon is now interposed between the duodenum and left lobe of the liver . No obvious obstructive effects at this time. Laboratory Results WBC 7.42 10^3/uL (3.29-11.43) 08/14/23 22:42 RBC 4.67 10^6/uL (3.85-5.65) 08/14/23 22:42 Hgb 13.00 g/dL (11.27-16.99) 08/14/23 22:42 Hct 40.7 % (36-47) 08/14/23 22:42 MCV 87.2 fl (85-98) 08/14/23 22:42 MCH 27.8 pg (27-33) 08/14/23 22:42 MCHC 31.9 g/dL (30-55) 08/14/23 22:42 RDW 14.1 % (12.1-15.1) 08/14/23 22:42 Plt Count 330 10^3/cmm (157-399) 08/14/23 22:42 MPV 9.9 fL (7.4-10.4) 08/14/23 22:42 Neut % (Auto) 48.5 % 08/14/23 22:42 Lymph % (Auto) 36.8 % 08/14/23 22:42 [place] % (Auto) 12.0 % 08/14/23 22:42 Eos % (Auto) 1.6 % 08/14/23 22:42 Baso % (Auto) 0.8 % 08/14/23 22:42 Neut # (Auto) 3.60 10^3/uL (1.8-7.7) 08/14/23 22:42 Lymph # (Auto) 2.7 10^3/uL (0.8-4.8) 08/14/23 22:42 [place] # (Auto) 0.9 10^3/uL (0.2-0.9) 08/14/23 22:42 Eos # (Auto) 0.1 10^3/uL (0.0-0.8) 08/14/23 22:42 Baso # (Auto) 0.1 10^3/uL (0.0-0.1) 08/14/23 22:42 Nucleated RBC % (auto) 0 % 08/14/23 22:42 Nucleated RBCs # 0.0 /100WBC 08/14/23 22:42 Sodium 141 mmol/L (136-145) 08/14/23 22:42 Potassium 4.1 mmol/L (3.5-5.1) 08/14/23 22:42 Chloride 104 mmol/L (98-107) 08/14/23 22:42 Carbon Dioxide 26 mmol/L (22-29) 08/14/23 22:42 Anion Gap 15.1 (5-19) 08/14/23 22:42 BUN 11 mg/dL (6-20) 08/14/23 22:42 Creatinine 0.9 mg/dL (0.5-0.9) 08/14/23 22:42 GFR Calculation 65.8 mL/min (90-130) L 08/14/23 22:42 Glucose 110 mg/dL (65-115) 08/14/23 22:42 Calculated Osmolality 292 mOsm/kg (285-295) 08/14/23 22:42 Calcium 9.8 mg/dL (8.5-10.5) 08/14/23 22:42 Total Bilirubin 0.2 mg/dL (0.15-1.2) 08/14/23 22:42 AST 24 U/L (0-32) 08/14/23 22:42 ALT 22 U/L (0-33) 08/14/23 22:42 Alkaline Phosphatase 65 U/L (35-105) 08/14/23 22:42 Total Protein 7.6 g/dL (6.6-8.7) 08/14/23 22:42 Albumin 4.2 g/dL (3.5-5.2) 08/14/23 22:42 Globulin 3.4 g/dL (1.3-4.6) 08/14/23 22:42 Lipase 51 U/L (13-60) 08/14/23 22:42 All radiology interpretation(s) finalized by discharge Discharge Plan Discharge Patient Disposition: Home Clinical Impression: Post-op pain Condition: Stable Prescriptions: No Action montelukast [Singulair] 10 mg tablet 10 mg PO QPM acetaminophen-codeine 300-30 mg tablet 1 tab PO BID PRN (Reason: Pain) (DME) oxygen-air delivery systems Device See Rx Instructions .Route Rx Instructions: 3L via n/c As directed albuterol sulfate 90 mcg/actuation HFA aerosol inhaler 2 inh INHALATION Q4H PRN (Reason: shortness of breath or wheezing) Qty: 6.7 6RF alprazolam [Xanax] 0.25 mg tablet 0.25 mg PO BID PRN (Reason: anxiety) Qty: 60 3RF Rx Instructions: May take one tablet twice per day as needed for anxiety clarithromycin 500 mg tablet 500 mg PO BID 14 Days Qty: 28 0RF pantoprazole [Protonix] 40 mg tablet,delayed release (DR/EC) 40 mg PO BID 90 Days Qty: 180 0RF metronidazole 500 mg tablet 500 mg PO BID 14 Days Qty: 28 0RF benzonatate 200 mg capsule 200 mg PO TID PRN (Reason: cough) 30 Days Qty: 90 3RF cyclobenzaprine 10 mg tablet 10 mg PO TID PRN (Reason: muscle spasm) Celexa 40 mg tablet 40 mg PO QAM Qty: 30 6RF Rx Instructions: Take one tablet every morning azithromycin 500 mg tablet 500 mg PO .COMPLEX Qty: 18 6RF Rx Instructions: 500 mg po once a day on Mondays, Wednesdays & Fridays; levocetirizine [Xyzal] 5 mg Tablet 5 mg PO BEDTIME ipratropium-albuterol 0.5 mg-3 mg(2.5 mg base)/3 mL solution for nebulization 3 ml INHALATION Q6H PRN (Reason: shortness of breath or wheezing) Qty: 15 0RF metoprolol succinate 50 mg tablet extended release 24 hr 50 mg PO QAM budesonide 0.5 mg/2 mL suspension for nebulization 0.5 mg inhalation BID Vitamin Plus Low Iron 27 mg iron- 1 mg tablet 1 tab PO QAM nystatin 100,000 unit/mL suspension 1 ml PO DAILY PRN (Reason: unknown) Rx Instructions: swish and swallow prednisone 5 mg tablet 5 mg PO QAM Flonase Allergy Relief 50 mcg/actuation spray,suspension 1 spray intranasal BEDTIME Rx Instructions: administer into each nostril Anoro Ellipta 62.5-25 mcg/actuation blister with device 1 inh inhalation QAM ibuprofen 800 mg tablet 800 mg PO TID PRN (Reason: Pain, Mild) levothyroxine 175 mcg tablet 175 mcg PO QAM Rx Instructions: out of medication since 07/13/23 Discharge Orders: Discharge ED (Routine); Ordered 08/15/23 Ordered By: Addy Thomson Referrals: Farida Ramos FNP [Primary Care Provider] - Discharge Diet: Usual diet Discharge Activity: Increase activity as tolerated Patient Instructions: Colonoscopy (DC) Activity Restrictions/Additional Instructions: Drink plenty water and fluids. Ambulate to help pass the gas. Follow-up with primary care as needed. Return to ER for worsening symptoms such as blood in vomit or stool, fever greater than 100.4, or new concerns. Coding Level of Care Code ED Applied Research Director for Angela Joshua
[2023-08-14 22:48] LABS: Basophils # 0.1 10^3/uL (0.0-0.1); Basophils % 0.8 %; Eosinophils # 0.1 10^3/uL (0.0-0.8); Eosinophils % 1.6 %; Hematocrit 40.7 % (36-47); Lymphocytes # 2.7 10^3/uL (0.8-4.8); Lymphocytes % 36.8 %; Mean Corpuscular HGB Conc 31.9 g/dL (30-55); Mean Corpuscular Hemoglobin 27.8 pg (27-33); Mean Corpuscular Volume 87.2 fl (85-98); Mean Platelet Volume 9.9 fL (7.4-10.4); Monocytes # 0.9 10^3/uL (0.2-0.9); Neutrophils % 48.5 %; Nucleated Red Blood Cells % 0 %; Platelet Count 330 10^3/cmm (157-399); Red Blood Count 4.67 10^6/uL (3.85-5.65); Red Cell Distribution Width 14.1 % (12.1-15.1); White Blood Count 7.42 10^3/uL (3.29-11.43)
[2023-08-14] MEDS: acetaminophen 1,000 MG/100 ML PIGGYBACK 400 MG IV (22:56)
[2023-08-14 23:08] LABS: Albumin Level 4.2 g/dL (3.5-5.2); Alkaline Phosphatase 65 U/L (35-105); Anion Gap 15.1 (5-19); Aspartate Amino Transferase 24 U/L (0-32); Blood Urea Nitrogen 11 mg/dL (6-20); Calcium 9.8 mg/dL (8.5-10.5); Carbon Dioxide 26 mmol/L (22-29); Chloride 104 mmol/L (98-107); Globulin 3.4 g/dL (1.3-4.6); Glomerular Filtration Rate 65.8 mL/min (90-130); Glucose 110 mg/dL (65-115); Lipase 51 U/L (13-60); Osmolality Calculated 292 mOsm/kg (285-295); Potassium 4.1 mmol/L (3.5-5.1); Sodium 141 mmol/L (136-145); Total Bilirubin 0.2 mg/dL (0.15-1.2); Total Protein 7.6 g/dL (6.6-8.7)
[2023-08-14] MEDS: iohexol 350 mg/mL 500 mL Btl (per mL) IV (23:17)
[2023-08-14 23:18] LABS: Alanine Aminotransferase 22 U/L (0-33)
[2023-08-15 00:20] VITALS: BP 132/79; PULSE 93; RESP 16; O2SAT 100
== END 2023-08-15 00:31 | disposition home or self-care (01) ==
PROVIDERS: Emergency Provider Nurse Practitioner Family; PCP Nurse Practitioner Family
DX: G89.18 Other acute postprocedural pain (principal); Z87.891 Personal history of nicotine dependence
CPT/HCPCS: 74177; 80053; 83690; 85025; 96374; 99285; J0131; Q9967

== ENCOUNTER 2023-09-29 12:35 | Outpatient (CLI) | payer MEDICAID, SELFPAY ==
[2023-08-01 10:57] VITALS: BP 131/72; BMI 33.7
--- NOTE | 2023-09-29 13:08 | MM_ITS ---
WS: [id number] BILATERAL 3D TOMOSYNTHESIS DIGITAL SCREENING MAMMOGRAPHY WITH CAD CLINICAL INFORMATION: SCREEN HISTORY: Screening mammogram. No current complaints. COMPARISON: 2022 TECHNIQUE: Bilateral CC and MLO views. FINDINGS: Scattered fibroglandular densities bilaterally. No suspicious focal mass, asymmetry, calcifications, or architectural distortion. No evidence of malignancy. IMPRESSION: MM/[place] [id number] BI-RADS: 1-Negative FOLLOW UP: 1 Year Follow-up Recommend return to annual screening mammography.
== END 2023-09-29 12:36 | disposition home or self-care (01) ==
LOC: RAD 12:35
PROVIDERS: PCP Nurse Practitioner Family; Visit Provider Nurse Practitioner Family
DX: Z12.31 Encounter for screening mammogram for malignant neoplasm of breast (principal)
CPT/HCPCS: 77063; 77067

== ENCOUNTER → 2023-10-17 10:22 | Outpatient (BNVA) | payer MEDICAID, SELFPAY ==
[2023-08-01 10:57] VITALS: BP 131/72; BMI 33.7
== END ==
PROVIDERS: PCP Nurse Practitioner Family; Visit Provider Internal Medicine Pulmonary Disease
DX: J22 Unspecified acute lower respiratory infection (principal); J43.2 Centrilobular emphysema; J96.11 Chronic respiratory failure with hypoxia; J31.0 Chronic rhinitis; J32.9 Chronic sinusitis, unspecified; Z87.891 Personal history of nicotine dependence; G47.33 Obstructive sleep apnea (adult) (pediatric); Z86.16 Personal history of COVID-19
CPT/HCPCS: 99214

== ENCOUNTER 2024-02-03 12:55 | Outpatient (CLI) | payer MEDICAID, SELFPAY ==
[2023-08-01 10:57] VITALS: BP 131/72; BMI 33.7
--- NOTE | 2024-02-03 13:00 | US_ITS ---
WS: [id number] ULTRASOUND SOFT TISSUES RIGHT arm. HISTORY: LOCALIZED SWELLING,MASS, LUMP R UPPER LIMB COMPARISON: None available. TECHNIQUE: 2-D and color Doppler imaging is submitted. Palpable area located over the mid RIGHT humerus near the biceps. No mass identified. No soft tissue abnormality. No cystic or solid mass. US/US soft tissue/extremity [id number] IMPRESSION: Negative soft tissue ultrasound RIGHT upper extremity.
== END 2024-02-03 12:56 | disposition home or self-care (01) ==
LOC: RAD 12:56
PROVIDERS: PCP Nurse Practitioner Family; Visit Provider Nurse Practitioner Family
DX: R22.31 Localized swelling, mass and lump, right upper limb (principal)
CPT/HCPCS: 76882

== ENCOUNTER 2024-02-05 13:58 | Emergency (ER) | payer MEDICAID, SELFPAY ==
[2023-08-01 10:57] VITALS: BP 131/72; BMI 33.7
--- NOTE | 2024-02-05 13:59 | ECG_ITS ---
[facility] Test Date: 2024-02-05 Pat Name: Shasha Serrato Department: Room: Gender: Female Schedule Checker: : 1970 Requested By: Kalpana Rodriguez Order Number: [id number] Santos MD: Debbie Ma M.D. Measurements Intervals [place] Rate: 88 P: 77 WI: 143 QRS: 70 QRSD: 82 T: 60 QT: 350 QTc: 426 Interpretive Statements SINUS RHYTHM Compared to ECG 08/01/2023 22:47:22 No significant changes Electronically Signed On 02-06-2024 0:55:08 CDT by Debbie Ma M.D. [id number]
--- NOTE | 2024-02-05 14:00 | XR_ITS ---
WS: [id number] XR chest 1V portable [id number] REASON FOR EXAM: sob FINDINGS: The chest is unchanged compared to previous examination of 07/14/2023. The heart and mediastinum are within normal limits. Extensive calcified granulomatous disease in both hemithoraces. Significant hyperexpansion of the lungs. Bullous disease in the left lower lung. No acute/subacute pulmonary parenchymal or pleural abnormality. XR/XR chest 1V portable [id number] IMPRESSION: Significant lung hyperexpansion. The chest is stable compared to 07/14/2023. No a cute abnormality.
[2024-02-05 14:03] VITALS: O2SAT 93
[2024-02-05 14:26] VITALS: BP 111/70; PULSE 92; RESP 18; TEMP 36.6; O2SAT 97
--- NOTE | 2024-02-05 14:43 | ED_ITS ---
HPI - SOB/Dyspnea 2 General: Chief Complaint: Shortness of Breath/Dyspnea Stated Complaint: SOB Time Seen by Provider: 02/05/24 14:43 History of Present Illness: HPI Narrative: 53-year-old female presents emergency ro om complaining of shortness of breath. She has a history of COPD she been having little bit of increased cough and she started on Levaquin and prednisone by her career services director 2 days ago. She denies any fever sweats chills no hemoptysis she is normally on 3 L by nasal cannula of oxygen. She also been having chest pain worse when she takes a deep breath no history of coronary artery disease or PE. Onset (ago): day(s) (2) Exacerbating factors: coughing and inspiration Relieving factors: oxygen, rest and bronchodilators Associated symptoms: Reports chest pain (Worse with inspiration); Deny abdominal pain or fever(s) Treatment prior to arrival: oxygen and other (Steroids and antibiotics) Review of Systems 2 Const: Denies: fever(s) or chills Card: Reports: chest pain (Worse with inspiration) and dyspnea on exertion; Denies: edema or swelling of feet/ankles Resp: Denies: dyspnea GI: Denies: abdominal pain : Denies: dysuria, urinary frequency or urinary urgency Musc: Denies: neck pain or back pain Skin/Breast: Denies: rash PFSH ED 2 PFSH: Medical History Bereavement 05/29/21, for 20 years Psychiatric care Sinus tachycardia Calcified granuloma of lung Suicide attempt Legg-Perthes disease Hypothyroidism Major depressive disorder, recurrent severe without psychotic features Chronic post-traumatic stress disorder Surgical History H/O tubal ligation History of dental surgery H/O breast biopsy S/P hip replacement Family History Other Stroke Denies family history of Colon cancer Ovarian cancer Prostate cancer Diabetes Heart disease Breast cancer Hypertension Uterine cancer Thyroid disease Social History Smoking and tobacco/nicotine status: former use of tobacco/nicotine Quit status (tobacco/nicotine): has quit using Year quit tobacco: 2017 - 2PPD x 33 Years Former quit date comment: Started age 12 years Second hand smoke exposure: Yes Alcohol intake: never Substance/Drug Use: never Adopted: No Caregiver/support person: Yes Lives independently: Yes Housing: Manufactured/Mobile home Marital status: / Number of children: 4 Number of grandchildren: 11 Highest education level completed: 7th Grade service: No Current occupational exposures/hazards: No Pets and animals: Yes Sexually active: No Do you think of yourself as: Straight/Heterosexual Valery/Methodist: Restorationism Special valery needs: No Agree to transfusion: No Female Reproductive History: Para: 4 Spontaneous abortions: Yes (X 2) Physical Exam 2 Const: GENERAL APPEARANCE: cooperative and comfortable O RIENTATION/CONSCIOUSNESS: Yes awake, Yes oriented to person, Yes oriented to place and Yes oriented to time HENMT: COMMON NORMALS: normocephalic, atraumatic and hearing grossly normal bilaterally HEAD & SCALP: normocephalic and atraumatic Resp: COMMON NORMALS: normal respiratory effort, No retractions and No use of accessory muscles AUSCULTATION: rhonchi and wheezes Cardio: COMMON NORMALS: regular rate, regular rhythm and No murmurs present (Cardio) RATE: regular rate RHYTHM: regular rhythm GI: COMMON NORMALS: Soft to palpation and No hepatosplenomegaly present A USCULTATION: Yes normoactive bowel sounds PALPATION: Yes Soft to palpation, No Tenderness to palpation present (GI), No Guarding due to palpation present (GI) and Yes No hepatosplenomegaly present Extremity: COMMON NORMALS: normal to inspection, capillary refill normal, no clubbing, cyanosis or edema, no calf tenderness and no pedal edema Neuro: SENSORIUM/ORIENTATION: Yes oriented to person, Yes oriented to place and Yes oriented to time Skin: COMMON NORMALS: no rashes or lesions noted GENERAL SKIN EXAM: no rashes or lesions noted Course 2 Vital Signs: Vital signs: Vital Signs Temperature 97.8 F 02/05/24 14:26 Pulse Rate 78 02/05/24 17:14 Respiratory Rate 18 02/05/24 17:14 Blood Pressure 107/80 02/05/24 17:14 Pulse Oximetry 97 02/05/24 17:14 Oxygen Delivery Me thod Room Air 02/05/24 16:26 Oxygen Flow Rate 4 07/25/24 15:15 MDM - SOB/Dyspnea Medical Decision Making Patient seen for exacerbation COPD she been seen earlier this week started on steroids and antibiotics continue those for now she responded well to treatment here continue to use albuterol regularly. Recheck if has any worsening symptoms Medical Records I reviewed the patient's medical records. Lab Data I reviewed the patient's lab results. 02/05/24 14:59 02/05/24 14:59 Labs/Radiology: Radiology Impressions Chest X-Ray 02/05/24 14:00 IMPRESSION: Significant lung hyperexpansion. The chest is stable compared to 07/14/2023. No acute abnormality. Laboratory Results WBC 7.74 10^3/uL (3.29-11.43) 02/05/24 14:59 RBC 4.44 10^6/uL (3.85-5.65) 02/05/24 14:59 Hgb 12.70 g/dL (11.27-16.99) 02/05/24 14:59 Hct 40.0 % (36-47) 02/05/24 14:59 MCV 90.1 fl (85-98) 02/05/24 14:59 MCH 28.6 pg (27-33) 02/05/24 14:59 MCHC 31.8 g/dL (30-55) 02/05/24 14:59 RDW 14.4 % (12.1-15.1) 02/05/24 14:59 Plt Count 300 10^3/cmm (157-399) 02/05/24 14:59 MPV 10.3 fL (7.4-10.4) 02/05/24 14:59 Neut % (Auto) 87.4 % 02/05/24 14:59 Lymph % (Auto) 9.0 % 02/05/24 14:59 [place] % (Auto) 2.6 % 02/05/24 14:59 Eos % (Auto) 0.0 % 02/05/24 14:59 Baso % (Auto) 0.5 % 02/05/24 14:59 Neut # (Auto) 6.76 10^3/uL (1.8-7.7) 02/05/24 14:59 Lymph # (Auto) 0.7 10^3/uL (0.8-4.8) L 02/05/24 14:59 [place] # (Auto) 0.2 10^3/uL (0.2-0.9) 02/05/24 14:59 Eos # (Auto) 0.0 10^3/uL (0.0-0.8) 02/05/24 14:59 Baso # (Auto) 0.0 10^3/uL (0.0-0.1) 02/05/24 14:59 Nucleated RBC % (auto) 0 % 02/05/24 14:59 Nucleated RBCs # 0.0 /100WBC 02/05/24 14:59 Sodium 144 mmol/L (136-145) 02/05/24 14:59 Potassium 4.6 mmol/L (3.5-5.1) 02/05/24 14:59 Chloride 106 mmol/L (98-107) 02/05/24 14:59 Carbon Dioxide 26 mmol/L (22-29) 02/05/24 14:59 Anion Gap 16.6 (5-19) 02/05/24 14:59 BUN 14 mg/dL (6-20) 02/05/24 14:59 Creatinine 1.0 mg/dL (0.5-0.9) H 02/05/24 14:59 GFR Calculation 58.0 mL/min (90-130) L 02/05/24 14:59 Glucose 116 mg/dL (65-115) H 02/05/24 14:59 Calculated Osmolality 299 mOsm/kg (285-295) H 02/05/24 14:59 Calcium 9.4 mg/dL (8.5-10.5) 02/05/24 14:59 Total Bilirubin 0.2 mg/dL (0.15-1.2) 02/05/24 14:59 AST 20 U/L (0-32) 02/05/24 14:59 ALT 16 U/L (0-33) 02/05/24 14:59 Alkaline Phosphatase 70 U/L (35-105) 02/05/24 14:59 NT-Pro-B Natriuret Pep 134 pg/mL (0-125) H 02/05/24 14:59 Total Protein 7.7 g/dL (6.6-8.7) 02/05/24 14:59 Albumin 4.1 g/dL (3.5-5.2) 02/05/24 14:59 Globulin 3.6 g/dL (1.3-4.6) 02/05/24 14:59 All radiology interpretation(s) finalized by discharge Discharge Plan Discharge Patient Disposition: Home Clinical Impression: Acute exacerbation of chronic obstructive airways disease Condition: Stable Prescriptions: No Action montelukast [Singulair] 10 mg tablet 10 mg PO QPM acetaminophen-codeine 300-30 mg tablet 1 tab PO BID PRN (Reason: Pain) (DME) oxygen-air delivery systems Device See Rx Instructions .Route Rx Instructions: 3L via n/c As directed albuterol sulfate 90 mcg/actuation HFA aerosol inhaler 2 inh INHALATION Q4H PRN (Reason: shortness of breath or wheezing) Qty: 6.7 6RF alprazolam [Xanax] 0.25 mg tablet 0.25 mg PO BID PRN (Reason: anxiety) Qty: 60 3RF Rx Instructions: May take one tablet twice per day as needed for anxiety Celexa 40 mg tablet 40 mg PO QAM Qty: 30 6RF Rx Instructions: Take one tablet every morning benzonatate 200 mg capsule 200 mg PO TID PRN (Reason: cough) 30 Days Qty: 90 3RF cyclobenzaprine 10 mg tablet 10 mg PO TID PRN (Reason: muscle spasm) azithromycin 500 mg tablet 500 mg PO .COMPLEX Qty: 18 6RF Rx Instructions: 500 mg po once a day on Mondays, Wednesdays & Fridays; prednisone 5 mg tablet 5 mg PO QAM Qty: 90 0RF Anoro Ellipta 62.5-25 mcg/actuation blister with device 1 inh inhalation QAM Qty: 60 6RF levofloxacin 500 mg tablet 500 mg PO DAILY Qty: 5 0RF levocetirizine [Xyzal] 5 mg Tablet 5 mg PO BEDTIME ipratropium-albuterol 0.5 mg-3 mg(2.5 mg base)/3 mL solution for nebulization 3 ml INHALATION Q6H PRN (Reason: shortness of breath or wheezing) Qty: 15 0RF metoprolol succinate 50 mg tablet extended release 24 hr 50 mg PO QAM budesonide 0.5 mg/2 mL suspension for nebulization 0.5 mg inhalation BID Vitamin Plus Low Iron 27 mg iron- 1 mg tablet 1 tab PO QAM nystatin 100,000 unit/mL suspension 1 ml PO DAILY PRN (Reason: unknown) Rx Instructions: swish and swallow Flonase Allergy Relief 50 mcg/actuation spray,suspension 1 spray intranasal BEDTIME Rx Instructions: administer into each nostril ibuprofen 800 mg tablet 800 mg PO TID PRN (Reason: Pain, Mild) levothyroxine 175 mcg tablet 175 mcg PO QAM Rx Instructions: out of medication since 07/13/23 Discharge Orders: Discharge ED (Routine); Ordered 02/05/24 Ordered By: Jaiden Means Referrals: Ramos,Farida, GOLF COURSE MECHANIC [Primary Care Provider] - Discharge Diet: Usual diet Discharge Activity: Resume usual activity Patient Instructions: COPD (Chronic Obstructive Pulmonary Disease) (ED), Opioid Safety, Pain Management Activity Restrictions/Additional Instructions: Thank you for choosing [facility] for your healthcare needs today. It is very important that you follow up as instructed or that you return to the Emergency Department should you have concerns or if your condition changes or worsens in any way. You were seen today for complaints of shortness of breath. Chest x-ray did not show any acute infiltrates laboratory test did not show significant abnormality recommend continuing the current medications that you are doctor had recently started you on both antibiotic and the steroid taper continue to use albuterol nebs as needed to relieve shortness of breath or wheezing. Continue your oxygen at 3 L/min Coding Level of Care Code ED Digital Computer Systems Analyst for Angela Joshua
[2024-02-05 15:04] LABS: Basophils % 0.5 %; Lymphocytes # 0.7 10^3/uL (0.8-4.8); Mean Corpuscular HGB Conc 31.8 g/dL (30-55); Mean Corpuscular Hemoglobin 28.6 pg (27-33); Mean Corpuscular Volume 90.1 fl (85-98); Mean Platelet Volume 10.3 fL (7.4-10.4); Monocytes # 0.2 10^3/uL (0.2-0.9); Monocytes % 2.6 %; Neutrophils # 6.76 10^3/uL (1.8-7.7); Neutrophils % 87.4 %; Nucleated Red Blood Cells % 0 %; Platelet Count 300 10^3/cmm (157-399); Red Blood Count 4.44 10^6/uL (3.85-5.65); Red Cell Distribution Width 14.4 % (12.1-15.1); White Blood Count 7.74 10^3/uL (3.29-11.43)
[2024-02-05 15:15] VITALS: BP 111/77; PULSE 88; RESP 16; O2SAT 98
[2024-02-05 15:32] LABS: Alanine Aminotransferase 16 U/L (0-33); Albumin Level 4.1 g/dL (3.5-5.2); Alkaline Phosphatase 70 U/L (35-105); Anion Gap 16.6 (5-19); Aspartate Amino Transferase 20 U/L (0-32); Blood Urea Nitrogen 14 mg/dL (6-20); Calcium 9.4 mg/dL (8.5-10.5); Carbon Dioxide 26 mmol/L (22-29); Chloride 106 mmol/L (98-107); Globulin 3.6 g/dL (1.3-4.6); Glucose 116 mg/dL (65-115); NT Pro B Type Natriuretic Pept 134 pg/mL (0-125); Osmolality Calculated 299 mOsm/kg (285-295); Potassium 4.6 mmol/L (3.5-5.1); Sodium 144 mmol/L (136-145); Total Bilirubin 0.2 mg/dL (0.15-1.2); Total Protein 7.7 g/dL (6.6-8.7)
[2024-02-05 15:37] LABS: Creatinine Clr Calc Pharmacy 62.5145
[2024-02-05 16:26] VITALS: BP 110/70; PULSE 81; RESP 18; O2SAT 98
[2024-02-05 17:14] VITALS: BP 107/80; PULSE 78; RESP 18; O2SAT 97
== END 2024-02-05 17:15 | disposition home or self-care (01) ==
PROVIDERS: Emergency Medicine; Emergency Provider Family Medicine; PCP Nurse Practitioner Family
DX: J44.1 Chronic obstructive pulmonary disease with (acute) exacerbation (principal); Z87.891 Personal history of nicotine dependence
CPT/HCPCS: 36415; 71045; 76830; 80053; 83880; 85025; 93005; 99285

== ENCOUNTER 2024-03-30 11:55 | Outpatient (CLI) | payer MEDICAID, SELFPAY ==
[2023-08-01 10:57] VITALS: BP 131/72; BMI 33.7
[2024-03-30 12:40] LABS: ABG PCO2 40.1 mmHg (35-45); ABG PH Result 7.44 (7.35-7.45); Alveolar-Arterial Oxygen Gradi 3.6 mmHg (5-10); Arterial Blood Gas Hematocrit 39.1 % (37-47); Base Excess ABG 2.5 mmol/L (-2.0-2.0); Blood Gas Allen Test Pos; Blood Gas Operator Identificat WALCI; Blood Gas Sample Site Radial, right; Blood Gas Sample Type Arterial; HCO3 ABG 26.9 mmol/L (22-26); HGB O2 Sat 94.3 % (95-100); Ionized Calcium Level - ABG 1.3 mmol/L (1.1-1.4); Methemoglobin 0.4 % (0.4-1.5); Oxygen Device NC; Oxygen Saturation ABG 95.7; PO2 ABG 72.7 mmHg (80.0-100.0); Potassium Level - ABG 3.8 mmol/L (3.5-5.0); Total Hemoglobin 12.7 g/dL (12-16)
== END 2024-03-30 11:56 | disposition home or self-care (01) ==
LOC: LAB 11:56
PROVIDERS: PCP Nurse Practitioner Family; Visit Provider Internal Medicine
DX: J43.9 Emphysema, unspecified (principal)
CPT/HCPCS: 36600; 80051; 82330; 82805

== ENCOUNTER 2024-04-01 06:57 | Day surgery (SDC) | payer MEDICAID, SELFPAY ==
[2023-08-01 10:57] VITALS: BP 131/72; BMI 33.7
[2024-04-01] VITALS (11 sets, daily range): BP systolic 93–124; BP diastolic 63–83; PULSE 74–87; RESP 15–20; TEMP 36.2–36.9; O2SAT 95–100; BMI 35.2
--- NOTE | 2024-04-01 04:19 | P.HP_ITS ---
Same Day Surgery H&P Indication for Procedure/HPI DATE OF PROCEDURE: April 01, 2024 CHIEF COMPLAINT/INDICATIONFOR SURGICAL PROCEDURE: abnormal uterine bleeding PREOP DIAGNOSIS: abnormal uterine bleeding PLANNED PROCEDURE: Operation Date: 04/01/24 07:00 Proposed Procedures p Hysteroscopy Hysteroscopy w/ Endometrial Sampling 00916, N95.0(Not Applicable) - Adonay Wise MD s Poylpectomy(Not Applicable) - Adonay Wise MD 53 y.o. last normal menstrual period in 2019 reports heavy bleeding x 7 days in January 2024 Medications/Allergies* Home Medications Medication Instructions Recorded Confirmed Type montelukast 10 mg tablet 10 mg PO QPM 07/29/19 03/31/24 History (Singulair) levocetirizine 5 mg tablet (Xyzal) 5 mg PO BEDTIME 03/01/20 03/31/24 History acetaminophen 300 mg-codeine 30 mg 1 tab PO BID PRN Pain 07/03/21 03/31/24 History tablet oxygen-air delivery systems 07/03/21 03/01/24 History cyclobenzaprine 10 mg tablet 10 mg PO TID PRN muscle spasm 09/26/22 03/31/24 History budesonide 0.5 mg/2 mL suspension 0.5 mg inhalation BID 07/14/23 03/31/24 History for nebulization fluticasone propionate 50 1 spray intranasal BEDTIME 07/14/23 03/31/24 History mcg/actuation nasal spray,suspension (Flonase Allergy Relief) ibuprofen 800 mg tablet 800 mg PO TID PRN Pain, Mild 07/14/23 03/31/24 History levothyroxine 175 mcg tablet 175 mcg PO QAM 07/14/23 03/31/24 History metoprolol succinate 50 mg 50 mg PO QAM 07/14/23 03/31/24 History tablet,extended release 24 hr nystatin 100,000 unit/mL oral 1 ml PO DAILY PRN unknown 07/14/23 03/31/24 History suspension vitamin with calcium 1 tab PO QAM 07/14/23 03/31/24 History no.72-iron 27 mg-folic acid 1 mg tablet ( Vitamins Plus Low Iron) Allergies/Adverse Reactions Allergy/AdvReac Type Severity Reaction Status Date / Time adhesive Allergy Severe ALGY-Bliste Verified 08/19/24 09:48 r cephalexin [From Keflex] Allergy Severe vomiting Verified 03/01/24 09:48 doxycycline Allergy Unknown vomiting Verified 03/01/24 09:48 meloxicam [From Mobic] Allergy Unknown Unknown Verified 03/01/24 09:48 Penicillins Allergy Unknown rash Verified 03/01/24 09:48 vancomycin Allergy Unknown Unknown Verified 03/01/24 09:48 Pertinent History/Comorbid Conditions* Medical History (Updated 02/13/24 @ 00:01 by KOFI Good) Bereavement 05/29/21, for 20 years Psychiatric care Sinus tachycardia Calcified granuloma of lung Suicide attempt Legg-Perthes disease Hypothyroidism Major depressive disorder, recurrent severe without psychotic features Chronic post-traumatic stress disorder Surgical History (Updated 03/29/20 @ 02:16 by Karissa Butcher MD) H/O tubal ligation History of dental surgery H/O breast biopsy S/P hip replacement Family History (Updated 01/22/24 @ 08:33 by Velma Lopez LPN) Stroke Denies family history of Colon cancer Ovarian cancer Prostate cancer Diabetes Heart disease Breast cancer Hypertension Uterine cancer Thyroid disease Social History Smoking and tobacco/nicotine status: former use of tobacco/nicotine Quit status (tobacco/nicotine): has quit using Year quit tobacco: 2017 - 2PPD x 33 Years Former quit date comment: Started age 12 years Second hand smoke exposure: Yes Alcohol intake: never Substance/Drug Use: never Adopted: No Caregiver/support person: Yes Lives independently: Yes Housing: Manufactured/Mobile home Marital status: / Number of children: 4 Number of grandchildren: 11 Highest education level completed: 7th Grade service: No Current occupational exposures/hazards: No Pets and animals: Yes Sexually active: No Do you think of yourself as: Straight/Heterosexual Valery/Holiness: [employer] Special valery needs: No Agree to transfusion: No Pertinent Exam Findings alert, oriented x 3, clear to auscultation bilaterally and regular rate & rhythm Pertinent Data Pelvic sono 02-05-24 uterus 5.7 x 2.5 x 4.1 cm Endometrium 1 cm Normal ovaries Recommendations Surgery/Procedure today Coding Level of Care Code Acute Code for Chg Fwd Time Spent (min) 20
--- NOTE | 2024-04-01 07:28 | ANES.PREANE2 ---
Pre-Anesthetic Assessment Height/Weight: Height 5 ft Weight 180 lb Temp Pulse Resp BP Pulse Ox O2 Del Method O2 Flow Rate 97.4 F L 87 20 H 116/83 97 Nasal Cannula 3 04/01/24 07:13 04/01/24 07:13 04/01/24 07:13 04/01/24 07:13 04/01/24 07:13 04/01/24 07:17 04/01/24 07:17 Preop Diagnosis: abnormal uterine bleeding Operation Date: 04/01/24 07:00 Proposed Procedures p Hysteroscopy Hysteroscopy w/ Endometrial Sampling 34800, N95.0(Not Applicable) - Adonay Wise MD s Poylpectomy(Not Applicable) - Adonay Wise MD Social No alcohol and No tobacco Exam alert, oriented x 3, clear to auscultation bilaterally and regular rate & rhythm Airway Submandibular: within normal limits Cervical ROM: within normal limits Mallampati: Class II Dentition: other (Edentulous) Anesthetic Plan ASA status: 3 Anesthesia: General Other: Patient has no prior history of issues with anesthesia NPO since yesterday Patient does have very poor emphysema/COPD. On multiple inhalers as well as prednisone 5 mg daily Given the low-dose prednisone, stress dose is unnecessary but will give higher doses of Decadron IntraOp Patient does note taking a Xanax this morning before coming in. She reports being nervous Chronic pain, Tylenol with codeine Hypertension on metoprolol. Taken this a.m. EKG showing sinus rhythm METS less than 4 Patient was told she is unable higher risk for pulmonary issues given her decreased lung function. She is aware Plan for general anesthesia with [facility] Medications/Allergies Home Medications Medication Instructions Recorded Confirmed Last Taken Type montelukast 10 mg tablet 10 mg PO QPM 07/29/19 03/31/24 03/31/24 History (Singulair) levocetirizine 5 mg tablet (Xyzal) 5 mg PO BEDTIME 03/01/20 03/31/24 03/31/24 History ipratropium 0.5 mg-albuterol 3 mg 3 ml inhalation Q6H PRN shortness 03/30/20 03/31/24 03/31/24 Rx (2.5 mg base)/3 mL nebulization of breath or wheezing #15 mL soln acetaminophen 300 mg-codeine 30 mg 1 tab PO BID PRN Pain 07/03/21 03/31/24 03/28/24 History tablet oxygen-air delivery systems 07/03/21 03/01/24 Unknown History benzonatate 200 mg capsule 200 mg PO TID PRN cough 30 days 01/09/22 03/31/24 Unknown Rx #90 caps cyclobenzaprine 10 mg tablet 10 mg PO TID PRN muscle spasm 09/26/22 03/31/24 Unknown History albuterol sulfate 90 mcg/actuation 2 inh inhalation Q4H PRN shortness 11/14/22 03/31/24 06/25/23 Rx aerosol inhaler of breath or wheezing #6.7 grams alprazolam 0.25 mg tablet (Xanax) 0.25 mg PO BID PRN anxiety #60 tabs 01/21/23 04/01/24 04/01/24 04:30 Rx azithromycin 500 mg tablet 500 mg PO .COMPLEX #18 tabs 05/30/23 03/31/24 03/31/24 Rx budesonide 0.5 mg/2 mL suspension 0.5 mg inhalation BID 07/14/23 03/31/24 04/01/24 04:30 History for nebulization fluticasone propionate 50 1 spray intranasal BEDTIME 07/14/23 03/31/24 03/31/24 History mcg/actuation nasal spray,suspension (Flonase Allergy Relief) ibuprofen 800 mg tablet 800 mg PO TID PRN Pain, Mild 07/14/23 03/31/24 Unknown History levothyroxine 175 mcg tablet 175 mcg PO QAM 07/14/23 03/31/24 03/31/24 History metoprolol succinate 50 mg 50 mg PO QAM 07/14/23 03/31/24 04/01/24 04:30 History tablet,extended release 24 hr nystatin 100,000 unit/mL oral 1 ml PO DAILY PRN unknown 07/14/23 03/31/24 07/13/23 History suspension vitamin with calcium 1 tab PO QAM 07/14/23 03/31/24 03/31/24 History no.72-iron 27 mg-folic acid 1 mg tablet ( Vitamins Plus Low Iron) prednisone 5 mg tablet 5 mg PO QAM #90 tabs 08/18/23 03/31/24 03/31/24 Rx umeclidinium 62.5 mcg-vilanterol 1 inh inhalation QAM #60 ea 09/15/23 03/31/24 04/01/24 04:30 Rx 25 mcg/actuation powdr for inhalation (Anoro Ellipta) citalopram 40 mg tablet (Celexa) 40 mg PO QAM #30 tabs 02/04/24 03/31/24 03/31/24 Rx Allergies Allergy/AdvReac Type Severity Reaction Status Date / Time adhesive Allergy Severe ALGY-Bliste Verified 04/01/24 07:07 r cephalexin [From Keflex] Allergy Severe vomiting Verified 04/01/24 07:07 doxycycline Allergy Unknown vomiting Verified 04/01/24 07:07 meloxicam [From Mobic] Allergy Unknown Unknown Verified 04/01/24 07:07 Penicillins Allergy Unknown rash Verified 04/01/24 07:07 vancomycin Allergy Unknown Unknown Verified 04/01/24 07:07 [facility] Anesthesia Medical History Bereavement 05/29/21, for 20 years Psychiatric care Sinus tachycardia Calcified granuloma of lung Suicide attempt Legg-Perthes disease Hypothyroidism Major depressive disorder, recurrent severe without psychotic features Chronic post-traumatic stress disorder Surgical History H/O tubal ligation History of dental surgery H/O breast biopsy S/P hip replacement Family History Other Stroke Denies family history of Colon cancer Ovarian cancer Prostate cancer Diabetes Heart disease Breast cancer Hypertension Uterine cancer Thyroid disease Social History Smoking and tobacco/nicotine status: former use of tobacco/nicotine Quit status (tobacco/nicotine): has quit using Year quit tobacco: 2017 - 2PPD x 33 Years Former quit date comment: Started age 12 years Second hand smoke exposure: Yes Alcohol intake: never Substance/Drug Use: never Adopted: No Caregiver/support person: Yes Lives independently: Yes Housing: Manufactured/Mobile home Marital status: / Number of children: 4 Number of grandchildren: 11 Highest education level completed: 7th Grade service: No Current occupational exposures/hazards: No Pets and animals: Yes Sexually active: No Do you think of yourself as: Straight/Heterosexual Valery/Yazdanism: [employer] Special valery needs: No Agree to transfusion: No Female Reproductive History Para: 4 Spontaneous abortions: Yes (X 2) Data Anesthesia Cardiac Studies: Echocardiogram Ultrasound 04/14/20 Holter Monitor 02/18/23
[2024-04-01] MEDS: sodium chloride 0.9% 1,000 ML 30 ML IV (07:50)
--- NOTE | 2024-04-01 08:11 | W.PM.OPSUD ---
Surgery/Procedure H&P Update DATE OF PROCEDURE: April 01, 2024 DATE H&P PERFORMED: 03/09/24 H&P UPDATE INFORMATION: I have reviewed H&P completed within last 30 days, I have examined patient prior to procedure and No changes to prior documentation PREOP DIAGNOSIS: abnormal uterine bleeding PLANNED PROCEDURE: Operation Date: 04/01/24 07:00 Proposed Procedures p Hysteroscopy Hysteroscopy w/ Endometrial Sampling 36683, N95.0(Not Applicable) - Adonay Wise MD s Poylpectomy(Not Applicable) - Adonay Wise MD
--- NOTE | 2024-04-01 09:15 | PM.OP ---
Operative Report Date of procedure: April 01, 2024 Pre-op diagnosis: abnormal uterine bleeding Post-op diagnosis: same Post-op findings: Two benign-appearing endocervical polyps normal endometrial cavity No endometrial polyps / fibroids Minimal endometrial tissue Procedure done: Hysteroscopy Removal of cervical polyps Curettage of uterus Implants: none Specimens removed/disposition: endocervical polyps endometrial curetting Surgeon: Adonay Wise MD Anesthesia: MAC Estimated blood loss (mL): 0 Complications: none Findings: Two benign-appearing endocervical polyps normal endometrial cavity No endometrial polyps / fibroids Minimal endometrial tissue Brief History: 53 y.o. with abnormal uterine bleeding Procedure: Informed consent signed. Patient was taken to the operating room. Anesthesia was induced. Patient was placed in dorsolithotomy position, prepped and draped for hysteroscopy. A bivalve speculum was placed in the vagina. Two benign-appearing endocervical polyps were seen and removed with forceps. The anterior lip of the cervix was grasped with a sharp-toothed tenaculum. The cervix was serially dilated with Hegar dilators. . A hysteroscope was placed into the endometrial cavity. The endometrial cavity was seen to be normal. There were no polyps or fibroids. There was a minimal amount of endometrial tissue. The hysteroscope was then removed. Endometrial curettage was done with a sharp curette. Endometrial tissue was sent to pathology. The sharp-toothed tenaculum was removed. There was no bleeding from the endometrial cavity or cervix. The patient was then placed supine and awakened and taken to the PACU. Postop condition: stable EBL: none Sponge and instruments counts were normal x 2 Complications: none
[2024-04-01] MEDS: fentaNYL 50 mcg/mL INJ 2mL IVP (09:35)
--- NOTE | 2024-04-01 10:45 | ANE.PACU2 ---
Inpatient post-anesthesia follow up: Airway intact: Yes Vital signs: Temperature 97.2 F Pulse Rate 77 Respiratory Rate 18 Blood Pressure 124/76 Pulse Oximetry 96 Oxygen Delivery Me thod Nasal Cannula Oxygen Flow Rate 3 Fraction of Inspir ed Oxygen Hydration adequate: Yes Nausea and vomiting: No Pain level: 1 Mental status: Baseline
== END 2024-04-01 10:45 | disposition home or self-care (01) ==
PROVIDERS: PCP Nurse Practitioner Family; Visit Provider Obstetrics & Gynecology
PROC: 0UJD8ZZ Inspection of Uterus and Cervix, Via Natural or Artificial Opening Endoscopic (ICD-10-PCS; CPT 58555; principal; 2024-04-01 07:00)
DX: N93.9 Abnormal uterine and vaginal bleeding, unspecified (principal); N84.1 Polyp of cervix uteri; E03.9 Hypothyroidism, unspecified; Z87.891 Personal history of nicotine dependence; J44.9 Chronic obstructive pulmonary disease, unspecified; Z79.52 Long term (current) use of systemic steroids; G89.29 Other chronic pain; I10 Essential (primary) hypertension
CPT/HCPCS: 58558; 88305; J1100; J2250; J2405; J2704; J3010; J7030

== ENCOUNTER 2024-05-13 11:38 | Outpatient (CLI) | payer MEDICAID, SELFPAY ==
[2023-08-01 10:57] VITALS: BP 131/72; BMI 33.7
--- NOTE | 2024-05-13 11:46 | XR_ITS ---
WS: [email or web address] Cervical spine, 3 views, 05/13/2024 Clinical Data: ANESTHEIA OF SKIN/PAIN IN R ARM Comparison: Cervical spine, 02/22/2020 Findings: No compression fractures are seen. There is degenerative disc narrowing at C4-C5 C5-C6 and C6-C7. There is osteophyte formation from C3-C7. There is no prevertebral soft tissue swelling. The odontoid is unremarkable. The soft tissues of the neck and the lung apices are normal. XR/XR cervical spine 3V* [id number] Impression: 1. Multilevel degenerative disc narrowing. 2. Minimal osteoarthritis C4-C7.
--- NOTE | 2024-05-13 11:53 | XR_ITS ---
WS: [email or web address] Lumbar spine, AP and lateral views, 05/13/2024 Clinical Data: chronic back pain Comparison: Lumbar spine, 11/25/2016 Findings: No compression fractures are seen. There is narrowing of the L5-S1 disc space. There is a slight dext roscoliosis. The transverse processes and SI joints are normal. There is a 0.6 cm anterior subluxation of L5 on S1. XR/XR lumbar spine 2-3V* [id number] Impression: 1. Degenerative disc narrowing at L5-S1. 2. 0.6 cm anterior subluxation of L5 on S1.
--- NOTE | 2024-05-13 11:54 | XR_ITS ---
WS: [email or web address] Right hip, AP and frog-leg views, 05/13/2024 Clinical Data: chronic hip pain Comparison: Right hip, 10/27/2014 Findings: The right hip arthroplasty remains in the same position. No periprosthetic fractures or loosening is seen. The adjacent right pelvis and soft tissues are normal. XR/XR hip RT 2-3V wo/w pel* [id number] Impression: Stable right hip arthroplasty.
--- NOTE | 2024-05-13 11:54 | XR_ITS ---
WS: [email or web address] Left hip, AP and frog-leg views, 05/13/2024 Clinical Data: osteoarthritis Comparison: Left hip, 10/27/2014 Findings: No fractures or dislocations are seen. The left hip shows no erosion, sclerosis, narrowing, cyst form ation or fragmentation of the left femoral head.. The soft tissues are not remarkable. The adjacent p sudha is normal. XR/XR hip LT 2-3V wo/w pel* [id number] Impression: Negative left hip. Tonnis classification: grade 0: normal radiographs
== END 2024-05-13 11:39 | disposition home or self-care (01) ==
LOC: RAD 11:39
PROVIDERS: PCP Nurse Practitioner Family; Visit Provider Nurse Practitioner Family
DX: M48.061 Spinal stenosis, lumbar region without neurogenic claudication (principal); M48.08 Spinal stenosis, sacral and sacrococcygeal region; S33.39XA Dislocation of other parts of lumbar spine and pelvis, initial encounter; M50.321 Other cervical disc degeneration at C4-C5 level; M50.322 Other cervical disc degeneration at C5-C6 level; M50.323 Other cervical disc degeneration at C6-C7 level; R20.0 Anesthesia of skin; Z96.641 Presence of right artificial hip joint; X58.XXXA Exposure to other specified factors, initial encounter
CPT/HCPCS: 72040; 72100; 73502

== ENCOUNTER → 2024-07-05 11:48 | Outpatient (BNVA) | payer OTHER, SELFPAY ==
[2024-07-05 13:11] VITALS: BP 131/72; BMI 33.7
== END ==
PROVIDERS: PCP Nurse Practitioner Family; Visit Provider Nurse Practitioner Psychiatric/Mental Health
DX: F33.2 Major depressive disorder, recurrent severe without psychotic features (principal); F43.12 Post-traumatic stress disorder, chronic
CPT/HCPCS: 80061; 83036

== ENCOUNTER 2024-09-28 14:37 | Outpatient (CLI) | payer MEDICAID, SELFPAY ==
[2024-07-08 10:02] VITALS: BP 128/71; BMI 35.9
--- NOTE | 2024-09-28 14:45 | MM_ITS ---
WS: [email or web address] BILATERAL 3D TOMOSYNTHESIS DIGITAL SCREENING MAMMOGRAPHY WITH CAD CLINICAL INFORMATION: SCREENING HISTORY: Screening mammogram. No current complaints. COMPARISON: 2023 TECHNIQUE: Bilateral CC and MLO views. FINDINGS: Scattered fibroglandular densities bilaterally. No suspicious focal mass, asymmetry, calcifications, or architectural distortion. No evidence of malignancy. MM/MM scr BI tomosynthesis [id number] IMPRESSION: DENSITY: There are scattered areas of fibroglandular density. BI-RADS: 2 - Benign. FOLLOW UP: 1 Year Follow-up Recommend return to annual screening mammography.
== END 2024-09-28 14:38 | disposition home or self-care (01) ==
LOC: RAD 14:39
PROVIDERS: PCP Nurse Practitioner Family; Visit Provider Nurse Practitioner Family
DX: Z12.31 Encounter for screening mammogram for malignant neoplasm of breast (principal); R92.323 Mammographic fibroglandular density, bilateral breasts
CPT/HCPCS: 77063; 77067

== ENCOUNTER 2024-11-11 17:22 | Emergency (ER) | payer MEDICAID, SELFPAY ==
[2024-07-08 10:02] VITALS: BP 128/71; BMI 35.9
[2024-11-11 17:29] VITALS: BP 124/65; PULSE 101; RESP 22; O2SAT 98; BMI 34.0
--- NOTE | 2024-11-11 17:30 | ECG_ITS ---
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 Measurements Intervals [place] Rate: 102 P: 84 WY: 112 QRS: 65 QRSD: 85 T: 51 QT: 326 QTc: 426 Interpretive Statements SINUS TACHYCARDIA WITH SHORT WY INTERVAL LOW QRS VOLTAGE IN PRECORDIAL LEADS [QRS DEFLECTION < 1.0 mV IN CHEST LEADS] Compared to ECG 02/05/2024 14:32:00 Short WY interval now present Low QRS voltage now present Sinus rhythm no longer present Electronically Signed On 11-15-2024 09:27:53 CDT by Larry Orr M.D. [email or web address] [id number]
--- NOTE | 2024-11-11 17:32 | XRR_ITS ---
PROCEDURE INFORMATION: Exam: XR Chest Exam date and time: 11/11/2024 5:35 PM Age: 54 years old Clinical indication: Pain; Shortness of breath; Chest pressure; Additional info: Cp TECHNIQUE: Imaging protocol: Radiologic exam of the chest. Views: 1 view. COMPARISON: CR XR chest 1V portable [id number] 05/02/2024 14:08 FINDINGS: Lungs: Monitoring leads and snap artifacts overlie the chest. Lungs are somewhat hyperexpanded with flattening of the diaphragms noted. Scalloping of the diaphragms is also seen. No consolidation. Pleural spaces: When allowing for the hyperexpansion angles are fairly well demarcated. No pleural effusion. No pneumothorax. Heart/Mediastinum: Unremarkable. No cardiomegaly. Bones/joints: Unremarkable. XR/XR chest 1V portable [id number] IMPRESSION: 1. No acute infiltrates on this portable study. 2. Hyperexpansion chronic changes similar to prior study.
[2024-11-11 17:56] LABS: Basophils # 0.1 10^3/uL (0.0-0.1); Basophils % 0.7 %; Eosinophils # 0.1 10^3/uL (0.0-0.8); Eosinophils % 0.8 %; Hematocrit 38.3 % (36-47); Lymphocytes # 2.5 10^3/uL (0.8-4.8); Lymphocytes % 35.2 %; Mean Corpuscular HGB Conc 31.3 g/dL (30-55); Mean Corpuscular Hemoglobin 27.2 pg (27-33); Mean Corpuscular Volume 86.8 fl (85-98); Monocytes # 0.7 10^3/uL (0.2-0.9); Monocytes % 9.8 %; Neutrophils # 3.85 10^3/uL (1.8-7.7); Neutrophils % 53.4 %; Nucleated Red Blood Cells % 0 %; Platelet Count 314 10^3/cmm (157-399); Red Blood Count 4.41 10^6/uL (3.85-5.65); Red Cell Distribution Width 13.6 % (12.1-15.1); White Blood Count 7.22 10^3/uL (3.29-11.43)
--- NOTE | 2024-11-11 18:00 | W.ED.SOB ---
HPI - SOB/Dyspnea General: Chief Complaint: Shortness of Breath/Dyspnea Stated Complaint: chest pain - resp difficulty Time Seen by Provider: 11/11/24 17:32 Source: patient Mode of arrival: EMS Limitations: no limitations History of Present Illness: HPI Narrative: This patient presents to our emergency department because of episodes of palpitations and central chest discomfort that have been intermittent this morning and this afternoon. She states that they will come and go and very be fleeting in nature and then return unpredictably. She says that there is no associated diaphoresis or nausea. She states that she had a prior history of having a heart attack a number of years ago but did not have any intervention done at that time. Also has a history of COPD and is oxygen dependent at home on 3 L. He has been recently treated for outpatient pneumonia or bronchitis with exacerbation of COPD with 2 courses of antibiotics. She states however her shortness of breath that she experienced at the onset of her recent illness has not returned back to her usual baseline. She is still short of breath with less than normal activity. She has not had chest pains associated with this shortness of breath however. States she continues to have coughing but her cough is nonproductive of any significant sputum at this time. She states she has been faithful to all her medications. She has used her inhaler more today because of shortness of breath. Pertinent past history: COPD Exacerbating factors: exertion Relieving factors: oxygen Known history of: COPD Associated symptoms: Reports chest pain and palpitations; Deny abdominal pain, extremity pain, fever(s), nausea or vomiting Treatment prior to arrival: oxygen and bronchodilator Related Data Home Medications ?Medication ?Instructions ?Recorded ?Confirmed montelukast 10 mg tablet 10 mg PO QPM 07/29/19 08/30/24 (Singulair) levocetirizine 5 mg tablet (Xyzal) 5 mg PO BEDTIME 03/01/20 08/30/24 acetaminophen 300 mg-codeine 30 mg 1 tab PO BID PRN Pain 07/03/21 08/30/24 tablet oxygen-air delivery systems 07/03/21 08/30/24 cyclobenzaprine 10 mg tablet 10 mg PO TID PRN muscle spasm 09/26/22 08/30/24 budesonide 0.5 mg/2 mL suspension 0.5 mg inhalation BID 07/14/23 08/30/24 for nebulization fluticasone propionate 50 1 spray intranasal BEDTIME 07/14/23 08/30/24 mcg/actuation nasal spray,suspension (Flonase Allergy Relief) ibuprofen 800 mg tablet 800 mg PO TID PRN Pain, Mild 07/14/23 08/30/24 levothyroxine 175 mcg tablet 175 mcg PO QAM 07/14/23 08/30/24 metoprolol succinate 50 mg 50 mg PO QAM 07/14/23 08/30/24 tablet,extended release 24 hr nystatin 100,000 unit/mL oral 1 ml PO DAILY PRN unknown 07/14/23 08/30/24 suspension vitamin with calcium 1 tab PO QAM 07/14/23 08/30/24 no.72-iron 27 mg-folic acid 1 mg tablet ( Vitamins Plus Low Iron) Previous Rx's ?Medication ?Instructions ?Recorded ipratropium 0.5 mg-albuterol 3 mg 3 ml inhalation Q6H PRN shortness 03/30/20 (2.5 mg base)/3 mL nebulization of breath or wheezing #15 mL soln benzonatate 200 mg capsule 200 mg PO TID PRN cough 30 days 01/09/22 #90 caps albuterol sulfate 90 mcg/actuation 2 inh inhalation Q4H PRN shortness 11/14/22 aerosol inhaler of breath or wheezing #6.7 grams azithromycin 500 mg tablet 500 mg PO .COMPLEX #18 tabs 05/30/23 prednisone 5 mg tablet 5 mg PO QAM #90 tabs 08/18/23 umeclidinium 62.5 mcg-vilanterol 1 inh inhalation QAM #60 ea 09/15/23 25 mcg/actuation powdr for inhalation (Anoro Ellipta) alprazolam 0.25 mg tablet (Xanax) 0.25 mg PO BID PRN anxiety #60 tabs 05/31/24 citalopram 40 mg tablet (Celexa) 40 mg PO QAM #30 tabs 05/31/24 prednisone 20 mg tablet 20 mg PO DAILY 5 days #5 tabs 11/11/24 Allergies Allergy/AdvReac Type Severity Reaction Status Date / Time adhesive Allergy Severe ALGY-Bliste Verified 08/30/24 12:40 r cephalexin (From Keflex) Allergy Severe vomiting Verified 08/30/24 12:40 doxycycline Allergy Unknown vomiting Verified 08/30/24 12:40 meloxicam (From Mobic) Allergy Unknown Unknown Verified 08/30/24 12:40 Penicillins Allergy Unknown rash Verified 08/30/24 12:40 vancomycin Allergy Unknown Unknown Verified 08/30/24 12:40 Review of Systems Const: Denies: fever(s) or chills Eyes: Denies: change in vision ENMT: Denies: throat pain, odynophagia, nasal discharge or nasal congestion Card: Reports: chest pain and palpitations Resp: Reports: dyspnea GI: Denies: abdominal pain, nausea or vomiting Musc: Denies: neck pain, back pain, extremity pain or extremity swelling Neuro: Denies: numbness in extremities or weakness in extremities PFSH ED PFSH: Medical History Bereavement 05/29/21, for 20 years Psychiatric care Sinus tachycardia Calcified granuloma of lung Suicide attempt Legg-Perthes disease Hypothyroidism Major depressive disorder, recurrent severe without psychotic features Chronic post-traumatic stress disorder Surgical History H/O tubal ligation History of dental surgery H/O breast biopsy S/P hip replacement Family History Other Stroke Denies family history of Colon cancer Ovarian cancer Prostate cancer Diabetes Heart disease Breast cancer Hypertension Uterine cancer Thyroid disease Social History Smoking and tobacco/nicotine status: former use of tobacco/nicotine Quit status (tobacco/nicotine): has quit using Year quit tobacco: 2017 - 2PPD x 33 Years Former quit date comment: Started age 12 years Second hand smoke exposure: Yes Alcohol intake: never Substance/Drug Use: never Adopted: No Caregiver/support person: Yes Lives independently: Yes Household members: children Housing: Manufactured/Mobile home Marital status: / Number of children: 4 Number of grandchildren: 11 Highest education level completed: 7th Grade service: No Current occupational exposures/hazards: No Pets and animals: Yes (Daniella) Pets & animals: dog(s) Leisure activites: games, reading and other Leisure activities details: TV Sexually active: No Do you think of yourself as: Straight/Heterosexual Current gender identity: Female Valery/Episcopalian: Shinto Special valery needs: No Agree to transfusion: No Female Reproductive History: Para: 4 Spontaneous abortions: Yes (X 2) Physical Exam Narrative: EXAM NARRATIVE: She appears to be comfortable. She makes good eye contact and speaks without significant dyspnea. Const: COMMON NORMALS: patient oriented x3 and alert GENERAL APPEARANCE: cooperative and comfortable NUTRITIONAL APPEARANCE: overweight HENMT: COMMON NORMALS: Normal external nose present, Normal nasal mucous membranes and turbinates present, moist oral mucous membranes and oropharynx normal NOSE: Normal external nose present and Normal nasal mucous membranes and turbinates present Eye: COMMON NORMALS: Equal, round and reactive pupils present, EOMs intact bilaterally and conjunctivae normal CONJUNCTIVA: Yes conjunctivae normal PUPIL: Yes Equal, round and reactive pupils present Neck/C-Spine: COMMON NORMALS: full ROM, no lymphadenopathy, no JVD and No carotid bruits Chest: CHEST: Yes tenderness (She has tenderness over the anterior chest particularly in the upper sternu) Resp: COMMON NORMALS: normal respiratory effort, No retractions, No use of accessory muscles and clear to auscultation bilaterally EFFORT & INSPECTION: Yes able to speak in complete sentences AUSCULTATION: clear to auscultation bilaterally Cardio: COMMON NORMALS: no JVD, regular rate, regular rhythm and Peripheral pulses 2+ throughout RATE: regular rate and tachycardic RHYTHM: regular rhythm PERIPHERAL PULSES: Peripheral pulses 2+ throughout GI: COMMON NORMALS: Normal to inspection, nondistended, normoactive bowel sounds present, Soft to palpation and non-tender INSPECTION: Yes central obesity PALPATION: Yes Soft to palpation : COMMON NORMALS: Yes no CVA tenderness BLADDER/KIDNEY EXAM: Yes no CVA tenderness Back/Pelvis: COMMON NORMALS: no CVA tenderness, thoracic and lumbar spine normal to inspection and no thoracic nor lumbar tenderness Extremity: COMMON NORMALS: normal to inspection, full ROM, no clubbing, cyanosis or edema, no calf tenderness and no pedal edema Neuro: COMMON NORMALS: patient oriented x3, moves all extremities, no focal motor deficits and no sensory deficits noted SENSORIUM/ORIENTATION: Yes alert Psych: COMMON NORMALS: mental status grossly normal Skin: COMMON NORMALS: no rashes or lesions noted, no wounds and turgor normal GENERAL SKIN EXAM: no rashes or lesions noted and turgor normal Course Reevaluation(s): Reevaluation #1: Patient status is unchanged. She looks comfortable is able to communicate effectively without dyspnea and has no changes in her vital signs. Her pulse ox remains 97 to 98% on her normal 3 L via nasal cannula. No other new findings on clinical examination. Serial biomarkers, D-dimer, BNP are all reassuring at this time. Chest x-ray shows no infiltrates and is consistent with her underlying COPD. Discussed findings with her as well as their implications and limitations. She does not appear to have any acute process other than her COPD and what appears to be an episode of bronchitis which she has still currently under treatment with antibiotics. I think the reasonable thing at this point would be to increase her steroid to a pulsed dose of 20 mg daily for the next 5 days and have her drop back to 5 mg a day and see if that improves her clinical picture. I reviewed plan with her and she is comfortable with that plan of care. We also discussed return precautions as in detail. Time: 20:26 Vital Signs: Vital signs: Vital Signs Pulse Rate 92 11/11/24 19:53 Respiratory Rate 22 H 11/11/24 17:29 Blood Pressure 126/92 11/11/24 19:53 Pulse Oximetry 97 11/11/24 19:53 Oxygen Delivery Me thod Nasal Cannula 11/11/24 17:29 Oxygen Flow Rate 3 11/11/24 17:29 MDM - SOB/Dyspnea Medical Decision Making This patient presented as noted in the HPI. Her one of her primary concerns today was whether she was having a cardiac event. Her clinical exam revealed her to be stable with a borderline tachycardia but otherwise no worrisome findings. Her chest examination was reassuring as well. She was put into a rule out protocol to establish whether she had elevations in biomarkers or other findings that would suggest ACS, thromboembolic event/PE, pneumonia etc. Her studies were reassuring and that she had negative biomarkers, a very unremarkable and pro BNP as well as a D-dimer less than the nonage-related cutoff. Chest x-ray was also reassuring and that that showed COPD without any infiltrative process. She remained clinically stable and suitable to continue as outpatient management. We did increase her steroids to a pulse dose of steroids for 5 days in anticipation of perhaps that improving her subjective symptoms. She is also being advised to follow-up with her prescribing physician regarding her COPD exacerbation and as well as returning to the emergency department for any increasing symptoms or worrisome symptoms or other concerns. Medical Records I reviewed the patient's medical records. Lab Data I reviewed the patient's lab results. 11/11/24 17:48 11/11/24 17:48 Labs/Radiology: Radiology Impressions Chest X-Ray 11/11/24 17:32 IMPRESSION: 1. No acute infiltrates on this portable study. 2. Hyperexpansion chronic changes similar to prior study. Laboratory Results WBC 7.22 10^3/uL (3.29-11.43) 11/11/24 17:48 RBC 4.41 10^6/uL (3.85-5.65) 11/11/24 17:48 Hgb 12.00 g/dL (11.27-16.99) 11/11/24 17:48 Hct 38.3 % (36-47) 11/11/24 17:48 MCV 86.8 fl (85-98) 11/11/24 17:48 MCH 27.2 pg (27-33) 11/11/24 17:48 MCHC 31.3 g/dL (30-55) 11/11/24 17:48 RDW 13.6 % (12.1-15.1) 11/11/24 17:48 Plt Count 314 10^3/cmm (157-399) 11/11/24 17:48 MPV 10.0 fL (7.4-10.4) 11/11/24 17:48 Neut % (Auto) 53.4 % 11/11/24 17:48 Lymph % (Auto) 35.2 % 11/11/24 17:48 [place] % (Auto) 9.8 % 11/11/24 17:48 Eos % (Auto) 0.8 % 11/11/24 17:48 Baso % (Auto) 0.7 % 11/11/24 17:48 Neut # (Auto) 3.85 10^3/uL (1.8-7.7) 11/11/24 17:48 Lymph # (Auto) 2.5 10^3/uL (0.8-4.8) 11/11/24 17:48 [place] # (Auto) 0.7 10^3/uL (0.2-0.9) 11/11/24 17:48 Eos # (Auto) 0.1 10^3/uL (0.0-0.8) 11/11/24 17:48 Baso # (Auto) 0.1 10^3/uL (0.0-0.1) 11/11/24 17:48 Nucleated RBC % (auto) 0 % 11/11/24 17:48 Nucleated RBCs # 0.0 /100WBC 11/11/24 17:48 D-Dimer 0.50 ug/mLFEU (0-0.59) 11/11/24 17:48 Sodium 140 mmol/L (136-145) 11/11/24 17:48 Potassium 4.2 mmol/L (3.5-5.1) 11/11/24 17:48 Chloride 104 mmol/L (98-107) 11/11/24 17:48 Carbon Dioxide 24 mmol/L (22-29) 11/11/24 17:48 Anion Gap 16.2 (5-19) 11/11/24 17:48 BUN 16 mg/dL (6-20) 11/11/24 17:48 Creatinine 0.8 mg/dL (0.5-0.9) 11/11/24 17:48 GFR Calculation 74.7 mL/min (90-130) L 11/11/24 17:48 Glucose 99 mg/dL (65-115) 11/11/24 17:48 Calculated Osmolality 291 mOsm/kg (285-295) 11/11/24 17:48 Calcium 9.4 mg/dL (8.5-10.5) 11/11/24 17:48 Total Bilirubin 0.2 mg/dL (0.15-1.2) 11/11/24 17:48 AST 19 U/L (0-32) 11/11/24 17:48 ALT 15 U/L (0-33) 11/11/24 17:48 Alkaline Phosphatase 70 U/L (35-105) 11/11/24 17:48 Troponin T Baseline < 6 ng/L (0-10) 11/11/24 17:48 Troponin T 120 Minute 8.50 ng/L (0-10) 11/11/24 19:24 Delta Troponin T 2.47053 ABS# (0-10) 11/11/24 19:24 NT-Pro-B Natriuret Pep 143 pg/mL (0-125) H 11/11/24 17:48 Total Protein 6.7 g/dL (6.6-8.7) 11/11/24 17:48 Albumin 4.0 g/dL (3.5-5.2) 11/11/24 17:48 Globulin 2.7 g/dL (1.3-4.6) 11/11/24 17:48 All radiology interpretation(s) finalized by discharge EKG Data EKG 1: I personally reviewed and interpreted this EKG as follows: Interpretation: Interpretation of resting EKG reveals a ventricular rate of 102 bpm consistent with borderline sinus tachycardia. DC interval is shortened at 112 ms. QRS duration is normal. Corrected QT interval is normal. She has a normal axis. No acute ST-T wave changes noted. She does have some baseline irregularity on V5 as well as V4 which makes those 2 leads uninterpretable. Her EKG is essentially unchanged from prior tracings within the system Discharge Plan Discharge Patient Disposition: Home Clinical Impression: COPD (chronic obstructive pulmonary disease) Qualifiers: COPD type: emphysema Emphysema type: centrilobular Qualified Code(s): J43.2 - Centrilobular emphysema Condition: Stable Prescriptions: New prednisone 20 mg tablet 20 mg PO DAILY 5 Days Qty: 5 0RF No Action montelukast [Singulair] 10 mg tablet 10 mg PO QPM acetaminophen-codeine 300-30 mg tablet 1 tab PO BID PRN (Reason: Pain) (DME) oxygen-air delivery systems Device See Rx Instructions .Route Rx Instructions: 3L via n/c As directed albuterol sulfate 90 mcg/actuation HFA aerosol inhaler 2 inh INHALATION Q4H PRN (Reason: shortness of breath or wheezing) Qty: 6.7 6RF benzonatate 200 mg capsule 200 mg PO TID PRN (Reason: cough) 30 Days Qty: 90 3RF cyclobenzaprine 10 mg tablet 10 mg PO TID PRN (Reason: muscle spasm) Celexa 40 mg tablet 40 mg PO QAM Qty: 30 6RF Rx Instructions: Take one tablet every morning alprazolam [Xanax] 0.25 mg tablet 0.25 mg PO BID PRN (Reason: anxiety) Qty: 60 2RF Rx Instructions: May take one tablet twice per day as needed for anxiety azithromycin 500 mg tablet 500 mg PO .COMPLEX Qty: 18 6RF Rx Instructions: 500 mg po once a day on Mondays, Wednesdays & Fridays; prednisone 5 mg tablet 5 mg PO QAM Qty: 90 0RF Anoro Ellipta 62.5-25 mcg/actuation blister with device 1 inh inhalation QAM Qty: 60 6RF levocetirizine [Xyzal] 5 mg Tablet 5 mg PO BEDTIME ipratropium-albuterol 0.5 mg-3 mg(2.5 mg base)/3 mL solution for nebulization 3 ml INHALATION Q6H PRN (Reason: shortness of breath or wheezing) Qty: 15 0RF metoprolol succinate 50 mg tablet extended release 24 hr 50 mg PO QAM budesonide 0.5 mg/2 mL suspension for nebulization 0.5 mg inhalation BID Vitamin Plus Low Iron 27 mg iron- 1 mg tablet 1 tab PO QAM nystatin 100,000 unit/mL suspension 1 ml PO DAILY PRN (Reason: unknown) Rx Instructions: swish and swallow fluticasone propionate [Flonase Allergy Relief] 50 mcg/actuation spray,suspension 1 spray intranasal BEDTIME Rx Instructions: administer into each nostril ibuprofen 800 mg tablet 800 mg PO TID PRN (Reason: Pain, Mild) levothyroxine 175 mcg tablet 175 mcg PO QAM Rx Instructions: out of medication since 07/13/23 Discharge Orders: Discharge ED (Routine); Ordered 11/11/24 Ordered By: Ish Hilton Referrals: Farida Ramos FNP [Primary Care Provider, Nurse Practitioner] - 1 week Discharge Diet: Usual diet Discharge Activity: Resume usual activity and Oxygen as instructed Patient Instructions: Opioid Safety, Pain Management Activity Restrictions/Additional Instructions: As we discussed your findings today did not suggest a heart attack, pneumonia, blood clot, heart failure. We have increased your prednisone dose to 20 mg daily for 5 days and then you should resume back on your normal 5 mg a day. You should continue the antibiotics as previously prescribed in all your usual medications. Follow-up with your clinician in 7 to 10 days for reevaluation. If your symptoms worsen or you develop new or concerning symptoms at any time return to this or the nearest emergency department. Print Language: Uzbek Coding Level of Care Code ED Quality Assurance Project Manager for Angela Joshua
[2024-11-11 18:14] VITALS: BP 124/65; PULSE 101; O2SAT 97
[2024-11-11 18:15] LABS: Troponin(5th) Baseline < 6 ng/L (0-10)
[2024-11-11 18:33] LABS: Alanine Aminotransferase 15 U/L (0-33); Alkaline Phosphatase 70 U/L (35-105); Anion Gap 16.2 (5-19); Aspartate Amino Transferase 19 U/L (0-32); Blood Urea Nitrogen 16 mg/dL (6-20); Calcium 9.4 mg/dL (8.5-10.5); Carbon Dioxide 24 mmol/L (22-29); Chloride 104 mmol/L (98-107); Creatinine Clr Calc Pharmacy 74.7118; Globulin 2.7 g/dL (1.3-4.6); Glomerular Filtration Rate 74.7 mL/min (90-130); Glucose 99 mg/dL (65-115); NT Pro B Type Natriuretic Pept 143 pg/mL (0-125); Osmolality Calculated 291 mOsm/kg (285-295); Potassium 4.2 mmol/L (3.5-5.1); Sodium 140 mmol/L (136-145); Total Bilirubin 0.2 mg/dL (0.15-1.2); Total Protein 6.7 g/dL (6.6-8.7)
--- NOTE | 2024-11-11 19:25 | ECG_ITS ---
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 Measurements Intervals [place] Rate: 89 P: 86 [place]: 150 QRS: 78 QRSD: 78 T: 75 QT: 345 QTc: 422 Interpretive Statements SINUS RHYTHM Compared to ECG 11/11/2024 17:30:53 Sinus tachycardia no longer present Short [place] interval no longer present Electronically Signed On 11-15-2024 10:34:14 CDT by Larry Orr M.D. [email or web address]
[2024-11-11 19:45] LABS: Troponin 5 2HR Delta 2.50001 ABS# (0-10)
[2024-11-11 19:53] VITALS: BP 126/92; PULSE 92; O2SAT 97
[2024-11-11] MEDS: predniSONE 20 mg Tablet PO (20:33)
[2024-11-11 20:34] VITALS: BP 126/92; PULSE 92; O2SAT 97
== END 2024-11-11 20:51 | disposition home or self-care (01) ==
PROVIDERS: Emergency Provider Emergency Medicine; PCP Nurse Practitioner Family
DX: J43.2 Centrilobular emphysema (principal); Z87.891 Personal history of nicotine dependence
CPT/HCPCS: 36415; 71045; 80053; 83880; 84484; 85025; 85378; 93005; 99285; J7512

== ENCOUNTER 2025-01-19 16:32 | Outpatient (CLI) | payer MEDICAID, SELFPAY ==
[2024-07-08 10:02] VITALS: BP 128/71; BMI 35.9
--- NOTE | 2025-01-19 16:39 | XR_ITS ---
WS: [id number] Exam: XR knee RT 3V* [id number] Date/Time of Exam: 01/19/2025 4:48 PM Reason For Exam: PAIN IN RIGHT KNEE No fracture. Slight narrowing of the medial joint compartment. No joint effusion. Normal soft tissues. XR/XR knee RT 3V* [id number] IMPRESSION: 1. Minimal degenerative change of the medial joint compartment.
--- NOTE | 2025-01-19 16:39 | XR_ITS ---
WS: [id number] Exam: XR knee LT 3V* [id number] Date/Time of Exam: 01/19/2025 4:48 PM Reason For Exam: PAIN IN LEFT KNEE Comparison 11/12/2019. No fracture noted. The joint compartments are preserved. Normal soft tissues. No joint effusion. XR/XR knee LT 3V* [id number] IMPRESSION: 1. Negative LEFT knee.
== END 2025-01-19 16:33 | disposition home or self-care (01) ==
LOC: RAD 16:36
PROVIDERS: PCP Nurse Practitioner Family; Visit Provider Nurse Practitioner Family
DX: M25.562 Pain in left knee (principal); M25.561 Pain in right knee; M79.604 Pain in right leg; M79.605 Pain in left leg
CPT/HCPCS: 73562

== ENCOUNTER 2025-01-25 12:36 | Outpatient (CLI) | payer MEDICAID, SELFPAY ==
[2024-07-08 10:02] VITALS: BP 128/71; BMI 35.9
[2025-01-25 12:54] VITALS: PULSE 89; RESP 18; O2SAT 96
== END 2025-01-25 12:37 | disposition home or self-care (01) ==
LOC: RT 12:37
PROVIDERS: PCP Nurse Practitioner Family; Visit Provider Internal Medicine
DX: J44.9 Chronic obstructive pulmonary disease, unspecified (principal); J98.8 Other specified respiratory disorders
CPT/HCPCS: 94060; 94726; 94729; J7613

== ENCOUNTER 2025-03-06 11:08 | Emergency (ER) | payer MEDICAID, SELFPAY ==
[2024-07-08 10:02] VITALS: BP 128/71; BMI 35.9
[2025-03-06 11:11] VITALS: BP 159/55; PULSE 89; RESP 16; TEMP 36.7; O2SAT 98
--- NOTE | 2025-03-06 11:13 | XRR_ITS ---
PROCEDURE INFORMATION: Exam: XR Chest Exam date and time: 03/06/2025 11:17 AM Age: 54 years old Clinical indication: Pain; Right-sided; Additional info: RT lower rib pain; Eval for pneumothorax TECHNIQUE: Imaging protocol: Radiologic exam of the chest. Views: 1 view. COMPARISON: CR XR chest 1V portable [id number] 11/11/2024 5:35 PM FINDINGS: Lungs: Dependent opacities bilaterally favored to represent atelectasis. No focal consolidation. Pleural spaces: No sizable pneumothorax. No pleural effusion. Heart/Mediastinum: The cardiomediastinal silhouette is stable. Diaphragm: Similar flattening of the bilateral hemidiaphragms with mild hyperexpansion. Bones/joints: Unremarkable. XR/XR chest 1V portable [id number] IMPRESSION: 1. No acute cardiopulmonary abnormality. 2. Mild hyperexpansion similar to prior exam.
--- NOTE | 2025-03-06 11:14 | ECG_ITS ---
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 Measurements Intervals [place] Rate: 85 P: 81 UT: 146 QRS: 55 QRSD: 78 T: 47 QT: 335 QTc: 400 Interpretive Statements SINUS RHYTHM Possible left atrial enlargement SEPTAL MYOCARDIAL INFARCTION , OF INDETERMINATE AGE [40+ ms Q WAVE IN V1/V2] Compared to ECG 11/11/2024 19:25:33 Myocardial infarct finding now present Electronically Signed On 03-06-2025 18:47:06 CDT by Debbie Ma M.D. [email or web address]
--- OUTSIDE RECORDS SUMMARY | 2025-03-06 11:14 | XMS_ITS | Encounter Summary ---
Author Organization [facility] Address [address] [place] [address] Care Team Providers Care Board Winder Name Role Phone Pengesa BONNIE Primary Care Provider [phone] Encounter Details Date Type Department Care Team (Latest Contact Info) Description 07/11/2003 Outpatient Historical [facility] [address], [place] [address] Victor Manuel Reese MD [address] [place] [phone] PERIAPICAL ABSC W SINUS (Primary Dx) Social History Tobacco Use Types Packs/Day Years Used Date Smoking Tobacco: Never Assessed Comments Unknown Sex and Gender Information Value Date Recorded Sex Assigned at Not on file 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
--- OUTSIDE RECORDS SUMMARY | 2025-03-06 11:14 | XMS_ITS | Encounter Summary ---
Author Organization [facility] Address [address] [place] [address] Care Team Providers Care Traffic Investigator Name Role Phone Farida Ramos BONNIE Primary Care Provider [phone] Encounter Details Date Type Department Care Team (Latest Contact Info) Description 03/28/2004 Outpatient Historical [facility] [address] [phone] Evgeny Vernon, RENE NO ADDRESS ON FILE UNSPEC DENTAL CARIES (Primary Dx) Social History Tobacco Use Types Packs/Day Years Used Date Smoking Tobacco: Never Assessed Comments Unknown Sex and Gender Information Value Date Recorded Sex Assigned at Not on file 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
--- OUTSIDE RECORDS SUMMARY | 2025-03-06 11:14 | XMS_ITS | Encounter Summary ---
Author Organization [facility] Address [address] [place] [address] Care Team Providers Care Garage Door Service Technician Name Role Phone Farida Ramos BONNIE Primary Care Provider [phone] Encounter Details Date Type Department Care Team (Latest Contact Info) Description 12/22/2003 Outpatient Historical [facility] Medicine [address] [phone] Victor Manuel Reese MD [address] [place] [phone] CONTUSION OF ELBOW (Primary Dx); SPRAIN OF WRIST NOS; SPRAIN OF HAND NOS Social History Tobacco Use Types Packs/Day Years Used Date Smoking Tobacco: Never Assessed Comments Unknown Sex and Gender Information Value Date Recorded Sex Assigned at Not on file 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
--- OUTSIDE RECORDS SUMMARY | 2025-03-06 11:14 | XMS_ITS | Encounter Summary ---
Author Organization [facility] Address [address] [place] [address] Care Team Providers Care Log Carrier Operator Name Role Phone Farida Ramos BONNIE Primary Care Provider [phone] Encounter Details Date Type Department Care Team (Latest Contact Info) Description 11/28/2003 Outpatient Historical [facility] [place] [phone] Evgeny Vernon, KERIS NO ADDRESS ON FILE UNSPEC DENTAL CARIES (Primary Dx) Social History Tobacco Use Types Packs/Day Years Used Date Smoking Tobacco: Never Assessed Comments Unknown Sex and Gender Information Value Date Recorded Sex Assigned at Not on file 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
--- OUTSIDE RECORDS SUMMARY | 2025-03-06 11:14 | XMS_ITS | Encounter Summary ---
Author Organization [facility] Address [address] [place] [address] Care Team Providers Care Video Clerk Name Role Phone Farida Ramos BONNEI Primary Care Provider [phone] Encounter Details Date Type Department Care Team (Latest Contact Info) Description 10/20/2002 Outpatient Historical [address], [place] [address] Victor Manuel Reese MD [address] [place] [phone] GENERALIZED ANXIETY DIS (Primary Dx); NEUROTIC DEPRESSION Social History Tobacco Use Types Packs/Day Years Used Date Smoking Tobacco: Never Assessed Comments Unknown Sex and Gender Information Value Date Recorded Sex Assigned at Not on file 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
--- OUTSIDE RECORDS SUMMARY | 2025-03-06 11:14 | XMS_ITS | Clinical Summary ---
Author Organization [facility] Address [address] [place] [address] Care Team Providers Care Manager Research Name Role Phone Farida Ramos [facility] Primary Care Provider [phone] Allergies Active Allergy Reactions Criticality Noted Date Comments Budesonide-Formoterol Nausea and Vomiting Low 10/13 Cephalexin Rash,Itching Low 07/24/2009 Doxycycline Nausea and Vomiting Low 07/20/2012 Meloxicam Other (See Comments) 07/20/2012 Increased joint pain Penicillins Rash Low 07/24/2009 Medications OTHERIndications :TMJ pain dysfunction syndrome tmj device 1 Each 0 1 Active Belpre-Callus Cushion (CALLUS CUSHION) MiscIndications: Callus of foot Apply 2 Each to affected area 1 time daily as needed for Pain. 2 Each 99 4 Active lidocaine (LIDODERM) 5 % Adhesive Patch, Medicated Apply 1-3 Patches to affected area every 12 hours. Clarify: apply 12 hours on and 12 hours off. 90 Patch 6 5 Active SUMAtriptan (IMITREX) 100 mg tablet Take 0.5-1 Tabs by mouth 1 time daily as needed for Migraine. may repeat in 2 hours; max dose 200mg in 24 hours 12 Tab 3 5 Active montelukast (SINGULAIR) 10 mg tablet Take 1 Tab (10 mg) by mouth daily at bedtime. 30 Tab 12 5 Active citalopram (CELEXA) 20 mg tablet Take 1 Tab (20 mg) by mouth daily at bedtime. 30 Tab PRN 5 Active ibuprofen (MOTRIN) 600 mg tabletIndication s:Ubrv-Ralst-Oew thes disease, right Take 1 Tab (600 mg) by mouth every 6 hours as needed for Pain, Mild. 90 Tab 4 5 Active OTHERIndications :compounded pain medication, contains lidocaine and gabapentin. Provider please include Medication name, dose, route and frequency . 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 30 Tablet 6 5 Active PNV with Ca,No.71-Iron-FA 27-1 mg Tablet Take 1 Tablet by mouth daily. 30 Tablet 12 5 Active FEXOFENADINE HCL (ALICE ORAL) Take by mouth. Active ACETAMINOPHEN WITH CODEINE (TYLENOL-CODEINE #3 ORAL) Take by mouth. Activ e TIZANIDINE HCL (ZANAFLEX ORAL) Take by mouth. Active albuterol HFA 90 mcg inhalerIndicatio ns:Chronic cough,SOB (shortness of breath) Take 1-2 Puffs by inhalation every 4 hours as needed for Shortness of Breath or Wheezing (or excessive coughing). 18 Gram 10 6 Active traZODone (DESYREL) 50 mg tablet Take 50 mg by mouth nightly as needed for Insomnia. 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 Family History Relation Name Status Comments Father Alive Mother Social History Tobacco Use Types Packs/Day Years Used Date Smoking Tobacco: Former Cigarettes 1.5 25 0 10/13/1992 - 10/13/2017 Alcohol Use Standard Drinks/Week Comments No 0 (1 standard drink = 0.6 oz pur e alcohol) Comments No Sex and Gender Information Value Date Recorded Sex Assigned at Not on file 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 Gender Identity Not on file Sexual Orientation Not on file Last Filed Vital Signs Vital Sign Reading Time Taken Comments Blood Pressure 118/62 12/14/2019 8:25 AM CDT Pulse 118 12/14/2019 9:00 AM CDT Temperature 36.3 C (97.4 F) 12/18/2015 1:45 PM CDT Respiratory Rate 14 12/18/2015 1:45 PM CDT Oxygen Saturation 94% 12/14/2019 9:00 AM CDT Inhaled Oxygen Concentration - - Weight 53.5 kg (118 lb) 12/14/2019 8:25 AM CDT Height 153.7 cm (5' 0.5 ) 12/14/2019 8:25 AM CDT Body Mass Index 22.67 12/14/2019 8:25 AM CDT Plan of Treatment Health Maintenance Due Date Last Done Comments DTAP/TDAP/TD VACCINES (1 - Tdap) 1989 HEPATITIS B VACCINES (1 of 3 - 19+ 3-dose series) 1989 COLORECTAL SCREENING 09/17/2015 Colorectal Cancer Screening 09/17/2015 FIT-DNA Q 3 years 09/17/2015 FIT/FOBT Q 1 year 09/17/2015 Flex Sig/CT Colonography Q 5 years 09/17/2015 PAP SMEAR 01/23/2016 01/22/2013, 06/02/2012, 11/27/2010, Additional history exists BREAST CANCER SCREENING 02/21/2016 02/21/20 15, 02/02/2014, 02/02/2013, Additional history exists CERVICAL CANCER SCREENING 01/22/2018 HPV/Cotest (21-29) 01/22/2018 01/22/2013, 0 12/20/2011, 11/27/2010 HPV/Cotest (30-65) 01/22/2018 01/22/2013, 0 12/20/2011, 11/27/2010 ZOSTER VACCINE (1 of 2) 2020 INFLUENZA VACCINE (#1) 2025 12/13/2019 Procedures Procedure Name Priority Date/Time Associated Diagnosis Comments MAMMO SCREEN BILAT W OR WO CAD Routine 02/20/2015 Other screening mammogram CERV/VAG CYTOPATH, THIN PREP W/RFLX HPV Routine 01/22/2013 3:06 PM CDT from Last 3 Months or Most Recently Relevant to Health Maintenance Results * MAMMO DIGITAL SCREEN BILAT (02/20/2015) Anatomical Region Laterality Modality Breast Bilateral Other us Sofia Zuniga DO MAMMO ORDERABLES Final Resu lt * CERV/VAG CYTOPATH, THIN PREP W/RFLX HPV (01/22/2013 3:06 PM CDT) TH THIN PREP CYTOLOGY REPORT REFLEX HPV [facility] [address] [address] Patient: SHASHA MYERS Accn No: [id number] , [id number] Collected: 01/22/2013 3:06:00 PM All cases except those with a DP prefix are performed by pathologists from [facility] at [facility]. Case type DP is performed by Dr. Nolan Sandoval, [facility], [facility], [address], [place] [address] (CLIA #[id number]) (Ph. [phone]). THIN PREP PAP - REFLEX HPV History Specimen Type: Endocervical LMP: None Provided Previous Pap History: None Provided Specimen Adequacy Satisfactory for interpretation. The smear lacks endocervical or metaplastic cells. Diagnosis NEGATIVE FOR INTRAEPITHELIAL LESION OR MALIGNANCY. (Prevously noted as Within Normal Limits). Supervisor Wood [employer]/ EDR Pathologist: 02/02/13 Completed by: SCOTT HERNANDEZ BSCT (ASCP) (Electronically signed by) 02/02/13 Comment Routine follow-up is suggested. Important Information About Pap Smears The Pap smear is associated with a low but well-documented and probably irreducible false negative rate of up to 10%. Additionally, the false positive rate for a diagnosis of invasive carcinoma or HSIL has been estimated to be approximately 1-10%. Therefore, any visible lesion on the cervix should be biopsied regardless of Pap smear findings. HPV Testing off the Thin Prep vial can be done as a means of further evaluating a Thin Prep Report. For information about ordering the HPV test, phone Virology at . Treatment or follow-up recommendations (if any) that are contained within this report are based upon general recommendations as contained in 2001 Consensus Guidelines For Cervical Cytological Abnormalities [place]: November 04, 2001, and are provided as a general guideline rather than as a specific recommendation. Final decisions about the most appropriate treatment and follow-up should be made on an individualized basis by the treating physician in consultation with his/her patient. [facility] [employer] [facility] 01/22/2013 3:06 PM CDT us Sofia Zuniga DO PATHOLOGY/CYTOLOGY ORDERABL ES Edited Result - Final INTERFACE SYSTEM Refer to clinic/hospital department [facility] [employer] [facility] CLIA# [id number] [address] [place] [address] from Last 3 Months or Most Recently Relevant to Health Maintenance Insurance MEDICAID [place] Care Teams Manager Research Relationship Specialty Start Date End Date Farida Ramos FNP [address] [place] [address] PCP - General Nurse Practitioner Family 12/14/18
--- OUTSIDE RECORDS SUMMARY | 2025-03-06 11:14 | XMS_ITS | Encounter Summary ---
Author Organization [facility] Address [address] [place] [address] Care Team Providers Care Mental Health Therapist Name Role Phone RamosVishnuFaridanacho NICOLE Primary Care Provider [phone] Encounter Details Date Type Department Care Team (Late st Contact Info) Description 02/15/2004 Outpatient Historical [facility] [address] [facility] [place] [address] [place] [address] [place] [address] [phone] Evgeny Vernon, KERIS NO ADDRESS ON FILE Social History Tobacco Use Types Packs/Day Years Used Date Smoking Tobacco: Never Assessed Comments Unknown Sex and Gender Information Value Date Recorded Sex Assigned at Not on file 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
--- OUTSIDE RECORDS SUMMARY | 2025-03-06 11:14 | XMS_ITS | Patient Health Record ---
Author Organization [facility] Address [address] [place], [place] [id number] Care Team Providers Care General Operator Name Role Phone Sofia Zuniga DO Primary Care Provider Aron Romero MD, Ken Unavailable [phone] Allergies Allergen (clinical drug ingredient) Drug/Non Drug Allergy documented on EMR Reaction Allergy Type Onset Date Status doxycycline doxycycline (uncoded) nausea/vomiting Allergy Active Keflex Unknown Drug Allergy Active meloxicam Mobic Unknown Drug Allergy Active penicillin Unknown Drug Allergy Active Reason For Referral No Information Medications Medication SIG (Take, Route, Frequency, Duration) Notes Start Date End Date Status cyclobenzaprine 10 mg 1 tab po orally BI D prn spasm Active acetaminophen-hydrocodone 32 5 mg-7.5 mg 1 tab orally QID prn pain Active CeleXA 40 mg 1 tab orally once a day Active Synthroid 125 mcg (0.125 mg) 1 tab orally once a day Active Vol-Plus (obsolete) Multivitamins with Folic Acid 1 mg 1 tab orally once a day; Duration: 30 day(s) Active montelukast 10 mg 1 tab orally once a day (in the evening); Duration: 30 day(s) Active albuterol 2.5 mg/3 mL (0.083%) inhaled as directed; Duration: 30 day(s) Active Claritin 10 mg 1 tab orally once a day Active Lidoderm 1 PATCH applied topically once a day Active gabapentin 100 mg 1 cap orally BID Active Social History Tobacco Use: Social History Observation Description Date Details (start date - stop date) Current Smoker NA - NA Tobacco use: Question Answer Notes : current smoker Are you interested in quitting? Thinking about q uitting How many cigarettes a day do you smoke? 11-20 How often do you smoke cigarettes? every day How soon after you wake up d o you smoke your first cigarette? 6-30 min Problems Problem Type SNOMED Code ICD Code Onset Dates Problem Status W/U Status Risk Notes Problem Low back pain (371591914) Low back pain (724.2) Active confirmed Problem Displacement of lumbar intervertebral disc without myelopathy (87030981) Lumbar (w/out myelopathy) intervertebral disc disorder (722.10) Active confirmed Problem Long-term drug therapy (666354967) LONG-TERM USE MEDS NEC (V58.69) Active confirmed R/O substance abuse Problem Sacroiliitis (42063538) Sacroiliitis (720.2) Active confirmed Problem Lumbar spinal stenosis (76396308) Lumbar spinal stenosis (724.02) Active confirmed Problem Lumbosacral spondylosis without myelopathy (55165773) Lumbosacral spondylosis without myelopathy (721.3) Active confirmed Plan Of Treatment No Information Insurance Providers Payer Name Payer Address Payer Phone Subscriber Number Group Number Insured Name Patient Relationship to Insured Coverage Start Date Coverage End Date [place] [address] [place] [id number] Shasha Serrato Self - patient is the insured Medical (General) History Medical History History ICD Code Low back pain Seasonal allergies Hypothyroidism Surgical History Surgery Date(Month/Year) Tubal ligation 1991 hip, right Lumpectomy, right breast 2007 Teeth extraction 2003 section 1989 Hospitalization History Reason Date(Month/Year)
--- OUTSIDE RECORDS SUMMARY | 2025-03-06 11:14 | XMS_ITS | Encounter Summary ---
Author Organization [facility] Address [address] [place] [address] Care Team Providers Care Returner Name Role Phone Richard Farida NICOLE Primary Care Provider [phone] Encounter Details Date Type Department Care Team (Latest Contact Info) Description 10/20/2002 Outpatient Historical [facility] [address] [place] [address] AMBULANCE, [facility] CHEST PAIN NOS (Primary Dx) Social History Tobacco Use Types Packs/Day Years Used Date Smoking Tobacco: Never Assessed Comments Unknown Sex and Gender Information Value Date Recorded Sex Assigned at Not on file 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
--- OUTSIDE RECORDS SUMMARY | 2025-03-06 11:14 | XMS_ITS | Encounter Summary ---
Author Organization [facility] Address [address] [place] [address] Care Team Providers Care Shake Loader Name Role Phone Richard Farida NICOLE Primary Care Provider [phone] Encounter Details Date Type Department Care Team (Latest Contact Info) Description 11/30/2003 Outpatient Historical 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
--- OUTSIDE RECORDS SUMMARY | 2025-03-06 11:14 | XMS_ITS | Encounter Summary ---
Author Organization [facility] Address [address] [place] [address] Care Team Providers Care Tape Editor Name Role Phone Richard Farida NICOLE Primary Care Provider [phone] Encounter Details Date Type Department Care Team (Latest Contact Info) Description 01/22/2003 Outpatient Historical [facility] [address] [place] [address] AMBULANCE, [facility] CHEST PAIN NOS (Primary Dx) Social History Tobacco Use Types Packs/Day Years Used Date Smoking Tobacco: Never Assessed Comments Unknown Sex and Gender Information Value Date Recorded Sex Assigned at Not on file 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
--- OUTSIDE RECORDS SUMMARY | 2025-03-06 11:14 | XMS_ITS | Clinical Summary ---
Author Organization [facility] Address [address] [place]: Epic Prelude ADT [place]IREZ [address] Care Team Providers Care Ship'S Cook Name Role Phone Ramos, Farida BONNIE Primary Care Provider [phone] Allergies Active Allergy Reactions Criticality Noted Date Comments Budesonide-Formoterol Nausea and Vomiting Low 10/13 Cephalexin Rash,Itching Low 07/24/2009 Doxycycline Nausea and Vomiting Low 07/20/2012 Meloxicam Other (See Comments) 07/20/2012 Increased joint pain Penicillins Rash Low 07/24/2009 Medications tiotropium-olod ateroL (Stiolto Respimat) 2.5-2.5 mcg/actuation metered inhaler INHALE 2 PUFFS BY MOUTH EVERY DAY 4 Gram 10 0 Active traZODone (DESYREL) 50 mg tablet Take 50 mg by mouth nightly as needed for Insomnia. 9 Active albuterol sulfate 90 mcg/Actuation inhalerIndicati ons:Chronic cough,SOB (shortness of breath) Take 1-2 Puffs by inhalation every 4 hours as needed for Shortness of Breath or Wheezing (or excessive coughing). 18 Gram 10 6 Active PNV with Ca,No.71-Iron-F A 27-1 mg Tablet Take 1 Tablet by mouth daily. 30 Tablet 12 5 Active montelukast (SINGULAIR) 10 mg tablet Take 1 Tab (10 mg) by mouth daily at bedtime. 30 Tablet 12 5 Active lidocaine (LIDODERM) 5 % Adhesive Patch, Medicated Apply 1-3 Patches to affected area every 12 hours. Clarify: apply 12 hours on and 12 hours off. 90 Patch 6 5 Active SUMAtriptan (IMITREX) 100 mg tablet Take 0.5-1 Tabs by mouth 1 time daily as needed for Migraine. may repeat in 2 hours; max dose 200mg in 24 hours 12 Tablet 3 5 Active citalopram (CeleXA) 20 mg tablet Take 1 Tab (20 mg) by mouth daily at bedtime. 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 30 Tablet 6 5 Active ibuprofen (MOTRIN) 600 mg tabletIndicatio ns:Bsnh-Qutqu-Q erthes disease, right Take 1 Tab (600 mg) by mouth every 6 hours as needed for Pain, Mild. 90 Tablet 4 5 Active OTHER Provider please include Medication name, dose, route and frequency . 5 Active fexofenadine HCl (ALICE ORAL) Take by mouth. 6 Active acetaminophen with codeine (TYLENOL-CODEIN E #3 ORAL) Take by mouth. 6 Active tizanidine HCl (ZANAFLEX ORAL) Take by mouth. 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 Gender Identity Not on file Sexual Orientation Not on file Last Filed Vital Signs Vital Sign Reading Time Taken Comments Blood Pressure 118/62 12/14/2019 8:25 AM CDT Pulse 118 12/14/2019 9:00 AM CDT Temperature 36.3 C (97.4 F) 12/18/2015 1:45 PM CDT Respiratory Rate 14 12/18/2015 1:45 PM CDT Oxygen Saturation - - Inhaled Oxygen Concentration - - Weight 53.5 kg (118 lb) 12/14/2019 8:25 AM CDT Height 153.7 cm (5' 0.5 ) 12/14/2019 8:25 AM CDT Body Mass Index 22.67 12/14/2019 8:25 AM CDT Plan of Treatment Health Maintenance Due Date Last Done Comments DTAP/TDAP/TD VACCINES (1 - Tdap) 1989 HEPATITIS B VACCINES (1 of 3 - 19+ 3-dose series) 1989 HPV/Cotest (21-29) 09/17/1991 CERVICAL CANCER SCREENING 2000 HPV/Cotest (30-65) 2000 PAP SMEAR 2000 COLORECTAL SCREENING 09/17/2015 Colorectal Cancer Screening 09/17/2015 FIT-DNA Q 3 years 09/17/2015 FIT/FOBT Q 1 year 09/17/2015 Flex Sig/CT Colonography Q 5 years 09/17/2015 BREAST CANCER SCREENING 02/21/2016 02/21/20 15, 02/02/2014, 02/02/2013, Additional history exists ZOSTER VACCINE (1 of 2) 2020 INFLUENZA VACCINE (#1) 2025 Procedures Procedure Name Priority Date/Time Associated Diagnosis Comments MAMMO SCREEN BILAT W OR WO CAD Routine 02/20/2015 12:00 AM CDT Other screening mammogram from Last 3 Months or Most Recently Relevant to Health Maintenance Results * MAMMO SCREEN BILAT W OR WO CAD (02/20/2015 12:00 AM CDT) Anatomical Region Laterality Modality Breast Bilateral Other us Sofia Zuniga DO MAMMO ORDERABLES Final Resu lt from Last 3 Months or Most Recently Relevant to Health Maintenance Care Teams Ship'S Cook Relationship Specialty Start Date End Date Ramos Farida, FNP [address] [place] [id number] PCP - General Nurse Practitioner Family 12/14/18
[2025-03-06 11:27] VITALS: RESP 20
[2025-03-06] MEDS: morphine 4 mg/mL SDV 1 mL IVP (11:27)
[2025-03-06 11:41] LABS: Hematocrit 40.9 % (36-47); Hemoglobin 12.80 g/dL (11.27-16.99); Mean Corpuscular HGB Conc 31.3 g/dL (30-55); Mean Corpuscular Hemoglobin 27.1 pg (27-33); Mean Corpuscular Volume 86.5 fl (85-98); Nucleated Red Blood Cells % 0 %; Platelet Count 263 10^3/cmm (157-399); Red Blood Count 4.73 10^6/uL (3.85-5.65); White Blood Count 5.77 10^3/uL (3.29-11.43)
[2025-03-06 11:56] LABS: Troponin(5th) Baseline 9 ng/L (0-10)
[2025-03-06 12:13] LABS: Alanine Aminotransferase 12 U/L (0-33); Albumin Level 4.2 g/dL (3.5-5.2); Alkaline Phosphatase 73 U/L (35-105); Anion Gap 14.7 (5-19); Aspartate Amino Transferase 17 U/L (0-32); Blood Urea Nitrogen 13 mg/dL (6-20); Calcium 10.1 mg/dL (8.5-10.5); Carbon Dioxide 29 mmol/L (22-29); Chloride 103 mmol/L (98-107); Creatinine Clr Calc Pharmacy 75.4027; Globulin 2.6 g/dL (1.3-4.6); Glucose 78 mg/dL (65-115); NT Pro B Type Natriuretic Pept 96 pg/mL (0-125); Osmolality Calculated 293 mOsm/kg (285-295); Potassium 4.7 mmol/L (3.5-5.1); Sodium 142 mmol/L (136-145); Total Protein 6.8 g/dL (6.6-8.7)
--- NOTE | 2025-03-06 12:17 | ED_ITS ---
HPI - Back Pain/Injury 2 General: Chief Complaint: Back Pain/Injury Stated Complaint: sob; back pain Time Seen by Provider: 03/06/25 11:09 History of Present Illness: HPI: Patient has worsening chest pain over the last few days (since ). She states that the pain has been worsened especially this morning after she had a fit of coughing. Describes chest pain in the right lateral chest without increased from baseline shortness of breath. Has COPD and is on 3 L nasal cannula at baseline. Says from the coughing fit this morning otherwise no increase in productive sputum, decreased exertional capacity, and EMS notes that she was able to ambulate around her house on her home liters without desaturation. REVIEW OF SYSTEMS: 10 systems reviewed and otherwise unrema rkable except for those noted in HPI. PHYSCIAL EXAM: Triage vital signs reviewed Gen: A&O NAD HEENT: NCAT, EOMI, not icteric. External ears normal. No rhinorrhea. Moist mucous membranes. Neck: Supple, full range of motion, no observable masses, No meningeal sign. Lungs: No Respiratory distress, no conversational dyspnea. CV: RRR, no edema. Tenderness palpation of the right chest in the midaxillary line without overlying skin changes. Abdomen: Soft, nondistended, No rebound tenderness. MSK: No joint swelling, no redness. Skin: No rashes, petechiae, lesions. Normal color per patient. Neuro: Normal Gait, Grossly intact. Psych: Appropriate for situation. PROCEDURES: EKG: Rate: Normal Rhythm: Sinus [place]: Normal variant Intervals: Normal Ischemia: No STEMI criteria Related Data Home Medications ?Medication ?Instructions ?Recorded ?Confirmed montelukast 10 mg tablet 10 mg PO QPM 07/29/19 (Singulair) levocetirizine 5 mg tablet (Xyzal) 5 mg PO BEDTIME 03/06/25 acetaminophen 300 mg-codeine 30 mg 1 tab PO BID PRN Pa in 07/03/21 03/06/25 tablet oxygen-air delivery systems 07/03/21 03/06/25 budesonide 0.5 mg/2 mL suspension 0.5 mg inhalation BI D Shortness Of 07/14/23 03/06/25 for nebulization Breath Or Wheezing fluticasone propionate 50 1 spray intranasal BEDTIME 0 07/14/23 03/06/25 mcg/actuation nasal spray,suspension (Flonase Allergy Relief) ibuprofen 800 mg tablet 800 mg PO TID PRN Pain, Mild 07/14/23 03/06/25 levothyroxine 175 mcg tablet 175 mcg PO QAM 07/14/23 0 03/06/25 metoprolol succinate 50 mg 50 mg PO QAM 07/14/2303/06 tablet,extended release 24 hr vitamins with calcium 1 tab PO QAM 07/14/23 0 03/06/25 no.72-iron 27 mg-folic acid 1 mg tablet ( Vitamins Plus Low Iron) levofloxacin 250 mg tablet 250 mg PO .Three times per week 01/11/25 03/06/25 prednisone 5 mg tablet 5 mg PO DAILY 01/11/2503/06 cetirizine 10 mg tablet 10 mg PO DAILY 03/06/2502/12 diphenhydramine HCl 25 mg capsule 25 mg PO TID PRN Itc jhonatan 03/06/25 03/06/25 (Allergy Relief (diphenhydramine)) levothyroxine 125 mcg tablet 125 mcg PO DAILY 03/06/25 03/06/25 triamcinolone acetonide 0.1 % 1 applic topical TID PRN skin 03/06/25 03/06/25 topical cream irritation/rash Previous Rx's ?Medication ?Instructions ?Recorded ipratropium 0.5 mg-albuterol 3 mg 3 ml inhalation Q6H PRN shortness 03/30/20 (2.5 mg base)/3 mL nebulization of breath or wheezing #15 mL soln albuterol sulfate 90 mcg/actuation 2 inh inhalation Q4 H PRN shortness 11/14/22 aerosol inhaler of breath or wheezing #6.7 g page azithromycin 500 mg tablet 500 mg PO .COMPLEX #18 tabs 05/30/23 umeclidinium 62.5 mcg-vilanterol 1 inh inhalation QAM #60 ea 09/15/23 25 mcg/actuation powdr for inhalation (Anoro Ellipta) alprazolam 0.25 mg tablet (Xanax) 0.25 mg PO BID PRN a nxiety #60 tabs 05/31/24 citalopram 40 mg tablet (Celexa) 40 mg PO QAM #30 tabs 11/29/24 Allergies Allergy/AdvReac Type Severity Reaction Status Date / Time adhesive Allergy Severe ALGY-Bliste Verified 01/11/25 12:33 r cephalexin (From Keflex) Allergy Severe vomiting Verified 01/11/25 12:33 doxycycline Allergy Unknown vomiting Verified 01/11/25 12:33 meloxicam (From Mobic) Allergy Unknown Unknown Verified 01/11/25 12:33 Penicillins Allergy Unknown rash Verified 01/11/25 12:33 vancomycin Allergy Unknown Unknown Verified 01/11/25 12:33 PFS ED 2 PFSH: Medical History (Updated 03/06/25 @ 12:39 by Richard Hurley MD) Generalized anxiety disorder with panic attacks Bereavement 05/29/21, for 20 years Psychiatric care Sinus tachycardia Calcified granuloma of lung Legg-Perthes disease Hypothyroidism Major depressive disorder, recurrent severe without psychotic features Chronic post-traumatic stress disorder Surgical History H/O tubal ligation History of dental surgery H/O breast biopsy S/P hip replacement Family History Other Stroke Denies family history of Colon cancer Ovarian cancer Prostate cancer Diabetes Heart disease Breast cancer Hypertension Uterine cancer Thyroid disease Social History Smoking and tobacco/nicotine status: former use of tobacco/nicotine Quit status (tobacco/nicotine): has quit using Year quit tobacco: 2017 - 2PPD x 33 Years Former quit date comment: Started age 12 years Second hand smoke exposure: Yes Alcohol intake: never Substance/Drug Use: never Adopted: No Caregiver/support person: Yes Lives independently: Yes Household members: children Housing: Manufactured/Mobile home Marital status: / Number of children: 4 Number of grandchildren: 11 Highest education level completed: 7th Grade service: No Current occupational exposures/hazards: No Pets and animals: Yes (Daniella) Pets & animals: dog(s) Leisure activites: games, reading and other Leisure activities details: TV Sexually active: No Do you think of yourself as: Straight/Heterosexual Current gender identity: Female Valery/Protestant: Taoism Special valery needs: No Agree to transfusion: No Female Reproductive History: Para: 4 Spontaneous abortions: Yes (X 2) Course 2 Vital Signs: Vital signs: Vital Signs Temperature 98.0 F 03/06/25 11:11 Pulse Rate 89 03/06/25 11:11 Respiratory Rate 20 H 03/06/25 11:27 Blood Pressure 159/55 03/06/25 11:11 Pulse Oximetry 98 03/06/25 11:11 Oxygen Delivery Me thod Nasal Cannula 03/06/25 11:11 Oxygen Flow Rate 3 03/06/25 11:11 MDM - Back Pain/Injury Medical Decision Making MEDICAL DECISION MAKING: Differential diagnoses considered but not limited to: Fracture, strain, sprain, pneumonia, pneumothorax, referred ACS, pulmonary embolus, vascular catastrophe. Vitals nonactionable without hypoxia on home oxygen. Given history, examination, and pretest risk factors, concern for possible rib fracture after coughing fit, pneumothorax, pneumonia, or muscle strain. Obtaining imaging rule out. X-ray, dimer, and 2 troponins negative. Patient given Lidoderm patch, morphine, and Toradol in the emergency department good effect of her chest wall pain. Given patient's description of symptoms, prominent reproduction with palpation on physical examination, feel that indicative of intrathoracic vascular catastrophe, impending respiratory compromise, or cardiac chest pain. Patient vies take [id number] medication at home for pain symptoms and follow-up with her PCM. DISPO: GRIS Hurley MD Staff physician, [facility] [place] Emergency Department [phone] Labs 03/06/25 11:29 03/06/25 11:29 Radiology Impressions Chest X-Ray 03/06/25 11:13 IMPRESSION: 1. No acute cardiopulmonary abnormality. 2. Mild hyperexpansion similar to prior exam. Laboratory Results WBC 5.77 10^3/uL (3.29-11.43) 03/06/25 11:29 RBC 4.73 10^6/uL (3.85-5.65) 03/06/25 11:29 Hgb 12.80 g/dL (11.27-16.99) 03/06/25 11:29 Hct 40.9 % (36-47) 03/06/25 11:29 MCV 86.5 fl (85-98) 03/06/25 11:29 MCH 27.1 pg (27-33) 03/06/25 11:29 MCHC 31.3 g/dL (30-55) 03/06/25 11:29 RDW 13.1 % (12.1-15.1) 03/06/25 11:29 Plt Count 263 10^3/cmm (157-399) 03/06/25 11:29 MPV 10.4 fL (7.4-10.4) 03/06/25 11:29 Neut % (Auto) 47.4 % 03/06/25 11:29 Lymph % (Auto) 36.0 % 03/06/25 11:29 [place] % (Auto) 12.5 % 03/06/25 11:29 Eos % (Auto) 2.8 % 03/06/25 11:29 Baso % (Auto) 1.0 % 03/06/25 11:29 Neut # (Auto) 2.73 10^3/uL (1.8-7.7) 03/06/25 11:29 Lymph # (Auto) 2.1 10^3/uL (0.8-4.8) 03/06/25 11:29 [place] # (Auto) 0.7 10^3/uL (0.2-0.9) 03/06/25 11:29 Eos # (Auto) 0.2 10^3/uL (0.0-0.8) 03/06/25 11:29 Baso # (Auto) 0.1 10^3/uL (0.0-0.1) 03/06/25 11:29 Nucleated RBC % (auto) 0 % 03/06/25 11:29 Nucleated RBCs # 0.0 /100WBC 03/06/25 11:29 D-Dimer 0.52 ug/mLFEU (0-0.59) 03/06/25 11:29 Sodium 142 mmol/L (136-145) 03/06/25 11:29 Potassium 4.7 mmol/L (3.5-5.1) 03/06/25 11:29 Chloride 103 mmol/L (98-107) 03/06/25 11:29 Carbon Dioxide 29 mmol/L (22-29) 03/06/25 11:29 Anion Gap 14.7 (5-19) 03/06/25 11:29 BUN 13 mg/dL (6-20) 03/06/25 11:29 Creatinine 0.8 mg/dL (0.5-0.9) 03/06/25 11:29 GFR Calculation 74.7 mL/min (90-130) L 03/06/25 11:29 Glucose 78 mg/dL (65-115) 03/06/25 11:29 Calculated Osmolality 293 mOsm/kg (285-295) 03/06/25 11:29 Calcium 10.1 mg/dL (8.5-10.5) 03/06/25 11:29 Total Bilirubin 0.2 mg/dL (0.15-1.2) 03/06/25 11:29 AST 17 U/L (0-32) 03/06/25 11:29 ALT 12 U/L (0-33) 03/06/25 11:29 Alkaline Phosphatase 73 U/L (35-105) 03/06/25 11:29 Troponin T Baseline 9 ng/L (0-10) 03/06/25 11:29 Troponin T 120 Minute 7.19 ng/L (0-10) 03/06/25 13:04 Delta Troponin T -1.81 ABS# (0-10) L 03/06/25 13:04 NT-Pro-B Natriuret Pep 96 pg/mL (0-125) 03/06/25 11:29 Total Protein 6.8 g/dL (6.6-8.7) 03/06/25 11:29 Albumin 4.2 g/dL (3.5-5.2) 03/06/25 11:29 Globulin 2.6 g/dL (1.3-4.6) 03/06/25 11:29 All radiology interpretation(s) finalized by discharge Discharge Plan Discharge Patient Disposition: Home Clinical Impression: Rib pain on right side Condition: Stable Prescriptions: No Action montelukast [Singulair] 10 mg tablet 10 mg PO QPM acetaminophen-codeine 300-30 mg tablet 1 tab PO BID PRN (Reason: Pain) (DME) oxygen-air delivery systems Device See Rx Instructions .Route Rx Instructions: 3L via n/c As directed albuterol sulfate 90 mcg/actuation HFA aerosol inhaler 2 inh INHALATION Q4H PRN (Reason: shortness of breath or wheezing) Qty: 6.7 6RF Celexa 40 mg tablet 40 mg PO QAM Qty: 30 6RF levofloxacin 250 mg tablet 250 mg PO .Three times per week Rx Instructions: Mon, Fri, Fri prednisone 5 mg tablet 5 mg PO DAILY alprazolam [Xanax] 0.25 mg tablet 0.25 mg PO BID PRN (Reason: anxiety) Qty: 60 2RF Rx Instructions: May take one tablet twice per day as needed for anxiety azithromycin 500 mg tablet 500 mg PO .COMPLEX Qty: 18 6RF Rx Instructions: 500 mg po once a day on Mondays, Wednesdays & Fridays; Anoro Ellipta 62.5-25 mcg/actuation blister with device 1 inh inhalation QAM Qty: 60 6RF levocetirizine [Xyzal] 5 mg Tablet 5 mg PO BEDTIME ipratropium-albuterol 0.5 mg-3 mg(2.5 mg base)/3 mL solution for nebulization 3 ml INHALATION Q6H PRN (Reason: shortness of breath or wheezing) Qty: 15 0RF metoprolol succinate 50 mg tablet extended release 24 hr 50 mg PO QAM budesonide 0.5 mg/2 mL suspension for nebulization 0.5 mg inhalation BID Vitamin Plus Low Iron 27 mg iron- 1 mg tablet 1 tab PO QAM fluticasone propionate [Flonase Allergy Relief] 50 mcg/actuation spray,suspension 1 spray intranasal BEDTIME Rx Instructions: administer into each nostril ibuprofen 800 mg tablet 800 mg PO TID PRN (Reason: Pain, Mild) levothyroxine 175 mcg tablet 175 mcg PO QAM cetirizine 10 mg tablet 10 mg PO DAILY triamcinolone acetonide 0.1 % cream 1 applic TOPICAL TID PRN (Reason: skin irritation/rash) diphenhydramine HCl [Allergy Relief(diphenhydramin)] 25 mg capsule 25 mg PO TID PRN (Reason: Itching) levothyroxine 125 mcg tablet 125 mcg PO DAILY Discharge Orders: Discharge ED (Routine); Ordered 03/06/25 Ordered By: Richard Hurley Referrals: Richard,Farida, [employer] [Primary Care Provider, Nurse Practitioner] Discharge Diet: Advance as tolerated and Usual diet Discharge Activity: Resume usual activity Patient Instructions: Opioid Safety, Pain Management, Patient Portal & Mirna Instructions Activity Restrictions/Additional Instructions: It has been a pleasure caring for you in the emergency department. Please ensure that you follow-up with your primary care physician for review of all data obtained during this encounter including any incidental findings and laboratory values. Keep in mind that if your condition worsens in any way, I strongly recommend that you return to the emergency department for repeat evaluation immediately. Print Language: Estonian Coding Level of Care Code ED Hydrometer Tester for Angela Joshua
[2025-03-06 13:30] LABS: Troponin 5 2HR 7.19 ng/L (0-10)
[2025-03-06 13:31] LABS: Troponin 5 2HR Delta -1.81 ABS# (0-10)
[2025-03-06 13:57] VITALS: BP 112/75; PULSE 81; RESP 16; O2SAT 97
[2025-03-06 14:09] VITALS: BP 112/75; PULSE 81; O2SAT 97
== END 2025-03-06 14:11 | disposition home or self-care (01) ==
PROVIDERS: Emergency Provider General Practice; PCP Nurse Practitioner Family
DX: R07.81 Pleurodynia (principal); Z87.891 Personal history of nicotine dependence; J44.9 Chronic obstructive pulmonary disease, unspecified; Z99.81 Dependence on supplemental oxygen
CPT/HCPCS: 36415; 71045; 80053; 83880; 84484; 85025; 85378; 93005; 96374; 96375; 99285; J1885; J2270; J9999

== ENCOUNTER → 2025-03-24 13:06 | Outpatient (BNVA) | payer MEDICAID, SELFPAY ==
[2024-07-08 10:02] VITALS: BP 128/71; BMI 35.9
== END ==
PROVIDERS: PCP Nurse Practitioner Family; Visit Provider Internal Medicine
DX: J43.9 Emphysema, unspecified (principal); J96.11 Chronic respiratory failure with hypoxia; G47.33 Obstructive sleep apnea (adult) (pediatric); R91.1 Solitary pulmonary nodule; J45.909 Unspecified asthma, uncomplicated; Z99.89 Dependence on other enabling machines and devices; Z87.891 Personal history of nicotine dependence; J44.9 Chronic obstructive pulmonary disease, unspecified
CPT/HCPCS: 36415; 85025; 86003; 99214

== ENCOUNTER 2025-04-25 08:32 | Outpatient (CLI) | payer MEDICAID, SELFPAY ==
[2024-07-08 10:02] VITALS: BP 128/71; BMI 35.9
--- NOTE | 2025-04-25 09:45 | CT_ITS ---
WS: [id number] LDCT LUNG CANCER SCREENING HISTORY: COPD TECHNIQUE: Axial imaging performed from the apices to 1 cm below the costophrenic angles. Coronal and sagittal reformats are submitted with axial MIP series. All CT scans at [facility] use at least one of these dose optimization techniques: automated exposure control; mA and/or kV adjustment per patient size (includes targeted exams where dose is matched to clinical indication); or iterative reconstruction. DLP: 76.49 mGy.cm DIvol: Mean CTDIvol: 1.70 (mGy) COMPARISON: 07/14/2023, 11/25/2022 Diagnostic quality: Satisfactory Lungs: Hyperinflated lungs from emphysema. Numerous scattered calcified granulomata within both lungs. New irregular shaped nodule measuring 8 mm in the superior segment RIGHT lower lobe is identified. This nodule was not present on 11/25/2022. Slightly irregular shaped nodule. There are a few additional very tiny micronodules. Some of these are calcified and some are noncalcified. Heart: Normal size heart with no pericardial effusion.. Other findings: Mild atherosclerosis aorta. Normal size pulmonary artery. No mediastinal or hilar pathologic lymph nodes identified. No endobronchial lesions. No adrenal mass. CT/CT lung screening [id number] IMPRESSION: LUNG-RADS: 4A-Probably Suspicious FOLLOW UP: PET/CT recommended OTHER FINDINGS (S MODIFIER): None.
== END 2025-04-25 08:33 | disposition home or self-care (01) ==
LOC: RAD 08:33
PROVIDERS: PCP Nurse Practitioner Family; Visit Provider Internal Medicine
DX: Z12.2 Encounter for screening for malignant neoplasm of respiratory organs (principal); J43.9 Emphysema, unspecified; I70.0 Atherosclerosis of aorta; J84.10 Pulmonary fibrosis, unspecified; R91.1 Solitary pulmonary nodule; J98.4 Other disorders of lung
CPT/HCPCS: 71271

== ENCOUNTER → 2025-05-17 11:09 | Outpatient (BNVA) | payer MEDICAID, SELFPAY ==
[2024-07-08 10:02] VITALS: BP 128/71; BMI 35.9
== END ==
PROVIDERS: PCP Nurse Practitioner Family; Visit Provider Internal Medicine
DX: J44.89 Other specified chronic obstructive pulmonary disease (principal); R91.1 Solitary pulmonary nodule; J96.11 Chronic respiratory failure with hypoxia; G47.33 Obstructive sleep apnea (adult) (pediatric); J30.9 Allergic rhinitis, unspecified; Z87.891 Personal history of nicotine dependence; J43.2 Centrilobular emphysema
CPT/HCPCS: 99214

== ENCOUNTER 2025-06-14 13:47 | Emergency (ER) | payer MEDICAID, SELFPAY ==
[2024-07-08 10:02] VITALS: BP 128/71; BMI 35.9
--- NOTE | 2025-06-14 13:48 | ECG_ITS ---
[facility] Date: 2025-06[facility]14 Pat Name: Shasha Serrato Department: Room: Gender: Female Production Leader: : 1970 Requested By: Bess Wood Order Number: [id number] Santos MD: Debbie Ma M.D. Measurements Intervals [place] Rate: 75 P: 78 SD: 136 QRS: 51 QRSD: 81 T: 46 QT: 366 QTc: 411 Interpretive Statements SINUS RHYTHM POSSIBLE LEFT ATRIAL ENLARGEMENT [-0.1mV P-WAVE IN V1/V2] LOW QRS VOLTAGE IN PRECORDIAL LEADS [QRS DEFLECTION < 1.0 mV IN CHEST LEADS] SEPTAL MYOCARDIAL INFARCTION , OF INDETERMINATE AGE [40+ ms Q WAVE IN V1/V2] Compared to ECG 03/06/2025 11:10:32 Low QRS voltage now present Myocardial infarct finding still present Electronically Signed On 06-14-2025 18:57:02 SERGEANT OF OFFICERS by Debbie Ma M.D. [email or web address]
--- NOTE | 2025-06-14 13:48 | XR_ITS ---
WS: [id number] Exam: XR chest 1V portable [id number] Date/Time of Exam: 06/14/2025 2:05 PM Reason For Exam: chest pain DLP: Lungs are hyperinflated and clear. Cardiomediastinal silhouette is unremarkable. No pleural effusions. Bony structures are intact. Scattered calcified granulomas. XR/XR chest 1V portable [id number] IMPRESSION: 1. Pulmonary hyperinflation. No acute process.
[2025-06-14 13:55] VITALS: BP 123/78; PULSE 74; RESP 16; TEMP 36.8; O2SAT 96
[2025-06-14 13:59] LABS: Hematocrit 43.1 % (36-47); Hemoglobin 13.70 g/dL (11.27-16.99); Mean Corpuscular HGB Conc 31.8 g/dL (30-55); Mean Corpuscular Hemoglobin 27.9 pg (27-33); Mean Corpuscular Volume 87.8 fl (85-98); Nucleated Red Blood Cells % 0 %; Platelet Count 317 10^3/cmm (157-399); Red Blood Count 4.91 10^6/uL (3.85-5.65); White Blood Count 8.53 10^3/uL (3.29-11.43)
--- NOTE | 2025-06-14 14:03 | ED_ITS ---
HPI - Chest Pain 2 General: Chief Complaint: Chest Pain Stated Complaint: CP SOB Time Seen by Provider: 06/14/25 13:48 Source: patient, EMS and old records reviewed Mode of arrival: EMS Limitations: no limitations History of Present Illness: Patient is a 54-year-old female with past medical history of COPD chronically 3 L of oxygen, and prior [place] who presents the emergency department by ambulance for sudden onset chest pain about 30 minutes prior to arrival. Patient also tells me that she has been short of breath for a few weeks but her main reason for call the ambulance was the chest pain. She told EMS it was right-sided and radiated back towards her shoulders accompanied with a headache. Initially was an 8/10, she was given full-strength 324 aspirin, 1 nitroglycerin sublingual, and 1 inch Nitropaste applied and her pain is currently a 2/10. States that she was not significantly exerting herself at time of onset of symptoms, she does compare it to her prior [place]. States that she does not currently have a learning services coordinator, her last heart attack was in 2019. States she has not had any recent echocardiogram, stress testing, or cardiac catheterizations. Currently is on 4 L of oxygen, 97%. Heart rate is normal, chest pain has improved, and her breathing is baseline. She is endorsing some coughing and wheezing at home. Last month patient had a CT of her lung, showing suspicious 8 mm nodule and recommending PET scan. Blood pressure 123/78. MD complaint: chest pain and other (Shortness of breath) Onset (ago): minute(s) (30) Prior episodes: Yes Onset: during rest Pain location: right chest Pain radiation: left shoulder and right shoulder Severity: similar to previous episodes Pain scale (0-10): 8 Associated symptoms: Reports dyspnea; Deny abdominal pain, fever(s), nausea, palpitations or vomiting Related Data Home Medications ?Medication ?Instructions ?Recorded ?Confirmed montelukast 10 mg tablet 10 mg PO QPM 07/29/19 (Singulair) levocetirizine 5 mg tablet (Xyzal) 5 mg PO BEDTIME 05/17/25 acetaminophen 300 mg-codeine 30 mg 1 tab PO BID PRN Pa in 07/03/21 05/17/25 tablet oxygen-air delivery systems 07/03/21 05/17/25 fluticasone propionate 50 1 spray intranasal BEDTIME 0 07/14/23 05/17/25 mcg/actuation nasal spray,suspension (Flonase Allergy Relief) ibuprofen 800 mg tablet 800 mg PO TID PRN Pain, Mild 07/14/23 05/17/25 levothyroxine 175 mcg tablet 175 mcg PO QAM 07/14/23 1 07/17/24 metoprolol succinate 50 mg 50 mg PO QAM 07/14/2305/17 tablet,extended release 24 hr vitamins with calcium 1 tab PO QAM 07/14/23 1 07/17/24 no.72-iron 27 mg-folic acid 1 mg tablet ( Vitamins Plus Low Iron) prednisone 5 mg tablet 5 mg PO DAILY 01/11/2505/17 cetirizine 10 mg tablet 10 mg PO DAILY 03/06/2511/05 diphenhydramine HCl 25 mg capsule 25 mg PO TID PRN Itc jhonatan 03/06/25 05/17/25 (Allergy Relief (diphenhydramine)) levothyroxine 125 mcg tablet 125 mcg PO DAILY 03/06/25 05/17/25 triamcinolone acetonide 0.1 % 1 applic topical TID PRN skin 03/06/25 05/17/25 topical cream irritation/rash levofloxacin 250 mg tablet 250 mg PO .mon, wed, fri 05/17/25 ensifentrine 3 mg/2.5 mL 3 mg inhalation BID 05/06/25 05/17/25 suspension for nebulization fluticasone fur. 200 mcg-umeclid 1 inh inhalation ACACIA Y 05/17/25 05/17/25 62.5 mcg-vilant 25 mcg inhalat.powder (Trelegy Ellipta) Previous Rx's ?Medication ?Instructions ?Recorded ipratropium 0.5 mg-albuterol 3 mg 3 ml inhalation Q6H PRN shortness 03/30/20 (2.5 mg base)/3 mL nebulization of breath or wheezing #15 mL soln albuterol sulfate 90 mcg/actuation 2 inh inhalation Q4 H PRN shortness 11/14/22 aerosol inhaler of breath or wheezing #6.7 g page azithromycin 500 mg tablet 500 mg PO .COMPLEX #18 tabs 03/24/25 citalopram 40 mg tablet (Celexa) 40 mg PO QAM #30 tabs 04/13/25 alprazolam 0.25 mg tablet (Xanax) 0.25 mg PO BID PRN a nxiety #60 tabs 05/04/25 clarithromycin 500 mg tablet 500 mg PO BID 7 days #14 tabs 06/14/25 prednisone 10 mg tablets in a dose 10 mg PO DIRECTE D #21 ea 06/14/25 pack Allergies Allergy/AdvReac Type Severity Reaction Status Date / Time adhesive Allergy Severe ALGY-Bliste Verified 05/17/25 11:22 r cephalexin (From Keflex) Allergy Severe vomiting Verified 05/17/25 11:22 doxycycline Allergy Unknown vomiting Verified 05/17/25 11:22 meloxicam (From Mobic) Allergy Unknown Unknown Verified 05/17/25 11:22 Penicillins Allergy Unknown rash Verified 05/17/25 11:22 vancomycin Allergy Unknown Unknown Verified 05/17/25 11:22 Review of Systems 2 General: Reports: 10 or more systems reviewed and unremarkable except in HPI and below Const: Denies: fever(s), chills or fatigue Eyes: Denies: change in vision ENMT: Denies: throat pain, ear or mastoid pain or nasal discharge Card: Reports: chest pain; Denies: palpitations, swelling of feet/ankles or lightheadedness Resp: Reports: dyspnea and wheezing; Denies: productive cough GI: Denies: abdominal pain, nausea, vomiting, diarrhea or constipation : Denies: flank pain, difficulty voiding, dysuria or urinary frequency Musc: Denies: neck pain, back pain or joint pain Skin/Breast: Denies: rash Neuro: Reports: headache(s); Denies: numbness in extremities or weakness in extremities PFSH ED 2 PFSH: Medical History Asthma-COPD overlap syndrome Seasonal allergies Lung nodule Generalized anxiety disorder with panic attacks Bereavement 05/29/21, for 20 years Psychiatric care Sinus tachycardia Calcified granuloma of lung Legg-Perthes disease Hypothyroidism Major depressive disorder, recurrent severe without psychotic features Chronic post-traumatic stress disorder Surgical History H/O tubal ligation History of dental surgery H/O breast biopsy S/P hip replacement Family History Other Stroke Denies family history of Colon cancer Ovarian cancer Prostate cancer Diabetes Heart disease Breast cancer Hypertension Uterine cancer Thyroid disease Social History Smoking and tobacco/nicotine status: former use of tobacco/nicotine (2 ppd X 36 years. Quit in 2017) Quit status (tobacco/nicotine): has quit using Year quit tobacco: 2017 - 2PPD x 33 Years Former quit date comment: Started age 12 years Second hand smoke exposure: Yes Alcohol intake: never Substance/Drug Use: never Adopted: No Caregiver/support person: Yes Lives independently: Yes Household members: children Housing: Manufactured/Mobile home Marital status: / Number of children: 4 Number of grandchildren: 11 Highest education level completed: 7th Grade service: No Current occupational exposures/hazards: No Pets and animals: Yes (Daniella) Pets & animals: dog(s) Leisure activites: games, reading and other Leisure activities details: TV Sexually active: No Do you think of yourself as: Straight/Heterosexual Current gender identity: Female Valery/Restoration: Cheondoism Special valery needs: No Agree to transfusion: No Female Reproductive History: Para: 4 Spontaneous abortions: Yes (X 2) Physical Exam 2 Const: COMMON NORMALS: no acute distress, patient oriented x3 and no limitations GENERAL APPEARANCE: cooperative, comfortable and well developed ORIENTATION/CONSCIOUSNESS: Yes awake, Yes oriented to person, Yes oriented to place and Yes oriented to time HENMT: COMMON NORMALS: normocephalic, atraumatic and hearing grossly normal bilaterally HEAD & SCALP: normocephalic and atraumatic Eye: COMMON NORMALS: Equal, round and reactive pupils present, EOMs intact bilaterally and conjunctivae normal CONJUNCTIVA: Yes conjunctivae normal P UPIL: Yes Equal, round and reactive pupils present Neck/C-Spine: COMMON NORMALS: full ROM, supple and no JVD Resp: COMMON NORMALS: normal respiratory effort, No retractions, No use of accessory muscles and clear to auscultation bilaterally AUSCULTATION: clear to auscultation bilaterally Cardio: COMMON NORMALS: no JVD, regular rate, regular rhythm, No clicks present (Cardio), No murmurs present (Cardio) and No rub (Cardio) RATE: r egular rate RHYTHM: regular rhythm GI: COMMON NORMALS: Normal to inspection, nondistended, normoactive bowel sounds present, Soft to palpation and non-tender AUSCULTATION: Yes normoactive bowel sounds PALPATION: Yes Soft to palpation RECTAL EXAM: d eferred Extremity: COMMON NORMALS: full ROM and capillary refill normal NARRATIVE EXTREMITY EXAM: Trace pitting edema bilaterally lower extremities Neuro: COMMON NORMALS: patient oriented x3, moves all extremities, no focal motor deficits and no sensory deficits noted SENSORIUM/ORIENTATION: Yes oriented to person, Yes oriented to place and Yes oriented to time Skin: COMMON NORMALS: no rashes or lesions noted GENERAL SKIN EXAM: no rashes or lesions noted Course 2 Vital Signs: Vital signs: Vital Signs Temperature 98.2 F 06/14/25 13:55 Pulse Rate 74 06/14/25 13:55 Respiratory Rate 16 06/14/25 13:55 Blood Pressure 123/78 06/14/25 13:55 Pulse Oximetry 96 06/14/25 13:55 Oxygen Delivery Me thod Nasal Cannula 06/14/25 13:55 Oxygen Flow Rate 4 06/14/25 13:55 MDM - Chest Pain Medical Decision Making Patient presented by ambulance for chest pain sudden onset about 30 minutes prehospital. Pain initially 8/10 and to her right chest directly towards her back, and this was improved by nitroglycerin and Nitropaste on the way to the ED. She has been at baseline oxygenation here in the emergency department, on 3-4 L O2 and greater than 97% SpO2. Blood pressure and heart rate have also been normal. Her EKG showing no acute ST segment changes and normal axis and normal intervals. Chest x-ray no acute findings. Baseline and 2-hour troponin are unremarkable. Rest of her CBC and CMP are normal, there is no significant elevation with her BNP. CTA ordered to rule out a PE, dissection, or other acute process and this is negative. With her reporting coughing and wheezing at home will treat for COPD exacerbation, she does have a heart score of 4 based off of her risk profile but after discussing with her she is comfortable following up with learning services coordinator on an outpatient basis who I will refer her to. In the meantime she is urged to come back if she has recurrence of pain, worsening breathing, or any other concerns of which she verbalizes understanding. Lab Data 06/14/25 13:30 06/14/25 13:30 Radiology Impressions Chest X-Ray 06/14/25 13:48 IMPRESSION: 1. Pulmonary hyperinflation. No acute process. Chest CTA 06/14/25 14:44 IMPRESSION: 1. No CTA evidence of pulmonary embolus. 2. Normal appearance of the thoracic aorta. 3. Centrilobular emphysema 4. Stable pulmonary nodules including multiple small calcified pulmonary nodules. Consider non-emergent PET/CT or tissue sampling. (Reference: Yony) References: oYny Henley, et al. Guidelines for Management of Incidental Pulmonary Nodules Detected on CT Images: From the Fleischner Society 2017. Radiology. 2017;284(1):228-243. COMMENTS: The presence of pulmonary emphysema on CT is an independent risk factor for lung cancer. In the absence of a history or active diagnosis of lung cancer, it is recommended that this patient with emphysema be evaluated for enrollment in a low dose CT lung cancer screening program. Laboratory Results WBC 8.53 10^3/uL (3.29-11.43) 06/14/25 13:30 RBC 4.91 10^6/uL (3.85-5.65) 06/14/25 13:30 Hgb 13.70 g/dL (11.27-16.99) 06/14/25 13:30 Hct 43.1 % (36-47) 06/14/25 13:30 MCV 87.8 fl (85-98) 06/14/25 13:30 MCH 27.9 pg (27-33) 06/14/25 13:30 MCHC 31.8 g/dL (30-55) 06/14/25 13:30 RDW 14.1 % (12.1-15.1) 06/14/25 13:30 Plt Count 317 10^3/cmm (157-399) 06/14/25 13:30 MPV 10.3 fL (7.4-10.4) 06/14/25 13:30 Neut % (Auto) 70.3 % 06/14/25 13:30 Lymph % (Auto) 20.2 % 06/14/25 13:30 [place] % (Auto) 6.7 % 06/14/25 13:30 Eos % (Auto) 1.3 % 06/14/25 13:30 Baso % (Auto) 1.1 % 06/14/25 13:30 Neut # (Auto) 6.01 10^3/uL (1.8-7.7) 06/14/25 13:30 Lymph # (Auto) 1.7 10^3/uL (0.8-4.8) 06/14/25 13:30 [place] # (Auto) 0.6 10^3/uL (0.2-0.9) 06/14/25 13:30 Eos # (Auto) 0.1 10^3/uL (0.0-0.8) 06/14/25 13:30 Baso # (Auto) 0.1 10^3/uL (0.0-0.1) 06/14/25 13:30 Nucleated RBC % (auto) 0 % 06/14/25 13:30 Nucleated RBCs # 0.0 /100WBC 06/14/25 13:30 PT 12.10 SECONDS (12.1-14.9) 06/14/25 13:30 INR 0.84 (0.8-1.2) 06/14/25 13:30 APTT 29.6 SECONDS (23.9-36.7) 06/14/25 13:30 Sodium 143 mmol/L (136-145) 06/14/25 13:30 Potassium 4.2 mmol/L (3.5-5.1) 06/14/25 13:30 Chloride 104 mmol/L (98-107) 06/14/25 13:30 Carbon Dioxide 27 mmol/L (22-29) 06/14/25 13:30 Anion Gap 16.2 (5-19) 06/14/25 13:30 BUN 9 mg/dL (6-20) 06/14/25 13:30 Creatinine 1.0 mg/dL (0.5-0.9) H 06/14/25 13:30 GFR Calculation 57.8 mL/min (90-130) L 06/14/25 13:30 Glucose 88 mg/dL (65-115) 06/14/25 13:30 Calculated Osmolality 294 mOsm/kg (285-295) 06/14/25 13:30 Calcium 9.8 mg/dL (8.5-10.5) 06/14/25 13:30 Total Bilirubin 0.3 mg/dL (0.15-1.2) 06/14/25 13:30 AST 23 U/L (0-32) 06/14/25 13:30 ALT 18 U/L (0-33) 06/14/25 13:30 Alkaline Phosphatase 83 U/L (35-105) 06/14/25 13:30 Troponin T Baseline 9 ng/L (0-10) 06/14/25 13:30 Troponin T 120 Minute 6.78 ng/L (0-10) 06/14/25 15:33 Delta Troponin T -2.22 ABS# (0-10) L 06/14/25 15:33 NT-Pro-B Natriuret Pep 97 pg/mL (0-125) 06/14/25 13:30 Total Protein 7.6 g/dL (6.6-8.7) 06/14/25 13:30 Albumin 4.5 g/dL (3.5-5.2) 06/14/25 13:30 Globulin 3.1 g/dL (1.3-4.6) 06/14/25 13:30 Lipase 58 U/L (13-60) 06/14/25 13:30 All radiology interpretation(s) finalized by discharge Discharge Plan Discharge Patient Disposition: Home Clinical Impression: Chest pain Qualifiers: Chest pain type: unspecified Qualified Code(s): R07.9 - Chest pain, unspecified COPD (chronic obstructive pulmonary disease) Qualifiers: COPD type: emphysema Emphysema type: centrilobular Qualified Code(s): J43.2 - Centrilobular emphysema Condition: Stable Prescriptions: New clarithromycin 500 mg tablet 500 mg PO BID 7 Days Qty: 14 0RF prednisone 10 mg tablets,dose pack 10 mg PO DIRECTED Qty: 21 0RF Rx Instructions: see taper instructions 6 tablets on day 1, 5 tablets on day 2, 4 tablets on day 3, 3 tablets on day 4, 2 tablets on day 5, and 1 tablet a day 6. P.o. No Action montelukast [Singulair] 10 mg tablet 10 mg PO QPM acetaminophen-codeine 300-30 mg tablet 1 tab PO BID PRN (Reason: Pain) (DME) oxygen-air delivery systems Device See Rx Instructions .Route Rx Instructions: 3L via n/c As directed albuterol sulfate 90 mcg/actuation HFA aerosol inhaler 2 inh INHALATION Q4H PRN (Reason: shortness of breath or wheezing) Qty: 6.7 6RF prednisone 5 mg tablet 5 mg PO DAILY azithromycin 500 mg tablet 500 mg PO .COMPLEX Qty: 18 6RF Rx Instructions: 500 mg po once a day on Mondays, Wednesdays & Fridays; Celexa 40 mg tablet 40 mg PO QAM Qty: 30 6RF levofloxacin 250 mg tablet 250 mg PO .fri, fri, fri Trelegy Ellipta 200-62.5-25 mcg blister with device 1 inh inhalation DAILY alprazolam [Xanax] 0.25 mg tablet 0.25 mg PO BID PRN (Reason: anxiety) Qty: 60 2RF Rx Instructions: May take one tablet twice per day as needed for anxiety ensifentrine 3 mg/2.5 mL suspension for nebulization 3 mg inhalation BID levocetirizine [Xyzal] 5 mg Tablet 5 mg PO BEDTIME ipratropium-albuterol 0.5 mg-3 mg(2.5 mg base)/3 mL solution for nebulization 3 ml INHALATION Q6H PRN (Reason: shortness of breath or wheezing) Qty: 15 0RF metoprolol succinate 50 mg tablet extended release 24 hr 50 mg PO QAM Vitamin Plus Low Iron 27 mg iron- 1 mg tablet 1 tab PO QAM fluticasone propionate [Flonase Allergy Relief] 50 mcg/actuation spray,suspension 1 spray intranasal BEDTIME Rx Instructions: administer into each nostril ibuprofen 800 mg tablet 800 mg PO TID PRN (Reason: Pain, Mild) levothyroxine 175 mcg tablet 175 mcg PO QAM cetirizine 10 mg tablet 10 mg PO DAILY triamcinolone acetonide 0.1 % cream 1 applic TOPICAL TID PRN (Reason: skin irritation/rash) diphenhydramine HCl [Allergy Relief(diphenhydramin)] 25 mg capsule 25 mg PO TID PRN (Reason: Itching) levothyroxine 125 mcg tablet 125 mcg PO DAILY Discharge Orders: Discharge ED (Routine); Ordered 06/14/25 Ordered By: Ryan Escobar Referrals: Farida Ramos FNP [Primary Care Provider, Nurse Practitioner] Patient Instructions: Chest Pain (ED), Patient Portal & Mirna Instructions Activity Restrictions/Additional Instructions: Discharge Instructions Diagnosis: You are being discharged with a diagnosis of nonspecific chest pain and an acute exacerbation (flare-up) of chronic obstructive pulmonary disease (COPD). Medications: You will be started on the following new medications: - Clarithromycin: Take as prescribed twice daily for 7 days to treat the bacterial infection contributing to your COPD exacerbation. Complete the full course even if you feel better. - Prednisone taper: Take as prescribed for 3-7 days to reduce inflammation in your airways. This medication helps improve your breathing and speeds recovery from the COPD flare-up. Continue all your regular COPD maintenance medications (long-acting inhalers) as previously prescribed. If you were given a rescue inhaler (albuterol), use it as needed for shortness of breath. Activity and Self-Care: - Rest as needed while recovering from this exacerbation - Avoid smoking and secondhand smoke exposure - Stay hydrated by drinking plenty of fluids - Use your inhaler with proper technique?ask your pharmacist to review this with you if needed Follow-Up Care: - Cardiology appointment: You have been referred to a learning services coordinator to further evaluate your chest pain. Please schedule this appointment within 2-4 weeks. - Primary care follow-up: Schedule an appointment with your primary care provider within 1 week of discharge to confirm resolution of your symptoms and optimize your COPD therapy. RETURN TO THE EMERGENCY DEPARTMENT IMMEDIATELY IF YOU EXPERIENCE: - Worsening shortness of breath that does not improve with your rescue inhaler - Chest pain that is new, severe, or different from what you experienced during this hospitalization - Shortness of breath or rapid breathing at rest - Fever (temperature above 100.4?F or 38?C) - Confusion or difficulty thinking clearly - Increasing swelling in your legs or ankles - Coughing up blood - Inability to eat, drink, or take your medications - Blue or little color to your lips or fingernails - Extreme fatigue or feeling like you cannot care for yourself Important Reminders: - COPD exacerbations can worsen quickly, so do not delay seeking care if your symptoms are not improving or are getting worse - Early pulmonary rehabilitation after a COPD exacerbation can reduce your risk of future hospitalizations and improve your quality of life?ask your doctor about referral to a pulmonary rehabilitation program - Managing your COPD with regular medications and avoiding triggers can help prevent future exacerbations If you have questions or concerns before your follow-up appointment, contact your primary care provider's office. Print Language: Salvadorean Coding Level of Care Code ED Stereo Equipment Installer for Chg Fwd Heart Score HEART Score Components History: Moderately Suspicious EKG: Normal Age: 45-64 yrs Risk Factors: >/=3 Risk Factors Troponin: Baseline Trop <16 ng/L HEART Score RESULT HEART Score: 4
[2025-06-14 14:17] LABS: INR 0.84 (0.8-1.2); Prothrombin Time 12.10 SECONDS (12.1-14.9)
[2025-06-14 14:18] LABS: Partial Thromboplastin Time 29.6 SECONDS (23.9-36.7)
[2025-06-14 14:19] LABS: Troponin(5th) Baseline 9 ng/L (0-10)
[2025-06-14 14:36] LABS: Alanine Aminotransferase 18 U/L (0-33); Albumin Level 4.5 g/dL (3.5-5.2); Alkaline Phosphatase 83 U/L (35-105); Anion Gap 16.2 (5-19); Aspartate Amino Transferase 23 U/L (0-32); Blood Urea Nitrogen 9 mg/dL (6-20); Calcium 9.8 mg/dL (8.5-10.5); Carbon Dioxide 27 mmol/L (22-29); Chloride 104 mmol/L (98-107); Globulin 3.1 g/dL (1.3-4.6); Glucose 88 mg/dL (65-115); Lipase 58 U/L (13-60); NT Pro B Type Natriuretic Pept 97 pg/mL (0-125); Osmolality Calculated 294 mOsm/kg (285-295); Potassium 4.2 mmol/L (3.5-5.1); Sodium 143 mmol/L (136-145); Total Protein 7.6 g/dL (6.6-8.7)
--- NOTE | 2025-06-14 14:44 | CTR_ITS ---
PROCEDURE INFORMATION: Exam: CTA Chest With Contrast Exam date and time: 06/14/2025 3:15 PM Age: 54 years old Clinical indication: Pain; Angina pectoris; Additional info: Chest pain into back TECHNIQUE: Imaging protocol: Computed tomographic angiography of the chest with contrast. Exam focused on the arteries. 3D rendering (Not supervised by radiologist): MIP and/or 3D reconstructed images were created by the technologist. Radiation optimization: All CT scans at this facility use at least one of these dose optimization techniques: automated exposure control; mA and/or kV adjustment per patient size (includes targeted exams where dose is matched to clinical indication); or iterative reconstruction. Contrast material: [id number]; Contrast volume: 100 ml; Contrast route: INTRAVENOUS (IV); COMPARISON: CT lung screening [id number] 04/25/2025 8:46 AM RADIATION DOSE METRICS: Total DLP (mGy-cm): 375.7 FINDINGS: Pulmonary arteries: The main pulmonary artery is normal in caliber. There is no pulmonary arterial filling defects present to suggest pulmonary embolus. Aorta: The thoracic aorta is normal in caliber. There is no dissection. Lungs: There is moderate to severe architectural changes of centrilobular emphysema. Multiple small calcified pulmonary nodules are again identified within the upper lobes. Superior segment right lower lobe pulmonary nodule is again identified today measuring 11 x 8 mm on image 239 of series 7. It is triangular in shape. It is stable when remeasured in a similar plane. There are a few scattered 1 and 2 mm calcified and noncalcified pulmonary nodules within the lower lobes and right middle lobe, stable. Pleural spaces: Unremarkable. No pneumothorax. No pleural effusion. Heart: Unremarkable. No cardiomegaly. No pericardial effusion. Coronary arteries: There is no significant coronary artery calcification identified. Lymph nodes: Unremarkable. No enlarged lymph nodes. Bones/joints: There is no acute osseous abnormality identified. Soft tissues: Unremarkable. CT/CT angio chest PE protcl [id number] IMPRESSION: 1. No CTA evidence of pulmonary embolus. 2. Normal appearance of the thoracic aorta. 3. Centrilobular emphysema 4. Stable pulmonary nodules including multiple small calcified pulmonary nodules. Consider non-emergent PET/CT or tissue sampling. (Reference: Yony) References: Yony Henley et al. Guidelines for Management of Incidental Pulmonary Nodules Detected on CT Images: From the Fleischner Society 2017. Radiology. 2017;284(1):228-243. COMMENTS: The presence of pulmonary emphysema on CT is an independent risk factor for lung cancer. In the absence of a history or active diagnosis of lung cancer, it is recommended that this patient with emphysema be evaluated for enrollment in a low dose CT lung cancer screening program.
[2025-06-14] MEDS: iohexol 350 mg/mL 500 mL Btl (per mL) IV (15:18)
--- OUTSIDE RECORDS SUMMARY | 2025-06-14 15:27 | XMS_ITS | Encounter Summary ---
Author Organization [facility] Address [address] [place] [address] Care Team Providers Care Pediatric Speech Therapist Name Role Phone Richard Farida NICOLE Primary Care Provider Encounter Details Date Type Department Care Team (Latest Contact Info) Description 10/20/2002 Outpatient Historical [facility] [address] [place] [address] AMBULANCE, [facility] CHEST PAIN NOS (Primary Dx) Social History Tobacco Use Types Packs/Day Years Used Date Smoking Tobacco: Never Assessed Comments Unknown Sex and Gender Information Value Date Recorded Sex Assigned at Not on file 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
--- OUTSIDE RECORDS SUMMARY | 2025-06-14 15:27 | XMS_ITS | Encounter Summary ---
Author Organization [facility] Address [address] [place] [address] Care Team Providers Care Manager Of Purchasing Name Role Phone Pengesa BONNIE Primary Care Provider [phone] Encounter Details Date Type Department Care Team (Latest Contact Info) Description 07/11/2003 Outpatient Historical [facility] Medicine [address] [address] Victor Manuel Reese MD [address] [place] [phone] PERIAPICAL ABSC W SINUS (Primary Dx) Social History Tobacco Use Types Packs/Day Years Used Date Smoking Tobacco: Never Assessed Comments Unknown Sex and Gender Information Value Date Recorded Sex Assigned at Not on file Legal Sex Female 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
--- OUTSIDE RECORDS SUMMARY | 2025-06-14 15:27 | XMS_ITS | Encounter Summary ---
Author Organization [facility] Address [address] [place] [address] Care Team Providers Care Parimutuel Ticket Seller Name Role Phone Richard Farida NICOLE Primary Care Provider [phone] Encounter Details Date Type Department Care Team (Latest Contact Info) Description 11/30/2003 Outpatient Historical 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
--- OUTSIDE RECORDS SUMMARY | 2025-06-14 15:27 | XMS_ITS | Clinical Summary ---
Author Organization [facility] Address [address] [place]: Epic Prelude ADT DAMIAN RAMIREZ [address] Care Team Providers Care Financial Sales Professional Name Role Phone Ramos, Farida BONNIE Primary Care Provider [phone] Allergies Active Allergy Reactions Criticality Noted Date [...] 1 Tablet (112 mcg) by mouth daily table worker. 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
--- OUTSIDE RECORDS SUMMARY | 2025-06-14 15:27 | XMS_ITS | Encounter Summary ---
Author Organization [facility] Address [address] [place] [address] Care Team Providers Care Facilitator Name Role Phone RamosVishnuFaridanacho NICOLE Primary Care Provider [phone] Encounter Details Date Type Department Care Team (Late st Contact Info) Description 02/15/2004 Outpatient Historical [facility] [address] [place] [address] [phone] Evgeny Vernon, [place] NO ADDRESS ON FILE Social History Tobacco Use Types Packs/Day Years Used Date Smoking Tobacco: Never Assessed Comments Unknown Sex and Gender Information Value Date Recorded Sex Assigned at Not on file 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
--- OUTSIDE RECORDS SUMMARY | 2025-06-14 15:27 | XMS_ITS | Encounter Summary ---
Author Organization [facility] Address [address] [place] [address] Care Team Providers Care Electorate Officer Name Role Phone Farida Ramos BONNIE Primary Care Provider [phone] Encounter Details Date Type Department Care Team (Latest Contact Info) Description 03/28/2004 Outpatient Historical [facility] [address] [place] [address] [place] [address] [address] [phone] Evgeny Vernon, RENE NO ADDRESS ON FILE UNSPEC DENTAL CARIES (Primary Dx) Social History Tobacco Use Types Packs/Day Years Used Date Smoking Tobacco: Never Assessed Comments Unknown Sex and Gender Information Value Date Recorded Sex Assigned at Not on file Legal 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
--- OUTSIDE RECORDS SUMMARY | 2025-06-14 15:27 | XMS_ITS | Clinical Summary ---
Author Organization [facility] Address [address] [place] [address] Care Team Providers Care Board Machine Set Up Operator Name Role Phone Farida Ramos [facility] Primary Care Provider [phone] Allergies Active Allergy Reactions Criticality Noted Date Comments Budesonide-Formoterol Nausea and Vomiting Low 10/13 Cephalexin Rash,Itching Low 07/24/2009 Doxycycline Nausea and Vomiting Low 07/20/2012 Meloxicam Other (See Comments) 07/20/2012 Increased joint pain Penicillins Rash Low 07/24/2009 Medications OTHERIndications :TMJ pain dysfunction syndrome tmj device 1 Each 0 1 Active [place]-Callus Cushion (CALLUS CUSHION) MiscIndications: Callus of foot [...] 5 Active ibuprofen (MOTRIN) 600 mg tabletIndication s:Ngea-Vhkuz-Lmm thes disease, right Take 1 Tab (600 mg) by mouth every 6 hours as needed for Pain, Mild. 90 Tab 4 5 Active OTHERIndications :compounded pain medication, contains lidocaine and gabapentin. Provider please include Medication name, dose, route and frequency . Active levothyroxine 112 mcg tablet Take 1 Tablet (112 mcg) by mouth daily veterans' counselor. 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 Case type DP is performed by Dr. Nolan Sandoval, [facility], [facility], [address], [place] [address] (CLIA #[id number]) (Ph. [phone]). THIN PREP PAP - REFLEX HPV History Specimen Type: Endocervical LMP: None Provided Previous Pap History: None Provided Specimen Adequacy Satisfactory for interpretation. The smear lacks endocervical or metaplastic cells. Diagnosis NEGATIVE FOR INTRAEPITHELIAL LESION OR MALIGNANCY. (Prevously noted as Within Normal Limits). Client Technologies Specialist/ EDR Pathologist: 02/02/13 Completed by: SCOTT HERNANDEZ [...] treating physician in consultation with his/her patient. [facility] 01/22/2013 3:06 PM CDT us Sofia Zuniga DO PATHOLOGY/CYTOLOGY ORDERABL ES Edited Result - Final INTERFACE SYSTEM Refer to clinic/hospital department [facility] TeamPatent [facility] CLIA# [id number] [address] [place] [address] from Last 3 Months or Most Recently Relevant to Health Maintenance Insurance [place]ID [place] Care Teams Board Machine Set Up Operator Relationship Specialty Start Date End Date Farida Ramos FNP [address] [place] [address] PCP - General Nurse Practitioner Family 12/14/18
--- OUTSIDE RECORDS SUMMARY | 2025-06-14 15:27 | XMS_ITS | Encounter Summary ---
Author Organization [facility] Address [address] [place] [address] Care Team Providers Care Cement Mason Maintenance Name Role Phone Farida Ramos BONNIE Primary Care Provider [phone] Encounter Details Date Type Department Care Team (Latest Contact Info) Description 12/22/2003 Outpatient Historical [facility] Medicine [address] [phone] Victor Manuel Reese MD [address] [place] [address] CONTUSION OF ELBOW (Primary Dx); SPRAIN OF WRIST NOS; SPRAIN OF HAND NOS Social History Tobacco Use Types Packs/Day Years Used Date Smoking Tobacco: Never Assessed Comments Unknown Sex and Gender Information Value Date Recorded Sex Assigned at Not on file Legal Sex Female 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
--- OUTSIDE RECORDS SUMMARY | 2025-06-14 15:27 | XMS_ITS | Encounter Summary ---
Author Organization [facility] Address [address] [place] [address] Care Team Providers Care Geospatial Technician Name Role Phone Farida Ramos BONNIE Primary Care Provider [phone] Encounter Details Date Type Department Care Team (Latest Contact Info) Description 11/28/2003 Outpatient Historical [facility] Oral [facility] Maxillo Surgery[address] [place] [phone] Evgeny Vernon, K[place] NO ADDRESS ON FILE UNSPEC DENTAL CARIES (Primary Dx) Social History Tobacco Use Types Packs/Day Years Used Date Smoking Tobacco: Never Assessed Comments Unknown Sex and Gender Information Value Date Recorded Sex Assigned at Not on file Legal Sex Female 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
--- OUTSIDE RECORDS SUMMARY | 2025-06-14 15:27 | XMS_ITS | Encounter Summary ---
Author Organization [facility] Address [address] [place] [address] Care Team Providers Care Industry Segment Specialist Name Role Phone Richard Farida NICOLE Primary Care Provider [phone] Encounter Details Date Type Department Care Team (Latest Contact Info) Description 01/22/2003 Outpatient Historical [facility] [address] [place] [address] [facility]ULANCE[facility] CHEST PAIN NOS (Primary Dx) Social History Tobacco Use Types Packs/Day Years Used Date Smoking Tobacco: Never Assessed Comments Unknown Sex and Gender Information Value Date Recorded Sex Assigned at Not on file Legal 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
--- OUTSIDE RECORDS SUMMARY | 2025-06-14 15:27 | XMS_ITS | Encounter Summary ---
Author Organization [facility] Address [address] [place] [address] Care Team Providers Care Equity Research Associate Name Role Phone Farida Ramos BONNIE Primary Care Provider [phone] Encounter Details Date Type Department Care Team (Latest Contact Info) Description 10/20/2002 Outpatient Historical [address], [place] [address] Victor Manuel Reese MD [address] [place] [phone] GENERALIZED ANXIETY DIS (Primary Dx); NEUROTIC DEPRESSION Social History Tobacco Use Types Packs/Day Years Used Date Smoking Tobacco: Never Assessed Comments Unknown Sex and Gender Information Value Date Recorded Sex Assigned at Not on file Legal Sex 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
--- NOTE | 2025-06-14 15:48 | ECG_ITS ---
[facility]: 2025[facility]14 Pat Name: Shasha Serrato Department: Room: Gender: Female Vice President Compliance: : 1970 Requested By: Bess Wood Order Number: [id number] Santos MD: Debbie aM M.D. Measurements Intervals Geff Rate: 75 P: 82 AL: 152 QRS: 52 QRSD: 80 T: 54 QT: 381 QTc: 426 Interpretive Statements SINUS RHYTHM LOW QRS VOLTAGE IN PRECORDIAL LEADS [QRS DEFLECTION < 1.0 mV IN CHEST LEADS] Compared to ECG 06/14/2025 13:56:21 Myocardial infarct finding no longer present Electronically Signed On 06-14-2025 20:32:13 BEATER HEAD by Debbie Ma M.D. [id number]
[2025-06-14 16:04] LABS: Troponin 5 2HR 6.78 ng/L (0-10); Troponin 5 2HR Delta -2.22 ABS# (0-10)
[2025-06-14 16:05] VITALS: PULSE 75; O2SAT 95
[2025-06-14 16:06] VITALS: PULSE 80; RESP 16; O2SAT 99
[2025-06-14 16:20] VITALS: BP 156/82; PULSE 82; O2SAT 96
== END 2025-06-14 16:42 | disposition home or self-care (01) ==
PROVIDERS: Emergency Medicine; Emergency Provider Physician Assistant; PCP Nurse Practitioner Family
DX: R07.9 Chest pain, unspecified (principal); J43.2 Centrilobular emphysema; Z87.891 Personal history of nicotine dependence; J44.89 Other specified chronic obstructive pulmonary disease; Z99.81 Dependence on supplemental oxygen
CPT/HCPCS: 36415; 71045; 71275; 80053; 83690; 83880; 84484; 85025; 85610; 85730; 93005; 94640; 99285; J9999

== ENCOUNTER → 2025-06-20 16:13 | Outpatient (BNVA) | payer OTHER, SELFPAY ==
[2024-07-08 10:02] VITALS: BP 128/71; BMI 35.9
== END ==
PROVIDERS: PCP Nurse Practitioner Family; Visit Provider Family Medicine
DX: E03.9 Hypothyroidism, unspecified (principal)
CPT/HCPCS: 84439; 84443; 84481

== ENCOUNTER → 2025-06-21 10:28 | Outpatient (BNVA) | payer MEDICAID, SELFPAY ==
[2024-07-08 10:02] VITALS: BP 128/71; BMI 35.9
== END ==
PROVIDERS: PCP Nurse Practitioner Family; Referring Provider Physician Assistant; Visit Provider Internal Medicine Cardiovascular Disease
DX: R07.89 Other chest pain (principal); Z51.89 Encounter for other specified aftercare; Z87.891 Personal history of nicotine dependence
CPT/HCPCS: 99203

== ENCOUNTER → 2025-06-23 14:28 | Outpatient (BNVA) | payer MEDICAID, SELFPAY ==
[2024-07-08 10:02] VITALS: BP 128/71; BMI 35.9
== END ==
PROVIDERS: PCP Nurse Practitioner Family; Referring Provider Physician Assistant; Visit Provider Internal Medicine
DX: J44.89 Other specified chronic obstructive pulmonary disease (principal); R91.1 Solitary pulmonary nodule; J96.11 Chronic respiratory failure with hypoxia; Z99.81 Dependence on supplemental oxygen; G47.33 Obstructive sleep apnea (adult) (pediatric); Z99.89 Dependence on other enabling machines and devices; J30.9 Allergic rhinitis, unspecified; R91.8 Other nonspecific abnormal finding of lung field; Z87.891 Personal history of nicotine dependence
CPT/HCPCS: 99215

== ENCOUNTER 2025-07-01 15:26 | Outpatient (CLI) | payer MEDICAID, SELFPAY ==
[2024-07-08 10:02] VITALS: BP 128/71; BMI 35.9
--- NOTE | 2025-07-01 15:00 | PETR_ITS ---
PROCEDURE INFORMATION: Exam: PET/CT Skull Base to Mid-thigh Exam date and time: 07/01/2025 4:18 PM Age: 54 years old Clinical indication: Solitary pulmonary nodule. Right lower lobe lung nodule found on lung cancer screening low-dose CT chest on 04/27/2025. LABS AND CLINICAL REPORTS: Glucose: 95 mg/dl Treatment strategy for malignancy (PET staging): Initial Staging (PI) TECHNIQUE: Imaging protocol: Following at least four-hour fasting and following the injection of radiopharmaceutical, low dose CT images were obtained. Then, PET images were obtained. Attenuation corrected images were constructed using the CT scan. Fused images of PET and CT were reviewed. The standardized uptake values (SUV) reported below are maximum values within a region of interest, expressed in gm/ml. Exam includes orbital meatal line to mid-thigh. SUV normalization method: BodyWeight Radiopharmaceutical: 10.57 mCi F-18 FDG (Fluorodeoxyglucose), IV. Time of imaging post radiopharmaceutical administration: 45 minutes Injection site: left ac COMPARISON: CT angio chest 06/14/2025, CT chest lung screening 04/25/2025 FINDINGS: Brain: On the nondedicated limited brain images there is no abnormal distribution of the radiotracer in the little and white matter. Pharynx: Normal distribution of the radiotracer in nasopharyngeal, and oropharyngeal structures. Larynx: Normal distribution of the radiotracer in laryngeal structures. Lungs, pleura and trachea: 1.1 cm right lower lobe nodule on axial image 83 measures 2.4 SUV. Multiple tiny calcified granulomas are scattered in both lungs spread no pleural effusion. Heart: Normal physiologic uptake. There is no cardiomegaly. There is no pericardial effusion. Mediastinal space: No abnormal uptake. Liver: Normal size without abnormal radiotracer uptake. Gallbladder and biliary ducts: No abnormal uptake. Pancreas: Normal distribution of radiotracer. Spleen: Normal size without abnormal radiotracer uptake. Adrenal glands: No abnormal uptake. No nodules. Kidneys and ureters: Normal physiologic uptake. No hydronephrosis. Stomach and bowel: No abnormal uptake. Vasculature: No abnormal uptake. No aortic aneurysm. Lymph nodes: No abnormal uptake. No lymphadenopathy in the head, neck, chest, abdomen, pelvis, and extremities. Skeleton: No abnormal uptake in the visualized axial and appendicular skeleton. Grade 1 degenerative anterolisthesis of L5 associated with L5-S1 facet arthropathy. Status post right hip replacement. Soft tissues: No abnormal uptake in the visualized head, neck, chest, abdomen, pelvis, and extremities. METRICS: Mediastinal blood pool: Max SUV of 3.5, mean SUV of 2.9 Liver uptake: Max SUV of 4.5, mean SUV of 3.7 PET/PET skull to thigh INIT [id number] IMPRESSION: 1.1 cm right lower lobe lung nodule with borderline uptake of 2.4 SUV may be malignant or benign. No FDG avid findings to suggest locoregional or distant metastatic disease.
== END 2025-07-01 15:27 | disposition home or self-care (01) ==
LOC: RAD 15:27
PROVIDERS: PCP Nurse Practitioner Family; Visit Provider Internal Medicine
DX: R91.8 Other nonspecific abnormal finding of lung field (principal); M47.817 Spondylosis without myelopathy or radiculopathy, lumbosacral region
CPT/HCPCS: 78815; A9552

== ENCOUNTER → 2025-07-11 11:22 | Outpatient (BNVA) | payer OTHER, SELFPAY ==
[2024-07-08 10:02] VITALS: BP 128/71; BMI 35.9
== END ==
PROVIDERS: PCP Nurse Practitioner Family; Visit Provider Nurse Practitioner Psychiatric/Mental Health
DX: F33.2 Major depressive disorder, recurrent severe without psychotic features (principal); F43.12 Post-traumatic stress disorder, chronic
CPT/HCPCS: 80061; 83036